=== PATIENT | female | born 1950 | race Caucasian/White ===

== ENCOUNTER → 2017-09-15 11:20 | Outpatient (REF) | payer MEDICARE, SELFPAY ==
[2017-09-15 14:35] LABS: Alanine Aminotransferase 35 U/L (12-78); Albumin Level 3.9 gm/dL (3.4-5.0); Albumin/Globulin Ratio 1.2 (1.1-1.8); Alkaline Phosphatase 109 U/L (46-116); Anion Gap 10.7 mEq/L (5-15); Aspartate Amino Transferase 16 U/L (15-37); Bilirubin,Total 0.4 mg/dL (0.2-1.0); Blood Urea Nitrogen 10 mg/dL (7-18); Carbon Dioxide 29 mmol/L (21.0-32.0); Chloride 104 mmol/L (98-107); Creatinine,Serum 0.83 mg/dL (0.55-1.02); Estimated Glomerular Filt Rate 69 ml/min (>60); Free T4 (Free Thyroxine) 1.06 ng/dl (0.76-1.46); GFR (African American) 83 ML/MIN (>60); Globulin 3.2 gm/dl (1.3-3.2); Glucose 103 mg/dL (74-106); Potassium 4.7 mmoL/L (3.5-5.1); Sodium 139 mmol/L (136-145); Total Protein,Serum 7.1 gm/dL (6.4-8.2)
[2017-09-15 14:36] LABS: Basophils % 0.5 % (0.1-2.0); Eosinophils # 0.1 K/mm3 (0.0-0.4); Eosinophils % 2.1 % (0.1-12.0); Hematocrit 40.7 % (37.0-47.0); Hemoglobin 13.6 g/dL (12.2-16.2); Lymphocytes # 0.8 K/mm3 (0.7-4.5); Lymphocytes % 20.4 K/mm3 (10-50); Mean Corpuscular HGB Conc 33.5 g/dL (31.8-35.4); Mean Corpuscular Hemoglobin 29.5 pg (27.0-31.2); Mean Corpuscular Volume 88.3 fl (81-99); Mean Platelet Volume 8.2 fl (7.4-10.4); Monocytes # 0.4 K/mm3 (0.1-1.0); Monocytes % 9.9 % (1.7-9.3); Neutrophils # 2.5 K/mm3 (1.8-7.8); Neutrophils % 67.1 % (37.0-80.0); Platelet Count 276 K/mm3 (142-424); Red Blood Count 4.61 M/mm3 (4.20-5.40); Red Cell Distribution Width 13.6 % (11.5-17.5); White Blood Count 3.8 K/mm3 (4.8-10.8)
[2017-09-15 16:03] LABS: Erythrocyte Sedimentation Rate 21 mm/hr (0-30)
[2017-09-18 11:53] LABS: Vitamin D 25 Hydroxy 13.4 ng/mL (30.0-100.0)
== END ==
LOC: LAB 11:20
PROVIDERS: Visit Provider Emergency Medicine
DX: M25.561 Pain in right knee (principal); R53.83 Other fatigue
CPT/HCPCS: 80053; 82652; 84439; 84443; 85025; 85651

== ENCOUNTER 2020-09-25 08:29 | Inpatient (IN) | payer MEDICARE, SELFPAY ==
[2020-09-25] VITALS (20 sets, daily range): BP systolic 149–205; BP diastolic 80–113; PULSE 67–87; RESP 15–22; TEMP 36.4–37.1; O2SAT 94–99; BMI 21.2; BMI 22.6
--- NOTE | 2020-09-25 08:30 | PC.NURSE ---
Patient to CT.
--- NOTE | 2020-09-25 08:31 | HMH.EDNEU ---
ED Disposition Clinical Impression: Dysphasia, RUE numbness Cerebrovascular accident Qualifiers: CVA mechanism: unspecified Qualified Code(s): I63.9 - Cerebral infarction, unspecified Disposition: Admitted as Observation Condition on Discharge: Good Referrals: Marcelo Voss MD [Primary Care Provider] - Time of Disposition: 11:07 - Critical Care Critical Care Time: No Attestation: On , the high probability of a clinically significant, sudden or life threatening deterioration of the following system(s) required my full and direct attention, intervention and personal management. The time I documented below is in addition to time spent performing reported procedures but includes the following listed in this critical care notation. Medical Decision Making - Herman Inquiry Pt receiving controlled substance: No Vital Signs: 09/25/20 08:29 09/25/20 08:59 09/25/20 10:22 Temperature 97.8 F Temperature Source Oral Pulse Rate [Left Radial] 80 77 80 Respiratory Rate 17 18 18 Blood Pressure [Right Arm] 205/100 H 185/105 H 194/86 H Blood Pressure Mean [Right Arm] 135 131 122 Blood Pressure Source [Right Arm] Automatic Cuff Blood Pressure Position [Right Arm] Sitting Sitting 02 Sat by Pulse Oximetry 94 L 98 99 Oxygen Delivery Method Room Air Room Air 09/25/20 10:30 Temperature Temperature Source Pulse Rate [Left Radial] 69 Respiratory Rate 18 Blood Pressure [Right Arm] 199/104 H Blood Pressure Mean [Right Arm] 135 Blood Pressure Source [Right Arm] Blood Pressure Position [Right Arm] Sitting 02 Sat by Pulse Oximetry 97 Oxygen Delivery Method Room Air - Lab Data Lab results reviewed: Yes: I reviewed the patient's lab results. Lab Results 09/25/20 08:30: WBC 5.2, RBC 4.93, Hgb 14.3, Hct 42.7, MCV 86.8, MCH 29.0, MCHC 33.4, RDW 13.8, Plt Count 297, MPV 7.6, Neut % (Auto) 72.2, Lymph % (Auto) 19.0, [place] % (Auto) 6.9, Eos % (Auto) 1.7, Baso % (Auto) 0.3, Neut # (Auto) 3.7, Lymph # (Auto) 1.0, [place] # (Auto) 0.4, Eos # (Auto) 0.1, Baso # (Auto) 0.0 09/25/20 08:30: Sodium 140, Potassium 3.0 L, Chloride 103, Carbon Dioxide 26, Anion Gap 14.0, BUN 8, Creatinine 0.80, Estimated Creat Clear 52, Estimated GFR 71, Est GFR ( Amer) 86, Glucose 151 H, Calcium 9.9, Total Bilirubin 0.6, AST 22, ALT 16, Alkaline Phosphatase 102, Total Protein 8.3 H, Albumin 4.9, Globulin 3.4 H, Albumin/Globulin Ratio 1.4 09/25/20 08:45: Urine Color Yellow, Urine Appearance Clear, Urine pH 5.5, Ur Specific [place] 1.015, Urine Protein 1+, Urine Glucose (UA) Negative, Urine Ketones Negative, Urine Blood Trace-i, Urine Nitrate Positive, Urine Bilirubin Negative, Urine Urobilinogen 0.2, Ur Leukocyte Esterase 2+ A, Urine RBC Occasional, Urine WBC Tntc, Ur Squamous Epith Cells 5-10, Ur Renal Epithelial Cell Occasional, Urine Bacteria 4+ Result diagrams: 09/25/20 08:30 09/25/20 08:30 Orders (Tests/Meds): ED MEDICATIONS Generic Name Dose Route Start Last Admin Trade Name Freq PRN Reason Stop Dose Admin Ceftriaxone Sodium 1 gm/ 50 mls @ 100 mls/hr 09/25/20 09:45 09/25/20 09:59 Sodium Chloride IV 10/09/20 09:44 100 mls/hr Q24H PACO Administration Protocol Discontinued Medications Generic Name Dose Route Start Last Admin Trade Name Freq PRN Reason Stop Dose Admin Iopamidol 100 ml 09/25/20 09:50 09/25/20 09:50 Iopamidol-370 (76%);100ml Bottle IV 09/25/20 09:51 100 ml ONCE ONE Administration Sodium Chloride 50 ml 09/25/20 09:50 09/25/20 09:50 0.9 % Sodium Chloride 50 Ml Vial IV 09/25/20 09:51 50 ml ONCE ONE Administration Sodium Chloride 10 ml 09/25/20 09:50 09/25/20 09:50 Sodium Chloride 0.9% 10ml Syr (Rad Only) IV 09/25/20 09:51 10 ml ONCE ONE Administration ORDERS Category Date Time Status Full Resp Panel w/COVID ([facility]) Routine Lab 09/25/20 10:40 Received Urine Culture Stat Micro 09/25/20 08:45 Received - ECG Data Tracing #1 85bpm, nsr w/ PAC, non-sp
--- NOTE | 2020-09-25 08:33 | CT_ITS ---
PROCEDURE: CT HEAD/BRAIN WO CON CLINICAL INDICATION: CVA Right upper extremity numbness with headache COMPARISON: No exams were available for comparison TECHNIQUE: Axial images obtained. All CT scans at the facility use one or more dose reduction, viz: automated exposure control, ma/kV adjustment per patient size (including targeted exams where dose is matched to indication, i.e. head), or iterative reconstruction technique. FINDINGS: No midline shift, mass effect, intracranial hemorrhage, hydrocephalus, or extra-axial fluid collection is evident. There is generalized atrophy with hypoattenuation of the periventricular white matter consistent with microangiopathic changes.. There is an area of decreased attenuation in the inferior aspect of the right frontal lobe and right basal ganglia inferiorly suggesting an old area of infarction. The calvarium has an unremarkable appearance. No mastoid effusion. No sinus air-fluid level. IMPRESSION: No definite acute finding. Low-density changes in the right frontal lobe and right basal ganglia suggesting a remote area of infarction. Periventricular ischemic gliotic changes are also noted. Dictated by: Ren Hopkins MD 09/25/2020 08:49 Ren Hopkins MD in [place] 09/25/2020 08:50
[2020-09-25 08:46] LABS: Basophils % 0.3 % (0.1-2.0); Eosinophils # 0.1 K/mm3 (0.0-0.4); Eosinophils % 1.7 % (0.1-12.0); Hematocrit 42.7 % (37.0-47.0); Hemoglobin 14.3 g/dL (12.2-16.2); Mean Corpuscular HGB Conc 33.4 g/dL (31.8-35.4); Mean Corpuscular Volume 86.8 fl (81-99); Mean Platelet Volume 7.6 fl (7.4-10.4); Monocytes # 0.4 K/mm3 (0.1-1.0); Monocytes % 6.9 % (1.7-9.3); Neutrophils # 3.7 K/mm3 (1.8-7.8); Neutrophils % 72.2 % (37.0-80.0); Platelet Count 297 K/mm3 (142-424); Red Blood Count 4.93 M/mm3 (4.20-5.40); Red Cell Distribution Width 13.8 % (11.5-17.5); White Blood Count 5.2 K/mm3 (4.8-10.8)
[2020-09-25 08:47] LABS: Chloride 103 mmol/L (98-107); Sodium 140 mmol/L (136-145)
--- NOTE | 2020-09-25 08:48 | ECG_ITS ---
APPROVED REPORT Exam: Resting ECG HR:85 bpm ECG Measurements Heart Rate 85 AXES NE 138 P 42 QRSd 84 QRS 30 QT 402 T 69 QTc 478 Conclusion Sinus rhythm with premature atrial complexes with aberrant conduction ST & T wave abnormality, consider lateral ischemia Prolonged QT Abnormal ECG Electronically signed by : Bradley Freeman, 09/26/2020 19:40:04
[2020-09-25 08:50] LABS: Alanine Aminotransferase 16 U/L (12-78); Albumin Level 4.9 g/dl (3.5-5.0); Albumin/Globulin Ratio 1.4 (1.1-1.8); Alkaline Phosphatase 102 U/L (38-126); Aspartate Amino Transferase 22 U/L (14-36); Bilirubin,Total 0.6 mg/dl (0.2-1.3); Blood Urea Nitrogen 8 mg/dl (7-17); Carbon Dioxide 26 mmol/L (22.0-30.0); Creatinine Clearance Estimated 52 mL/min (50-200); Estimated Glomerular Filt Rate 71 ml/min (>60); GFR (African American) 86 ML/MIN (>60); Globulin 3.4 g/dL (1.3-3.2); Total Protein,Serum 8.3 g/dl (6.3-8.2)
[2020-09-25 08:51] LABS: Calcium 9.9 mg/dl (8.4-10.2); Glucose 151 mg/dl (74-100)
[2020-09-25 08:51] LABS: Microscopic, Urine URINE MICROSCOPIC (MICROSCOPIC)
[2020-09-25 08:53] LABS: Appearance,Urine CLEAR (Clear); Bilirubin,Urine Negative (Negative); Blood, Urine TRACE-I (Negative); Color,Urine YELLOW (Yellow); Glucose,Urine (UA) Negative (Negative); Ketones,Urine Negative (Negative); Leukocyte Esterase,Urine 2+ (Negative); Nitrate,Urine POSITIVE (Negative); PH,Urine 5.5 (5.0-8.5); Protein,Urine 1+ (Negative); Specific Gravity, Urine 1.015 (1.005-1.030); Urobilinogen,Urine 0.2 EU/dl (0.2)
--- NOTE | 2020-09-25 09:02 | CT_ITS ---
Procedure: CT ANGIO NECK CLINICAL HISTORY: SLURRED SPEECH Slurred speech and right arm numbness COMPARISON: CT CT ANGIO HEAD from 09/25/2020 TECHNIQUE: IV Contrast: 100ml Isovue 370 Axial images obtained with sagittal and coronal reformats. All CT scans at the facility use one or more dose reduction, viz: automated exposure control, ma/kV adjustment per patient size (including targeted exams where dose is matched to indication, i.e. head), or iterative reconstruction technique. FINDINGS: CTA neck: The aortic arch has an unremarkable appearance. Calcific plaque is present in the proximal aspect of the right subclavian artery causing high-grade stenosis of approximately 80 percent. The right common carotid has an unremarkable appearance. Calcific plaque is present at the proximal aspect of the right internal carotid at of 30-40 percent stenosis. The remaining cervical portion of the right ICA is unremarkable. Calcific plaque is present in the left carotid bulb with less than 20 percent stenosis. The left vertebral is dominant and has an unremarkable appearance. There is a hypoplastic right vertebral artery. CTA head: There is persistent origin of both posterior cerebral arteries as a normal variant. No major branch occlusion apparent. No aneurysm or dissection. There is a 16 mm right thyroid nodule partially calcified margins. No enhancing lesions. IMPRESSION: 1. High-grade stenosis of the proximal aspect of the right subclavian artery of approximately 80 percent. 2. No significant stenosis of the carotids. There is 30-40 percent stenosis of the ostium of the right internal carotid and less than 20 percent stenosis of the left internal carotid 3. Negative CTA of the head Dictated by: Ren Hopkins MD 09/25/2020 10:27 Ren Hopkins MD in [place] 09/25/2020 10:27
[2020-09-25 09:11] LABS: RBC,Urine Occasional #/hpf (0-3); WBC,Urine TNTC #/hpf (0-3)
[2020-09-25 09:12] LABS: Bacteria,Urine 4+ /lpf; Renal Epithelial Cells,Urine Occasional #/lpf (0)
--- NOTE | 2020-09-25 09:24 | PC.NURSE ---
Patient back to ct at this time.
--- NOTE | 2020-09-25 10:35 | PC.NURSE ---
Dr Quevedo spoke with Dr Voss
--- NOTE | 2020-09-25 10:36 | PC.NURSE ---
MD at bedside discussing possible admission.
[2020-09-25 10:51] LABS: Adenovirus,PCR Not Detected (NotDetected); Bordetella Pertussis Not Detected (NotDetected); Chlamydophila Pneumoniae, PCR Not Detected (NotDetected); Coronavirus 19, PCR Not Detected (NotDetected); Coronavirus 229E Not Detected (NotDetected); Coronavirus NL63 Not Detected (NotDetected); Coronavirus OC43 Not Detected (NotDetected); Coronovirus HKU1,PCR Not Detected (NotDetected); Human Metapneumovirus Not Detected (NotDetected); Influenza A, PCR Not Detected (NotDetected); Influenza AH1, 2009 Not Detected (NotDetected); Influenza AH1, PCR Not Detected (NotDetected); Influenza AH3,PCR Not Detected (NotDetected); Influenza B, PCR Not Detected (NotDetected); Mycoplasma Pneumoniae, PCR Not Detected (NotDetected); Parainfluenza 1, PCR Not Detected (NotDetected); Parainfluenza 2, PCR Not Detected (NotDetected); Parainfluenza 3, PCR Not Detected (NotDetected); Parainfluenza 4, PCR Not Detected (NotDetected); Respiratory Syncytial Virus Not Detected (NotDetected); Rhinovirus/Enterovirus Not Detected (NotDetected)
--- NOTE | 2020-09-25 11:22 | CA_ITS ---
APPROVED REPORT EXAM: Comprehensive 2D, Doppler, and color-flow Echocardiogram Crane Crew Supervisor: Evelyn York RVT Ht: 5 ft 8 in Wt: 140lbs BSA: 1.76 BP: 178/97 mmHg Indications: CVA,HTN 2D Dimensions LVOT 1.72 cm (M/F) 1.5-2.5 LA Volume 30.90 mL LA Volume Index 17.65 mL/m2 (M/F) 16-34 M-Mode Dimensions RVDd 4.02 cm (0.9-2.6) LA Diam 3.34 cm (1.9-4.0) LVDd 4.59 cm (3.5-5.7) Ao Diam 2.99 cm (2.0-3.7) LVDs 2.05 cm (3.5-5.7) IVSd 1.18 cm (0.6-1.1) PWd 0.61 cm (0.6-1.1) EF (Teich) 86.00% FS 55.30% EDV (Teich) 96.80 mL ESV (Teich) 13.60 mL LV Diastology E Decel Time 287.00 (160-240 msec) E/A Ratio 0.7 MED E' 3.00 (< 7 cm/sec) E'/MED E' Ratio 18.40 (>14) LAT E' 9.40 (<10 cm/sec) E/LAT E' Ratio 5.87 (>14) Mitral Valve MV E Max [place]une[place]. 55.00 (40-130 cm/s) MV A Velocity 84.00 (40-130 cm/s) E/A Ratio 0.66 MV Decel. Time 287.00 (160-240 ms) MV PHT 84.00 ms Pulmonary Valve PV Peak Velocity 68.00 (50-150 cm/s) Tricuspid Valve TR P. Velocity 285.00 cm/s RAP Estimate 10.00 mmHg RVSP 42.60 mmHg Left Ventricle Mildly enlarged left atrium, normal left ventricular size, mild concentric left ventricular hypertrophy, visually estimated ejection fraction 55% with no regional wall motion abnormality, Doppler evidence of impaired LV relaxation, tissue Doppler is inadequate for calculation of the left atrial pressure. Right Ventricle Right atrium and right ventricle are mildly enlarged with normal contractility. Aortic Valve Aortic valve is minimally thickened and fibrosed, there is no aortic stenosis or aortic insufficiency. Mitral Valve Mitral valve is minimally thickened, there is mild mitral regurgitation. Tricuspid Valve Tricuspid grossly normal, there is mild tricuspid regurgitation, calculated right ventricular systolic pressure is 48 mmHg. Pulmonic Valve Pulmonic valve is poorly visualized. Great Vessels Aortic root is normal size. Pericardium No significant pericardial effusion noted. Conclusion 1. Mildly enlarged left atrium, normal left ventricular size, mild concentric left ventricular hypertrophy, visually estimated ejection fraction 55% with no regional wall motion abnormality, Doppler evidence of impaired relaxation seen 2. Mildly enlarged right ventricle with normal contractility. 3. Mild mitral and tricuspid regurgitation, calculated right ventricular systolic pressure is 48 mmHg. 4. No significant pericardial effusion noted. Electronically signed by : Mariano Correa, 09/25/2020 21:49:41
--- NOTE | 2020-09-25 11:22 | MR_ITS ---
PROCEDURE: MR HEAD/BRAIN WO CON CLINICAL INDICATION: cva Weakness in the right hand, unable to perform words COMPARISON: CT CT HEAD/BRAIN WO CON from 09/25/2020 TECHNIQUE: Routine multiplanar multi echo sequences are performed without gadolinium enhancement. FINDINGS: No midline shift or mass effect is evident. There are small areas discontinuous small gyriform areas of restricted diffusion in the left parietal lobe consistent with acute infarction. No evidence of hemorrhage. Scattered periventricular and subcortical T2 white matter hyperintensities are present consistent with ischemic gliotic change from microvascular disease. Encephalomalacia changes present in the inferior and posterior aspect of the right frontal lobe extending into the basal ganglia region consistent with and old remote area of infarction. The cerebellopontine angles, cerebellum, and brainstem are unremarkable. The pituitary, optic chiasm, corpus callosum, and craniocervical junction are unremarkable. No mastoid effusion or sinus air-fluid level. IMPRESSION: 1. Small discontinuous gyriform areas of restricted diffusion in the left parietal lobe consistent with acute foci of infarction. Watershed type infarction is a consideration. 2. Encephalomalacia change in the right frontal lobe and basal ganglia. Dictated by: Ren Hopkins MD 09/25/2020 13:32 Ren Hopkins MD in [place] 09/25/2020 13:32
--- NOTE | 2020-09-25 11:52 | PC.NURSE ---
Marlyn Diaz with Cardiology with PT.
--- NOTE | 2020-09-25 11:55 | PC.NURSE ---
Cardiology at bedside at this time.
--- NOTE | 2020-09-25 11:59 | CA_ITS ---
APPROVED REPORT Tube Cutter: Evelyn York RVT Study Quality: Good Indications: elevated bp Risk Factors Hypertension Renal Artery Doppler Origin (R) 239.9/ cm/sec Proximal (R) 190.5/ cm/sec Mid (R) 91.7/ cm/sec Distal (R) 100.5/ cm/sec Renal Aorta Ratio (R) 1.92 Segmental A. (R) 60.6/26.1 cm/sec RI: 0.56 Segmental A. Sup (R) 60.6/26.1 cm/sec Segmental A. Mid (R) 53.4/20.2 cm/sec Segmental A. Inf (R) 47.5/16.6 cm/sec Origin (L) 141.1/ cm/sec Proximal (L) 151.7/ cm/sec Mid (L) 179.9/ cm/sec Distal (L) 112.9/ cm/sec Renal Aorta Ratio (L) 1.44 Segmental A. (L) 62.7/13.4 cm/sec RI: 0.78 Segmental A. Sup (L) 44.8/21.3 cm/sec Segmental A. Mid (L) 62.7/13.4 cm/sec Segmental A. Inf (L) 34.7/15.7 cm/sec Renal Measurements Kidney Size (R) 11.6x6.1 cm Cortical Thickness (R) 1.4 cm Kidney Size (L) 11.8x6.1 cm Cortical Thickness (L) 1.2 cm Findings Study suggests less than 60% stenosis of the bilateral renal arteries. 1.9 X 1.6 cm cyst lower pole right kidney. 1.2 X1.4 cm cyst mid pole left kidney. Conclusion Study suggests less than 60% stenosis of the bilateral renal arteries. 1.9 X 1.6 cm cyst lower pole right kidney. 1.2 X1.4 cm cyst mid pole left kidney. Electronically signed by : Ren Hopkins MD 09/25/2020 15:20:11
--- NOTE | 2020-09-25 12:06 | HMH.CNCARD ---
History of Present Illness Consult date: 09/25/20 Requesting physician: Marcelo Voss Chief complaint: numbness face/arm and slurred speech History of present illness: This is a 70 year old female who presented to the emergency department with complaints of slurred speech and numbness in the right side of her face and right arm that started on Friday. The patient does have a weaker dairy nutrition specialist on the right side than the left. She also has some minor facial paralysis on the right side. She states that the slurred speech persisted throughout the day Friday and yesterday. Her son went to see her this morning and she was completely aphasic approximately an hour before he brought her into the emergency department here. The patient has also had a headache that has been on and off for the last several months. The stroke team at [facility] was contacted and they discussed the case with Dr. Pathak. He stated that no further acute intervention would be undertaken for this patient but if any new symptoms arose and he would be happy to facilitate a transfer at that time. The patient was admitted here to [facility] for her CVA symptoms. Upon arrival to the hospital her blood pressure was 200/105. Her systolic blood pressure is down to 187 on the right arm and her systolic blood pressure on the left is still around 195. She denies any chest pain or pressure. She denies any shortness of breath or edema. She denies any fever, chills, nausea, vomiting, diarrhea, PND or orthopnea. The patient states that she takes no daily medications. She does not like doctors or coming to the hospital. The CT of her head showed no acute abnormality. She also had a CTA of her head and neck which showed no acute abnormality of the head. There was high-grade stenosis of the proximal right subclavian artery at 80%. Cardiology was consulted. [facility] History I have reviewed the patient's past medical history: Yes *Have you ever received a pneumonia vaccine?: No *Have you received a flu vaccine this season?: No Other Medical History: Reports: Arthritis, Other (IBS) Laterality Cases: Right: Arthroscopy Knee Other Surgeries: Yes: Hysterectomy-Total Amputation: No Fractures: Yes - *Social History Smoking Status: Unknown if ever smoked Alcohol Intake: never Substance Use Type: denies use *Occupational Status:: disabled *Travel in the last 8 weeks: None Family Hx:: Heart Attack, Hyperlipidemia, Hypertension Meds Home Medications Medication Instructions Recorded Confirmed Type No Known Home Medications 09/25/20 09/25/20 History Allergies Allergy/AdvReac Type Severity Reaction Status Date / Time codeine [CODEINE] Allergy Unknown Verified 10/03/17 10:50 ibuprofen [IBUPROFEN] Allergy Unknown Verified 10/03/17 10:50 Exam Vital signs and Labs for Last 24 Hours: Temp Pulse Resp BP Pulse Ox 97.8 F 83 18 187/113 H 99 09/25/20 08:29 09/25/20 11:45 09/25/20 11:45 09/25/20 11:30 09/25/20 11:45 Laboratory Results - last 24 hr 09/25/20 08:30: WBC 5.2, RBC 4.93, Hgb 14.3, Hct 42.7, MCV 86.8, MCH 29.0, MCHC 33.4, RDW 13.8, Plt Count 297, MPV 7.6, Neut % (Auto) 72.2, Lymph % (Auto) 19.0, [place] % (Auto) 6.9, Eos % (Auto) 1.7, Baso % (Auto) 0.3, Neut # (Auto) 3.7, Lymph # (Auto) 1.0, [place] # (Auto) 0.4, Eos # (Auto) 0.1, Baso # (Auto) 0.0 09/25/20 08:30: Sodium 140, Potassium 3.0 L, Chloride 103, Carbon Dioxide 26, Anion Gap 14.0, BUN 8, Creatinine 0.80, Estimated Creat Clear 52, Estimated GFR 71, Est GFR ( Amer) 86, Glucose 151 H, Calcium 9.9, Total Bilirubin 0.6, AST 22, ALT 16, Alkaline Phosphatase 102, Total Protein 8.3 H, Albumin 4.9, Globulin 3.4 H, Albumin/Globulin Ratio 1.4 09/25/20 08:45: Urine Color Yellow, Urine Appearance Clear, Urine pH 5.5, Ur Specific [place] 1.015, Urine Protein 1+, Urine Glucose (UA) Negative, Urine Ketones Negative, Urine Blood Trace-i, Urine Nitrate Positive, Urine Bilirubin Negative, Urine Urobilinoge
--- NOTE | 2020-09-25 12:09 | PC.NURSE ---
Dr Quevedo spoke with Dr Pathak [facility] Stroke Team
--- NOTE | 2020-09-25 12:12 | PC.NURSE ---
Pt to MRI
[2020-09-25 12:27] LABS: Erythrocyte Sedimentation Rate 23 mm/hr (0-30)
--- NOTE | 2020-09-25 12:29 | PC.NURSE ---
Patient to be admitted to inpatient bed s/p MRI completion.
[2020-09-25 12:59] LABS: Thyroid Stimulating Hormone 2.98 uIU/mL (0.465-4.68)
--- NOTE | 2020-09-25 13:12 | PC.NURSE ---
PT ARRIVED TO THE FLOOR
--- NOTE | 2020-09-25 14:00 | PC.NURSE ---
Pt failed bedside swallow eval, speech eval order placed
--- NOTE | 2020-09-25 16:13 | P.CONPHA_ITS ---
[facility] Pharmacy VTE Monitoring - Patient Demographics Admission date: 09/25/20 Report Date: 09/25/20 Time: 16:13 Allergies/Adverse Reactions: Patient Allergies codeine [CODEINE] Allergy (Unknown, Verified 10/03/17 10:50) ibuprofen [IBUPROFEN] Allergy (Unknown, Verified 10/03/17 10:50) Height: 1.73 m Weight: 67.585 kg Patient Problems: Current Active Problems (Last Updated 09/22/17 @ 10:14 by FANTA Mathew) Cerebrovascular accident (Acute) Dysphasia (Acute) RUE numbness (Acute) Subclavian artery stenosis (Acute) Bilateral carotid artery stenosis (Acute) Malignant hypertension (Acute) CVA (cerebral vascular accident) (Acute) Aphasia (Acute) Right sided numbness (Acute) - VTE Risk Labs: VTE Related Lab Results Hgb 14.3 g/dL (12.2-16.2) 09/25/20 08:30 Hct 42.7 % (37.0-47.0) 09/25/20 08:30 Plt Count 297 K/mm3 (142-424) 09/25/20 08:30 BUN 8 mg/dl (7-17) 09/25/20 08:30 Creatinine 0.80 mg/dl (0.52-1.04) 09/25/20 08:30 Estimated Creat Clear 52 mL/min (50-200) 09/25/20 08:30 Was VTE Risk Assessment Performed: Yes VTE Score: 3 VTE Risk Level: Low Risk - Prophylaxis VTE Prophylaxis Ordered?: Yes Types of VTE Prophylaxis: IPCS Thigh High Location of Applied Device: Bilateral Lower Extremeties
--- NOTE | 2020-09-25 16:16 | HMH.PHAINT ---
PATIENT DOES NOT TAKE ANY HOME MEDICATIONS.
--- NOTE | 2020-09-25 20:10 | HMH.HP ---
*Admission Date: 09/25/20 *Chief complaint: cva *History of present illness: pt presented to the ed with reported diff with speech-1yo F evaluated for strokelike symptoms. No history of previous. Patient has not seen her PCP in a long time and takes no daily medication. Patient reports her symptoms began on Friday afternoon. She states she had difficulty with speech and slurred speech throughout the day yesterday. Her son reports when he saw her this morning she was completely aphasic, approximately 1 hour ago. Patient reports she has had a waxing and waning headache for the past several months. She does not take any medication daily. Patient also complains of weakness to her right hand. pt had ed eval which included ct and cta head/neck-yo F evaluated with concern for stroke. Patient is well outside the window for any intervention at this time. Patient does have right-sided director client weakness compared to the left. She has minor facial paralysis of the upper and lower face on evaluation. Patient is sent for CT of the brain without. Labs are pending. Patient is in no acute distress on initial evaluation. CT without contrast does not demonstrate acute bleed. Patient's creatinine is reasonable and she is therefore sent for a CTA head and neck. Patient initially presented with a systolic pressure greater than 200. Her systolic is now 185 without intervention. Patient labs are unremarkable. CT angio of the neck and head demonstrate an 80% stenosis of the proximal right subclavian without other acute finding. Case discussed with Dr. Voss who request the case be discussed with the stroke team for possible intervention given the patient had symptoms and resolution of symptoms immediately prior to arrival. Case was discussed with Dr. Pathak the [facility]. He states there is no further acute intervention that they would undertake for the patient at this time. He does state that they would be happy to accept the patient in transfer should she develop any new acute findings. Case was again discussed with Dr. Voss who is amendable to admission at this time. Patient is a full code. pt was admitted for treatment and eval [facility] History I have reviewed the patient's past medical history: Yes Medical History: Denies:: Diabetes Mellitus Type 1, Diabetes Mellitus Type 2 *Have you ever received a pneumonia vaccine?: Yes *Have you received a flu vaccine this season?: No Other Medical History: Reports: Arthritis, Other (IBS) Laterality Cases: Right: Arthroscopy Knee Other Surgeries: Yes: Hysterectomy-Total Amputation: No Fractures: Yes - *Social History Last grade of school completed: 7th or 8th Smoking Status: Unknown if ever smoked Alcohol Intake: never Substance Use Type: denies use *Occupational Status:: disabled Housing: house Household Members: none *Travel in the last 8 weeks: None Family Hx:: Heart Attack, Hyperlipidemia, Hypertension Review of Systems - Review of Systems Review of systems:: pertinent systems reviewed and negative unless documented below - Constitutional Denies fever(s) - Eyes Denies change in vision - ENT Denies sore throat - *Cardiovascular Denies chest pain at rest - *Respiratory Denies cough - *Gastrointestinal Denies abdominal pain - *Genitourinary Denies pelvic pain - *Musculoskeletal Denies joint pain - Integumentary/Breasts Denies rash - *Neurologic Reports abnormal speech, Reports headache(s), Reports numbness (Right side of face and right arm), Reports weakness (Right arm), Denies seizure-like activity - Psychiatric Denies sensing things others do not sense Meds Home Medications Medication Instructions Recorded Confirmed Type No Known Home Medications 09/25/20 09/25/20 History Allergies Allergy/AdvReac Type Severity Reaction Status Date / Time codeine [CODEINE] Allergy Unknown Verified 10/03/17 10:50 ibuprofen [IBUPROFEN] Allergy Unknown Verified
[2020-09-26] VITALS (28 sets, daily range): BP systolic 112–175; BP diastolic 64–99; PULSE 50–75; RESP 16–19; TEMP 36.6–37; O2SAT 94–99; BMI 22.9
--- NOTE | 2020-09-26 | IR_ITS ---
APPROVED REPORT Patient Location: Inpatient Caisson Worker: GERA Guallpa RT (R) PROCEDURES Right femoral arterial access Catheter placement in the right axillary artery Right axillary artery selective angiogram Right vertebral artery selective angiogram Catheter placement in the brachiocephalic artery Selective brachiocephalic artery angiogram INDICATION TIA, Abnormal CTA indicating 80% right subclavian artery stenosis Informed consent was obtained prior to the procedure. COMPLICATIONS None Estimated Blood Loss: less than 10 ml TECHNIQUE 1% lidocaine used anesthetize right groin the right femoral artery was accessed via the Salinger technique and a 4 Occitan sheath was placed in the right femoral artery. A JR4 catheter was placed in the right axillary artery under fluoroscopic guidance and the catheter easily passed. Selective angiography was performed. Following this the catheter was pulled back and placed in the right vertebral artery where selective angiography was performed. The catheter was then pulled back into the brachiocephalic artery where selective angiography was performed which demonstrated a mild right subclavian artery stenosis. The catheter was then placed back into the axillary artery and a recorded tracing was performed with a 4 Occitan pullback through the right subclavian artery stenosis. At worst this may have produced a 10 mm gradient however it was likely less than 10 mm. At this point based on the carotid artery ultrasound I saw no further reason to proceed with four-vessel selective angiography of the cerebral vasculature therefore the apparatus was removed the catheter was removed the patient was transferred to the postop holding area in stable condition for sheath removal ANGIOGRAPHIC RESULTS The brachiocephalic artery is widely patent The right common carotid artery is widely patent The right subclavian artery has a concentric mild 20% stenosis The right axillary artery is widely patent The right vertebral artery is nondominant and patent into the basilar artery IMPRESSION Nonvascular etiology for TIA Patient's TIA most likely stem from hypertensive emergency PLAN 1. Medical management for peripheral artery disease with standard therapy for atherosclerotic disease 2. Consider cardiac ischemic work-up as an outpatient if patient is willing 3. LDL less than 55 4. Treatment of hypertension Electronically signed by : Quinton Payton, 09/26/2020 11:57:18
--- NOTE | 2020-09-26 06:04 | PC.NURSE ---
A&ox4. Severe weakness to rue and moderate weakness to rle. Able to follow commands. C/o h/a at beginning of shift; tx with tylenol per sep; effectiveness noted. No episodes of n/v/d, dizziness or soa.
[2020-09-26 08:01] LABS: Basophils % 0.4 % (0.1-2.0); Eosinophils # 0.1 K/mm3 (0.0-0.4); Eosinophils % 2.6 % (0.1-12.0); Hematocrit 37.3 % (37.0-47.0); Lymphocytes # 0.9 K/mm3 (0.7-4.5); Lymphocytes % 18.2 % (10-50); Mean Corpuscular HGB Conc 34.4 g/dL (31.8-35.4); Mean Corpuscular Volume 84.4 fl (81-99); Mean Platelet Volume 7.5 fl (7.4-10.4); Monocytes # 0.5 K/mm3 (0.1-1.0); Neutrophils # 3.2 K/mm3 (1.8-7.8); Neutrophils % 68.8 % (37.0-80.0); Platelet Count 271 K/mm3 (142-424); Red Blood Count 4.42 M/mm3 (4.20-5.40); Red Cell Distribution Width 14.2 % (11.5-17.5); White Blood Count 4.7 K/mm3 (4.8-10.8)
[2020-09-26 08:05] LABS: Anion Gap 11.3 mEq/L (5-15); Blood Urea Nitrogen 12 mg/dl (7-17); Calcium 9.6 mg/dl (8.4-10.2); Carbon Dioxide 25 mmol/L (22.0-30.0); Chloride 104 mmol/L (98-107); Chol/HDL Ratio 4.8 (1-3.5); Cholesterol 216 mg/dl (140-200); Creatinine Clearance Estimated 57 mL/min (50-200); Estimated Glomerular Filt Rate 71 ml/min (>60); GFR (African American) 86 ML/MIN (>60); Glucose 116 mg/dl (74-100); HDL Cholesterol 45 mg/dl (40-60); Potassium 3.3 mmoL/L (3.5-5.1); Sodium 137 mmol/L (136-145); Triglycerides 152 mg/dl (30-150); VLDL Cholesterol 30 mg/dL (0-40)
[2020-09-26 08:06] LABS: Hemoglobin 12.8 g/dL (12.2-16.2)
[2020-09-26 08:15] LABS: Direct LDL Cholesterol 103.81 mg/dL (100-129)
--- NOTE | 2020-09-26 09:16 | HMH.ACPN2 ---
Internal Medicine - PN: Subj *Date: 09/26/20 *Time: 19:12 Interval history: 70-year-old female patient lying in bed resting quietly, she reports she is feeling better today. She is still slurring her words with right-sided facial droop and right upper extremity weakness. Blood pressure now is 129/79, pulse 64 bpm, and oxygen saturation 97% on room air. She will be going for a subclavian angiogram today. Exam Vital signs and Labs for Last 24 Hours: Temp Pulse Resp BP Pulse Ox 97.9 F 64 18 120/79 97 09/26/20 08:00 09/26/20 08:00 09/26/20 08:00 09/26/20 08:00 09/26/20 08:00 Laboratory Results - last 24 hr 09/25/20 08:30: ESR 23 09/25/20 08:30: TSH 2.98, Thyroxine (T4) 11.0 09/25/20 10:40: Chlamy pneumoniae PCR Not detected, Adenovirus (PCR) Not detected, B. pertussis DNA (PCR) Not detected, Coronavirus OC43 (PCR) Not detected, Coronavirus HKU1 (PCR) Not detected, Coronavirus 229E (PCR) Not detected, SARS-CoV-2 (PCR) Not detected, Coronavirus NL63 (PCR) Not detected, Human Metapneumovir PCR Not detected, Influenza A (H1) PCR Not detected, Influ A (H1N1/09) PCR Not detected, Influenza A (H3) PCR Not detected, Influenza Type A (PCR) Not detected, Influenza Type B (PCR) Not detected, M. pneumoniae (PCR) Not detected, Parainfluenza 1 (PCR) Not detected, Parainfluenza 2 (PCR) Not detected, Parainfluenza 3 (PCR) Not detected, Parainfluenza 4 (PCR) Not detected, RSV (PCR) Not detected, Entero/Rhino (PCR) Not detected 09/26/20 07:20: WBC 4.7 L, RBC 4.42, Hgb 12.8 D, Hct 37.3, MCV 84.4, MCH 29.0, MCHC 34.4, RDW 14.2, Plt Count 271, MPV 7.5, Neut % (Auto) 68.8, Lymph % (Auto) 18.2, [place] % (Auto) 10.0 H, Eos % (Auto) 2.6, Baso % (Auto) 0.4, Neut # (Auto) 3.2, Lymph # (Auto) 0.9, [place] # (Auto) 0.5, Eos # (Auto) 0.1, Baso # (Auto) 0.0 09/26/20 07:20: Sodium 137, Potassium 3.3 L, Chloride 104, Carbon Dioxide 25, Anion Gap 11.3, BUN 12 D, Creatinine 0.80, Estimated Creat Clear 57, Estimated GFR 71, Est GFR ( Amer) 86, Glucose 116 H D, Calcium 9.6, Triglycerides 152 H, Cholesterol 216 H, LDL Cholesterol Direct 103.81, VLDL Cholesterol 30, HDL Cholesterol 45, Cholesterol/HDL Ratio 4.8 H I & O for Last 24 hours: Intake & Output 09/23/20 09/24/20 09/25/20 09/26/20 22:59 23:59 23:59 23:59 Intake Total 530 / 530 240 / 240 Balance 530 / 530 240 / 240 Weight 149 lb 151 lb 8 oz Microbiology Reports for the Last 24 Hours: Microbiology 09/25/20 08:45 Urine,Clean Catch Urine Culture - Preliminary NO GROWTH AFTER 24 HOURS - Constitutional no acute distress - *Routine HEENT Exam Head: Present: normocephalic, other Eye: Present: EOMI ENT: Present: mucous membranes moist Comments: Right-sided facial droop - *Routine Neck Exam Present: trachea midline. Absent: tracheal deviation - *Routine Respiratory Exam Present: CTA bilaterally. Absent: accessory muscle use - *Routine Cardiovascular Exam Present: RRR, murmur - *Routine Abdominal Exam Present: soft, normoactive bowel sounds. Absent: tenderness, guarding - *Routine Extremities Exam Present: pulses intact. Absent: cyanosis, clubbing Comments: Right upper extremity weakness - *Routine Skin Exam Present: intact, dry, warm. Absent: cyanosis, erythema - *Routine Neurological Exam Present: alert, motor deficit. Absent: normal speech Slurred speech Right upper extremity weakness - Routine Psychiatric Exam Present: normal affect. Absent: auditory hallucinations, visual hallucinations Assessment and Plan (1) Subclavian artery stenosis Status: Acute Category: Medical Code(s): I77.1 - Stricture of artery (2) Bilateral carotid artery stenosis Status: Acute Category: Medical Code(s): I65.23 - Occlusion and stenosis of bilateral carotid arteries (3) Malignant hypertension Status: Acute Category: Medical Code(s): I10 - Essential (primary) hypertension (4) CVA (cerebral vascular acci
--- NOTE | 2020-09-26 10:40 | HMH.OTEV ---
OT Inpatient Evaluation Rehab OT IP Evaluation Start: 09/25/20 15:12 Freq: ONCE Status: Complete Protocol: Document 09/26/20 10:29 [facility] (Rec: 09/26/20 10:39 [facility] [id number]) Rehab OT IP Assessment Subjective History Pt oriented x 2 on arrival. Pt agreeable to engage in therapy evaluation. Pt was admitted via ED on 09/25/20 due to dysphasia and RUE numbness . Pt's symptoms began on 09/24, but she did not seek help until the following day. Pt has past medical history of DM type 2. Pt claims prior to CVA she lived at home alone and was completely independent with all ADLS and IADLS. 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 She did not require AE prior. Subjective I still worked. Objective Patient Orientation Person,Birthday Upper Extremity Gross ROM Sev Limitation >75% Shoulder ROM Limitations Muscle Weakness Elbow ROM Limitations Muscle Weakness Wrist Limitations of Range of Motion Muscle Weakness Bed Mobility bed mobility-scooting,bed mobility - supine/sit,bed mobility - rolling Assist Level Minimal x 1 (25% assist) Transfer Training Sit/Stand Transfer Assist Level Minimal x 1 (25% assist) Rehab OT IP prob,goals,plan Problems Date of Evaluation: 09/26/20 OT IP Problems Bed Mobility,Transfers,Gait, Balance,Self care,Safety Rehab Potential Rehab Potential Good Equipment Needs Assistive Devices Rolling / Wheeled Walker Plan OT intervention Plan Bed Mobility,Transfers,Gait, Balance,Self care,Safety, Therapeutic Exercise OT Plan Frequency Daily Duration LOS Discharge Goals Bed Mobility Ability Standby Assistance Sit to Stand Chair Transfer Ability Minimal x 1 (25% assist) Chair Transfer Ability Minimal x 1 (25% assist) Chair Transfer Technique Sit to/from Ambulatory Chair Transfer Assistive Devices Rolling Walker Feeding Ability Assist with Tray Set Up Lower Body Dressing Ability Assistance X1 Upper Body Dressing Ability Standby Assistance Bathing Ability Assistance x1 Performing Toilet Hygiene Ability Assistanc
--- NOTE | 2020-09-26 10:47 | PC.NURSE ---
Addendum entered by Alaina Lutz RN 09/26/20 17:28: Returned from seed laboratory technician at 1245 via Edagr Cobb RN Original Note: OFF FLOOR TO BOTTOM LOADER
--- NOTE | 2020-09-26 11:36 | HMH.PTEV ---
Physical Therapy Evaluation Rehab PT IP Evaluation Start: 09/25/20 15:11 Freq: ONCE Status: Active Protocol: Document 09/26/20 11:28 [facility] (Rec: 09/26/20 11:36 [facility] [id number]) Subjective/History History History t presented to the ed with reported diff with speech. Patient reports her symptoms began on Friday afternoon. She states she had difficulty with speech and slurred speech throughout the day yesterday. Her son reports when he saw her this morning she was completely aphasic, approximately 1 hour ago. Patient reports she has had a waxing and waning headache for the past several months. She does not take any medication daily. Patient also complains of weakness to her right hand . Subjective Subjective Pt has difficulty finding words but is aloert and oriented x 3 Rehab PT IP Eval Objective Appearance Patient Behavior Cooperative Patient Orientation Person,Place,Time Difficulty following instructions none Speech Pattern Slurred,Difficulty Finding Words Ambulation Patient Able to Ambulate Yes Ambulation Observation IP General Gait Pattern Observation Ataxic Gait,Shuffling Step Ambulation Distance (feet) 30 Ambulation Assistive Device None Ambulation Ability Minimal x 1 (25% assist) Balance Ability to Arise Able, uses arms to help Sitting Balance Steady, safe Standing Balance Unsteady Dynamic Sitting Balance Ability Fair Dynamic Standing Balance Ability Poor Transfers Bed Transfer Ability Supervision/Stand by Chair Transfer Ability Supervision/Stand by Sit to Stand Bed Transfer Ability Minimal x 1 (25% assist) Sit to Stand Chair Transfer Ability Minimal x 1 (25% assist) ROM RUE PT ROM Status ABN Abnormal ROM Comment flaccid no AROM MMT RUE PT MMT ABN Abnormal MMT Grade 1/5 in whole RUE Rehab PT IP prob,goals,plan Problems Date of Evaluation: 09/26/20 PT IP Problems Transfers,Gait,Balance,Self care,Safety Rehab Potential Rehab Potential Fair Equipment Needs
--- NOTE | 2020-09-26 12:29 | HMH.PNCARD ---
Subjective Date: 09/26/20 Time: 11:40 Principal diagnosis: subclavian stenosis Interval history: This is a 70-year-old female who presented to the emergency department with complaints of slurred speech and numbness in the right side of her face and right arm. The symptoms started on Friday. On Friday when her son got to her she was completely aphasic and he brought her into the emergency department. Her blood pressure was elevated at 200/105 on admission. She did have a CTA of her head and neck which showed high-grade stenosis of the proximal right subclavian artery at 80%. The patient has been set up for subclavian and vertebral angiogram today to further evaluate this right subclavian artery stenosis. She denies any chest pain or pressure. She denies any shortness of breath or edema. She denies any fever, chills, nausea, vomiting, diarrhea, PND or orthopnea. The patient states that her headache has gone away. She states that her speech is improving. She states that she is feeling much better today. Her blood pressure is down today to 149 systolic. Exam Vital signs and Labs for Last 24 Hours: Temp Pulse Resp BP Pulse Ox 97.9 F 73 18 149/94 H 94 L 09/26/20 08:00 09/26/20 12:15 09/26/20 12:15 09/26/20 12:15 09/26/20 12:15 Laboratory Results - last 24 hr 09/25/20 08:30: TSH 2.98, Thyroxine (T4) 11.0 09/25/20 08:45: Urine Color Yellow, Urine Appearance Clear, Urine pH 5.5, Ur Specific [place] 1.015, Urine Protein 1+, Urine Glucose (UA) Negative, Urine Ketones Negative, Urine Blood Trace-i, Urine Nitrate Positive, Urine Bilirubin Negative, Urine Urobilinogen 0.2, Ur Leukocyte Esterase 2+ A, Urine RBC Occasional, Urine WBC Tntc, Ur Squamous Epith Cells 5-10, Ur Renal Epithelial Cell Occasional, Urine Bacteria 4+ 09/26/20 07:20: WBC 4.7 L, RBC 4.42, Hgb 12.8 D, Hct 37.3, MCV 84.4, MCH 29.0, MCHC 34.4, RDW 14.2, Plt Count 271, MPV 7.5, Neut % (Auto) 68.8, Lymph % (Auto) 18.2, [place] % (Auto) 10.0 H, Eos % (Auto) 2.6, Baso % (Auto) 0.4, Neut # (Auto) 3.2, Lymph # (Auto) 0.9, [place] # (Auto) 0.5, Eos # (Auto) 0.1, Baso # (Auto) 0.0 09/26/20 07:20: Sodium 137, Potassium 3.3 L, Chloride 104, Carbon Dioxide 25, Anion Gap 11.3, BUN 12 D, Creatinine 0.80, Estimated Creat Clear 57, Estimated GFR 71, Est GFR ( Amer) 86, Glucose 116 H D, Calcium 9.6, Triglycerides 152 H, Cholesterol 216 H, LDL Cholesterol Direct 103.81, VLDL Cholesterol 30, HDL Cholesterol 45, Cholesterol/HDL Ratio 4.8 H I & O for Last 24 hours: Intake & Output 09/23/20 09/24/20 09/25/20 09/26/20 22:59 23:59 23:59 23:59 Intake Total 530 / 530 240 / 240 Balance 530 / 530 240 / 240 Weight 149 lb 151 lb 8 oz Microbiology Reports for the Last 24 Hours: Microbiology 09/25/20 08:45 Urine,Clean Catch Urine Culture - Preliminary Gram Negative Rods Narrative: renal duplex shows: Study suggests less than 60% stenosis of the bilateral renal arteries. 1.9 X 1.6 cm cyst lower pole right kidney. 1.2 X1.4 cm cyst mid pole left kidney. echo shows: 1. Mildly enlarged left atrium, normal left ventricular size, mild concentric left ventricular hypertrophy, visually estimated ejection fraction 55% with no regional wall motion abnormality, Doppler evidence of impaired relaxation seen 2. Mildly enlarged right ventricle with normal contractility. 3. Mild mitral and tricuspid regurgitation, calculated right ventricular systolic pressure is 48 mmHg. 4. No significant pericardial effusion noted. MRI brain shows: 1. Small discontinuous gyriform areas of restricted diffusion in the left parietal lobe consistent with acute foci of infarction. Watershed type infarction is a consideration. 2. Encephalomalacia change in the right frontal lobe and basal ganglia. - Constitutional no acute distress, average body habitus - *Routine HEENT Exam Head: Present: normocephalic, atraumatic Eye: Present: EOMI, PERRL ENT: Present: vickieou
--- NOTE | 2020-09-26 13:19 | SW/DCPLANNER ---
Addendum entered by [facility] 09/27/20 11:04: Annalisa with [facility] has confirmed that patient information has been reviewed and services will begin tomorrow for this patient. Addendum entered by [facility] 09/27/20 10:21: Sirisha with [facility] has stated that rolling walker and BSC will be delivered to patients sister home today. Addendum entered by [facility] 09/27/20 09:22: Patient continues to state that she is returning home at time of discharge. Patient is not interested in placement at [facility] or any SNF facilities. I spoke with patients sister and she stated that patient is not interested in placement and patient will be returning home with her ([address] in [place]). Patients sister stated that she will need a bedside commode and a rolling walker at home. Patient is also agreeable to home health service and does not have a preference as to which agency she uses. Patient information will be faxed to [facility]. Patient will discharge home later today. Addendum entered by [facility] 09/26/20 14:19: Patient is adamant to return home at time of discharge. I discussed the options/need for placement at time of discharge. Patient stated that she is going home at time of discharge. Patient stated that she would have someone at home with her 03/02. Patient was hesitant regarding home health services at time of discharge as well. I have relayed information to Dr Voss/Rory. I will continue to follow up with patient and MD. Original Note: Patient information has been faxed to [facility] for short term rehab due to CVA. I will continue to follow up with this patient and Tati from [facility]. Discharge date is unknown at this time.
--- NOTE | 2020-09-26 16:17 | PC.NURSE ---
Pt is alert and oriented x 3. Lungs are clear, she remains on RA with O2 sats in the upper 90's. Speech is soft and difficult to understand. Right leg is weak and right arm is severely weak. She has been tearful at times concerning this hospital stay. Dressing to right femoral site is clean, dry and intact. No signs of a hematoma and no drainage noted. She has slept the majority of time since returning from construction laborer. She's been NSR on telemetry. She complained of back pain rated a 10/10 upon returning from construction laborer. She attributed it to having to lay flat. She stated I can't do it, i'd rather ! earthmoving labourer notified and new orders placed. 1 hydrocodone tab administered. Upon reassessment pt was resting with her eyes closed. Will continue to monitor.
[2020-09-27] VITALS: BP 130/84; PULSE 60; PULSE 69; RESP 16; TEMP 36.9; O2SAT 96
[2020-09-27 03:12] VITALS: BP 128/79; PULSE 62; RESP 18; TEMP 36.6; O2SAT 93
[2020-09-27 04:00] VITALS: PULSE 80
[2020-09-27 05:00] VITALS: BMI 23.0
--- NOTE | 2020-09-27 05:47 | PC.NURSE ---
PT HAS DONE WELL THIS SHIFT. PT RIGHT HAND IS FLACCID. SHE STATES SHE CAN FEEL IT BUT CANNOT MOVE IT. SHE CAN MOVE THE RIGHT ARM, AND RIGHT LEFT. NO C/O PAIN, N/V/D. VSS. WILL CONT. TO MONITOR.
[2020-09-27 07:37] VITALS: BP 160/98; PULSE 71; RESP 16; TEMP 37; O2SAT 94
[2020-09-27 08:00] VITALS: PULSE 70; O2SAT 94
[2020-09-27 08:51] LABS: Basophils % 0.4 % (0.1-2.0); Eosinophils # 0.1 K/mm3 (0.0-0.4); Eosinophils % 1.8 % (0.1-12.0); Hematocrit 37.5 % (37.0-47.0); Hemoglobin 12.8 g/dL (12.2-16.2); Lymphocytes # 0.7 K/mm3 (0.7-4.5); Lymphocytes % 15.9 % (10-50); Mean Corpuscular HGB Conc 34.2 g/dL (31.8-35.4); Mean Corpuscular Hemoglobin 29.1 pg (27.0-31.2); Mean Corpuscular Volume 85.1 fl (81-99); Mean Platelet Volume 7.5 fl (7.4-10.4); Monocytes # 0.4 K/mm3 (0.1-1.0); Monocytes % 9.6 % (1.7-9.3); Neutrophils # 3.3 K/mm3 (1.8-7.8); Neutrophils % 72.3 % (37.0-80.0); Platelet Count 258 K/mm3 (142-424); Red Cell Distribution Width 13.9 % (11.5-17.5); White Blood Count 4.5 K/mm3 (4.8-10.8)
--- NOTE | 2020-09-27 09:06 | HMH.DCSUM ---
General - General Admission date:: 09/25/20 Discharge date: 09/27/20 HPI HPI: pt presented to the ed with reported diff with speech-1yo F evaluated for strokelike symptoms. No history of previous. Patient has not seen her PCP in a long time and takes no daily medication. Patient reports her symptoms began on Friday afternoon. She states she had difficulty with speech and slurred speech throughout the day yesterday. Her son reports when he saw her this morning she was completely aphasic, approximately 1 hour ago. Patient reports she has had a waxing and waning headache for the past several months. She does not take any medication daily. Patient also complains of weakness to her right hand. pt had ed eval which included ct and cta head/neck-yo F evaluated with concern for stroke. Patient is well outside the window for any intervention at this time. Patient does have right-sided senior sustainability consultant weakness compared to the left. She has minor facial paralysis of the upper and lower face on evaluation. Patient is sent for CT of the brain without. Labs are pending. Patient is in no acute distress on initial evaluation. CT without contrast does not demonstrate acute bleed. Patient's creatinine is reasonable and she is therefore sent for a CTA head and neck. Patient initially presented with a systolic pressure greater than 200. Her systolic is now 185 without intervention. Patient labs are unremarkable. CT angio of the neck and head demonstrate an 80% stenosis of the proximal right subclavian without other acute finding. Case discussed with Dr. Voss who request the case be discussed with the stroke team for possible intervention given the patient had symptoms and resolution of symptoms immediately prior to arrival. Case was discussed with Dr. Pathak the [facility]. He states there is no further acute intervention that they would undertake for the patient at this time. He does state that they would be happy to accept the patient in transfer should she develop any new acute findings. Case was again discussed with Dr. Voss who is amendable to admission at this time. Patient is a full code. pt was admitted for treatment and eval Hospital Course Hospital Course: pt presented to the ed with reported diff with speech-1yo F evaluated for strokelike symptoms. No history of previous. Patient has not seen her PCP in a long time and takes no daily medication. Patient reports her symptoms began on Friday afternoon. She states she had difficulty with speech and slurred speech throughout the day yesterday. Her son reports when he saw her this morning she was completely aphasic, approximately 1 hour ago. Patient reports she has had a waxing and waning headache for the past several months. She does not take any medication daily. Patient also complains of weakness to her right hand. pt had ed eval which included ct and cta head/neck-yo F evaluated with concern for stroke. Patient is well outside the window for any intervention at this time. Patient does have right-sided senior sustainability consultant weakness compared to the left. She has minor facial paralysis of the upper and lower face on evaluation. Patient is sent for CT of the brain without. Labs are pending. Patient is in no acute distress on initial evaluation. CT without contrast does not demonstrate acute bleed. Patient's creatinine is reasonable and she is therefore sent for a CTA head and neck. Patient initially presented with a systolic pressure greater than 200. Her systolic is now 185 without intervention. Patient labs are unremarkable. CT angio of the neck and head demonstrate an 80% stenosis of the proximal right subclavian without other acute finding. Case discussed with Dr. Voss who request the case be discussed with the stroke team for possible intervention given the patient had symptoms and resolution of symptoms immediately prior to arrival. Case was discussed with Dr. Pathak the [facility]
--- NOTE | 2020-09-27 09:27 | PC.NURSE ---
Pt will need rolling walker rather than a cane, and a BSC as well , d/t gait and mobility issues and far distance to restroom in home.
--- NOTE | 2020-09-27 10:30 | HMH.PNCARD ---
Subjective Date: 09/27/20 Time: 10:05 Principal diagnosis: subclavian stenosis Interval history: This is a 70-year-old white female who presented to the emergency department with complaints of slurred speech and numbness in the right side of her face and right arm. The patient was found to have an area of acute infarction on her brain MRI. She also had a CTA of the neck which showed high-grade stenosis of the right proximal subclavian artery. The patient did undergo subclavian angiogram yesterday which only showed a 20% stenosis to the right subclavian artery. The patient's stroke and symptoms were a nonvascular etiology and most likely coming from her hypertensive emergency. Aggressive control of her hypertension was recommended. However, the patient would probably benefit from ischemic evaluation on outpatient basis. She denies any chest pain or pressure. She denies any shortness of breath or edema. She denies any fever, chills, nausea, vomiting, diarrhea, PND or orthopnea. She states her headache has resolved now. She states she is ready to go home. Her blood pressure is under better control now on antihypertensives. Exam Vital signs and Labs for Last 24 Hours: Temp Pulse Resp BP Pulse Ox 98.6 F 71 16 160/98 H 94 L 09/27/20 07:37 09/27/20 07:37 09/27/20 07:37 09/27/20 07:37 09/27/20 07:37 Laboratory Results - last 24 hr 09/27/20 08:08: WBC 4.5 L, RBC 4.40, Hgb 12.8, Hct 37.5, MCV 85.1, MCH 29.1, MCHC 34.2, RDW 13.9, Plt Count 258, MPV 7.5, Neut % (Auto) 72.3, Lymph % (Auto) 15.9, [place] % (Auto) 9.6 H, Eos % (Auto) 1.8, Baso % (Auto) 0.4, Neut # (Auto) 3.3, Lymph # (Auto) 0.7, [place] # (Auto) 0.4, Eos # (Auto) 0.1, Baso # (Auto) 0.0 I & O for Last 24 hours: Intake & Output 09/24/20 09/25/20 09/26/20 09/27/20 23:59 23:59 23:59 23:59 Intake Total 530 / 530 761 / 761 120 / 120 Balance 530 / 530 761 / 761 120 / 120 Weight 149 lb 151 lb 8 oz 152 lb 1.903 oz Microbiology Reports for the Last 24 Hours: Microbiology 09/25/20 08:45 Urine,Clean Catch Urine Culture - Final Escherichia coli - Constitutional no acute distress, average body habitus - *Routine HEENT Exam Head: Present: normocephalic, atraumatic Eye: Present: EOMI, PERRL ENT: Present: mucous membranes moist - *Routine Neck Exam Present: supple, full ROM, normal carotid upstroke. Absent: JVD, carotid bruit, lymphadenopathy - *Routine Respiratory Exam Present: CTA bilaterally - *Routine Cardiovascular Exam Present: RRR, Normal S1, Normal S2. Absent: murmur - *Routine Abdominal Exam Present: soft, normoactive bowel sounds. Absent: tenderness, distended - *Routine Extremities Exam Present: full ROM, pulses intact, normal capillary refill. Absent: cyanosis, clubbing, edema - *Routine Skin Exam Present: intact, warm. Absent: erythema, rash - *Routine Neurological Exam Present: alert, oriented X3, CN II-XII intact. Absent: sensory deficit, motor deficit Progress Note: A&P (1) Subclavian artery stenosis Status: Acute (2) Bilateral carotid artery stenosis Status: Acute (3) Malignant hypertension Status: Acute (4) CVA (cerebral vascular accident) Status: Acute (5) Aphasia Status: Acute (6) Right sided numbness Status: Acute (7) Cerebral infarction, watershed distribution, unilateral, acute Status: Acute (8) Dysarthria Status: Acute (9) Ataxia Status: Acute (10) Parietal lobe infarction Status: Acute Assessment and Plan for All Diagnoses:: plan: 1. The patient is admitted to the hospital with slurred speech/aphasia and right-sided weakness and minimal paralysis of the right side of her face. The patient was found to have an infarction on her brain MRI. This is being managed per her primary care provider. 2. CTA of her neck did show severe right subclavian artery stenosis. She underwent subclavian angiogram yesterday and was only found
[2020-09-27 12:00] VITALS: BP 162/73; PULSE 52; PULSE 60; RESP 16; TEMP 37; O2SAT 96
== END 2020-09-27 13:57 | disposition home health service (06) | DRG 65 ==
LOC: ER 11:08 → 2ND 11:24
PROVIDERS: Internal Medicine; Admitting Provider Emergency Medicine; Emergency Provider Family Medicine; PCP Emergency Medicine; Visit Provider Emergency Medicine
PROC: B3111ZZ Fluoroscopy of Right Brachiocephalic-Subclavian Artery using Low Osmolar Contrast (ICD-10-PCS; principal; 2020-09-26 11:15)
DX: I63.89 Other cerebral infarction (principal); N39.0 Urinary tract infection, site not specified; G81.91 Hemiplegia, unspecified affecting right dominant side; I77.1 Stricture of artery; I65.23 Occlusion and stenosis of bilateral carotid arteries; I10 Essential (primary) hypertension; Z79.899 Other long term (current) drug therapy; R27.0 Ataxia, unspecified
CPT/HCPCS: 36218; 36226; 36415; 70450; 70496; 70498; 70551; 75710; 80048; 80053; 80061; 81001; 84436; 84443; 85025; 85651; 87086; 87088; 87186; 87581; 87633; 87798; 92610; 93005; 93306; 93976; 96365; 97116; 97162; 97166; 97530; 99152; 99284; C1725; C1769; J1644; Q9967

== ENCOUNTER 2020-10-07 15:19 | Observation (INO) | payer MEDICARE, SELFPAY ==
[2020-10-07] VITALS (14 sets, daily range): BP systolic 82–146; BP diastolic 46–94; PULSE 60–78; RESP 16–20; TEMP 37–37.1; O2SAT 95–100; BMI 22.6; BMI 23.2
--- NOTE | 2020-10-07 15:27 | HMH.EDGENADL ---
ED Disposition Clinical Impression: JOSHUA (acute kidney injury) Osteoarthritis Qualifiers: Osteoarthritis location: hip Osteoarthritis type: primary Laterality: right Qualified Code(s): M16.11 - Unilateral primary osteoarthritis, right hip Disposition: Admitted As Inpatient Condition on Discharge: Fair Time of Disposition: 17:30 - Critical Care Critical Care Time: Yes Attestation: On 10/07/20, the high probability of a clinically significant, sudden or life threatening deterioration of the following system(s) required my full and direct attention, intervention and personal management. The time I documented below is in addition to time spent performing reported procedures but includes the following listed in this critical care notation. Total Critical Care Time: 45 Vital system(s) involved:: Renal Failure My critical care processes included: Assessment & monitoring of V/S, Initial and Re-exams, Data Review/Interpretation, Coordinating Care, Medication Orders and management, Documentation Medical Decision Making - Medical Records Medical records reviewed: Yes: I reviewed the patient's medical records. - Herman Inquiry Pt receiving controlled substance: No Vital Signs: 10/07/20 15:20 10/07/20 16:01 10/07/20 16:27 Pulse Rate 62 62 Pulse Rate [Left Radial] 78 Respiratory Rate 20 Blood Pressure 87/55 L 83/58 L Blood Pressure [Right Arm] 146/79 H Blood Pressure Mean 65 63 Blood Pressure Mean [Right Arm] 101 02 Sat by Pulse Oximetry 98 Oxygen Delivery Method Room Air 10/07/20 16:28 10/07/20 16:29 10/07/20 16:30 Pulse Rate 60 66 60 Pulse Rate [Left Radial] Respiratory Rate Blood Pressure 93/61 L 82/55 L 94/60 L Blood Pressure [Right Arm] Blood Pressure Mean 69 62 68 Blood Pressure Mean [Right Arm] 02 Sat by Pulse Oximetry 96 Oxygen Delivery Method - Lab Data Lab results reviewed: Yes: I reviewed the patient's lab results. Lab Results 10/07/20 15:23: Urine Color Yellow, Urine Appearance Sl cloudy, Urine pH 5.0, Ur Specific [place] 1.025, Urine Protein Negative, Urine Glucose (UA) Negative, Urine Ketones Negative, Urine Blood Negative, Urine Nitrate Negative, Urine Bilirubin Negative, Urine Urobilinogen 0.2, Ur Leukocyte Esterase 2+ A, Urine RBC None, Urine WBC 10-20, Ur Squamous Epith Cells 10-20, Ur Transition Epith Cell 5-10, Urine Bacteria None, Urine Mucus Trace 10/07/20 16:30: WBC 7.6, RBC 4.69, Hgb 13.6, Hct 39.2, MCV 83.5, MCH 29.1, MCHC 34.8, RDW 13.0, Plt Count 193, MPV 8.4, Neut % (Auto) 79.2, Lymph % (Auto) 10.3, [place] % (Auto) 7.5, Eos % (Auto) 2.8, Baso % (Auto) 0.2, Neut # (Auto) 6.0, Lymph # (Auto) 0.8, [place] # (Auto) 0.6, Eos # (Auto) 0.2, Baso # (Auto) 0.0 10/07/20 16:30: Sodium 133 L, Potassium 4.0, Chloride 102, Carbon Dioxide 19 L, Anion Gap 16.0 H, BUN 89 H, Creatinine 4.00 H, Estimated Creat Clear 13, Estimated GFR 11 L*, Est GFR ( Amer) 13 L*, Glucose 128 H, Calcium 9.7 Result diagrams: 10/07/20 16:30 10/07/20 16:30 Orders (Tests/Meds): ED MEDICATIONS Generic Name Dose Route Start Last Admin Trade Name Freq PRN Reason Stop Dose Admin Sodium Chloride 1,000 mls @ 999 mls/hr 10/07/20 16:45 10/07/20 16:34 Sod Chlor 0.9% 1000ml Bag IV 10/07/20 17:45 999 mls/hr .Q1H1M PACO Administration Discontinued Medications Generic Name Dose Route Start Last Admin Trade Name Freq PRN Reason Stop Dose Admin Sodium Chloride 500 mls @ 999 mls/hr 10/07/20 16:45 Sod Chlor 0.9% 1000ml Bag IV 10/07/20 17:15 .Q31M PACO ORDERS Category Date Time Status CT head/brain wo con Stat Cat Scan 10/07/20 15:52 Taken Full Resp Panel w/COVID ([facility]) Routine Lab 10/07/20 17:15 Received Urine Culture Stat Micro 10/07/20 15:23 Received - CT Data CT Scan: Head Time Received: 16:[address] Reviewed: Yes: I have viewed the radiologist's interpretation Preliminary Findings: Abnormal Findings Narrative: Post ischemic changes in the posterior
--- NOTE | 2020-10-07 15:36 | XR_ITS ---
PROCEDURE: XR HIP RT 2-3V W/PELVIS CLINICAL INDICATION: pain COMPARISON: No exams were available for comparison FINDINGS: Joint space narrowing of the right hip. There is prominent spurring of the acetabulum laterally and at the inferior lip is well. There is minimal spurring of the femoral head as well. There are similar but less prominent changes left hip. The iliac bones and pubic bones appear intact. IMPRESSION: Osteoarthritic changes of both hips more prominent right side than left, no fracture seen Dictated by: Dr. Jack Urena MD 10/07/2020 16:24 Dr. Jack Urena MD in [place] 10/07/2020 16:24
[2020-10-07 15:41] LABS: Microscopic, Urine URINE MICROSCOPIC (MICROSCOPIC)
[2020-10-07 15:45] LABS: Appearance,Urine SL CLOUDY (Clear); Bilirubin,Urine Negative (Negative); Blood, Urine Negative (Negative); Color,Urine YELLOW (Yellow); Glucose,Urine (UA) Negative (Negative); Ketones,Urine Negative (Negative); Leukocyte Esterase,Urine 2+ (Negative); Nitrate,Urine Negative (Negative); Protein,Urine Negative (Negative); Specific Gravity, Urine 1.025 (1.005-1.030); Urobilinogen,Urine 0.2 EU/dl (0.2)
--- NOTE | 2020-10-07 15:52 | CT_ITS ---
PROCEDURE: CT HEAD/BRAIN WO CON CLINICAL INDICATION: dizziness COMPARISON: MR MR HEAD/BRAIN WO CON from 09/25/2020 TECHNIQUE: Axial images obtained. All CT scans at the facility use one or more dose reduction, viz: automated exposure control, ma/kV adjustment per patient size (including targeted exams where dose is matched to indication, i.e. head), or iterative reconstruction technique. FINDINGS: No midline shift, mass effect, intracranial hemorrhage, hydrocephalus, or extra-axial fluid collection is evident. Sylvian fissures and cortical sulci are mildly prominent. There are periventricular hypodensities consistent with chronic ischemic white matter changes. There is a small hypodense lesion right posterior frontal lobe consistent with old ischemic infarct. The calvarium has an unremarkable appearance. No mastoid effusion. Both internal auditory canals appear normal. No sinus air-fluid level. IMPRESSION: Findings of age-appropriate cortical atrophy with mild chronic periventricular ischemic white matter changes and old ischemic infarct posterior aspect of the right frontal lobe possibly extending into the right basal ganglia Dictated by: Dr. Jack Urena MD 10/07/2020 18:46 Dr. Jack Urena MD in [place] 10/07/2020 18:46
[2020-10-07 16:00] LABS: Mucus,Urine Trace /lpf
--- NOTE | 2020-10-07 16:14 | PC.NURSE ---
pt gone to rad.
--- NOTE | 2020-10-07 16:19 | PC.NURSE ---
pt returning from rad
[2020-10-07 16:36] LABS: Basophils % 0.2 % (0.1-2.0); Eosinophils # 0.2 K/mm3 (0.0-0.4); Eosinophils % 2.8 % (0.1-12.0); Hematocrit 39.2 % (37.0-47.0); Hemoglobin 13.6 g/dL (12.2-16.2); Lymphocytes # 0.8 K/mm3 (0.7-4.5); Lymphocytes % 10.3 % (10-50); Mean Corpuscular HGB Conc 34.8 g/dL (31.8-35.4); Mean Corpuscular Hemoglobin 29.1 pg (27.0-31.2); Mean Corpuscular Volume 83.5 fl (81-99); Mean Platelet Volume 8.4 fl (7.4-10.4); Monocytes # 0.6 K/mm3 (0.1-1.0); Monocytes % 7.5 % (1.7-9.3); Neutrophils % 79.2 % (37.0-80.0); Platelet Count 193 K/mm3 (142-424); Red Blood Count 4.69 M/mm3 (4.20-5.40); White Blood Count 7.6 K/mm3 (4.8-10.8)
[2020-10-07 16:41] LABS: Chloride 102 mmol/L (98-107); Sodium 133 mmol/L (136-145)
[2020-10-07 16:44] LABS: Calcium 9.7 mg/dl (8.4-10.2); Carbon Dioxide 19 mmol/L (22.0-30.0); Creatinine Clearance Estimated 13 mL/min (50-200); Estimated Glomerular Filt Rate 11 ml/min (>60); GFR (African American) 13 ML/MIN (>60); Glucose 128 mg/dl (74-100)
[2020-10-07 16:45] LABS: Blood Urea Nitrogen 89 mg/dl (7-17)
--- NOTE | 2020-10-07 16:51 | PC.NURSE ---
Dr. Quevedo notified of BUN 89 and Creatinine 4.0 at this time (notifications results)
--- NOTE | 2020-10-07 17:05 | PC.NURSE ---
Speaking with Dr. Bella about admission
[2020-10-07 17:22] LABS: Adenovirus,PCR Not Detected (NotDetected); Bordetella Pertussis Not Detected (NotDetected); Chlamydophila Pneumoniae, PCR Not Detected (NotDetected); Coronavirus 19, PCR Not Detected (NotDetected); Coronavirus 229E Not Detected (NotDetected); Coronavirus NL63 Not Detected (NotDetected); Coronavirus OC43 Not Detected (NotDetected); Coronovirus HKU1,PCR Not Detected (NotDetected); Human Metapneumovirus Not Detected (NotDetected); Influenza A, PCR Not Detected (NotDetected); Influenza AH1, 2009 Not Detected (NotDetected); Influenza AH1, PCR Not Detected (NotDetected); Influenza AH3,PCR Not Detected (NotDetected); Influenza B, PCR Not Detected (NotDetected); Mycoplasma Pneumoniae, PCR Not Detected (NotDetected); Parainfluenza 1, PCR Not Detected (NotDetected); Parainfluenza 2, PCR Not Detected (NotDetected); Parainfluenza 3, PCR Not Detected (NotDetected); Parainfluenza 4, PCR Not Detected (NotDetected); Respiratory Syncytial Virus Not Detected (NotDetected); Rhinovirus/Enterovirus Not Detected (NotDetected)
--- NOTE | 2020-10-07 17:36 | PC.NURSE ---
BED REQUEST FROM ED, ROOM 205 PER Tommie RAYMOND RN. ADMISSION NOTIFIED PER Oscar CORREA, MEDIUM CYCLE SALESPERSON
--- NOTE | 2020-10-07 19:20 | PC.NURSE ---
called for update on covid swab time, and was notified that it would be resulting in a few minutes.
--- NOTE | 2020-10-07 19:44 | PC.NURSE ---
Report to Jennifer Thurston RN
--- NOTE | 2020-10-07 19:49 | PC.NURSE ---
is ok with not getting blood culture or lactic at this time.
--- NOTE | 2020-10-07 20:07 | PC.NURSE ---
PT ARRIVED TO FLOOR VIA W/C FROM ED AT 2005
[2020-10-08 04:00] VITALS: BP 112/64; PULSE 60; RESP 16; TEMP 36.2; O2SAT 99
[2020-10-08 05:00] VITALS: BMI 23.5
--- NOTE | 2020-10-08 06:30 | PC.NURSE ---
No acute changes since arrival to floor. Pt has not stated any complaints. Denies any pain at this time. She has slept well t/o night. MD director of player personnel consulted for clarifications of heparin, lactic and blood Cx. New orders were received. Continue heparin. Obtain lactic and Blood Cx. DC Rocephin IV. Give Invanz 1 mg IV. LR is infusing @ 125 ml/hr. Pt family member was updated per pt request and for clarification of home medications. VS have remained stable. Pt is on RA. Lungs are CTA. BS active. No other concerns at this time. Will continue to monitor.
[2020-10-08 07:15] LABS: Basophils % 0.2 % (0.1-2.0); Eosinophils # 0.1 K/mm3 (0.0-0.4); Eosinophils % 2.3 % (0.1-12.0); Hematocrit 33.6 % (37.0-47.0); Lymphocytes # 0.7 K/mm3 (0.7-4.5); Lymphocytes % 15.9 % (10-50); Mean Corpuscular HGB Conc 34.8 g/dL (31.8-35.4); Mean Corpuscular Hemoglobin 29.1 pg (27.0-31.2); Mean Corpuscular Volume 83.4 fl (81-99); Mean Platelet Volume 7.7 fl (7.4-10.4); Monocytes # 0.4 K/mm3 (0.1-1.0); Monocytes % 8.9 % (1.7-9.3); Neutrophils # 3.3 K/mm3 (1.8-7.8); Neutrophils % 72.8 % (37.0-80.0); Platelet Count 144 K/mm3 (142-424); Red Blood Count 4.03 M/mm3 (4.20-5.40); White Blood Count 4.5 K/mm3 (4.8-10.8)
[2020-10-08 07:16] LABS: Hemoglobin 11.7 g/dL (12.2-16.2)
[2020-10-08 07:18] LABS: Chloride 107 mmol/L (98-107); Potassium 3.8 mmoL/L (3.5-5.1); Sodium 136 mmol/L (136-145)
[2020-10-08 07:21] LABS: Anion Gap 11.8 mEq/L (5-15); Blood Urea Nitrogen 65 mg/dl (7-17); Calcium 9.1 mg/dl (8.4-10.2); Carbon Dioxide 21 mmol/L (22.0-30.0); Creatinine Clearance Estimated 21 mL/min (50-200); GFR (African American) 22 ML/MIN (>60); Glucose 117 mg/dl (74-100)
[2020-10-08 07:25] LABS: Estimated Glomerular Filt Rate 18 ml/min (>60)
[2020-10-08 07:55] VITALS: BP 113/67; PULSE 65; RESP 16; TEMP 36.6; O2SAT 100
--- NOTE | 2020-10-08 11:38 | HMH.HP ---
*Admission Date: 10/07/20 *Chief complaint: joshua *History of present illness: 70yr old female presents the emergency department secondary to hip pain and dizziness. Recent hospitalization for CVA, The patient has no new neurological complaints. Routine laboratory studies are collected and demonstrate a creatinine of 4.0, as compared to the patient's most recent studies where creatinine was 0.08. She denies any fall, headache, change in vision, speech. She denies any fever. Patient will be admitted for further management of her JOSHUA and lightheadedness. [facility] History I have reviewed the patient's past medical history: Yes Medical History: Reports:: Carotid Stenosis, Cerebrovascular Accident, Hyperlipidemia, Hypertension Denies:: Cancer, Diabetes Mellitus Type 1, Diabetes Mellitus Type 2 *Have you ever received a pneumonia vaccine?: Yes *Have you received a flu vaccine this season?: No Other Medical History: Reports: Arthritis, Other Laterality Cases: Right: Arthroscopy Knee Other Surgeries: Yes: Cardiac Catheterization, Hysterectomy-Total Amputation: No Fractures: Yes - *Social History Smoking Status: Former smoker Tobacco Type: cigarettes Alcohol Intake: never Substance Use Type: denies use *Occupational Status:: disabled Housing: house Household Members: none *Travel in the last 8 weeks: None Family Hx:: Cancer, Coronary Artery Disease, Heart Attack, Hyperlipidemia, Hypertension, Stroke Review of Systems - Review of Systems Review of systems:: pertinent systems reviewed and negative unless documented below - Constitutional Denies body ache(s), Denies lack of energy - Eyes Denies blurry vision - ENT Denies bleeding gums, Denies nasal discharge - *Cardiovascular Denies chest pain at rest - *Respiratory Denies chest congestion - *Gastrointestinal Denies coffee ground vomit, Denies nausea, Denies vomiting - *Genitourinary Denies abnormal vaginal bleeding - *Musculoskeletal Reports back pain - Integumentary/Breasts Denies rash - *Neurologic Reports dizziness, Denies headache(s) - Psychiatric Denies abnormal sleep pattern - Endocrine Denies rapid, pounding, or irregular heartbeat - Hematologic/Lymphatic Denies enlarged lymph nodes - Allergic/Immunologic Denies itchy eyes Meds Home Medications Medication Instructions Recorded Confirmed Type Aspirin [Aspirin 81mg EC Tab] 81 mg PO DAILY 10/07/20 10/07/20 History Atorvastatin Calcium [Lipitor 40mg 40 mg PO HS 10/07/20 10/07/20 History Tablet*] Trazodone HCl 50 mg PO HS 10/07/20 10/07/20 History carvediloL [Coreg 6.25mg 6.25 mg PO BID 10/07/20 10/07/20 History Tablet] levoFLOXacin [Levofloxacin 750MG 750 mg PO DAILY 10/07/20 10/07/20 History Tablet*] Hydrocodone/Acetaminophen 1 each PO BIDP PRN 10/08/20 10/08/20 History [Hydrocodone-Acetamin 5-325 mg] Lisinopril/Hydrochlorothiazide 1 each PO DAILY 10/08/20 10/08/20 History [Lisinopril-Hctz 10-12.5 mg Tab] Allergies Allergy/AdvReac Type Severity Reaction Status Date / Time codeine [CODEINE] Allergy Unknown Verified 10/04/20 10:38 ibuprofen [IBUPROFEN] Allergy Unknown Verified 10/04/20 10:38 Exam Vital signs and Labs for Last 24 Hours: Temp Pulse Resp BP Pulse Ox 97.9 F 65 16 113/67 100 10/08/20 07:55 10/08/20 07:55 10/08/20 07:55 10/08/20 07:55 10/08/20 07:55 Laboratory Results - last 24 hr 10/07/20 15:23: Urine Color Yellow, Urine Appearance Sl cloudy, Urine pH 5.0, Ur Specific [place] 1.025, Urine Protein Negative, Urine Glucose (UA) Negative, Urine Ketones Negative, Urine Blood Negative, Urine Nitrate Negative, Urine Bilirubin Negative, Urine Urobilinogen 0.2, Ur Leukocyte Esterase 2+ A, Urine RBC None, Urine WBC 10-20, Ur Squamous Epith Cells 10-20, Ur Transition Epith Cell 5-10, Urine Bacteria None, Urine Mucus Trace 10/07/20 16:30: WBC 7.6, RBC 4.69, Hgb 13.6, Hct 39.2, MCV 83.5, MCH 29.1, MCHC 34.8, RDW 13.0, Plt Count 193, MPV
--- NOTE | 2020-10-08 11:48 | HMH.PHAVTE ---
[facility] Pharmacy VTE Monitoring - Patient Demographics Admission date: 10/08/20 Report Date: 10/08/20 Time: 11:48 Allergies/Adverse Reactions: Patient Allergies codeine [CODEINE] Allergy (Unknown, Verified 10/04/20 10:38) ibuprofen [IBUPROFEN] Allergy (Unknown, Verified 10/04/20 10:38) Height: 1.68 m Weight: 66.395 kg Patient Problems: Current Active Problems (Last Updated 09/22/17 @ 10:14 by FANTA Mathew) JOSHUA (acute kidney injury) (Acute) Osteoarthritis (Acute) - VTE Risk Labs: VTE Related Lab Results Hgb 11.7 g/dL (12.2-16.2) L D 10/08/20 06:41 Hct 33.6 % (37.0-47.0) L 10/08/20 06:41 Plt Count 144 K/mm3 (142-424) D 10/08/20 06:41 BUN 65 mg/dl (7-17) H D 10/08/20 06:41 Creatinine 2.60 mg/dl (0.52-1.04) H D 10/08/20 06:41 Estimated Creat Clear 21 mL/min (50-200) 10/08/20 06:41 VTE Risk Level: High Risk - Prophylaxis Types of VTE Prophylaxis: IPCS Knee High (ICDS ORDERED) Location of Applied Device: Bilateral Lower Extremeties
[2020-10-08 15:21] VITALS: BP 115/67; PULSE 61; RESP 19; TEMP 36.8; O2SAT 97
--- NOTE | 2020-10-08 15:47 | PC.NURSE ---
Addendum entered by Alaina Lutz RN 10/08/20 17:08: Wrist splint to right wrist per Dr Voss. Original Note: Pt is alert and oriented x4. Lungs are clear, bowel sounds are active x4. She remains on RA. She has slept the majority of the shift. Right arm and hand is very weak. Appetite has been good with patient eating 75% of meals. She has used a bsc. She has had 1050 mls of urine out. Scattered bruising and scabbing that patient has attributed to her dog scratching her. No change from morning assessment.
--- NOTE | 2020-10-08 15:51 | ECG_ITS ---
APPROVED REPORT Exam: Resting ECG HR:0 bpm ECG Measurements Heart Rate 0 AXES QRSd QRS 0 QT T 0 Conclusion No QRS complexes found, no ECG analysis possible Electronically signed by : Bradley Freeman, 10/08/2020 19:40:08
[2020-10-08 16:52] LABS: Chloride 110 mmol/L (98-107); Sodium 138 mmol/L (136-145)
[2020-10-08 16:55] LABS: Blood Urea Nitrogen 55 mg/dl (7-17); Carbon Dioxide 22 mmol/L (22.0-30.0); Creatinine Clearance Estimated 27 mL/min (50-200); Estimated Glomerular Filt Rate 25 ml/min (>60); GFR (African American) 30 ML/MIN (>60); Glucose 112 mg/dl (74-100)
[2020-10-08 20:00] VITALS: BP 144/81; PULSE 60; RESP 20; TEMP 36.6; O2SAT 99
--- NOTE | 2020-10-09 03:36 | PC.NURSE ---
Pt is A&O x4.Has slept at intervals this shift. No complaints stated. Lungs are CTA. BSx4. She has ambulated to BS with assistance. Tolerates poorly. Pt has poor balance and has difficult use of (R) arm. Brace is in place. VSS. Call light within reach. Will continue to monitor.
[2020-10-09 04:00] VITALS: BP 135/76; PULSE 61; RESP 16; TEMP 36.7; O2SAT 97
[2020-10-09 05:00] VITALS: BMI 23.5
[2020-10-09 06:31] LABS: Basophils % 0.4 % (0.1-2.0); Eosinophils # 0.1 K/mm3 (0.0-0.4); Eosinophils % 1.8 % (0.1-12.0); Hematocrit 32.8 % (37.0-47.0); Hemoglobin 11.5 g/dL (12.2-16.2); Lymphocytes # 0.6 K/mm3 (0.7-4.5); Mean Corpuscular HGB Conc 35.1 g/dL (31.8-35.4); Mean Corpuscular Hemoglobin 29.5 pg (27.0-31.2); Mean Corpuscular Volume 84.1 fl (81-99); Mean Platelet Volume 8.6 fl (7.4-10.4); Monocytes # 0.3 K/mm3 (0.1-1.0); Monocytes % 8.6 % (1.7-9.3); Neutrophils # 2.9 K/mm3 (1.8-7.8); Neutrophils % 73.3 % (37.0-80.0); Platelet Count 139 K/mm3 (142-424); Red Cell Distribution Width 13.1 % (11.5-17.5); White Blood Count 3.9 K/mm3 (4.8-10.8)
[2020-10-09 06:46] LABS: Anion Gap 10.9 mEq/L (5-15); Blood Urea Nitrogen 38 mg/dl (7-17); Calcium 8.8 mg/dl (8.4-10.2); Carbon Dioxide 21 mmol/L (22.0-30.0); Chloride 110 mmol/L (98-107); Creatinine Clearance Estimated 37 mL/min (50-200); Estimated Glomerular Filt Rate 34 ml/min (>60); GFR (African American) 42 ML/MIN (>60); Glucose 100 mg/dl (74-100); Potassium 3.9 mmoL/L (3.5-5.1); Sodium 138 mmol/L (136-145)
[2020-10-09 08:00] VITALS: BP 149/83; PULSE 66; RESP 16; TEMP 36.5; O2SAT 99
--- NOTE | 2020-10-09 09:10 | HMH.DCSUM ---
General - General Admission date:: 10/07/20 Discharge date: 10/09/20 HPI HPI: 70yr old female presents the emergency department secondary to hip pain and dizziness. Recent hospitalization for CVA, The patient has no new neurological complaints. Routine laboratory studies are collected and demonstrate a creatinine of 4.0, as compared to the patient's most recent studies where creatinine was 0.08. She denies any fall, headache, change in vision, speech. She denies any fever. Patient will be admitted for further management of her JOSHUA and lightheadedness. Hospital Course Hospital Course: Laboratory Tests 10/07/20 10/07/20 10/07/20 15:23 16:30 16:30 WBC 7.6 RBC 4.69 Hgb 13.6 Hct 39.2 MCV 83.5 MCH 29.1 MCHC 34.8 RDW 13.0 Plt Count 193 MPV 8.4 Neut % (Auto) 79.2 Lymph % (Auto) 10.3 [place] % (Auto) 7.5 Eos % (Auto) 2.8 Baso % (Auto) 0.2 Neut # (Auto) 6.0 Lymph # (Auto) 0.8 [place] # (Auto) 0.6 Eos # (Auto) 0.2 Baso # (Auto) 0.0 Sodium 133 L Potassium 4.0 Chloride 102 Carbon Dioxide 19 L Anion Gap 16.0 H BUN 89 H Creatinine 4.00 H Estimated Creat Clear 13 Estimated GFR 11 L* Est GFR ( Amer) 13 L* Glucose 128 H Lactate Calcium 9.7 Urine Color Yellow Urine Appearance Sl cloudy Urine pH 5.0 Ur Specific [place] 1.025 Urine Protein Negative Urine Glucose (UA) Negative Urine Ketones Negative Urine Blood Negative Urine Nitrate Negative Urine Bilirubin Negative Urine Urobilinogen 0.2 Ur Leukocyte Esterase 2+ A Urine RBC None Urine WBC 10-20 Ur Squamous Epith Cells 10-20 Ur Transition Epith Cell 5-10 Urine Bacteria None Urine Mucus Trace Chlamy pneumoniae PCR Adenovirus (PCR) B. pertussis DNA (PCR) Coronavirus OC43 (PCR) Coronavirus HKU1 (PCR) Coronavirus 229E (PCR) SARS-CoV-2 (PCR) Coronavirus NL63 (PCR) Human Metapneumovir PCR Influenza A (H1) PCR Influ A (H1N1/09) PCR Influenza A (H3) PCR Influenza Type A (PCR) Influenza Type B (PCR) M. pneumoniae (PCR) Parainfluenza 1 (PCR) Parainfluenza 2 (PCR) Parainfluenza 3 (PCR) Parainfluenza 4 (PCR) RSV (PCR) Entero/Rhino (PCR) 10/07/20 10/07/20 10/08/20 17:15 20:45 06:41 WBC 4.5 L D RBC 4.03 L Hgb 11.7 L D Hct 33.6 L MCV 83.4 MCH 29.1 MCHC 34.8 RDW 13.0 Plt Count 144 D MPV 7.7 Neut % (Auto) 72.8 Lymph % (Auto) 15.9 [place] % (Auto) 8.9 Eos % (Auto) 2.3 Baso % (Auto) 0.2 Neut # (Auto) 3.3 Lymph # (Auto) 0.7 [place] # (Auto) 0.4 Eos # (Auto) 0.1 Baso # (Auto) 0.0 Sodium Potassium Chloride Carbon Dioxide Anion Gap BUN Creatinine Estimated Creat Clear Estimated GFR Est GFR ( Amer) Glucose Lactate 1.0 Calcium Urine Color Urine Appearance Urine pH Ur Specific [place] Urine Protein Urine Glucose (UA) Urine Ketones Urine Blood Urine Nitrate Urine Bilirubin Urine Urobilinogen Ur Leukocyte Esterase Urine RBC Urine WBC Ur Squamous Epith Cells Ur Transition Epith Cell Urine Bacteria Urine Mucus Chlamy pneumoniae PCR Not detected Adenovirus (PCR) Not detected B. pertussis DNA (PCR) Not detected Coronavirus OC43 (PCR) Not detected Coronavirus HKU1 (PCR) Not detected Coronavirus 229E (PCR) Not detected SARS-CoV-2 (PCR) Not detected Coronavirus NL63 (PCR) Not detected Human Metapneumovir PCR Not detected Influenza A (H1) PCR Not detected Influ A (H1N1/09) PCR Not detected Influenza A (H3) PCR Not detected Influenza Type A (PCR) Not detected Influenza Type B (PCR) Not detected M. pneumoniae (PCR) Not detected Parainfluenza 1 (PCR) Not detected Parainfluenza 2 (PCR) Not detected Parainfluenza 3 (PCR) Not de
--- NOTE | 2020-10-09 09:45 | SW/DCPLANNER ---
Addendum entered by Dagmar Haile 10/09/20 11:27: Annalisa from [facility] has stated that order was received for resumption of care and services will be resumed for this patient. Original Note: This patient previously had [facility] for home health service. I will fax patient information to [facility]: patient will discharge home later today. I will call to follow up with patients sister regarding discharge.
--- NOTE | 2020-10-09 10:06 | PC.NURSE ---
Addendum entered by Yolanda Aranda RN 10/09/20 10:41: Call made again @ 1040, no answer, unable to leave voicemail. Original Note: Attempted to contact pt's sister @ this time about discharge, no answer and unable to leave voicemail. Pt cannot remember anyone's phone numbers. Will try again.
--- NOTE | 2020-10-09 11:16 | PC.NURSE ---
[phone] called, a man answered and stated that this was the wrong number, pt does not have another number to contact. States to call [employer], her neice works there and she would be able to get [employer]radha of [employer]. [employer] called twice @ 1422, no answer.
--- NOTE | 2020-10-09 11:27 | PC.NURSE ---
Was able to get ahold of pt's neice, states she will come and get pt when she gets off work in about an hour.
== END 2020-10-09 13:30 | disposition home or self-care (01) ==
LOC: ER 15:24 → 2ND 18:03
PROVIDERS: Nurse Practitioner Family; Admitting Provider Family Medicine; Emergency Provider Family Medicine; PCP Emergency Medicine; Visit Provider Emergency Medicine
DX: N17.9 Acute kidney failure, unspecified (principal); M16.11 Unilateral primary osteoarthritis, right hip; I65.23 Occlusion and stenosis of bilateral carotid arteries; I10 Essential (primary) hypertension; E78.5 Hyperlipidemia, unspecified; Z79.899 Other long term (current) drug therapy; Z88.5 Allergy status to narcotic agent; Z88.8 Allergy status to other drugs, medicaments and biological substances; E55.9 Vitamin D deficiency, unspecified; I69.331 Monoplegia of upper limb following cerebral infarction affecting right dominant side
CPT/HCPCS: 36415; 70450; 73502; 80048; 81001; 83605; 85025; 87040; 87086; 87581; 87633; 87798; 93005; 96365; 99284; G0378; J1335; J2405

== ENCOUNTER → 2020-10-30 15:23 | Outpatient (CLI) | payer MEDICARE, SELFPAY ==
[2020-10-30 17:36] LABS: Chloride 101 mmol/L (98-107); Sodium 137 mmol/L (136-145)
[2020-10-30 17:39] LABS: Blood Urea Nitrogen 5 mg/dl (7-17); Carbon Dioxide 29 mmol/L (22.0-30.0); Estimated Glomerular Filt Rate 83 ml/min (>60); GFR (African American) 100 ML/MIN (>60)
[2020-10-30 17:40] LABS: Calcium 9.5 mg/dl (8.4-10.2); Glucose 122 mg/dl (74-100)
== END ==
PROVIDERS: Visit Provider Emergency Medicine
DX: N28.9 Disorder of kidney and ureter, unspecified (principal)
CPT/HCPCS: 80048

== ENCOUNTER → 2020-12-25 13:43 | Outpatient (CLI) | payer MEDICARE, SELFPAY ==
[2020-12-25 15:38] LABS: Amphetamine/Metha Screen,Urine Negative ng/ml (<1000); Barbiturates Screen,Urine Negative ng/ml (<200)
[2020-12-25 15:39] LABS: Benzodiazepines Screen,Urine Negative ng/ml (<200)
[2020-12-25 15:40] LABS: Cannabinoid Screen,Urine Negative ng/ml (<50)
[2020-12-25 15:41] LABS: Cocaine Screen,Urine Negative ng/ml (<300)
[2020-12-25 15:42] LABS: Methadone Screen,Urine Negative ng/ml (<300); Opiate Screen,Urine Positive ng/ml (<300)
[2020-12-25 15:43] LABS: Phencyclidine Screen,Urine Negative ng/ml (<25)
== END ==
PROVIDERS: Visit Provider Emergency Medicine
DX: Z79.899 Other long term (current) drug therapy (principal)
CPT/HCPCS: 80305

== ENCOUNTER → 2022-09-18 10:35 | Outpatient (CLI) | payer MEDICARE, SELFPAY ==
[2022-09-18 16:46] LABS: Amphetamine/Metha Screen,Urine Negative ng/ml (<1000)
[2022-09-18 16:47] LABS: Barbiturates Screen,Urine Negative ng/ml (<200)
[2022-09-18 16:48] LABS: Benzodiazepines Screen,Urine Negative ng/ml (<200); Cannabinoid Screen,Urine Negative ng/ml (<50)
[2022-09-18 16:49] LABS: Cocaine Screen,Urine Negative ng/ml (<300)
[2022-09-18 16:50] LABS: Methadone Screen,Urine Negative ng/ml (<300); Opiate Screen,Urine Negative ng/ml (<300)
[2022-09-18 16:51] LABS: Phencyclidine Screen,Urine Negative ng/ml (<25)
== END ==
PROVIDERS: PCP Emergency Medicine; Visit Provider Emergency Medicine
DX: M79.2 Neuralgia and neuritis, unspecified (principal); Z79.899 Other long term (current) drug therapy
CPT/HCPCS: 80305

== ENCOUNTER → 2023-01-10 09:05 | Outpatient (CLI) | payer MEDICARE, SELFPAY ==
[2023-01-10 19:02] LABS: Basophils % 0.4 % (0.1-2.0); Eosinophils # 0.1 K/mm3 (0.0-0.4); Hematocrit 36.8 % (37.0-47.0); Hemoglobin 11.9 g/dL (12.2-16.2); Lymphocytes # 0.6 K/mm3 (0.7-4.5); Lymphocytes % 18.5 % (10-50); Mean Corpuscular HGB Conc 32.5 g/dL (31.8-35.4); Mean Corpuscular Hemoglobin 28.2 pg (27.0-31.2); Mean Corpuscular Volume 86.9 fl (81-99); Mean Platelet Volume 8.8 fl (7.4-10.4); Monocytes # 0.5 K/mm3 (0.1-1.0); Monocytes % 13.1 % (1.7-9.3); Neutrophils # 2.3 K/mm3 (1.8-7.8); Platelet Count 262 K/mm3 (142-424); Red Blood Count 4.23 M/mm3 (4.20-5.40); Red Cell Distribution Width 13.1 % (11.5-17.5); White Blood Count 3.5 K/mm3 (4.8-10.8)
[2023-01-10 19:09] LABS: Alanine Aminotransferase 55 U/L (12-78); Albumin Level 3.9 g/dl (3.5-5.0); Albumin/Globulin Ratio 1.7 (1.1-1.8); Alkaline Phosphatase 124 U/L (38-126); Anion Gap 12.7 mEq/L (5-15); Aspartate Amino Transferase 46 U/L (14-36); Bilirubin,Total 0.6 mg/dl (0.2-1.3); Blood Urea Nitrogen 17 mg/dl (7-17); Calcium 8.7 mg/dl (8.4-10.2); Carbon Dioxide 24 mmol/L (22.0-30.0); Chloride 106 mmol/L (98-107); Cholesterol 122 mg/dl (140-200); Estimated Glomerular Filt Rate 71 ml/min (>60); GFR (African American) 85 ML/MIN (>60); Globulin 2.3 g/dL (1.3-3.2); Glucose 93 mg/dl (74-100); HDL Cholesterol 41 mg/dl (40-60); Potassium 3.7 mmoL/L (3.5-5.1); Sodium 139 mmol/L (136-145); Total Protein,Serum 6.2 g/dl (6.3-8.2); Triglycerides 205 mg/dl (30-150); VLDL Cholesterol 41 mg/dL (0-40)
[2023-01-10 19:20] LABS: Direct LDL Cholesterol 48.49 mg/dL (100-129)
[2023-01-10 19:26] LABS: 25-OH Vitamin D, Total 20.1 ng/mL (30-100); Free T4 (Free Thyroxine) 1.29 ng/dl (0.78-2.19)
[2023-01-10 19:41] LABS: Thyroid Stimulating Hormone 1.95 uIU/mL (0.465-4.68)
[2023-01-10 20:19] LABS: Amphetamine/Metha Screen,Urine Negative ng/ml (<1000)
[2023-01-10 20:20] LABS: Barbiturates Screen,Urine Negative ng/ml (<200)
[2023-01-10 20:21] LABS: Benzodiazepines Screen,Urine Negative ng/ml (<200)
[2023-01-10 20:26] LABS: Cannabinoid Screen,Urine Negative ng/ml (<50)
[2023-01-10 20:27] LABS: Cocaine Screen,Urine Negative ng/ml (<300)
[2023-01-10 20:28] LABS: Methadone Screen,Urine Negative ng/ml (<300); Opiate Screen,Urine Positive ng/ml (<300)
[2023-01-10 20:29] LABS: Phencyclidine Screen,Urine Negative ng/ml (<25)
== END ==
PROVIDERS: PCP Emergency Medicine; Visit Provider Emergency Medicine
DX: E55.9 Vitamin D deficiency, unspecified (principal); R20.0 Anesthesia of skin; M79.2 Neuralgia and neuritis, unspecified; I63.89 Other cerebral infarction
CPT/HCPCS: 80053; 80061; 80305; 82306; 84439; 84443; 85025

== ENCOUNTER 2023-02-09 21:01 | Emergency (ER) | payer MEDICARE, SELFPAY ==
[2023-02-09 21:10] VITALS: BP 165/116; PULSE 74; RESP 16; TEMP 36.7; O2SAT 98; BMI 25.0
--- NOTE | 2023-02-09 21:24 | CT_ITS ---
PROCEDURE INFORMATION: Exam: CT Cervical Spine Without Contrast Exam date and time: 02/09/2023 9:39 PM Age: 72 years old Clinical indication: Injury or trauma; Fall; Additional info: Fall injury TECHNIQUE: Imaging protocol: Computed tomography of the cervical spine without contrast. Radiation optimization: All CT scans at this facility use at least one of these dose optimization techniques: automated exposure control; mA and/or kV adjustment per patient size (includes targeted exams where dose is matched to clinical indication); or iterative reconstruction. REPORTING DATA: Count of CT and Cardiac NM exams in prior 12 months: This patient has received 0 known CTs and 0 known cardiac nuclear medicine studies in the 12 months prior to the current study. COMPARISON: CT ANGIO NECK 09/25/2020 9:41 AM FINDINGS: Bones/joints: Spinal alignment is normal. No fracture or bone destruction. Diffuse osteopenia. Predental space narrowing and proliferative changes around the dens consistent with arthritis. Multilevel degenerative change most significant at C5-C6 and C6-C7 with small disc osteophyte complexes. Multilevel moderate to severe facet arthropathy. Lungs: Lung apices are normal. Thyroid: There is a 2 cm right thyroid lobe lesion; recommend ultrasound. Vasculature: Carotid calcifications. Soft tissues: Unremarkable. IMPRESSION: 1. Spinal alignment is normal. 2. No fracture or bone destruction. 3. Diffuse osteopenia. 4. Predental space narrowing and proliferative changes around the dens consistent with arthritis. 5. Multilevel degenerative change most significant at C5-C6 and C6-C7 with small disc osteophyte complexes. 6. Multilevel moderate to severe facet arthropathy. 7. Carotid calcifications. 8. There is a 2 cm right thyroid lobe lesion; recommend ultrasound. COMMENTS: Consistent with the [employer]'s Incidental Findings Committee white paper (J Am Annmarie Radiol 2015): In patients aged 35 years and older with an incidental thyroid nodule equal to or greater than 1.[address], MRI or extrathyroidal US, further evaluation with dedicated thyroid US is recommended for patients with normal life expectancy and without comorbidities. For smaller nodules without suspicious features, no further evaluation or follow up is recommended.
--- NOTE | 2023-02-09 21:24 | CT_ITS ---
PROCEDURE INFORMATION: Exam: CT Head Without Contrast Exam date and time: 02/09/2023 9:35 PM Age: 72 years old Clinical indication: Injury or trauma; Fall; Additional info: Fall injury TECHNIQUE: Imaging protocol: Computed tomography of the head without contrast. Radiation optimization: All CT scans at this facility use at least one of these dose optimization techniques: automated exposure control; mA and/or kV adjustment per patient size (includes targeted exams where dose is matched to clinical indication); or iterative reconstruction. REPORTING DATA: Count of CT and Cardiac NM exams in prior 12 months: This patient has received 0 known CTs and 0 known cardiac nuclear medicine studies in the 12 months prior to the current study. COMPARISON: CT HEAD/BRAIN WO CON 10/07/2020 4:10 PM FINDINGS: Brain: No evidence for intracranial hemorrhage, mass lesions or acute stroke. Mild small vessel ischemic change in the periventricular white matter. Intracranial vascular calcifications. Well-defined low-density region right inferior frontal lobe extending to the inferior margin of the right basal ganglia measuring 2.1 x 1.3 cm coronal image 1001/31 similar to the prior scan from 10/07/2020 and consistent with old infarct. Small lacunar infarct posterior limb left internal capsule axial image 3/32. 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 Cerebral ventricles: No ventriculomegaly. Pituitary gland and sella: Negative Paranasal sinuses: Visualized sinuses are unremarkable. No fluid levels. Mastoid air cells: Visualized mastoid air cells are well aerated. Orbital cavities: Negative. Parotid and submandibular glands: Negative Bones/joints: Unremarkable. No acute fracture. Soft tissues: Left frontal scalp hematoma. Vasculature: Negative. Other findings: Mild generalized atrophy. IMPRESSION: 1. No evidence for intracranial hemorrhage, mass lesions or acute stroke. 2. Mild small vessel ischemic change in the periventricular white matter. Intracranial vascular calcifications. 3. Mild generalized atrophy. 4. Well-defined low-density region right inferior frontal lobe extending to the inferior margin of the right basal ganglia measuring 2.1 x 1.3 cm similar to the prior scan from 10/07/2020 and consistent with old infarct. 5. Small lacunar infarct posterior limb left internal capsule axial image 3/32. 6. 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 7. Tiny lacunar infarct left anterior limb of the internal capsule. 8. Left frontal scalp hematoma.
--- NOTE | 2023-02-09 21:24 | CT_ITS ---
PROCEDURE INFORMATION: Exam: CT Maxillofacial Without Contrast Exam date and time: 02/09/2023 9:37 PM Age: 72 years old Clinical indication: Injury or trauma; Fall; Additional info: Fall injury TECHNIQUE: Imaging protocol: Computed tomography of the face without contrast. Radiation optimization: All CT scans at this facility use at least one of these dose optimization techniques: automated exposure control; mA and/or kV adjustment per patient size (includes targeted exams where dose is matched to clinical indication); or iterative reconstruction. REPORTING DATA: Count of CT and Cardiac NM exams in prior 12 months: This patient has received 0 known CTs and 0 known cardiac nuclear medicine studies in the 12 months prior to the current study. COMPARISON: CT HEAD/BRAIN WO CON 02/09/2023 9:35 PM FINDINGS: Orbital cavities: Orbits are normal. Globes are unremarkable. Bones/joints: No acute fracture. Paranasal sinuses: Normal. No air-fluid levels. Soft tissues: Left frontal scalp hematoma. IMPRESSION: Left frontal scalp hematoma.
--- NOTE | 2023-02-09 21:32 | PC.NURSE ---
Pt gone to RAD via stretcher
--- NOTE | 2023-02-09 21:42 | PC.NURSE ---
PT returned from RAD
--- NOTE | 2023-02-09 22:02 | [facility].EDGENADL ---
Discharge Plan Disposition Patient Disposition: Home, Self-Care Prescriptions Prescriptions: No Action aspirin 81 mg tablet,delayed release (DR/EC) See Rx Instructions .ROUTE .COMPLEX 60 Days Qty: 60 0RF Dose Instruction: TAKE ONE TABLET BY MOUTH ONCE A DAY Rx Instructions: TAKE ONE TABLET BY MOUTH ONCE A DAY atorvastatin 40 mg tablet See Rx Instructions .ROUTE .COMPLEX Qty: 60 0RF Dose Instruction: TAKE ONE TABLET BY MOUTH AT BEDTIME Rx Instructions: TAKE ONE TABLET BY MOUTH AT BEDTIME carvedilol 6.25 mg tablet See Rx Instructions .ROUTE .COMPLEX 60 Days Qty: 120 0RF Dose Instruction: TAKE ONE TABLET BY MOUTH 2 TIMES A DAY Rx Instructions: TAKE ONE TABLET BY MOUTH 2 TIMES A DAY hydrochlorothiazide 12.5 mg capsule 12.5 mg PO QDAY 60 Days Qty: 60 0RF methylprednisolone [Medrol (Aamir)] 4 mg tablets,dose pack See Rx Instructions PO PER PKG DIR Qty: 21 0RF Rx Instructions: PO PER PKG DIR gabapentin 300 mg capsule 300 mg PO TID Qty: 90 1RF oxycodone-acetaminophen 5-325 mg tablet 1 tab PO BID Qty: 60 0RF trazodone 50 mg tablet See Rx Instructions .ROUTE .COMPLEX Qty: 90 1RF Dose Instruction: TAKE ONE TABLET BY MOUTH AT BEDTIME Rx Instructions: TAKE ONE TABLET BY MOUTH AT BEDTIME pantoprazole 40 mg tablet,delayed release (DR/EC) See Rx Instructions .ROUTE .COMPLEX Qty: 90 1RF Dose Instruction: TAKE ONE TABLET BY MOUTH ONCE A DAY Rx Instructions: TAKE ONE TABLET BY MOUTH ONCE A DAY ergocalciferol (vitamin D2) [Vitamin D2] 1,250 mcg (50,000 unit) capsule 1,250 mcg PO WEEKLY Qty: 5 3RF cyclobenzaprine 10 mg tablet See Rx Instructions .ROUTE .COMPLEX Qty: 30 0RF Dose Instruction: TAKE ONE TABLET BY MOUTH 3 TIMES A DAY Rx Instructions: TAKE ONE TABLET BY MOUTH 3 TIMES A DAY Referrals Follow up/Referrals: Provider,Referral, MD [Primary Care Provider] - See instructions Activity Restrictions/Add. Instructions Additional Instructions/Restrictions: For your small superficial skin tears and abrasions on your face please apply topical antibiotic ointment like Neosporin daily and cover with a dressing for the next week. Your sutures are absorbable and no need to return to have the removed. Return with any changes in mental status or other concerns. You may take Tylenol as needed for your symptoms at home. Was an incidental 2 cm thyroid lobe lesion found on your CT scan of your neck. It is recommended you get an outpatient ultrasound of this please follow-up with your primary care doctor to discuss this Clinical Impressions Clinical Impression: Forehead laceration, Laceration of nose, Abrasion of face, Hematoma of frontal scalp, Avulsion of skin of right hand, Avulsion of skin of left hand, Thyroid lesion Discharge ED Provider: Tom Hayes General Adult HPI General Chief complaint: Fall Stated complaint: Fall Time Seen by Provider: 02/09/23 21:03 Mode of Arrival: EMS Source of Information: Patient and EMS Limitations: No Limitations Description of Symptoms (Recalled from ER Triage Doc. by RN): per pt and EMS the pt tripped over a concrete curb outside. pt fell and hit her forehead on the concrete curb causing a lac on the middle of her forehead and a hematoma to the L of her forehead about the size of a baseball. pt also presents with a skin tear to the LFA as well as to her R index and R middle finger. no LOC. pt reports a CONTRERAS and denies any other pain. pt denies N/V. History of Present Illness HPI narrative: Patient is a 72-year-old female with mechanical fall falling and hitting her nose and her forehead sustained some lacerations and some significant bleeding. Denies any syncope or preceding symptoms to suggest that this was anything other than mechanical fall. She was brought in by EMS with a pressure dressing applied. Denies any loss of consciousness states she is not on any anticoa
--- NOTE | 2023-02-09 23:15 | PC.NURSE ---
Pt wounds cleansed with soap, right hand soaked in soap and water. Bacitracin applied to forehead, left / right arm and right hand with adhesive bandages. Educated on cleansing and care.
[2023-02-09 23:18] VITALS: BP 132/78; PULSE 74; RESP 18; TEMP 36.8
== END 2023-02-09 23:20 | disposition home or self-care (01) ==
PROVIDERS: Emergency Provider Student in an Organized Health Care Education/Training Program
DX: S00.03XA Contusion of scalp, initial encounter (principal); S01.81XA Laceration without foreign body of other part of head, initial encounter; S01.21XA Laceration without foreign body of nose, initial encounter; E07.9 Disorder of thyroid, unspecified; W10.1XXA Fall (on)(from) sidewalk curb, initial encounter
CPT/HCPCS: 12014; 70450; 70486; 72125; 90715; 96372; 99285

== ENCOUNTER → 2023-03-05 23:34 | Outpatient (CLI) | payer MEDICARE, SELFPAY ==
[2023-03-05 19:16] LABS: Benzodiazepines Screen,Urine Negative ng/ml (<200)
[2023-03-05 19:22] LABS: Methadone Screen,Urine Negative ng/ml (<300)
[2023-03-05 19:23] LABS: Opiate Screen,Urine Negative ng/ml (<300)
[2023-03-05 19:24] LABS: Phencyclidine Screen,Urine Negative ng/ml (<25)
[2023-03-05 19:31] LABS: Barbiturates Screen,Urine Negative ng/ml (<200)
[2023-03-05 19:32] LABS: Cannabinoid Screen,Urine Negative ng/ml (<50)
[2023-03-05 19:35] LABS: Cocaine Screen,Urine Negative ng/ml (<300)
[2023-03-05 20:19] LABS: Amphetamine/Metha Screen,Urine Negative ng/ml (<1000)
== END ==
PROVIDERS: PCP Emergency Medicine; Visit Provider Emergency Medicine
DX: E55.9 Vitamin D deficiency, unspecified (principal); M79.2 Neuralgia and neuritis, unspecified; Z79.899 Other long term (current) drug therapy
CPT/HCPCS: 80305

== ENCOUNTER → 2023-04-23 13:11 | Outpatient (CLI) | payer MEDICARE, SELFPAY ==
--- NOTE | 2023-04-23 13:11 | US_ITS ---
FINAL REPORT TECHNIQUE: Real-time grayscale and color ultrasound of the thyroid was performed. CLINICAL HISTORY: possible thyroid condition COMPARISON: None FINDINGS: The thyroid gland measures 44 mm on the right and 38 mm on the left. The isthmus measures 2 mm. Right 16 x 15 x 13 mm solid isoechoic with peripheral calcifications, TR 4 nodule. Recommend ultrasound-guided FNA. Several other less than 5 mm nodules. IMPRESSION: Right 16 mm TR 4 nodule. Recommend ultrasound-guided FNA. Reviewed, Interpreted and Dictated by Nehemias Henderson III, MD Transcribed by Joanne Juárez Authenticated and [facility]
== END ==
LOC: RAD 13:11
PROVIDERS: PCP Emergency Medicine; Visit Provider Emergency Medicine
DX: E07.9 Disorder of thyroid, unspecified (principal)
CPT/HCPCS: 76536

== ENCOUNTER → 2023-05-05 06:42 | Outpatient (CLI) | payer MEDICARE, SELFPAY ==
[2023-05-05 20:01] LABS: Amphetamine/Metha Screen,Urine Negative ng/ml (<1000)
[2023-05-05 20:02] LABS: Barbiturates Screen,Urine Negative ng/ml (<200); Benzodiazepines Screen,Urine Negative ng/ml (<200)
[2023-05-05 20:03] LABS: Cannabinoid Screen,Urine Negative ng/ml (<50)
[2023-05-05 20:04] LABS: Methadone Screen,Urine Negative ng/ml (<300)
[2023-05-05 20:05] LABS: Opiate Screen,Urine Negative ng/ml (<300); Phencyclidine Screen,Urine Negative ng/ml (<25)
[2023-05-05 20:14] LABS: Cocaine Screen,Urine Negative ng/ml (<300)
== END ==
LOC: LAB.DROPOF 05-06 06:43
PROVIDERS: PCP Emergency Medicine; Visit Provider Emergency Medicine
DX: M79.2 Neuralgia and neuritis, unspecified (principal); Z79.899 Other long term (current) drug therapy
CPT/HCPCS: 80305

== ENCOUNTER 2023-07-17 07:34 | Outpatient (CLI) | payer MEDICARE, SELFPAY ==
[2023-07-17 18:36] LABS: Amphetamine/Metha Screen,Urine Negative ng/ml (<1000); Barbiturates Screen,Urine Negative ng/ml (<200); Benzodiazepines Screen,Urine Negative ng/ml (<200); Cannabinoid Screen,Urine Negative ng/ml (<50); Cocaine Screen,Urine Negative ng/ml (<300); Methadone Screen,Urine Negative ng/ml (<300); Opiate Screen,Urine Negative ng/ml (<300)
[2023-07-17 18:43] LABS: Phencyclidine Screen,Urine Negative ng/ml (<25)
[2023-07-23 09:14] LABS: Opiates Negative (Cutoff=100); Oxycodone (GC/MS) 445 ng/mL (Cutoff=100)
== END 2023-07-17 23:59 ==
LOC: LAB.DROPOF 07-18 07:35
PROVIDERS: PCP Nurse Practitioner Family; Visit Provider Nurse Practitioner Family
DX: Z79.899 Other long term (current) drug therapy (principal)
CPT/HCPCS: 80307; 80361; 80365; G0480

== ENCOUNTER 2023-07-18 10:33 | Outpatient (CLI) | payer MEDICARE, SELFPAY | END 2023-07-18 23:59 | LOC: LAB.DROPOF 07-25 10:34 | PROVIDERS: PCP Nurse Practitioner Family; Visit Provider Nurse Practitioner Family | DX: Z79.899 Other long term (current) drug therapy (principal) | CPT/HCPCS: 80361; 80365; G0480 ==

== ENCOUNTER 2023-08-25 12:40 | Outpatient (CLI) | payer MEDICARE, SELFPAY ==
--- NOTE | 2023-08-25 12:46 | XR_ITS ---
FINAL REPORT CLINICAL HISTORY: back pain since having shingles 5 years ago COMPARISON: None FINDINGS: THORACIC SPINE 3 views of the thoracic spine were obtained. There is no fracture present. There is no malalignment. There is mild and moderate degenerative change. IMPRESSION: Mild and moderate degenerative changes without acute process. LUMBOSACRAL SPINE SERIES Five views of the lumbosacral spine were obtained. There is no fracture present. There is no malalignment. There is moderate degenerative change. Vacuum phenomenon is noted at L5-S1. IMPRESSION: Moderate degenerative change without acute process. Reviewed, Interpreted and Dictated by Nehemias Henderson III, MD Transcribed by Joanne Juárez Authenticated and . [facility]
[2023-08-25 18:04] LABS: Basophils % 0.5 % (0.1-2.0); Eosinophils # 0.1 K/mm3 (0.0-0.4); Eosinophils % 2.3 % (0.1-12.0); Hematocrit 37.8 % (37.0-47.0); Hemoglobin 12.8 g/dL (12.2-16.2); Lymphocytes # 0.4 K/mm3 (0.7-4.5); Lymphocytes % 12.5 % (10-50); Mean Corpuscular Hemoglobin 29.5 pg (27.0-31.2); Mean Corpuscular Volume 86.8 fl (81-99); Monocytes # 0.3 K/mm3 (0.1-1.0); Monocytes % 9.9 % (1.7-9.3); Neutrophils # 2.5 K/mm3 (1.8-7.8); Neutrophils % 74.8 % (37.0-80.0); Platelet Count 205 K/mm3 (142-424); Red Blood Count 4.36 M/mm3 (4.20-5.40); Red Cell Distribution Width 14.4 % (11.5-17.5); White Blood Count 3.4 K/mm3 (4.8-10.8)
[2023-08-25 18:08] LABS: Alanine Aminotransferase 50 U/L (12-78); Albumin Level 3.9 g/dl (3.5-5.0); Albumin/Globulin Ratio 1.8 (1.1-1.8); Alkaline Phosphatase 104 U/L (38-126); Anion Gap 9.1 mEq/L (5-15); Aspartate Amino Transferase 40 U/L (14-36); Bilirubin,Total 0.4 mg/dl (0.2-1.3); Blood Urea Nitrogen 22 mg/dl (7-17); Calcium 9.3 mg/dl (8.4-10.2); Carbon Dioxide 28 mmol/L (22.0-30.0); Chloride 105 mmol/L (98-107); Estimated Glomerular Filt Rate 44 ml/min (>60); GFR (African American) 53 ML/MIN (>60); Globulin 2.2 g/dL (1.3-3.2); Glucose 67 mg/dl (74-100); Potassium 4.1 mmoL/L (3.5-5.1); Sodium 138 mmol/L (136-145); Total Protein,Serum 6.1 g/dl (6.3-8.2)
== END 2023-08-25 23:59 ==
LOC: RAD 12:42
PROVIDERS: PCP Family Medicine; Visit Provider Family Medicine
DX: I77.1 Stricture of artery (principal); N17.9 Acute kidney failure, unspecified; M54.6 Pain in thoracic spine; M54.50 Low back pain, unspecified; Z79.899 Other long term (current) drug therapy
CPT/HCPCS: 72084; 80053; 85025

== ENCOUNTER 2024-01-21 11:00 | Outpatient (CLI) | payer MEDICARE, SELFPAY ==
[2024-01-21 18:56] LABS: Alanine Aminotransferase 16 U/L (12-78); Albumin Level 3.8 g/dl (3.5-5.0); Alkaline Phosphatase 87 U/L (38-126); Aspartate Amino Transferase 21 U/L (14-36); Bilirubin,Indirect 0.5 mg/dL (0.0-0.9); Bilirubin,Total 0.5 mg/dl (0.2-1.3); Bilirubin,Unconjugated 0.6 mg/dL (0.0-1.1); Chol/HDL Ratio 3.7 (1-3.5); Cholesterol 129 mg/dl (140-200); HDL Cholesterol 35 mg/dl (40-60); Total Protein,Serum 6.1 g/dl (6.3-8.2); Triglycerides 193 mg/dl (30-150); VLDL Cholesterol 39 mg/dL (0-40)
[2024-01-21 19:07] LABS: Direct LDL Cholesterol 46.45 mg/dL (100-129)
[2024-01-21 19:58] LABS: Hemoglobin A1C 5.4 % (4.0-6.0)
[2024-01-21 20:15] LABS: 25-OH Vitamin D, Total 69.6 ng/mL (30-100)
== END 2024-01-21 23:59 | disposition home or self-care (01) ==
LOC: LAB.DROPOF 01-22 09:02
PROVIDERS: Visit Provider Family Medicine
DX: R74.8 Abnormal levels of other serum enzymes (principal); E78.5 Hyperlipidemia, unspecified; Z00.00 Encounter for general adult medical examination without abnormal findings; E55.9 Vitamin D deficiency, unspecified; R73.03 Prediabetes
CPT/HCPCS: 80061; 80076; 82306; 83036

== ENCOUNTER 2024-03-20 23:44 | Emergency (ER) | payer MEDICARE, SELFPAY ==
--- NOTE | 2024-03-20 23:42 | ECG_ITS ---
APPROVED REPORT Exam: Resting ECG HR:81 bpm ECG Measurements Heart Rate 81 AXES WI 151 P 36 QRSd 88 QRS 40 QT 380 T 67 QTc 417 Conclusion SINUS RHYTHM NONSPECIFIC T-WAVE ABNORMALITY BORDERLINE ECG No STEMI Electronically signed by : IRON BONDS, 03/22/2024 07:37:52
[2024-03-20 23:44] VITALS: BP 165/109; PULSE 80; RESP 18; TEMP 36.9; O2SAT 98; BMI 21.4
[2024-03-20 23:45] VITALS: BMI 21.4
[2024-03-20] MEDS: MORPHINE 4MG/ML SYRINGE 4 MG IV (23:48)
--- NOTE | 2024-03-20 23:48 | CT_ITS ---
PROCEDURE INFORMATION: Exam: CT Head Without Contrast Exam date and time: 03/20/2024 11:57 PM Age: 73 years old Clinical indication: Injury or trauma; Fall; Blunt trauma (contusions or hematomas); Additional info: Fall on asa TECHNIQUE: Imaging protocol: Computed tomography of the head without contrast. Radiation optimization: All CT scans at this facility use at least one of these dose optimization techniques: automated exposure control; mA and/or kV adjustment per patient size (includes targeted exams where dose is matched to clinical indication); or iterative reconstruction. COMPARISON: CT HEAD/BRAIN WO CON 02/09/2023 9:35 PM FINDINGS: Brain: Chronic encephalomalacia in the right frontal lobe extending to the basal ganglia is unchanged. Chronic encephalomalacia in the left frontoparietal region is unchanged. No acute infarct. No hemorrhage. Stable involutional changes of the brain. No midline shift. Cerebral ventricles: Stable ventricular size. No ventriculomegaly. Paranasal sinuses: No significant inflammation. No fluid levels. Mastoid air cells: No significant inflammation. Bones: No acute fracture. Soft tissues: Unremarkable. IMPRESSION: No acute intracranial abnormality.
--- NOTE | 2024-03-20 23:48 | CT_ITS ---
PROCEDURE INFORMATION: Exam: CT Cervical Spine Without Contrast Exam date and time: 03/21/2024 12:06 AM Age: 73 years old Clinical indication: Injury or trauma; Fall; Blunt trauma; Additional info: Fall on asa TECHNIQUE: Imaging protocol: Computed tomography of the cervical spine without contrast. Radiation optimization: All CT scans at this facility use at least one of these dose optimization techniques: automated exposure control; mA and/or kV adjustment per patient size (includes targeted exams where dose is matched to clinical indication); or iterative reconstruction. COMPARISON: CT CERVICAL SPINE WO CON 02/09/2023 9:39 PM FINDINGS: Bones: The bones are demineralized. Near anatomic alignment. No acute fracture. Multilevel degenerative changes are present. Lungs: There is biapical lung scarring present which is unchanged. Thyroid: Rim calcified right thyroid nodule measuring 2 cm is unchanged. Soft tissues: Unremarkable. IMPRESSION: No acute cervical spinal fracture.
--- NOTE | 2024-03-20 23:48 | XR_ITS ---
PROCEDURE INFORMATION: Exam: XR Right Hip Exam date and time: 03/21/2024 12:04 AM Age: 73 years old Clinical indication: Injury or trauma; Fall; Blunt trauma (contusions or hematomas); Right; Hip; Additional info: Fall, pain, shortening of leg TECHNIQUE: Imaging protocol: Radiologic exam of the right hip. Views: 2 or 3 views hip with pelvis when performed. COMPARISON: CR XR HIP RT 2-3V W/PELVIS 10/07/2020 3:42 PM FINDINGS: Bones/joints: Interval development of a fracture of the proximal right superior pubic ramus with inferior displacement of the distal fracture component. Associated fracture of the medial right acetabulum may also be present. Nondisplaced fracture of the mid to distal right inferior pubic ramus. No other definite fracture seen. Moderate degenerative changes of both hips. Soft tissues: Unremarkable. IMPRESSION: Fractures of the right superior and inferior pubic ramus and possibly the medial right acetabulum. Consider CT scan of the pelvis for further assessment.
[2024-03-20] MEDS: LACTATED RINGERS 1000ML 1,000 ML 999 ML IV (23:49)
[2024-03-20] MEDS: ONDANSETRON 4MG/2ML VIAL 4 MG IV (23:51)
[2024-03-21 00:06] LABS: Basophils % 0.5 % (0.1-2.0); Eosinophils # 0.2 K/mm3 (0.0-0.4); Eosinophils % 2.9 % (0.1-12.0); Hematocrit 36.2 % (37.0-47.0); Hemoglobin 11.6 g/dL (12.2-16.2); Lymphocytes # 0.5 K/mm3 (0.7-4.5); Lymphocytes % 8.6 % (10-50); Mean Corpuscular HGB Conc 32.1 g/dL (31.8-35.4); Mean Corpuscular Hemoglobin 28.7 pg (27.0-31.2); Mean Corpuscular Volume 89.2 fl (81-99); Mean Platelet Volume 7.5 fl (7.4-10.4); Monocytes # 0.4 K/mm3 (0.1-1.0); Monocytes % 6.1 % (1.7-9.3); Neutrophils # 5.2 K/mm3 (1.8-7.8); Platelet Count 256 K/mm3 (142-424); Red Blood Count 4.06 M/mm3 (4.20-5.40); White Blood Count 6.4 K/mm3 (4.8-10.8)
[2024-03-21 00:08] LABS: Albumin Level 3.8 g/dl (3.5-5.0); Chloride 107 mmol/L (98-107); Sodium 137 mmol/L (136-145)
--- NOTE | 2024-03-21 00:08 | HMH.EDGENADL ---
Discharge Plan Disposition Patient Disposition: Xfer Short-Term Hosp Prescriptions Prescriptions: No Action aspirin 81 mg tablet,delayed release (DR/EC) See Rx Instructions .ROUTE .COMPLEX 60 Days Qty: 60 0RF Dose Instruction: TAKE ONE TABLET BY MOUTH ONCE A DAY Rx Instructions: TAKE ONE TABLET BY MOUTH ONCE A DAY atorvastatin 40 mg tablet See Rx Instructions .ROUTE .COMPLEX Qty: 90 0RF Dose Instruction: TAKE ONE TABLET BY MOUTH AT BEDTIME Rx Instructions: TAKE ONE TABLET BY MOUTH AT BEDTIME ergocalciferol (vitamin D2) 1,250 mcg (50,000 unit) capsule See Rx Instructions .ROUTE .COMPLEX Qty: 10 0RF Dose Instruction: TAKE 1 CAPSULE BY MOUTH ONCE WEEKLY Rx Instructions: TAKE 1 CAPSULE BY MOUTH ONCE WEEKLY pantoprazole 40 mg tablet,delayed release (DR/EC) See Rx Instructions .ROUTE .COMPLEX Qty: 90 1RF Dose Instruction: TAKE ONE TABLET BY MOUTH ONCE A DAY Rx Instructions: TAKE ONE TABLET BY MOUTH ONCE A DAY trazodone 50 mg tablet 50 mg PO lisinopril 10 mg tablet 10 mg PO DAILY Qty: 90 2RF carvedilol 6.25 mg tablet See Rx Instructions .ROUTE .COMPLEX Qty: 120 1RF Dose Instruction: TAKE ONE TABLET BY MOUTH 2 TIMES A DAY Rx Instructions: TAKE ONE TABLET BY MOUTH 2 TIMES A DAY cyclobenzaprine 10 mg tablet See Rx Instructions .ROUTE .COMPLEX Qty: 90 0RF Dose Instruction: TAKE ONE TABLET BY MOUTH 3 TIMES A DAY Rx Instructions: TAKE ONE TABLET BY MOUTH 3 TIMES A DAY Referrals Follow up/Referrals: Provider,Referral, MD [Primary Care Provider] - See instructions Clinical Impressions Clinical Impression: Fracture, pelvis closed, Fall Stand Alone Forms Stand Alone Forms: Transfer Record - ED Print Language Print Language: Rwandan Discharge ED Provider: Haris Espinoza General Adult HPI General Chief complaint: Fall Stated complaint: Fall from standing position Time Seen by Provider: 03/20/24 23:48 Mode of Arrival: EMS Source of Information: Patient Limitations: No Limitations Description of Symptoms (Recalled from ER Triage Doc. by RN): Pt reports to ED via EMS. EMS states being called out for a fall. Pt states she slipped and fell. Pt has right hip pain. Pt denies LOC. Pt has strong bilateral pedal pulses. History of Present Illness HPI narrative: 73-year-old female with history of prior CVA presents to the ER for complaints of ground-level fall. Patient reports she fell around 9 to 9:30 PM but had to crawl to the door and unlock it as well as call her sister so she was delayed in being able to call EMS. Patient reports that she tripped and fell backwards. She felt immediate pain in her right hip and has been unable to stand on the leg or get herself up since that time. Patient denies hitting her head or loss of consciousness, she does take aspirin daily. She does not complain of pain anywhere else. EMS transported the patient to the hospital for further evaluation. They did not administer any medications in route. Patient was placed in a c-collar by EMS. Patient reports she lives independently with her 2 dogs and does not use any assistive devices to ambulate. She reports she is typically able to go up and down stairs. Related Data Home Medications ?Medication ?Instructions ?Recorded ?Confirmed trazodone 50 mg tablet 50 mg PO 01/21/24 03/19/24 Previous Rx's ?Medication ?Instructions ?Recorded aspirin 81 mg tablet,delayed See Rx Instructions .Route 01/29/22 release .COMPLEX 60 days #60 tabs lisinopril 10 mg tablet 10 mg PO DAILY #90 tabs 10/27/23 atorvastatin 40 mg tablet See Rx Instructions .Route 11/24/23 .COMPLEX #90 tabs ergocalciferol (vitamin D2) 1,250 See Rx Instructions .Route 11/24/23 mcg (50,000 unit) capsule .COMPLEX #10 caps pantoprazole 40 mg tablet,delayed See Rx Instructions .Route 11/24/23 release .COMPLEX #90 tabs carvedilol 6.25 mg tablet See Rx Instructions .Route 02/19/24 .COMPLEX #120 tabs cyclobenzaprine 10 mg tablet See Rx Instructions .Route 02/19/24 .COMPLEX #90 tabs Allergies Allergy/AdvReac Type Severity Reaction Status Date / Time codeine [CODEINE] Allergy Unknown Verified 03/19/24 13:21 ibuprofen [IBUPROFEN] Allergy Unknown Verified 03/19/24 13:21 [facility] Disclaimer: The information contained in this section may have been updated after the patient was seen, as this information can be updated by other users. Medical History E. coli UTI (urinary tract infection) Hypokalemia UTI (urinary tract infection) Malignant hypertension Elevated BP without diagnosis of hypertension Avulsion of skin of right hand Fall Avulsion of skin of left hand Hematoma of frontal scalp Abrasion of face Laceration of nose Forehead laceration Vitamin D deficiency Social History Smoking Status: Never smoker alcohol intake: never substance use type: denies use current occupational status: disabled Travel in the last 8 weeks: None household members: none housing: house caffeine: Yes ROS Obtained: Yes All systems reviewed & no additional complaints except as documented Positive ROS per HPI Physical Exam General General appearance: alert and in no apparent distress Head Head exam: atraumatic and normocephalic Eye Eye exam: Present PERRL and EOMI ENT ENT exam: Present mucous membranes moist Neck Neck exam: Present normal inspection and other (C-collar in place on arrival); Absent tenderness Chest Chest inspection: Present symmetric chest wall rise; Absent tenderness Respiratory Respiratory exam: Present normal lung sounds bilaterally; Absent respiratory distress, wheezes or stridor Cardiovascular Cardiovascular exam: Present regular rate and normal rhythm Abdominal Exam Abdominal exam: Present soft; Absent distention or tenderness Extremities Exam Extremities exam: Present tenderness (Right hip) and other (Neurovascularly intact distal to right hip injury; mild shortening of the right leg with slight internal rotation); Absent full ROM (Limited range of motion of the right hip. Patient is able to actively and passively range the right hip but only slightly.), edema or joint swelling Back Exam Back exam: Absent tenderness Neurological Exam Neurological exam: Present alert and oriented X3; Absent motor sensory deficit Psychiatric Psychiatric exam: Present normal affect and normal mood Skin Skin exam: Present warm and dry Medical Decision Making Medical Records Medical records reviewed: Yes I reviewed the patient's medical records. Herman Inquiry Pt receiving controlled substance: No Vital Signs: 03/20/24 23:44 03/21/24 00:30 Temperature 98.5 F Temperature Source Oral Pulse Rate 74 Pulse Rate [Left Radial] 80 Respiratory Rate 18 Blood Pressure 174/99 H Blood Pressure [Right Arm] 165/109 H Blood Pressure Mean [Right Arm] 127 Blood Pressure Source [Right Arm] Automatic Cuff 02 Sat by Pulse Oximetry 98 94 L Oxygen Delivery Method Room Air Lab Data Lab Results 03/20/24 23:52: WBC 6.4, RBC 4.06 L, Hgb 11.6 L, Hct 36.2 L, MCV 89.2, MCH 28.7, MCHC 32.1, RDW 14.0, Plt Count 256, MPV 7.5, Neut % (Auto) 82.0 H, Lymph % (Auto) 8.6 L, [place] % (Auto) 6.1, Eos % (Auto) 2.9, Baso % (Auto) 0.5, Neut # (Auto) 5.2, Lymph # (Auto) 0.5 L, [place] # (Auto) 0.4, Eos # (Auto) 0.2, Baso # (Auto) 0.0, PT 10.4, INR 0.92, Sodium 137, Potassium 3.7, Chloride 107, Carbon Dioxide 28, Anion Gap 5.7, BUN 14, Creatinine 1.00, Estimated Creat Clear 52, Estimated GFR 54 L, Est GFR ( Amer) 66, Glucose 115 H, Calcium 9.2, Total Bilirubin 0.5, AST 29, ALT 28, Alkaline Phosphatase 91, Total Protein 6.2 L, Albumin 3.8, Globulin 2.4, Albumin/Globulin Ratio 1.6 03/20/24 23:52 03/20/24 23:52 Orders (Tests/Meds): ED MEDICATIONS Discontinued Medications Generic Name Dose Route Start Last Admin Trade Name Michel PRN Reason Stop Dose Admin Hydromorphone HCl 0.5 mg 03/21/24 00:10 03/21/24 00:16 Hydromorphone 2mg/Ml Syringe IV 03/21/24 00:11 0.5 mg ONCE ONE Administration Hydromorphone HCl 0.5 mg 03/21/24 01:05 Hydromorphone 2mg/Ml Syringe IV 03/21/24 01:06 ONCE ONE Lactated Ringer's 1,000 mls @ 999 mls/hr 03/20/24 23:45 03/20/24 23:49 Lactated Ringer's 1000 Ml Bag IV 03/21/24 00:45 999 mls/hr .Q1H1M ONE Administration Morphine Sulfate 4 mg 03/20/24 23:45 03/20/24 23:48 Morphine 4mg/Ml Syringe IV 03/20/24 23:46 4 mg ONCE ONE Administration Ondansetron HCl 4 mg 03/20/24 23:45 03/20/24 23:51 Ondansetron 4mg/2ml Vial IV 03/20/24 23:46 4 mg ONCE ONE Administration ORDERS Category Date Time Status CT cervical spine wo con Stat Cat Scan 03/20/24 23:[address] head/brain wo con Stat Cat Scan 03/20/24 23:48 Completed Hip XR right minimum 2 views [XR hip RT 2-3V w/pelvis] Exams 03/20/24 23:48 Completed Stat CBC w/Auto Diff [Complete Blood Count Auto Diff] Stat Lab 03/20/24 23:52 Completed CMP [Comprehensive Metabolic Panel] Stat Lab 03/20/24 23:52 Completed PT INR [Prothrombin Time INR] Stat Lab 03/20/24 23:52 Completed Medical Decision Narrative: In summary, this 73-year-old female presents to the emergency department today with right hip pain after ground-level fall. On initial evaluation patient is hemodynamically stable, afebrile, GCS 15, no focal neurologic deficits, pain in the right hip with shortening and internal rotation of the right leg, neurovascular intact distally. Differential diagnosis includes but is not limited to fracture, dislocation, I also considered the possibility of intracranial bleed or cervical spine injury, patient is on aspirin which increases the risk of intracranial bleed with fall. Based on these concerns, I ordered CT imaging, x-ray imaging, basic serum labs. ECG personally interpreted demonstrates normal sinus rhythm, rate 81, normal axis, normal DC and QTc, no STEMI. Patient received morphine, Zofran, LR for treatment. Labs personally reviewed demonstrate no leukocytosis, mild anemia with hemoglobin 11.6, normal platelets, CMP nonactionable. On my personal interpretation of x-ray, I appreciate acetabular fracture and ramus fracture, see radiology read for final interpretation. CT imaging personally interpreted demonstrate no acute intracranial bleed, mass, or midline shift. See radiology read for final interpretation. CT C-spine was reviewed and does not demonstrate acute traumatic injury on my personal interpretation. See radiology read. C-collar cleared by me, no midline pain or neurologic deficits. Orthopedic coverage is not available at this facility for multiple days. 0023 [facility] contacted regarding patient's right hip fracture. I spoke with Dr. Toth at [facility] who accepted the patient for ED to ED transfer to [facility]. Patient amenable to this plan. Patient has received additional Dilaudid in the ER for pain management and remained stable. She will be transferred by ALS. Patient transferred in stable condition. Critical Care Critical Care Time Critical Care Time: No
[2024-03-21 00:09] LABS: Potassium 3.7 mmoL/L (3.5-5.1)
[2024-03-21 00:11] LABS: Alanine Aminotransferase 28 U/L (12-78); Albumin/Globulin Ratio 1.6 (1.1-1.8); Alkaline Phosphatase 91 U/L (38-126); Anion Gap 5.7 mEq/L (5-15); Aspartate Amino Transferase 29 U/L (14-36); Bilirubin,Total 0.5 mg/dl (0.2-1.3); Blood Urea Nitrogen 14 mg/dl (7-17); Carbon Dioxide 28 mmol/L (22.0-30.0); Creatinine Clearance Estimated 52 mL/min (50-200); Estimated Glomerular Filt Rate 54 ml/min (>60); GFR (African American) 66 ML/MIN (>60); Globulin 2.4 g/dL (1.3-3.2); Total Protein,Serum 6.2 g/dl (6.3-8.2)
[2024-03-21 00:12] LABS: Calcium 9.2 mg/dl (8.4-10.2); Glucose 115 mg/dl (74-100); INR 0.92 (0.9-1.1); Prothrombin Time 10.4 seconds (10.1-12.5)
[2024-03-21] MEDS: HYDROMORPHONE 2MG/ML SYRINGE 0.5 MG IV (00:16)
[2024-03-21 00:30] VITALS: BP 174/99; PULSE 74; O2SAT 94
[2024-03-21 01:00] VITALS: BP 199/112; PULSE 91; O2SAT 96
--- NOTE | 2024-03-21 01:04 | PC.NURSE ---
Contacted EMS in regards to transfer of this patient.
--- NOTE | 2024-03-21 01:07 | PC.NURSE ---
report called to Mala at [facility]
[2024-03-21] MEDS: HYDROMORPHONE 2MG/ML SYRINGE 1 MG IV (01:18)
[2024-03-21] MEDS: ONDANSETRON 4MG/2ML VIAL 4 MG IV (01:21)
[2024-03-21 01:30] VITALS: BP 194/100; PULSE 85; O2SAT 83
[2024-03-21 01:59] VITALS: BP 181/99; PULSE 87; O2SAT 99
[2024-03-21] MEDS: PROMETHAZINE HCL 25MG/ML 1ML VIAL 12.5 MG IV (02:17)
[2024-03-21] MEDS: SODIUM CHLORIDE 0.9% 25ML BAG 25 ML IV (02:17)
[2024-03-21 02:26] VITALS: BP 181/99; PULSE 90; RESP 16; TEMP 36.8; O2SAT 97
[2024-03-21 02:30] VITALS: BP 178/97; PULSE 89; O2SAT 97
== END 2024-03-21 02:44 | disposition short-term general hospital (02) ==
PROVIDERS: Emergency Provider Emergency Medicine
DX: S32.511A Fracture of superior rim of right pubis, initial encounter for closed fracture (principal); I10 Essential (primary) hypertension; Z79.01 Long term (current) use of anticoagulants; W01.0XXA Fall on same level from slipping, tripping and stumbling without subsequent striking against object, initial encounter; Y92.9 Unspecified place or not applicable
CPT/HCPCS: 70450; 72125; 73502; 80053; 85025; 85610; 93005; 96361; 96374; 96375; 96376; 99285; J1170; J2270; J2405; J2550; J7120

== ENCOUNTER 2024-03-31 13:50 | Observation (INO) | payer MEDICARE, SELFPAY ==
[2024-03-31] VITALS (7 sets, daily range): BP systolic 92–133; BP diastolic 56–83; PULSE 72–88; RESP 18–20; TEMP 36.6–36.7; O2SAT 94–99; BMI 24.2; BMI 22.5
--- NOTE | 2024-03-31 13:50 | CT_ITS ---
FINAL REPORT TECHNIQUE: Axial images through the pelvis were performed by computed tomography. Sagittal and coronal reformatted images were obtained and reviewed. This study was performed with techniques to keep radiation doses as low as reasonably achievable (ALARA). Individualized dose reduction techniques using automated exposure control or adjustment of mA and/or kV according to the patient's size were employed. CLINICAL HISTORY: recent pelvic fractures, eval foe worseninig COMPARISON: No priors available for comparison. FINDINGS: On the coronal images, there is moderate hip joint space narrowing bilaterally, right greater than left. There is osteophyte formation at the acetabular margin. There is degenerative cyst formation of the right femoral head. There is a displaced fracture at the lateral aspect of the right superior pubic ramus. There is also a comminuted displaced fracture of the mid inferior right pubic ramus. No priors are available for comparison. There is a mild comminuted fracture involving the anterior aspect of the right sacral ala well seen on images 38-41 of series 3. There is advanced degenerative disc disease at L5-S1. IMPRESSION: Displaced fracture of the lateral aspect of the right superior pubic ramus. Displaced comminuted fracture of the mid inferior right pubic ramus. Comminuted fracture of the right sacral ala. Reviewed, Interpreted and Dictated by Scar Levin MD Transcribed by Sherrie Huizar Authenticated and [facility]
--- NOTE | 2024-03-31 13:53 | PC.NURSE ---
Dr. Palma at bedside for pt eval
--- NOTE | 2024-03-31 14:02 | PC.NURSE ---
on phone with hospitalist
--- NOTE | 2024-03-31 14:03 | PC.NURSE ---
pt out of room with Rad for CT
--- NOTE | 2024-03-31 14:04 | PC.NURSE ---
call made to rehab for PT/OT consult
--- NOTE | 2024-03-31 14:06 | HMH.EDGENADL ---
Discharge Plan Disposition Chief Complaint: Extremity Injury, Lower Prescriptions Prescriptions: No Action aspirin 81 mg tablet,delayed release (DR/EC) See Rx Instructions .ROUTE .COMPLEX 60 Days Qty: 60 0RF Dose Instruction: TAKE ONE TABLET BY MOUTH ONCE A DAY Rx Instructions: TAKE ONE TABLET BY MOUTH ONCE A DAY pantoprazole 40 mg tablet,delayed release (DR/EC) See Rx Instructions .ROUTE .COMPLEX Qty: 90 1RF Dose Instruction: TAKE ONE TABLET BY MOUTH ONCE A DAY Rx Instructions: TAKE ONE TABLET BY MOUTH ONCE A DAY trazodone 50 mg tablet 50 mg PO lisinopril 10 mg tablet 10 mg PO DAILY Qty: 90 2RF carvedilol 6.25 mg tablet See Rx Instructions .ROUTE .COMPLEX Qty: 120 1RF Dose Instruction: TAKE ONE TABLET BY MOUTH 2 TIMES A DAY Rx Instructions: TAKE ONE TABLET BY MOUTH 2 TIMES A DAY cyclobenzaprine 10 mg tablet See Rx Instructions .ROUTE .COMPLEX Qty: 90 1RF Dose Instruction: TAKE ONE TABLET BY MOUTH 3 TIMES A DAY Rx Instructions: TAKE ONE TABLET BY MOUTH 3 TIMES A DAY ergocalciferol (vitamin D2) 1,250 mcg (50,000 unit) capsule See Rx Instructions .ROUTE .COMPLEX Qty: 4 3RF Dose Instruction: TAKE 1 CAPSULE BY MOUTH ONCE WEEKLY Rx Instructions: TAKE 1 CAPSULE BY MOUTH ONCE WEEKLY atorvastatin 40 mg tablet See Rx Instructions .ROUTE .COMPLEX Qty: 90 1RF Dose Instruction: TAKE ONE TABLET BY MOUTH AT BEDTIME Rx Instructions: TAKE ONE TABLET BY MOUTH AT BEDTIME Referrals Follow up/Referrals: Provider,Referral, MD [Primary Care Provider] - See instructions Print Language Print Language: Urdu Discharge ED Provider: Chemo Palma General Adult HPI General Chief complaint: Extremity Injury, Lower Stated complaint: hip pain Time Seen by Provider: 03/31/24 13:50 Mode of Arrival: EMS Source of Information: Patient Limitations: Physical Limitations Description of Symptoms (Recalled from ER Triage Doc. by RN): r hip pain Related Data Home Medications ?Medication ?Instructions ?Recorded ?Confirmed trazodone 50 mg tablet 50 mg PO 01/21/24 03/19/24 Previous Rx's ?Medication ?Instructions ?Recorded aspirin 81 mg tablet,delayed See Rx Instructions .Route 01/29/22 release .COMPLEX 60 days #60 tabs lisinopril 10 mg tablet 10 mg PO DAILY #90 tabs 10/27/23 pantoprazole 40 mg tablet,delayed See Rx Instructions .Route 11/24/23 release .COMPLEX #90 tabs carvedilol 6.25 mg tablet See Rx Instructions .Route 02/19/24 .COMPLEX #120 tabs atorvastatin 40 mg tablet See Rx Instructions .Route 03/23/24 .COMPLEX #90 tabs cyclobenzaprine 10 mg tablet See Rx Instructions .Route 03/23/24 .COMPLEX #90 tabs ergocalciferol (vitamin D2) 1,250 See Rx Instructions .Route 03/23/24 mcg (50,000 unit) capsule .COMPLEX #4 caps Allergies Allergy/AdvReac Type Severity Reaction Status Date / Time codeine [CODEINE] Allergy Unknown Verified 03/19/24 13:21 ibuprofen [IBUPROFEN] Allergy Unknown Verified 03/19/24 13:21 [facility] Disclaimer: The information contained in this section may have been updated after the patient was seen, as this information can be updated by other users. Medical History E. coli UTI (urinary tract infection) Hypokalemia UTI (urinary tract infection) Malignant hypertension Elevated BP without diagnosis of hypertension Avulsion of skin of right hand Fall Avulsion of skin of left hand Hematoma of frontal scalp Abrasion of face Laceration of nose Forehead laceration Vitamin D deficiency Social History Smoking Status: Never smoker alcohol intake: never substance use type: denies use current occupational status: disabled Travel in the last 8 weeks: None household members: none housing: house caffeine: Yes ROS Obtained: Yes Systems reviewed as appropriate & no additional complaints except as documented Physical Exam General General appearance: alert and in no apparent distress Head Head exam: atraumatic and normal inspection Eye Eye exam: Present normal appearance, PERRL and EOMI ENT ENT exam: Present normal exam, normal oropharynx and mucous membranes moist Neck Neck exam: Present normal inspection, full ROM and trachea midline; Absent lymphadenopathy Chest Chest inspection: Present normal inspection and symmetric chest wall rise Respiratory Respiratory exam: Present normal lung sounds bilaterally; Absent accessory muscle use Cardiovascular Cardiovascular exam: Present regular rate, normal rhythm, normal heart sounds, +S1 and +S2 Abdominal Exam Abdominal exam: Present soft and normal bowel sounds; Absent tenderness, guarding or rebound Extremities Exam Extremities exam: Present normal inspection and full ROM Neurological Exam Neurological exam: Present alert, oriented X3 and CN II-XII intact Psychiatric Psychiatric exam: Present normal affect and normal mood Skin Skin exam: Present warm, dry and normal color Lymphatic Lymphatic Findings: no adenopathy Medical Decision Making Medical Records Screening: Per USPSTF and CDC recommendations, given the prevalence of disease in our region, it is our hospital?s policy to screen for HIV and viral Hepatitis for all patients aged 18 and over and those with ongoing risk factors. Vital Signs: 03/31/24 13:50 Temperature 98.1 F Temperature Source Oral Pulse Rate [Right] 86 Respiratory Rate 20 Blood Pressure [Right Arm] 127/80 Blood Pressure Mean [Right Arm] 95 02 Sat by Pulse Oximetry 94 L Oxygen Delivery Method Room Air Orders (Tests/Meds): ED MEDICATIONS Generic Name Dose Route Start Last Admin Trade Name Freq PRN Reason Stop Dose Admin Acetaminophen 1,000 mg 03/31/24 14:04 Acetaminophen 500mg Tab PO 03/31/24 14:05 ONCE ONE Ondansetron HCl 4 mg 03/31/24 14:04 Ondansetron 4mg Odt SL 03/31/24 14:05 ONCE ONE Oxycodone HCl 5 mg 03/31/24 14:04 Oxycodone 5mg Immediate Release Tablet PO 03/31/24 14:05 ONCE ONE ORDERS Category Date Time Status CT bony pelvis Stat Cat Scan 03/31/24 13:50 Ordered Consult to Case Management [CONS] Routine Cons 03/31/24 14:00 Active HIV (1&2) Antibody Rapid Stat Lab 03/31/24 14:00 Ordered Hep C Ab with Reflex to RNA Stat Lab 03/31/24 14:00 Ordered Medical Decision Narrative: In summary patient is a [age, sex] who presents to the emergency department for evaluation of [complaint]. Patient is [hemodynamically stable/unstable] upon arrival, [febrile/afebrile]. [Unremarkable physical exam, nonfocal exam versus focal remarkable exam]. Differential diagnosis includes [DDx]. Initial workup will be conducted with [hematologic labs, imaging, respiratory swab, describe workup]. Initial interventions include [crystalloid bolus, medications, p.o. challenge, etc.] initial workup reviewed by me [hematologic labs are remarkable for... Imaging remarkable for... Urinalysis remarkable for]. Upon repeat evaluation [patient had acceptable resolution of symptoms, had persistent pain for which additional interventions were conducted (describe interventions), tolerated p.o., was ambulatory, etc.]. Given this [patient is appropriate for discharge at this time and will be discharged with a prescription for... The case was discussed with hospital medicine regarding management and they will admit the patient their service for continued evaluation at this time... Etc.] Places where you can increase complexity: I informally interpreted the patient's chest x-ray or CT read and is remarkable for... Documenting what the vehicle monitor technician shows with rate and rhythm Consideration of test but deferring. Ex: I considered chest x-ray on this patient however given that they have no oxygen requirement and are clear to auscultation all lung palmer will be deferred. Social determinants of health: Given that patient is undomiciled increases complexity. Given that patient has polysubstance abuse compounds all aspects of care
[2024-03-31] MEDS: ACETAMINOPHEN 500MG TAB 1000 MG PO (14:09)
[2024-03-31] MEDS: OXYCODONE 5MG IMMEDIATE RELEASE TABLET 5 MG PO (14:10)
[2024-03-31] MEDS: ONDANSETRON 4MG ODT 4 MG SL ×2 (14:10→17:00)
--- NOTE | 2024-03-31 14:42 | HMH.OTEV ---
OT Inpatient Evaluation Rehab OT IP Evaluation Start: 03/31/24 14:04 Freq: ONCE Status: Active Protocol: Document 03/31/24 14:32 [facility] (Rec: 03/31/24 14:41 [facility] [id number]) Rehab OT IP Assessment Subjective History Pt oriented x 3 on arrival. Pt agreeable to engage in therapy evaluation. Family present and supportive of patient. Pt being seen in ER on 03/31/24 for right hip pain. Pt initially fell on 03/21/24 at home resulting in a pelvic fx. Pt was sent to for care. Pt refused placement at [facility] and left the hospital AMA. Since returning home, pt has been unable to care for herself. Her family has been coming to her house daily to assist with all ADLs and IADLs. Pt admits to being bed ridden and only getting up to use the bsc when needed. She uses the walker during these transfers. However, within the past few days her pain in the hip has become worse and intolerable leading her to the ER. Prior to her initial fall, pt lived at home alone and was independent with all ADLs and IADLs; no AE required. Subjective The back of my hip hurts the most. Pt resting in stretcher on arrival. Pt required max assist x 2 to completed bed mobility to go from supine to sitting at eob. Pt able to complete static sitting balance at eob with min assist . Pt demonstrates with a posterior lean due to pain in hip while sitting. Pt able to complete sit to stand from eob with mod assist x 2. Pt able to complete static standing balance for ~20-30 seconds with mod assist x 2 with posterior lean. Max assist x 2 required to go from sitting at eob to supine in bed. Pt was left with call mathis and all other needs in reach. Objective Patient Orientation Person,Place,Birthday Right Upper Extremity Gross ROM WFL Left Upper Extremity Gross ROM WFL Bed Mobility bed mobility-scooting,bed mobility - supine/sit,bed mobility - rolling Assist Level Maximum x 2 (75% assist) Transfer Training Sit/Stand Transfer Assist Level Moderate x 2 (50% assist) Rehab OT IP prob,goals,plan Problems Date of Evaluation: 03/31/24 OT IP Problems Bed Mobility,Transfers,Balance ,Self care,Safety Rehab Potential Rehab Potential Good Equipment Needs Assistive Devices Rolling / Wheeled Walker Plan OT intervention Plan Bed Mobility,Transfers,Balance ,Self care,Safety,Therapeutic Exercise OT Plan Frequency Daily Duration LOS Discharge Goals Bed Mobility Ability Assistance x1 Sit to Stand Chair Transfer Ability Moderate x 1 (50% assist) Chair Transfer Ability Minimal x 2 (25% assist) Chair Transfer Technique Stand Step Pivot Chair Transfer Assistive Devices Rolling Walker Feeding Ability Assist with Tray Set Up Lower Body Dressing Ability Moderate Assistance Upper Body Dressing Ability Minimal Assistance Bathing Ability Moderate Assistance Performing Toilet Hygiene Ability Moderate Assistance Overall Commode/Toilet Transfer Ability Moderate Assistance Commode/Toilet Transfer Technique Sit to/from Ambulatory Commode/Toilet Transfer Assistive Grab Bars Devices Oral Care Assist Standby Assistance Decrease in Endurance Yes Discharge Plan OT Discharge Plan Pt will continue to be seen for OT services while at [facility]. Pt would benefit most from short term rehab at [facility] following hospital stay for continued skilled therapy services. Pt is not safe to return home alone and family reports concerns of not being able to be with her 03/02. Continued skilled therapy is important in order for patient to improve strength, safety, endurance, ADL independence, and functional transfers to reach OF. Eval Complexity Eval Charge Codes 20571 - Moderate Complexity PHYSICIAN CERTIFICATION: I certify the specified therapy services for Natali Mclain are required, authorized, and reviewed every 30 days.
--- NOTE | 2024-03-31 14:51 | HMH.PTEV ---
Physical Therapy Evaluation Rehab PT IP Evaluation Start: 03/31/24 14:04 Freq: ONCE Status: Active Protocol: Document 03/31/24 14:04 MARIA GUADALUPEYUDITH (Rec: 03/31/24 14:49 RADHAMARCIA [id number]) Subjective/History History History Pt presents to [facility] ER with complaint of R posterior hip pain. Pt fell on 03/21/24 resulting in a R pelvic fracture and was sent to and recommended placement for rehab although refused and returned home alone. Per ER physician, pt is WBAT. Medical History: E. coli UTI ( urinary tract infection), Hypokalemia, UTI (urinary tract infection), Malignant hypertension, Elevated BP without diagnosis of hypertension, Vitamin D deficiency Subjective Subjective Pt reports continued R posterior hip pain rated 9/10 that is worse with weightbearing on the RLE. Pt reports she lives alone in a single story home with 3 CAROL. Pt reports she has only been able to lay in bed and transfer to the bedside commode via stand pivot transfer with a RW. Pt reports she is unable to walk due to severe R hip pain. Pt's family present in room and state they have been having to come over frequently to assist her with other ADLs. Pt reports she is agreeable to receive rehab to regain functional mobility as long as it is local and not in [place]. Pt required modAx2 to perform sit to stand transfer from bed with <25% WB noted on the RLE upon standing with severe posterior lean requiring assistance to prevent falling. New diagnosis of cancer in past 12 No months? Rehab PT IP Eval Objective Appearance Patient Behavior Appropriate,Cooperative Patient Orientation Name,Birthday,Situation Difficulty following instructions none Speech Pattern Clear,Appropriate Ambulation Patient Able to Ambulate No Balance Ability to Arise Able, uses arms to help Sitting Balance Leans or slides in chair Standing Balance Unsteady Dynamic Sitting Balance Ability Fair Dynamic Standing Balance Ability Poor Transfers Bed Transfer Ability Maximum x 2 (75% assist) Sit to Stand Bed Transfer Ability Moderate x 2 (50% assist) Pain Right Hip Pain Intensity 9 MMT RLE Abnormal MMT Grade 3/5 with report of pain therefore no resistance added Rehab PT IP prob,goals,plan Problems Date of Evaluation: 03/31/24 PT IP Problems Bed Mobility,Transfers,Gait, Balance,Self care,Safety Rehab Potential Rehab Potential Good Equipment Needs Assistive Devices Rolling / Wheeled Walker Plan PT Intervention Plan Bed Mobility,Transfers,Gait, Balance,Self care,Safety, Therapeutic Exercise PT Plan Frequency BID Duration Goals Met Discharge Goals Bed Transfer Ability Moderate x 2 (50% assist) Sit to Stand Chair Transfer Ability Minimal x 2 (25% assist) Ambulation Assistive Device Rolling Walker Ambulation Distance (feet) 10 Discharge Plan PT Discharge Plan Pt will benefit from skilled therapy if admitted to [facility] and continue to benefit from short-term rehab placement s/p DC from [facility]. Without skilled therapy, the pt is at an increased risk for falls, fractures, wounds and increased burden of care. Eval Complexity Eval Charge Codes 57814 - Moderate Complexity PHYSICIAN CERTIFICATION: I certify the specified therapy services for Natali Mclain are required, authorized, and reviewed every 30 days.
--- NOTE | 2024-03-31 15:00 | PC.NURSE ---
[facility] WITH CARE MANAGEMENT AT BEDSIDE
--- NOTE | 2024-03-31 15:03 | ED_ITS ---
Discharge Plan Disposition Chief Complaint: Extremity Injury, Lower Clinical Impressions Clinical Impression: Debility Closed pelvic fracture Qualifiers: Encounter type: sequela Discharge ED Provider: Emilie Brady General Adult HPI <Chemo Palma MD - Last Filed: 03/31/24 15:07> General Chief complaint: Extremity Injury, Lower Stated complaint: hip pain Time Seen by Provider: 03/31/24 13:50 Mode of Arrival: EMS Source of Information: Patient Limitations: Physical Limitations Description of Symptoms (Recalled from ER Triage Doc. by RN): r hip pain History of Present Illness HPI narrative: Please note that above description of symptoms, in this electronic medical record under categorization of recalled from ER triage doctor by RN are reflective of an initial nursing assessment, however, is not reflective of my full history and physical exam that was personally taken and clarified. Consequentially, this preceding description of symptoms, which may include the patient's categorized chief complaint in the EMR, do not reflect my personal clinical impression, and the ultimate description of history of present illness and patient stated complaints should be deferred to this section of the note. Unless stated otherwise or congruent with this section of the note, additional signs, symptoms, or incongruence should be interpreted as inaccurate with my clinical impression. Related Data Home Medications ?Medication ?Instructions ?Recorded ?Confirmed trazodone 50 mg tablet 50 mg PO 01/21/24 03/19/24 Previous Rx's ?Medication ?Instructions ?Recorded aspirin 81 mg tablet,delayed See Rx Instructions .Route 01/29/22 release .COMPLEX 60 days #60 tabs lisinopril 10 mg tablet 10 mg PO DAILY #90 tabs 10/27/23 pantoprazole 40 mg tablet,delayed See Rx Instructions .Route 11/24/23 release .COMPLEX #90 tabs carvedilol 6.25 mg tablet See Rx Instructions .Route 02/19/24 .COMPLEX #120 tabs atorvastatin 40 mg tablet See Rx Instructions .Route 03/23/24 .COMPLEX #90 tabs cyclobenzaprine 10 mg tablet See Rx Instructions .Route 03/23/24 .COMPLEX #90 tabs ergocalciferol (vitamin D2) 1,250 See Rx Instructions .Route 03/23/24 mcg (50,000 unit) capsule .COMPLEX #4 caps Allergies Allergy/AdvReac Type Severity Reaction Status Date / Time codeine [CODEINE] Allergy Unknown Verified 03/19/24 13:21 ibuprofen [IBUPROFEN] Allergy Unknown Verified 03/19/24 13:21 [facility] <Chemo Palma MD - Last Filed: 03/31/24 15:07> [facility] Disclaimer: The information contained in this section may have been updated after the patient was seen, as this information can be updated by other users. Medical History E. coli UTI (urinary tract infection) Hypokalemia UTI (urinary tract infection) Malignant hypertension Elevated BP without diagnosis of hypertension Avulsion of skin of right hand Fall Avulsion of skin of left hand Hematoma of frontal scalp Abrasion of face Laceration of nose Forehead laceration Vitamin D deficiency Social History Smoking Status: Never smoker alcohol intake: never substance use type: denies use current occupational status: disabled Travel in the last 8 weeks: None household members: none housing: house caffeine: Yes <Chemo Palma MD - Last Filed: 03/31/24 15:07> ROS Obtained: Yes All systems reviewed & no additional complaints except as documented Physical Exam <Chemo Palma MD - Last Filed: 03/31/24 15:07> General General appearance: alert and other (Disheveled, chronically ill-appearing in no acute distress) Head Head exam: atraumatic and normocephalic Eye Eye exam: Present normal appearance, PERRL and EOMI Neck Neck exam: Present normal inspection, full ROM and trachea midline Respiratory Respiratory exam: Absent respiratory distress, wheezes, stridor, accessory muscle use or prolonged expiratory phase Cardiovascular Cardiovascular exam: Present other (Pulses equal symmetric in upper and lower extremities) Abdominal Exam Abdominal exam: Present soft; Absent distention, tenderness or pulsatile mass Extremities Exam Extremities exam: Present full ROM (, But limited secondary to pain); Absent edema Neurological Exam Neurological exam: Present alert, oriented X3 and CN II-XII intact; Absent motor sensory deficit Skin Skin exam: Present warm and dry; Absent diaphoresis or erythema Medical Decision Making <Chemo Palma MD - Last Filed: 03/31/24 15:07> Medical Records Medical records reviewed: Yes I reviewed the patient's medical records. Screening: Per USPSTF and CDC recommendations, given the prevalence of disease in our region, it is our hospital?s policy to screen for HIV and viral Hepatitis for all patients aged 18 and over and those with ongoing risk factors. Herman Inquiry Pt receiving controlled substance: No Herman was queried for this patient: No Vital Signs: 03/31/24 13:50 03/31/24 13:59 03/31/24 14:00 Temperature 98.1 F Temperature Source Oral Pulse Rate 88 87 Pulse Rate [Right] 86 Respiratory Rate 20 Blood Pressure 127/80 126/80 Blood Pressure [Right Arm] 127/80 Blood Pressure Mean [Right Arm] 95 02 Sat by Pulse Oximetry 94 L 97 94 L Oxygen Delivery Method Room Air 03/31/24 14:31 Temperature Temperature Source Pulse Rate 88 Pulse Rate [Right] Respiratory Rate Blood Pressure 92/58 L Blood Pressure [Right Arm] Blood Pressure Mean [Right Arm] 02 Sat by Pulse Oximetry 99 Oxygen Delivery Method Orders (Tests/Meds): ED MEDICATIONS Generic Name Dose Route Start Last Admin Trade Name Freq PRN Reason Stop Dose Admin Acetaminophen 650 mg 03/31/24 15:22 Acetaminophen 325mg Tab PO 04/30/24 15:21 Q4HP PRN Fever or Mild Pain (1-3) Hydrocodone Bitart/Acetaminophen 2 tab 03/31/24 15:22 Hydrocodone/Apap 5/325 Mg Tablet PO 04/30/24 15:21 Q4HP PRN Moderate to Severe Pain (4-10) Hydrocodone Bitart/Acetaminophen 1 tab 03/31/24 15:22 Hydrocodone/Apap 5/325 Mg Tablet PO 04/30/24 15:21 Q4HP PRN Mild to Moderate Pain (1-6) Discontinued Medications Generic Name Dose Route Start Last Admin Trade Name Freq PRN Reason Stop Dose Admin Acetaminophen 1,000 mg 03/31/24 14:04 03/31/24 14:09 Acetaminophen 500mg Tab PO 03/31/24 14:05 1,000 mg ONCE ONE Administration Ondansetron HCl 4 mg 03/31/24 14:04 03/31/24 14:10 Ondansetron 4mg Odt SL 03/31/24 14:05 4 mg ONCE ONE Administration Oxycodone HCl 5 mg 03/31/24 14:04 03/31/24 14:10 Oxycodone 5mg Immediate Release Tablet PO 09/18/24 14:05 5 mg ONCE ONE Administration ORDERS Category Date Time Status CT bony pelvis Stat Cat Scan 03/31/24 13:50 Completed Consult to Case Management [CONS] Routine Cons 03/31/24 14:00 Active Consult to Case Management [CONS] Routine Cons 03/31/24 15:22 Active Basic Metabolic Panel AMLAB Lab 04/01/24 06:00 Ordered Complete Blood Count Auto Diff AMLAB Lab 04/01/24 06:00 Ordered Medical Decision Narrative: This is a 73-year-old female history of stroke, right-sided weakness, recent fall at the beginning of this month resulting in multiple pelvic fractures, who was seen and managed at [facility] for right sacral ala, right SPR, right IPR fractures which were nonoperative presenting with need for placement. Patient states that she was discharged on 03/25, weightbearing as tolerated recommended inpatient rehab therapy. Patient adamantly declined and signed out from [facility]. States that she was doing okay, pain is becoming a problem at this point. Pain significantly worse today, no other trauma was sustained. States it is worse with flexion of the hip, otherwise she was doing well until she started having difficulty and pain with bearing weight today. Came in for further evaluation. Patient states that she is okay with inpatient rehab, just not in [place]. History obtained with patient and family. On arrival, patient acutely well-appearing. Pain with range of motion of hip on the right side including active and passive, but intact. Pulses equal and symmetric in lower extremities. Differential includes worsening fractures, hip fracture, among others. Because patient no other trauma, further traumatic workup not deemed necessary, but CT of the pelvis to be obtained. On independent interpretation, right SPR, right IPR, right sacral ala fractures. See radiology read for further interpretation. PT OT was contacted and cons ulted, case was discussed at length, to evaluate patient. Social work was contacted and case was discussed at length for evaluation for placement, recommended PT OT first, and then they will figure out placement as possible. Patient given Zofran and oxycodone for pain control. Prior to disposition, care handed off to oncoming physician. Supervisory Examiner disclaimer Much of this encounter note is an electronic sports journalist spoken language to printed text. Electronic sports journalist of the spoken language may permit errors. Although I have reviewed the note, some errors may still exist. <Emilie Brady, DO - Last Filed: 03/31/24 15:42> Vital Signs: 03/31/24 13:50 03/31/24 13:59 03/31/24 14:00 Temperature 98.1 F Temperature Source Oral Pulse Rate 88 87 Pulse Rate [Right] 86 Respiratory Rate 20 Blood Pressure 127/80 126/80 Blood Pressure [Right Arm] 127/80 Blood Pressure Mean [Right Arm] 95 02 Sat by Pulse Oximetry 94 L 97 94 L Oxygen Delivery Method Room Air 03/31/24 14:31 Temperature Temperature Source Pulse Rate 88 Pulse Rate [Right] Respiratory Rate Blood Pressure 92/58 L Blood Pressure [Right Arm] Blood Pressure Mean [Right Arm] 02 Sat by Pulse Oximetry 99 Oxygen Delivery Method Orders (Tests/Meds): ED MEDICATIONS Generic Name Dose Route Start Last Admin Trade Name Freq PRN Reason Stop Dose Admin Acetaminophen 650 mg 03/31/24 15:22 Acetaminophen 325mg Tab PO 04/30/24 15:21 Q4HP PRN Fever or Mild Pain (1-3) Hydrocodone Bitart/Acetaminophen 2 tab 03/31/24 15:22 Hydrocodone/Apap 5/325 Mg Tablet PO 04/30/24 15:21 Q4HP PRN Moderate to Severe Pain (4-10) Hydrocodone Bitart/Acetaminophen 1 tab 03/31/24 15:22 Hydrocodone/Apap 5/325 Mg Tablet PO 04/30/24 15:21 Q4HP PRN Mild to Moderate Pain (1-6) Discontinued Medications Generic Name Dose Route Start Last Admin Trade Name Freq PRN Reason Stop Dose Admin Acetaminophen 1,000 mg 03/31/24 14:04 03/31/24 14:09 Acetaminophen 500mg Tab PO 03/31/24 14:05 1,000 mg ONCE ONE Administration Ondansetron HCl 4 mg 03/31/24 14:04 03/31/24 14:10 Ondansetron 4mg Odt SL 03/31/24 14:05 4 mg ONCE ONE Administration Oxycodone HCl 5 mg 03/31/24 14:04 03/31/24 14:10 Oxycodone 5mg Immediate Release Tablet PO 03/31/24 14:05 5 mg ONCE ONE Administration ORDERS Category Date Time Status CT bony pelvis Stat Cat Scan 03/31/24 13:50 Completed Consult to Case Management [CONS] Routine Cons 03/31/24 14:00 Active Consult to Case Management [CONS] Routine Cons 03/31/24 15:22 Active Basic Metabolic Panel AMLAB Lab 04/01/24 06:00 Ordered Complete Blood Count Auto Diff AMLAB Lab 04/01/24 06:00 Ordered Medical Decision Narrative: This is a 73-year-old female history of stroke, right-sided weakness, recent fall at the beginning of this month resulting in multiple pelvic fractures, who was seen and managed at [facility] for right sacral ala, right SPR, right IPR fractures which were nonoperative presenting with need for placement. Patient states that she was discharged on 03/25, weightbearing as tolerated recommended inpatient rehab therapy. Patient adamantly declined and signed out from [facility]. States that she was doing okay, pain is becoming a problem at this point. Pain significantly worse today, no other trauma was sustained. States it is worse with flexion of the hip, otherwise she was doing well until she started having difficulty and pain with bearing weight today. Came in for further evaluation. Patient states that she is okay with inpatient rehab, just not in [place]. History obtained with patient and family. On arrival, patient acutely well-appearing. Pain with range of motion of hip on the right side including active and passive, but intact. Pulses equal and symmetric in lower extremities. Differential includes worsening fractures, hip fracture, among others. Because patient no other trauma, further traumatic workup not deemed necessary, but CT of the pelvis to be obtained. On independent interpretation, right SPR, right IPR, right sacral ala fractures. See radiology read for further interpretation. PT OT was contacted and consulted, case was discussed at length, to evaluate patient. Social work was contacted and case was discussed at length for evaluation for placement, recommended PT OT first, and then they will figure out placement as possible. Patient given Zofran and oxycodone for pain control. Prior to disposition, care handed off to oncoming physician. Supervisory Examiner disclaimer Much of this encounter note is an electronic sports journalist spoken language to printed text. Electronic sports journalist of the spoken language may permit errors. Although I have reviewed the note, some errors may still exist. DO Jose Antonio: I had an indirect discussion with social work who advised that placement would not happen today as she requires an insurance preauthorization. Given this and her inability to ambulate at home without severe pain, I had an interactive discussion with the hospitalist who is agreeable to admit the patient for placement. Patient was admitted in stable condition. Critical Care <Chemo Palma MD - Last Filed: 03/31/24 15:07> Critical Care Time Critical Care Time: No
--- NOTE | 2024-03-31 15:22 | PC.NURSE ---
on phone with hospitalist
--- NOTE | 2024-03-31 15:22 | SW/DCPLANNER ---
Addendum entered by Wendy Pedersen RN 04/01/24 12:37: Patient has been approved. Spoke with patient and sister. There were some questions about having to stay there forever. Explained it is short term rehab and she can leave when she feels ready as she can make her own decisions. Notified MD and nurse patient can go today. Addendum entered by Wendy Pedersen RN 04/01/24 09:51: [place] is starting a prior authorization. Notified patient and son. Addendum entered by Dagmar Haile 04/01/24 07:39: Information faxed to [facility] and [facility] and [place]. Original Note: I spoke w/ this patient regarding plans once medically stable for discharge. PT/OT evaluated patient in ED and recommended placement. Patient is agreeable to placement in ED and prefers a local facility. I did speak w/ patient, son and daughter in law regarding discharge plans. I informed patient and family that there is not a facility in [place] that accepts patient's insurance at this time. [facility] and [facility] do not have beds available. Patient is agreeable to either [facility] or [facility]. Patient information will be faxed to both facilities. Patient will be admitted overnight for placement. I did inform patient and family that if placement can not be established they would need to make arrangements to take patient home. I will continue to follow up w/ patient and facilities.
--- NOTE | 2024-03-31 15:23 | PC.NURSE ---
MANAGER SURGERY NOTIFIED OF ADMISSION
--- NOTE | 2024-03-31 15:40 | PC.NURSE ---
report called to [facility]
--- NOTE | 2024-03-31 15:49 | HMH.PHAINT1 ---
Pharmacy Intervention Comments: MEDICATION RECONCILIATION COMPLETED ON PATIENT USING EXTERNAL FILL HISTORY FROM PHARMACY AND LIST FROM PCP OFFICE. -SOLE LUQUE, KDD
--- NOTE | 2024-03-31 15:57 | PC.NURSE ---
arrived by stretcher from ED
[2024-03-31] MEDS: HYDROCODONE/APAP 5/325 MG TABLET 2 TAB PO (16:10)
--- NOTE | 2024-03-31 17:53 | P.HP_ITS ---
History of Present Illness *Admission Date: 03/31/24 *Reason for visit:: Multiple pelvic fractures, worsening pain, will need p lacement for rehab *History of present illness: Natali Mclain is a 73-year-old female history of stroke, right-sided weakness, recent fall at the beginning of this month resulting in multiple pelvic fractures, who was seen and managed at [facility] for right sacral ala, right SPR, right IPR fractures which were nonoperative presenting with need for placement. They recommended inpatient rehab but patient was not amenable to this and signed out AMA. Patient states her right hip pain has progressively worsened over the past week at which point she decided to come to the ED. She denies further falls. Case management in the ED recommended PT/OT evaluation who recommended SNF placement. Case discussed with ED attending. Given the challenges of placement from the ED, decision was made to admit patient for pain control for multiple hip fractures and SNF placement. [facility] Disclaimer: The information contained in this section may have been updated after the patient was seen, as this information can be updated by other users. Medical History E. coli UTI (urinary tract infection) Hypokalemia UTI (urinary tract infection) Malignant hypertension Elevated BP without diagnosis of hypertension Avulsion of skin of right hand Fall Avulsion of skin of left hand Hematoma of frontal scalp Abrasion of face Laceration of nose Forehead laceration Vitamin D deficiency Family History (Updated 03/31/24 @ 16:24 by Gerda Jackman RN) Other Family history of cancer Family history of hyperlipidemia Family history of hypertension Social History (Updated 03/31/24 @ 16:24 by Gerda Jackman RN) Smoking Status: Never smoker alcohol intake: never substance use type: denies use current occupational status: disabled Travel in the last 8 weeks: None household members: none housing: house caffeine: Yes Meds Home Medications and Allergies Home Medications ?Medication ?Instructions ?Recorded ?Confirmed ?Type lisinopril 10 mg tablet 10 mg PO DAILY #90 tabs 10/27/23 03/31/24 Rx aspirin 81 mg tablet,delayed 81 mg PO DAILY 03/31/24 03/31/24 History release atorvastatin 40 mg tablet 40 mg PO DAILY 03/31/24 03/31/24 History carvedilol 6.25 mg tablet 6.25 mg PO BID 03/31/24 03/31/24 History cyclobenzaprine 10 mg tablet 10 mg PO TID 03/31/24 03/31/24 History ergocalciferol (vitamin D2) 1,250 1,250 mcg PO WEEKLY 03/31/24 03/31/24 History mcg (50,000 unit) capsule pantoprazole 40 mg tablet,delayed 40 mg PO DAILY 03/31/24 03/31/24 History release tamsulosin 0.4 mg capsule 0.4 mg PO HS 03/31/24 03/31/24 History New Prescriptions to Start Prescriptions: Allergies Allergy/AdvReac Type Severity Reaction Status Date / Time codeine [CODEINE] Allergy Unknown Verified 03/19/24 13:21 ibuprofen [IBUPROFEN] Allergy Unknown Verified 03/19/24 13:21 Exam Data for Last 24 hours Vital signs and Labs for Last 24 Hours: Temp Pulse Resp BP Pulse Ox O2 Del Method 98 F 72 18 133/83 99 Room Air 03/31/24 15:50 03/31/24 15:50 03/31/24 15:50 03/31/24 15:50 03/31/24 14:31 03/31/24 17:00 I & O for Last 24 hours: Intake & Output 03/28/24 03/29/24 03/30/24 03/31/24 23:59 23:59 23:59 23:59 Weight 68.039 kg Constitutional Constitutional: no acute distress *Routine HEENT Exam Head: Present normocephalic Eye: Present EOMI and PERRL ENT: Present mucous membranes moist *Routine Neck Exam Neck: Present supple; Absent lymphadenopathy *Routine Respiratory Exam Respiratory: Present CTA bilaterally *Routine Cardiovascular Exam Cardiovascular: Present RRR *Routine Abdominal Exam Abdominal: Present soft and normoactive bowel sounds; Absent tenderness *Routine Rectal Exam Rectal:: deferred *Routine Genitalia Exam Genitalia:: deferred *Routine Extremities Exam Extremities: Absent cyanosis, clubbing or edema Comments: No tenderness over the right hip. *Routine Skin Exam Skin: Present warm; Absent rash *Routine Neurological Exam Neurological: Present alert and oriented X3 Assessment and Plan *Assessment and plan (1) Fracture, pelvis closed: Status: Acute Category: Medical Code(s): S32.9XXA - Fracture of unspecified parts of lumbosacral spine and pelvis, initial encounter for closed fracture (2) Cerebrovascular accident: Status: Acute Qualifiers: CVA mechanism: unspecified Qualified Code(s): I63.9 - Cerebral infarction, unspecified Category: Medical Code(s): I63.9 - Cerebral infarction, unspecified Plan Natali Mclain is a 73-year-old female history of stroke, right-sided weakness, recent fall at the beginning of this month resulting in multiple pelvic fractures, who was seen and managed at [facility] for right sacral ala, right SPR, right IPR fractures which were nonoperative presenting with need for placement. They recommended inpatient rehab but patient was not amenable to this and signed out AMA. Patient states her right hip pain has progressively worsened over the past week at which point she decided to come to the ED. She denies further falls. Case management in the ED recommended PT/OT evaluation who recommended SNF placement. Case discussed with ED attending. Given the challenges of placement from the ED, decision was made to admit patient for pain control for multiple hip fractures and SNF placement. #Multiple hip fractures after fall ? Pelvic CT revealed Displaced fracture of the lateral aspect of the right superior pubic ramus. Displaced comminuted fracture of the mid inferior right pubic ramus. Comminuted fracture of the right sacral ala. ? These fractures were evaluated by orthopedics who did not recommend surgical intervention. Did recommend SNF but patient refused at that time. ? Patient reports no further falls since that fracture. ? Toradol, Percocet as needed for pain control. ? PT/OT consulted, recommended SNF placement. ? Case management consulted, appreciate recommendations. #History of CVA with right-sided weakness ? Aspirin, statin. #Hypertension ? Resume home medications once BP improves. #GERD ? Protonix. CODE STATUS: Full code DVT prophylaxis: Lovenox 40 mg Diet: Cardiac
[2024-03-31] MEDS: KETOROLAC 30MG/ML VIAL 30 MG IV (20:29)
[2024-03-31] MEDS: ATORVASTATIN 40MG TABLET 40 MG PO (20:30)
[2024-04-01] VITALS: BP 133/86; PULSE 90; RESP 16; TEMP 36.5; O2SAT 97
[2024-04-01] MEDS: KETOROLAC 30MG/ML VIAL 30 MG IV ×3 (00:30→13:00)
--- NOTE | 2024-04-01 03:51 | PC.NURSE ---
HAS RESTED WELL. BEDRIDDEN AT THIS TIME DUE TO PELVIC FRACTURE. RECEIVING TORADOL 30 MG IVP ORDERED WHICH CONTROLS PAIN. PUREWICK IN USE. VITAL SIGNS STABLE/AFEBRILE.
[2024-04-01 04:00] VITALS: BP 117/92; PULSE 79; RESP 16; TEMP 36.6; BMI 23.1
[2024-04-01 07:21] LABS: Basophils % 0.3 % (0.1-2.0); Eosinophils # 0.1 K/mm3 (0.0-0.4); Eosinophils % 1.2 % (0.1-12.0); Hematocrit 34.2 % (37.0-47.0); Hemoglobin 11.2 g/dL (12.2-16.2); Lymphocytes # 0.6 K/mm3 (0.7-4.5); Lymphocytes % 5.6 % (10-50); Mean Corpuscular HGB Conc 32.6 g/dL (31.8-35.4); Mean Corpuscular Hemoglobin 29.7 pg (27.0-31.2); Monocytes # 0.7 K/mm3 (0.1-1.0); Monocytes % 6.7 % (1.7-9.3); Neutrophils # 8.5 K/mm3 (1.8-7.8); Neutrophils % 86.2 % (37.0-80.0); Platelet Count 326 K/mm3 (142-424); Red Blood Count 3.76 M/mm3 (4.20-5.40); Red Cell Distribution Width 14.6 % (11.5-17.5); White Blood Count 9.9 K/mm3 (4.8-10.8)
[2024-04-01 07:28] LABS: Blood Urea Nitrogen 25 mg/dl (7-17); Calcium 9.2 mg/dl (8.4-10.2); Carbon Dioxide 24 mmol/L (22.0-30.0); Chloride 105 mmol/L (98-107); Creatinine Clearance Estimated 40 mL/min (50-200); Estimated Glomerular Filt Rate 40 ml/min (>60); GFR (African American) 49 ML/MIN (>60); Glucose 107 mg/dl (74-100); Sodium 135 mmol/L (136-145)
[2024-04-01 07:31] LABS: MANUAL DIFFERENTIAL MANUAL DIFFERENTIAL (MANUAL DIFF)
[2024-04-01] MEDS: ONDANSETRON 4MG ODT 4 MG SL (07:35)
[2024-04-01 08:00] VITALS: BP 117/76; PULSE 88; RESP 18; TEMP 37.1; O2SAT 96
[2024-04-01] MEDS: ENOXAPARIN 40MG/0.4ML SYRINGE 40 MG SQ (08:23)
[2024-04-01] MEDS: ASPIRIN EC 81MG TABLET 81 MG PO (08:23)
[2024-04-01 10:05] LABS: Lymphocytes % 8 % (10-50); Monocytes % 8 % (2-9); Neutrophils % 84 % (42-76); Platelet Estimate Normal; RBC Morphology Normal; Total Cells Counted 100
--- NOTE | 2024-04-01 13:59 | EXP.DC.SUM ---
General Admission date:: 03/31/24 HPI HPI HPI: Natali Mclain is a 73-year-old female history of stroke, right-sided weakness, recent fall at the beginning of this month resulting in multiple pelvic fractures, who was seen and managed at [facility] for right sacral ala, right SPR, right IPR fractures which were nonoperative presenting with need for placement. They recommended inpatient rehab but patient was not amenable to this and signed out AMA. Patient states her right hip pain has progressively worsened over the past week at which point she decided to come to the ED. She denies further falls. Case management in the ED recommended PT/OT evaluation who recommended SNF placement. Case discussed with ED attending. Given the challenges of placement from the ED, decision was made to admit patient for pain control for multiple hip fractures and SNF placement. Hospital Course Hospital Course Hospital Course: Natali Mclain is a 73-year-old female history of stroke, right-sided weakness, recent fall at the beginning of this month resulting in multiple pelvic fractures, who was seen and managed at [facility] for right sacral ala, right SPR, right IPR fractures which were nonoperative presenting with need for placement. They recommended inpatient rehab but patient was not amenable at that time. Patient states her right hip pain has progressively worsened over the past week at which point she decided to come to the ED. She denies further falls. Case management in the ED recommended PT/OT evaluation who recommended SNF placement. Case discussed with ED attending. Given the challenges of placement from the ED, decision was made to admit patient for pain control for multiple hip fractures and SNF placement. #Multiple hip fractures after fall ? Pelvic CT revealed displaced fracture of the lateral aspect of the right superior pubic ramus. Displaced comminuted fracture of the mid inferior right pubic ramus. Comminuted fracture of the right sacral ala. ? These fractures were evaluated by [facility] who did not recommend surgical intervention. Did recommend SNF but patient refused at that time of evaluation earlier in the month. ? Patient reports no further falls since that fracture. ? Hospital course was un complicated. PT/OT consulted, recommended SNF placement. ? Pain well-managed with Toradol, Percocet. ? Case management consulted, and patient was accepted to [facility]. ? Patient discharged with Percocet for pain control. Avoid NSAIDs at this time given JOSHUA. #JOSHUA ? Creatinine 1.30, baseline around 0.90. ? Likely secondary to Toradol given for pain control. ? Repeat BMP in 3 days postdischarge to reevaluate kidney function. Encourage oral rehydration. #History of CVA with right-sided weakness ? Aspirin, statin. #Hypertension ? Replaced carvedilol with amlodipine 5 mg given increased risk of falls with beta-jane in elderly and no cardiac history. #GERD ? Protonix. Exam Data for Last 24 hours Vital signs and Labs for Last 24 Hours: Temp Pulse Resp BP Pulse Ox O2 Del Method 98.8 F 88 18 117/76 96 Room Air 04/01/24 08:00 04/01/24 08:00 04/01/24 08:00 04/01/24 08:00 04/01/24 08:00 04/01/24 13:36 Laboratory Results - last 24 hr 04/01/24 06:10: WBC 9.9, RBC 3.76 L, Hgb 11.2 L, Hct 34.2 L, MCV 91.0, MCH 29.7, MCHC 32.6, RDW 14.6, Plt Count 326, MPV 8.0, Neut % (Auto) 86.2 H, Lymph % (Auto) 5.6 L, [place] % (Auto) 6.7, Eos % (Auto) 1.2, Baso % (Auto) 0.3, Neut # (Auto) 8.5 H, Lymph # (Auto) 0.6 L, [place] # (Auto) 0.7, Eos # (Auto) 0.1, Baso # (Auto) 0.0, Total Counted 100, Neutrophils % (Manual) 84 H, Lymphocytes % (Manual) 8 L, Monocytes % (Manual) 8, Platelet Estimate Normal, RBC Morphology Normal, Sodium 135 L, Potassium 4.0, Chloride 105, Carbon Dioxide 24, Anion Gap 10.0, BUN 25 H, Creatinine 1.30 H, Estimated Creat Clear 40, Estimated GFR 40 L, Est GFR ( Amer) 49 L, Glucose 107 H, Calcium 9.2 I & O for Last 24 hours: Intake & Output 03/29/24 03/30/24 03/31/24 04/01/24 23:59 23:59 23:59 23:59 Intake Total 510 / 510 Output Total 0 / 0 Balance 510 / 510 Weight 63.304 kg 65.136 kg Constitutional Constitutional: no acute distress *Routine HEENT Exam Head: Present normocephalic Eye: Present EOMI and PERRL ENT: Present mucous membranes moist *Routine Neck Exam Neck: Present supple; Absent lymphadenopathy *Routine Respiratory Exam Respiratory: Present CTA bilaterally *Routine Cardiovascular Exam Cardiovascular: Present RRR *Routine Abdominal Exam Abdominal: Present soft and normoactive bowel sounds; Absent tenderness *Routine Extremities Exam Extremities: Absent cyanosis, clubbing or edema *Routine Skin Exam Skin: Present warm; Absent rash *Routine Neurological Exam Neurological: Present alert and oriented X3 Results Data Completed and Pending Labs on day of discharge: Labs from last 24 hours 04/01/24 06:10 WBC 9.9 RBC 3.76 L Hgb 11.2 L Hct 34.2 L MCV 91.0 MCH 29.7 MCHC 32.6 RDW 14.6 Plt Count 326 MPV 8.0 Neut % (Auto) 86.2 H Lymph % (Auto) 5.6 L [place] % (Auto) 6.7 Eos % (Auto) 1.2 Baso % (Auto) 0.3 Neut # (Auto) 8.5 H Lymph # (Auto) 0.6 L [place] # (Auto) 0.7 Eos # (Auto) 0.1 Baso # (Auto) 0.0 Total Counted 100 Neutrophils % (Manual) 84 H Lymphocytes % (Manual) 8 L Monocytes % (Manual) 8 Platelet Estimate Normal RBC Morphology Normal Sodium 135 L Potassium 4.0 Chloride 105 Carbon Dioxide 24 Anion Gap 10.0 BUN 25 H Creatinine 1.30 H Estimated Creat Clear 40 Estimated GFR 40 L Est GFR ( Amer) 49 L Glucose 107 H Calcium 9.2 DS: Diagnosis Discharge Diagnosis (1) Fracture, pelvis closed: Status: Acute Code(s): S32.9XXA - Fracture of unspecified parts of lumbosacral spine and pelvis, initial encounter for closed fracture (2) Cerebrovascular accident: Status: Acute Code(s): I63.9 - Cerebral infarction, unspecified Qualifiers: CVA mechanism: unspecified Qualified Code(s): I63.9 - Cerebral infarction, unspecified Meds Home Medications and Allergies Home Medications ?Medication ?Instructions ?Recorded ?Confirmed ?Type lisinopril 10 mg tablet 10 mg PO DAILY #90 tabs 10/27/23 03/31/24 Rx aspirin 81 mg tablet,delayed 81 mg PO DAILY 03/31/24 03/31/24 History release atorvastatin 40 mg tablet 40 mg PO DAILY 03/31/24 03/31/24 History ergocalciferol (vitamin D2) 1,250 1,250 mcg PO WEEKLY 03/31/24 03/31/24 History mcg (50,000 unit) capsule pantoprazole 40 mg tablet,delayed 40 mg PO DAILY 03/31/24 03/31/24 History release tamsulosin 0.4 mg capsule 0.4 mg PO HS 03/31/24 03/31/24 History amlodipine 5 mg tablet 5 mg PO DAILY #30 tabs 04/01/24 Rx New Prescriptions to Start Prescriptions: amlodipine Levi Carter Allergies Allergy/AdvReac Type Severity Reaction Status Date / Time codeine [CODEINE] Allergy Unknown Verified 03/19/24 13:21 ibuprofen [IBUPROFEN] Allergy Unknown Verified 03/19/24 13:21 Discharge Plan Disposition Patient Disposition: [facility] Condition: Fair Discharge Order Discharge Orders: Discharge Order (Routine); Ordered 04/01/24 Ordered By: Levi Carter Follow up Plan Prescriptions/Medication Reconciliation: New amlodipine 5 mg tablet 5 mg PO DAILY Qty: 30 0RF Continued lisinopril 10 mg tablet 10 mg PO DAILY Qty: 90 2RF atorvastatin 40 mg tablet 40 mg PO DAILY aspirin 81 mg tablet,delayed release (DR/EC) 81 mg PO DAILY pantoprazole 40 mg tablet,delayed release (DR/EC) 40 mg PO DAILY ergocalciferol (vitamin D2) 1,250 mcg (50,000 unit) capsule 1,250 mcg PO WEEKLY tamsulosin 0.4 mg capsule 0.4 mg PO HS Discontinued cyclobenzaprine 10 mg tablet 10 mg PO TID carvedilol 6.25 mg tablet 6.25 mg PO BID Problem Reconciliation Problems Reviewed?: Yes Patient Discharge Instructions ACTIVITY: Up with assistance DIET: continue same diet Patient Instructions: Exercises to Help Prevent Falls, DI for Pelvic Fracture, How to Prevent Falls Print Language: Korean Providers Primary Care Provider: Levi Reich Admit Provider: Levi Carter Attending Provider: Levi Carter
[2024-04-01] MEDS: 0.9 % SODIUM CHLORIDE 1000ML 1,000 ML 500 ML IV (15:08)
[2024-04-01 16:00] VITALS: BP 151/89; PULSE 85; RESP 18; TEMP 36.8; O2SAT 99
--- NOTE | 2024-04-01 17:13 | PC.NURSE ---
Report called to Del Ribeiro RN.
[2024-04-01 20:00] VITALS: BP 140/93; PULSE 93; RESP 20; TEMP 36.8; O2SAT 97
[2024-04-01] MEDS: ATORVASTATIN 40MG TABLET 40 MG PO (21:49)
[2024-04-01] MEDS: PANTOPRAZOLE 40MG TABLET 40 MG PO (21:50)
[2024-04-02] VITALS: BP 160/88; PULSE 68; RESP 16; TEMP 36.8; O2SAT 98
[2024-04-02] MEDS: ONDANSETRON 4MG ODT 4 MG SL ×2 (03:25→08:04)
[2024-04-02 04:00] VITALS: BMI 23.8
[2024-04-02 05:07] VITALS: BP 134/78; PULSE 95; RESP 18; TEMP 36.9; O2SAT 98
--- NOTE | 2024-04-02 06:14 | PC.NURSE ---
Ms Mclain's discharge assessment was completed during the previous shift; her IV site was discontinued as well. She was not given scheduled IV Toradol, but she has not requested any PO pain medications this shift. However, she was given Zofran once this shift after one vomiting episode around 03:20 this morning. She reported relief after receiving sublingual Zofran. [facility] was unable to corn picker the patient last night and reported that she will likely be picked up this morning. Patient has been alert and oriented x4. She was assessed and given her bedtime medications per SEP. Her lungs were clear and her bowel sounds were hypoactive. Patient did report having difficulty with moving her bowels this shift and has been having decreased peristalsis for awhile now. Patient was able to get up to the bedside commode to attempt a bowel movement with assistance; no results thus far. She has remained on a purewick through the night due to impaired mobility; urine was observed to be clear and qiana. Patient did not report any pain related to her fracture this shift; she voiced that she has been feeling better and had wonderful care at this facility. However, she does report some pain during movement. Powder was applied on her right hip and upper buttock per request. At this time, patient is observed to have eyes closed, respirations even and unlabored, and no apparent distress. Call light is within reach. Patient remains to wait for personnel to transfer her to [facility] for rehabilitation.
[2024-04-02 08:00] VITALS: BP 130/71; PULSE 92; RESP 18; TEMP 36.6
[2024-04-02] MEDS: MINERAL OIL ENEMA 133ML 133 ML RC (08:15)
--- NOTE | 2024-04-02 09:44 | PC.NURSE ---
attempted to call report to [facility], calls keep going to voicemail. pedro at the front office director said all nurses are in a meeting and unable to take any calls.
== END 2024-04-02 09:25 ==
LOC: ER 15:23 → 2ND 16:04
PROVIDERS: Admitting Provider Student in an Organized Health Care Education/Training Program; Emergency Provider Emergency Medicine; PCP Internal Medicine; Visit Provider Student in an Organized Health Care Education/Training Program
DX: S32.591A Other specified fracture of right pubis, initial encounter for closed fracture (principal); S32.19XA Other fracture of sacrum, initial encounter for closed fracture; Z86.73 Personal history of transient ischemic attack (TIA), and cerebral infarction without residual deficits; I10 Essential (primary) hypertension; K21.9 Gastro-esophageal reflux disease without esophagitis; N17.9 Acute kidney failure, unspecified; Z79.899 Other long term (current) drug therapy; E55.9 Vitamin D deficiency, unspecified; W18.30XA Fall on same level, unspecified, initial encounter; M51.37 Other intervertebral disc degeneration, lumbosacral region
CPT/HCPCS: 36415; 72192; 80048; 85007; 85025; 85027; 97530; 99285; G0378; J1650; J1885; J7030; Q0162

== ENCOUNTER 2024-05-04 13:24 | Outpatient (CLI) | payer MEDICARE, SELFPAY ==
--- NOTE | 2024-05-04 13:28 | XR_ITS ---
PROCEDURE INFORMATION: Exam: XR Pelvis Exam date and time: 05/04/2024 2:02 PM Age: 73 years old Clinical indication: Injury or trauma; Fall; Fracture of pelvis & hip; Right; Traumatic fracture; Pubis (pubic symphysis or rami); Not specified; Additional info: Pelvic FX TECHNIQUE: Imaging protocol: Radiologic exam of the pelvis. Views: 3 or more views. COMPARISON: CT BONY PELVIS 03/31/2024 2:12 PM FINDINGS: Bones/joints: Subacute fracture through the lateral aspect of the right superior pubic ramus. Unchanged alignment with approximately 11 mm of cortical offset. Subacute parasymphyseal pubic bone fractures with callus formation and bony sclerosis left side. Healing callus formation noted around the right inferior pubic ramus fracture. Bony overgrowth of the superolateral acetabulum right hip. Prominent marginal osteophyte formation off the right lateral femoral head. The morphology of the right hip joint can be associated with pincer type femoroacetabular impingement. Increased bony sclerosis noted around the right sacral alar region consistent with subacute healing sacral alar fracture. Soft tissues: Unremarkable. IMPRESSION: 1. Subacute fracture through the lateral aspect of the right superior pubic ramus. Unchanged alignment with approximately 11 mm of cortical offset. 2. Subacute parasymphyseal pubic bone fractures with callus formation and bony sclerosis left side. 3. Healing callus formation noted around the right inferior pubic ramus fracture. 4. Bony overgrowth of the superolateral acetabulum right hip. Prominent marginal osteophyte formation off the right lateral femoral head. The morphology of the right hip joint can be associated with pincer type femoroacetabular impingement. 5. Increased bony sclerosis noted around the right sacral alar region consistent with subacute healing sacral alar fracture.
== END 2024-05-04 23:59 | disposition home or self-care (01) ==
LOC: RAD 13:26
PROVIDERS: PCP Internal Medicine; Visit Provider Physician Assistant
DX: R10.2 Pelvic and perineal pain (principal); S32.9XXA Fracture of unspecified parts of lumbosacral spine and pelvis, initial encounter for closed fracture
CPT/HCPCS: 72190

== ENCOUNTER 2025-02-14 13:33 | Outpatient (CLI) | payer MEDICARE, SELFPAY ==
[2025-02-14 19:23] LABS: Hematocrit 35.2 % (37.0-47.0); Hemoglobin 11.8 g/dL (12.2-16.2); Immature Granulocytes % 0.3 %; Mean Corpuscular HGB Conc 33.5 g/dL (31.8-35.4); Mean Corpuscular Hemoglobin 29.9 pg (27.0-31.2); Mean Corpuscular Volume 89.3 fl (81-99); Nucleated Red Blood Cells % 0 %; Platelet Count 205 K/mm3 (142-424); Red Blood Count 3.94 M/mm3 (4.20-5.40); Red Cell Distribution Width-SD 43.4 fL; White Blood Count 3.7 K/mm3 (4.8-10.8)
[2025-02-14 20:03] LABS: Alanine Aminotransferase 20 U/L (12-78); Albumin Level 3.9 g/dl (3.5-5.0); Albumin/Globulin Ratio 2.0 (1.1-1.8); Alkaline Phosphatase 108 U/L (38-126); Anion Gap 9.0 mEq/L (5-15); Aspartate Amino Transferase 25 U/L (14-36); Bilirubin,Total 0.5 mg/dl (0.2-1.3); Blood Urea Nitrogen 12 mg/dl (7-17); Calcium 9.6 mg/dl (8.4-10.2); Carbon Dioxide 24 mmol/L (22.0-30.0); Chloride 109 mmol/L (98-107); Cholesterol 135 mg/dl (140-200); Creatinine,Serum 0.70 mg/dl (0.52-1.04); Estimated Glomerular Filt Rate 82 ml/min (>60); GFR (African American) 99 ML/MIN (>60); Globulin 2.0 g/dL (1.3-3.2); Glucose 128 mg/dl (74-100); HDL Cholesterol 32 mg/dl (40-60); Potassium 4.0 mmoL/L (3.5-5.1); Sodium 138 mmol/L (136-145); Total Protein,Serum 5.9 g/dl (6.3-8.2); Triglycerides 296 mg/dl (30-150)
[2025-02-14 20:04] LABS: Total Cells Counted 100
[2025-02-14 20:05] LABS: RBC Morphology Normal
[2025-02-14 20:16] LABS: 25-OH Vitamin D, Total 43.9 ng/mL (30-100)
[2025-02-14 20:32] LABS: Thyroid Stimulating Hormone 1.32 uIU/mL (0.465-4.68)
--- OUTSIDE RECORDS SUMMARY | 2025-02-15 11:08 | XMS_ITS | Clinical Summary ---
Author Organization Healthcare Address [address] [place] [address] Care Team Providers Care Optical Instrument Assembly Supervisor Name Role Phone Pcp, No Primary Care Provider Unavailabl e Allergies Active Allergy Reactions Criticality Noted Date Comments Codeine Unknown - Patient st ates they do not know rxn details Low 03/21/2024 Ibuprofen Unknown - Patient st ates they do not know rxn details Low 03/21/2024 Medications cyclobenzaprine (Flexeril) 10 MG tablet Take 1 tablet (10 mg) by mouth 3 (three) times a day if needed for muscle spasms. Active carvedilol (Coreg) 6.25 MG tablet Take 1 tablet (6.25 mg) by mouth 2 (two) times a day with meals. Active pantoprazole (Protonix) 40 MG EC tablet Take 1 tablet (40 mg) by mouth 1 (one) time each day before breakfast. Do not crush, chew, or split. Active ergocalciferol (Vitamin D-2) 1.25 MG (72214 UT) capsule Take 1 capsule (50,000 Units) by mouth 1 (one) time per week. Friday Active atorvastatin (Lipitor) 40 MG tablet Take 1 tablet (40 mg) by mouth 1 (one) time each day. Active lisinopril 10 MG tablet Take 1 tablet (10 mg) by mouth 1 (one) time each day. Active oxyCODONE-acetamin ophen (Percocet) 5-325 MG tablet Take 1 tablet by mouth 2 (two) times a day. Active methocarbamol (Robaxin) 500 MG tablet Take 2 tablets (1,000 mg) by mouth 4 (four) times a day if needed for muscle spasms for up to 14 days. 112 tablet Active naloxone (Narcan) 4 mg/0.1 mL nasal spray 1. Give 1 spray in nostril for no/slow breathing or cannot wake after opioid use 2. Call 911 3. Repeat in other nostril if symptoms continue 1 each 4 Active ondansetron ODT (Zofran-ODT) 4 MG disintegrating tablet Take 1 tablet (4 mg) by mouth every 6 (six) hours if needed for nausea or vomiting. 20 tablet 4 Active Active Problems Problem Noted Date Diagnosed Date Urinary retention 03/25/2024 Overview (03/25/2024): Patient reports this has been going on for the past few months. While inpatient she has had to be in and out catheterized multiple times. Flomax started 03/25 Bladder scan every 6 hours or earlier if patient feels the need to void but unable to. If more than 3 consecutive in and out catheterization needed to be done, okay to and Uma[place]. Multiple closed fractures of pelvis, initial enc ounter 03/21/2024 Overview (03/25/2024): S/p fall from standing height Ortho consulted: Recommend non op management at this time. Patient to work with physical therapy with post-mobility films after ambulation. 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 Continue home medicines Social History Tobacco Use Types Packs/Day Years Used Date Smoking Tobacco: Never Assessed Humiliation, Afraid, Rape, and Kick questionnair e Answer Date Recorded Within the last year, have y ou been afraid of your partner or ex-partner? No 03/22/2024 Within the last year, have y ou been humiliated or emotionally abused in other ways by your partner or ex-partner? No Within the last year, have y ou been kicked, hit, slapped, or otherwise physically hurt by your partner or ex-partner? No 03/22/2024 Within the last year, have y ou been raped or forced to have any kind of sexual activity by your partner or ex-partner? No 03/22/2024 Hunger Vital Sign Answer Date Recorded Within the past 12 months, y ou worried that your food would run out before you got the money to buy more. Never true 03/22/20 24 Within the past 12 months, t he food you bought just didn't last and you didn't have money to get more. Never true 03/22/2024 PRAPARE - Transportation Answer Date Re corded In the past 12 months, has l ack of transportation kept you from medical appointments or from getting medications? No 03/2024 In the past 12 months, has l ack of transportation kept you from meetings, work, or from getting things needed for daily living? No 03/22/2024 Housing Stability Vital Sign Answer Lorenzo e Recorded In the last 12 months, was t here a time when you were not able to pay the mortgage or rent on time? No 03/22/2024 Number of Places Lived in the Last Year Not on f ile 03/22/2024 In the last 12 months, was t here a time when you did not have a steady place to sleep or slept in a senior care (including now)? No 03/22/2024 Utilities Answer Date Recorded In the past 12 months has th e [employer], gas, oil, or water [employer] threatened to shut off services in your home? No 03/22/2024 Comments Unknown Sex and Gender Information Value Date Recorded Sex Assigned at Not on file Legal Sex Female 8:13 PM EDT Gender Identity Not on file Sexual Orientation Not on file Last Filed Vital Signs Vital Sign Reading Time Taken Comments Blood Pressure 142/87 03/25/2024 4:28 PM EDT Pulse 80 03/25/2024 4:28 PM EDT Temperature 36.8 C (98.2 F) 03/25/2024 4:28 PM EDT Respiratory Rate 18 03/25/2024 4:28 PM EDT Oxygen Saturation 98% 03/25/2024 4:28 PM EDT Inhaled Oxygen Concentration - - Weight 65.8 kg (145 lb) 03/21/2024 6:35 AM EDT Height 175.3 cm (5' 9 ) 03/21/2024 6:35 AM EDT Body Mass Index 21.41 03/21/2024 6:35 AM EDT Plan of Treatment Health Maintenance Due Date Last Done Comments [facility]-Bone Density Scan 1950 [facility]-Depression Screening 1950 [facility]-Medicare Annual Wellness (AWV) 1950 [facility]-Infant/Child/Adol SDOH Screenings 1950 [address] Colonography 09/23/1995 Colonoscopy 09/23/1995 FIT-DNA 09/23/1995 FIT 09/23/1995 FOBT 09/23/1995 Sigmoidoscopy 09/23/1995 [facility]-Colorectal Cancer Screening 09/23/1995 [facility]-Breast Cancer Screening 2000 [facility]-Zoster Vaccines (1 of 2) 2000 [facility]-Pneumococcal Vaccine: 50+ Years (2 of 2 - PCV) 04/18/2016 04/18/2015, 05/12/2014 [id number] Vaccine ( - 2023- season) 2024 [facility]- SDOH Screenings 09/19/2024 [facility]-Adult SDOH Screenings 09/19/2024 03/22/2024 [facility]-Influenza Vaccine (#1) 03/14/202503/27, 04/29/2016, 04/26/2014, Additional history exists [facility]-RSV Vaccine: 60+ Years or (1 - 1-dose 75+ series) 2025 [facility]-DTaP,Tdap,and Td Vaccines (2 - Td or Tdap) 02/09/2033 02/09/2023 [facility]-Hepatitis C Screening Completed 03/21/2024 HPV Vaccines Aged Out No longer eligi ble based on patient's age to complete this topic [facility]-HIB Vaccines Aged Out No longer e ligible based on patient's age to complete this topic [facility]-Hepatitis A Vaccines Aged Out No longer eligible based on patient's age to complete this topic [facility]-IPV Vaccines Aged Out No longer e ligible based on patient's age to complete this topic [facility]-Rotavirus Vaccines Aged Out No lo nger eligible based on patient's age to complete this topic Procedures Procedure Name Priority Date/Time Associated Diagnosis Comments HEPATITIS C ANTIBODY - ED W/REFLEX TO HCV QUANT PCR STAT 03/21/2024 3:46 AM EDT from Last 3 Months or Most Recently Relevant to Health Maintenance Results * Hepatitis C Antibody - ED (03/21/2024 3:46 AM EDT) Hepatitis C Antibody Negative Negative 03/21/2024 5:00 AM EDT [facility] Blood Venous blood specimen / Unknown Venipuncture / Unknown 03/21/2024 3:46 AM EDT 03/21/2024 4:19 AM EDT Ac Armendariz MD LAB BLOOD ORDERABLES Final Result [facility] [address] [place] [address] from Last 3 Months or Most Recently Relevant to Health Maintenance Insurance [employer] Advance Directives * Full Code (Latest Code Status on File) Date Activated Date Inactivated Comments 03/21/2024 6:59 AM 03/25/2024 10:15 PM Question Answer Comments Patient has decision-making capacity? Yes Care Teams Optical Instrument Assembly Supervisor Relationship Specialty Start Date End Date Pcp, No [address] [place] [address] PCP - General Family Medicine 02/20/24
== END 2025-02-14 23:59 | disposition home or self-care (01) ==
LOC: LAB.DROPOF 02-15 11:04
PROVIDERS: PCP Family Medicine; Visit Provider Family Medicine
DX: I12.9 Hypertensive chronic kidney disease with stage 1 through stage 4 chronic kidney disease, or unspecified chronic kidney disease (principal); N18.9 Chronic kidney disease, unspecified; E55.9 Vitamin D deficiency, unspecified; E78.5 Hyperlipidemia, unspecified
CPT/HCPCS: 80053; 80061; 82306; 84443; 85007; 85025

== ENCOUNTER 2025-05-18 13:41 | Outpatient (CLI) | payer MEDICARE, SELFPAY ==
[2025-05-18 15:28] LABS: Hematocrit 37.7 % (37.0-47.0); Hemoglobin 12.5 g/dL (12.2-16.2); Immature Granulocytes % 0.2 %; Mean Corpuscular HGB Conc 33.2 g/dL (31.8-35.4); Mean Corpuscular Hemoglobin 29.7 pg (27.0-31.2); Mean Corpuscular Volume 89.5 fl (81-99); Nucleated Red Blood Cells % 0 %; Platelet Count 208 K/mm3 (142-424); Red Blood Count 4.21 M/mm3 (4.20-5.40); Red Cell Distribution Width-SD 41.1 fL; White Blood Count 4.1 K/mm3 (4.8-10.8)
[2025-05-18 15:39] LABS: Hemoglobin A1C 5.8 % (4.0-6.0)
--- OUTSIDE RECORDS SUMMARY | 2025-05-19 20:19 | XMS_ITS | Clinical Summary ---
Author Organization Healthcare Address [address] [place] [address] Care Team Providers Care Sweet Goods Machine Operator Name Role Phone Pcp, No Primary Care [...] split. Active ergocalciferol (Vitamin D-2) 1.25 MG (94573 UT) capsule Take 1 capsule (50,000 Units) [...] mobility films obtained, awaiting ortho further recs Primary hypertension 03/21/2024 Overview (03/25/2024): Continue home medicines Lisinopril increased to 20mg Other hyperlipidemia 03/21/2024 Overview (03/23/2024): Continue home medicines Cerebrovascular accident (CV A) due to embolism of precerebral artery 03/21/2024 Overview (03/23/2024): No residual effects. Continue home medicines Resolved Problems Problem Noted Date Diagnosed Date Resolved Date Fall from standing 03/21/2024 5 Social History Tobacco Use Types Packs/Day Years [...] place to sleep or slept in a intermediate (including now)? No 03/22/2024 Utilities Answer Date Recorded In the past 12 months has th e [employer], gas, oil, or water company threatened to shut off services in your [...] Screening 1950 [facility]-Medicare Annual Wellness (AWV) 1950 [facility]-/Child/Adol SDOH Screenings 1950 [facility]- SDOH Screenings 1968 [facility]-Adult SDOH Screenings 1968 CT Colonography 09/23/1995 Colonoscopy 09/23/1995 FIT-DNA 09/23/1995 FIT 09/23/1995 FOBT 09/23/1995 Sigmoidoscopy 09/23/1995 [facility]-Colorectal Cancer Screening 09/23/1995 [facility]-Breast Cancer Screening 2000 [facility]-Zoster Vaccines (1 of 2) 2000 [facility]-Pneumococcal Vaccine: 50+ Years (2 of 2 - PCV) 04/18/2016 04/18/2015, 05/12/2014 [id number] Vaccine (1 - season) 2025 [facility]-Influenza Vaccine (#1) 03/14/202503/27, 04/29/2016, 04/26/2014, Additional [...] Antibody Negative Negative 03/21/2024 5:[address] [facility] Blood Venous blood specimen / Unknown Venipuncture / Unknown 03/21/2024 3:46 AM EDT 03/21/2024 4:19 AM EDT Ac Armendariz MD LAB BLOOD ORDERABLES Final Result Performing Organization Address City/State/[facility] Co de Phone Number [facility] [address] [place] [address] from Last 3 Months or Most Recently Relevant to Health Maintenance Insurance [employer] Advance Directives * Full Code (Latest Code Status on File) Date Activated Date Inactivated Comments 03/21/2024 6:59 AM 03/25/2024 10:15 PM Question Answer Comments Patient has decision-making capacity? Yes Care Teams Sweet Goods Machine Operator Relationship Specialty Start Date End Date Pcp, No [address] [place] [address] PCP - General Family Medicine 02/20/24
--- OUTSIDE RECORDS SUMMARY | 2025-05-19 20:19 | XMS_ITS ---
Author Organization [facility] Care Team Providers Care Reference Test Clerk Name Role Phone Leonor Berger Unavailable Unavailable Soni, Turner Unavailable Unavailable Lenore Wilson Unavailable Unavailable Abel Contreras Unavailable Unavailable Carmen Ding Unavailable Unavailable Allergies and adverse reactions Code CodeSystem Substance Reaction Severity StartDate Concern Status 2670 RXNORM Codeine Mild 04/01/2024 active 5640 RXNORM Ibuprofen Mild 04/01/2024 active Care Team Name Role Address Phone Organization Dates Abel Contreras PCP [address] , [place], [address], [facility] (Office): : : [place] 04/02/2024 - 04/12/2024 Leonor Berger [facility] (Office): [place] 04/02/2024 - 04/12/2024 Turner Shafer [facility] (Office): [place] 04/02/2024 - 04/12/2024 Lenore Wilson [facility] (Office): [place] 04/02/2024 - 04/12/2024 Carmen Ding [facility] (Office): [place] 04/02/2024 - 04/12/2024 Goals Section Goals Description Status Target Date Advanced Directives will be honored. Active 04/16/2024 Discharge plans will be established by the revie w date Active 04/16/2024 Maintain optimal oral hygiene status. Active 04/16/2024 Pain will be managed with goal range. Active 04/16/2024 Prevent/heal wounds and prevent avoidable skin b reakdown. Active 04/16/2024 Resident to maintain weight with no significant changes, tolerate diet order, skin intact, and to stay hydrated thru the next review. Active 04/16/2024 Resident will have decreased risk for falls through nursing interventions. Active 04/16/2024 Resident will not be exposed to know allergen and be free of allergic reaction through the review date. Active 04/16/2024 Staff will recognize s/s of complications and/or changes of status and notify MD thru next review date. Active 04/16/2024 The resident will be able to function at the fullest potential possible as outlined by the interdisciplinary team through the review date. Active 04/16/2024 The resident will be free fr om complications of cardiac problems through the review date. Active 04/16/2024 The resident will be free fr om discomfort or adverse reactions through the review date. Active 04/16/2024 The resident will remain aurora e from discomfort, complications or s/sx related to gastro-intestinal alterations through review date. Active 04/16/2024 The resident will remain aurora e of complications related to hip fracture, such as contracture formation, embolism and immobility through review date. Active 04/16/2024 Will achieve/maintain maximum functional mobilit y. Active 04/16/2024 Will attend/participate in activities of choice. Active 04/16/2024 Will be free of complication s r/t potential alteration in elimination status Active 04/16/2024 Will express/exhibit satisfaction with stay and care. Active 04/16/2024 Will have needs met by assistance of staff as ne griffin. 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 04/02/[address] active 2 CEREBRAL INFARCTION, UNSPECIFIED 04/02/20 24 04/02/[address] completed 3 DEFECTS IN THE COMPLEMENT SYSTEM 04/02/[address] active 4 FRACTURE OF SUPERIOR RIM OF RIGHT PUBIS, SUBSEQUENT ENCOUNTER FOR FRACTURE WITH ROUTINE HEALING 04/02/[address] active 5 GASTRO-ESOPHAGEAL REFLUX DISEASE WITHOUT ESOPHAGITIS 04/02/[address] active 6 HEMIPLEGIA AND HEMIPARESIS FOLLOWING CEREBRAL INFARCTION AFFECTING RIGHT DOMINANT SIDE 04/02/[address] active 7 MUSCLE WASTING AND ATROPHY, NOT ELSEWHERE CLASSIFIED, UNSPECIFIED SITE 04/02/[address] active 8 MUSCLE WEAKNESS (GENERALIZED) 04/02/[address] active 9 NEED FOR ASSISTANCE WITH PERSONAL CARE 04/02/[address] active 10 OTHER SPECIFIED FRACTURE OF RIGHT PUBIS, SUBSEQUENT ENCOUNTER FOR FRACTURE WITH ROUTINE HEALING 04/02/[address] active 11 PAIN IN RIGHT HIP 04/02/[address] active 12 UNSPECIFIED ABNORMALITIES OF GAIT AND MOBILITY 04/02/[address] active 13 UNSPECIFIED ZONE I FRACTURE OF SACRUM, SUBSEQUENT ENCOUNTER FOR FRACTURE WITH ROUTINE HEALING 04/02/[address] active 14 VITAMIN D DEFICIENCY, UNSPECIFIED 04/02/[address] active 15 RETENTION OF URINE, UNSPECIFIED 03/25/[address] active 16 ESSENTIAL (PRIMARY) HYPERTENSION 03/21/[address] active 17 OTHER HYPERLIPIDEMIA 03/21/[address] active Reason for Referral No Reasons for Referral Entered Social History Social History Observation Description Start Date End Date Code Code System Current Smoking Status Tobacco smoking consumption unknown 473739566 SNOMED CT Sex Assigned At Female 1950 17898-1 [facility] Gender Identity Sexual Orientation Vital Signs Code Code System Vitals Name Values and Units Timing Information 58571-0 [facility] Pain Level Value=0.0 04/12/2024 8462-4 LOINC Blood Pressure-Diastolic Value=74 Un its=mmHg 04/11/2024 8480-6 LOINC Blood Pressure-Systolic Iykdf=311 Un its=mmHg 04/11/2024 8867-4 [facility] Heart rate Value=90.0 Units=/min 9279-1 [facility] Respiratory Rate Value=18.0 Units=/m in 04/11/2024 36737-7 [facility] Weight Dxzrb=998.4 Units=Lbs 70679-9 [facility] O2 % BldC Oximetry Value=96.0 Units= % 04/05/2024 8302-2 [facility] Height Value=66.0 Units=Inches 04/02/2024 8310-5 [facility] Body Temperature Value=98.0 Units= F 04/02/2024
== END 2025-05-18 23:59 | disposition home or self-care (01) ==
LOC: LAB.DROPOF 05-19 20:17
PROVIDERS: PCP Family Medicine; Visit Provider Family Medicine
DX: D72.819 Decreased white blood cell count, unspecified (principal); R73.09 Other abnormal glucose
CPT/HCPCS: 83036; 85025

== ENCOUNTER 2025-06-20 06:58 | Inpatient (IN) | payer MEDICARE, SELFPAY ==
[2025-06-20] VITALS (33 sets, daily range): BP systolic 90–143; BP diastolic 8–86; PULSE 62–93; RESP 14–24; TEMP 36.6–37.6; O2SAT 92–98; BMI 26.6; BMI 25.7
--- NOTE | 2025-06-20 06:55 | ECG_ITS ---
APPROVED REPORT Exam: Resting ECG HR:90 bpm ECG Measurements Heart Rate 90 AXES KS 149 P 56 QRSd 90 QRS 72 QT 339 T 84 QTc 387 Conclusion SINUS RHYTHM NORMAL ECG Electronically signed by : IRON BONDS, 06/21/2025 06:01:52
--- NOTE | 2025-06-20 07:00 | PC.NURSE ---
dr montgomery speaking with hospitalist
--- OUTSIDE RECORDS SUMMARY | 2025-06-20 07:05 | XMS_ITS ---
Author Organization [facility] Care Team Providers Care Field Crew Chief Name Role Phone Leonor Berger Unavailable Unavailable Soni, Turner Unavailable Unavailable Lenore Wilson Unavailable Unavailable Abel Contreras Unavailable Unavailable Carmen Ding Unavailable Unavailable Allergies and adverse reactions Code CodeSystem Substance Reaction Severity StartDate Concern Status 2670 RXNORM Codeine Mild 04/01/2024 active 5640 RXNORM Ibuprofen Mild 04/01/2024 active Care Team Name Role Address Phone Organization Dates Abel Contreras PCP [address] , [place], [address], [facility] (Office): : : [place] 04/02/2024 - 04/12/2024 Leonor Berger [facility] (Office): [place] 04/02/2024 - 04/12/2024 Turner Shafer [facility] (Office): [place] 04/02/2024 - 04/12/2024 Lenore Wilson [facility] (Office): [place] 04/02/2024 - 04/12/2024 Carmen Ding [facility] (Office): [place] 04/02/2024 - 04/12/2024 Goals Section [...] PHQ-9 01 minimal depress ion Insurance Providers Coverage Status Coverage Type Relationship to Subscriber Member Identifier Subscriber Identifier Group Identifier Payer Identifier and Other information 2024 Code: 51 Code System OID:[id number] .[id number]. 5 Code System Name: Source of Payment Typology (PHDSC) Display: Managed Care (Private) Translation: Code: HM Code System: OID:[id number] .[id number]. 1336 Code System Name: Insurance Type Code ([id number]) Display Name: Health Maintenance Organization (HMO) Plan Code: SELF Code System Name: HL7 RoleCode Code System OID:[id number] .[id number] Display Name: Self [id number] Root: [id number] Payer Name: [employer] Address: [facility] [address] City: [place] State: [place] Country: [facility] Telecom: [phone] Code: 81 Code System OID:[id number] .[id number]. 5 Code System Name: Source of Payment Typology (PHDSC) Display: Self Pay Translation: Code: 09 Code System: OID:[id number] .[id number]. 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 04/02/[address] active 2 CEREBRAL INFARCTION, UNSPECIFIED 04/02/2004/02/[address] completed 3 DEFECTS IN THE COMPLEMENT SYSTEM 04/02/[address] active 4 FRACTURE OF SUPERIOR RIM OF RIGHT PUBIS, SUBSEQUENT ENCOUNTER FOR FRACTURE WITH ROUTINE HEALING 04/02/[address] active 5 GASTRO-ESOPHAGEAL REFLUX DISEASE WITHOUT ESOPHAGITIS 04/02/[address] active 6 HEMIPLEGIA AND HEMIPARESIS FOLLOWING CEREBRAL INFARCTION AFFECTING RIGHT DOMINANT SIDE 04/02/[address] active 7 MUSCLE WASTING AND ATROPHY, NOT ELSEWHERE CLASSIFIED, UNSPECIFIED SITE 04/02/[address] active 8 MUSCLE WEAKNESS (GENERALIZED) 04/02/[address] active 9 NEED FOR ASSISTANCE WITH PERSONAL CARE 04/02/[address] active 10 OTHER SPECIFIED FRACTURE OF RIGHT PUBIS, SUBSEQUENT ENCOUNTER FOR FRACTURE WITH ROUTINE HEALING 04/02/[address] active 11 PAIN IN RIGHT HIP 04/02/[address] active 12 UNSPECIFIED ABNORMALITIES OF GAIT AND MOBILITY 04/02/[address] active 13 UNSPECIFIED ZONE I FRACTURE OF SACRUM, SUBSEQUENT ENCOUNTER FOR FRACTURE WITH ROUTINE HEALING 04/02/[address] active 14 VITAMIN D DEFICIENCY, UNSPECIFIED 04/02/[address] active 15 RETENTION OF URINE, UNSPECIFIED 03/25/[address] active 16 ESSENTIAL (PRIMARY) HYPERTENSION 03/21/[address] active 17 OTHER HYPERLIPIDEMIA 03/21/[address] active Reason for Referral No Reasons for Referral Entered Social History Social History Observation Description Start Date End Date Code Code System Current Smoking Status Tobacco smoking consumption unknown 301005832 SNOMED CT Sex Assigned At Female 1950 64144-6 [facility] Gender Identity Sexual Orientation Vital Signs Code Code System Vitals Name Values and Units Timing Information 42187-7 [facility] Pain Level Value=0.0 04/12/2024 8462-4 [facility] Blood Pressure-Diastolic Value=74 Un its=mmHg 04/11/2024 8480-6 [facility] Blood Pressure-Systolic Anyyz=937 Un its=mmHg 04/11/2024 8867-4 [facility] Heart rate Value=90.0 Units=/min 9279-1 [facility] Respiratory Rate Value=18.0 Units=/m in 04/11/2024 24329-4 [facility] Weight Iager=127.4 Units=Lbs 45988-8 [facility] O2 % BldC Oximetry Value=96.0 Units= % 04/05/2024 8302-2 [facility] Height Value=66.0 Units=Inches 04/02/2024 8310-5 [facility] Body Temperature Value=98.0 Units= F 04/02/2024
--- OUTSIDE RECORDS SUMMARY | 2025-06-20 07:05 | XMS_ITS | Clinical Summary ---
Author Organization Healthcare Address [address] [place] [address] Care Team Providers Care Pile Driving Setter Name Role Phone Pcp, No Primary Care [...] split. Active ergocalciferol (Vitamin D-2) 1.25 MG (45907 UT) capsule Take 1 capsule (50,000 Units) [...] place to sleep or slept in a mcc (including now)? No 03/22/2024 Utilities Answer Date Recorded In the past 12 months has th e [employer], gas, oil, or water company threatened to [...] of 2 - PCV) 04/18/2016 04/18/2015, 05/12/2014 [id number] Vaccine (1 - 2024- season) 2025 [facility]-Influenza Vaccine (#1) 03/14/202503/27, 04/29/2016, [...] Antibody Negative Negative 03/21/2024 5:00 AM EDT [facility] Blood Venous blood specimen / Unknown Venipuncture / Unknown 03/21/2024 3:46 AM EDT 03/21/2024 4:19 AM EDT Ac Armendariz MD LAB BLOOD ORDERABLES Final Result Performing Organization Address City/State/[facility] Co de Phone Number [facility] [address] [place] [address] from Last 3 Months or Most Recently Relevant to Health Maintenance Insurance [place] [address] Advance Directives * Full Code (Latest Code Status on File) Date Activated Date Inactivated Comments 03/21/2024 6:59 AM 03/25/2024 10:15 PM Question Answer Comments Patient has decision-making capacity? Yes Care Teams Pile Driving Setter Relationship Specialty Start Date End Date Pcp, No [address] [place] [address] PCP - General Family Medicine 02/20/24
--- OUTSIDE RECORDS SUMMARY | 2025-06-20 07:05 | XMS_ITS ---
Laboratory report Created on: June 14, 2025 JHOANA AMEZQUITA : 1950 Sex: Female Author Organization Unknown PROBLEMS Problems List Code Description RESULTS Laboratory Orders Date Order Code Test 2023-07-17 558914 OPIATES AND OXYC ODONE, [place], UR Laboratory Results Date LOINC Test Value Unit Reference Range Interpre tation 2023-07-17 8251-1 [facility] 2023-07-17 41178-9 [facility] NEG. 2023-07-17 39765-8 OXYCODONE/OXYMORPH P A 2023-07-17 43392-7 OXYCODONE P A 2023-07-17 75489-5 OXYCODONE CONF, MS, UR 445 NG/ML 2023-07-17 05386-7 OXYMORPHONE NEG.
--- NOTE | 2025-06-20 07:11 | XR_ITS ---
PROCEDURE INFORMATION: Exam: XR Chest Exam date and time: 06/20/2025 7:42 AM Age: 74 years old Clinical indication: Chest wall pain; Additional info: Cp TECHNIQUE: Imaging protocol: Radiologic exam of the chest. Views: 1 view. COMPARISON: CR XR CHEST PORTABLE 06/20/2025 7:42 AM FINDINGS: Lungs: Patchy interstitial and alveolar airspace disease within the right upper lobe.Subtle airspace disease left lung base. Pleural spaces: Unremarkable. No pleural effusion. No pneumothorax. Heart/Mediastinum: Moderate hiatal hernia. Bones/joints: Unremarkable. IMPRESSION: 1. Patchy interstitial and alveolar airspace disease within the right upper lobe.Subtle airspace disease left lung base. Lungs are otherwise well aerated. 2. Moderate hiatal hernia.
--- NOTE | 2025-06-20 07:11 | ED_ITS ---
Discharge Plan Disposition Patient Disposition: Admitted Condition: Critical Prescriptions Prescriptions: No Action tamsulosin 0.4 mg capsule See Rx Instructions .ROUTE .COMPLEX Qty: 90 2RF Dose Instruction: TAKE ONE CAPSULE BY MOUTH AT BEDTIME Rx Instructions: TAKE ONE CAPSULE BY MOUTH AT BEDTIME aspirin 81 mg tablet,delayed release (DR/EC) 81 mg PO DAILY Qty: 90 3RF amlodipine 5 mg tablet 5 mg PO DAILY Qty: 90 3RF lisinopril 10 mg tablet 10 mg PO DAILY Qty: 90 2RF ondansetron HCl 4 mg tablet See Rx Instructions .ROUTE .COMPLEX Qty: 30 4RF Dose Instruction: TAKE ONE TABLET BY MOUTH EVERY 8 HOURS NEEDED FOR NAUSEA/VOMITING Rx Instructions: TAKE ONE TABLET BY MOUTH EVERY 8 HOURS NEEDED FOR NAUSEA/VOMITING atorvastatin 40 mg tablet See Rx Instructions .ROUTE .COMPLEX Qty: 90 2RF Dose Instruction: TAKE ONE TABLET BY MOUTH AT BEDTIME Rx Instructions: TAKE ONE TABLET BY MOUTH AT BEDTIME carvedilol 6.25 mg tablet 6.25 mg PO BID Qty: 180 1RF pantoprazole 40 mg tablet,delayed release (DR/EC) 40 mg PO DAILY Qty: 90 2RF ergocalciferol (vitamin D2) 1,250 mcg (50,000 unit) capsule 1,250 mcg PO Q7D Qty: 14 2RF Referrals Follow up/Referrals: Anaid Cobb APRN [Primary Care Provider, [facility]] - See instructions Clinical Impressions Clinical Impression: Pulmonary embolism Print Language Print Language: Kinyarwanda Discharge ED Provider: Isma Reynolds Adult HPI General Chief complaint: Chest Pain Stated complaint: Pain Time Seen by Provider: 06/20/25 07:11 Mode of Arrival: EMS Source of Information: Patient Description of Symptoms (Recalled from ER Triage Doc. by RN): Patient brought in by [facility]; medic states they was called for chest pain. States patient told her she is just having a muscle spasm in her chest, states she has these symptoms all the time. Patient states around 0000 she had a muscle spasm, states she also experinced SOA. States she has felt like she cannot get a deep enough breath, states she feels like her chest is constricted. States the pain is an 8/10, states the pain does not go anywhere other than substernal. Denies fever, cough, N&V. History of Present Illness HPI narrative: Patient is a 74-year-old female history of hypertension hyperlipidemia, osteoporosis, stroke. Sister at bedside assist with history. Patient presents today due to concerns for muscle spasm in her chest. She reports that she gets muscle spasms frequently. She reports that this 1 woke her up from her sleep tonight and is in the right side of her chest. Reproducibly tender. She denies any significant dyspnea. She does report a dry cough over the last couple of weeks. Denies any production. Denies any fevers. Denies any abdominal pain nausea vomiting diarrhea. She denies any change with exertion. She is trying to shift around finding a comfortable position in bed, but cannot. She denies any trauma or falls. She denies any radiation of the pain. It is located only anterior nature inferior and lateral of the chest. She denies any lower extremity edema or history of blood clots. I reviewed patient's EMR and last carotid angiography report performed on September 2020 demonstrating widely patent vessels with a 20% stenosis of the right subclavian Related Data Previous Rx's ?Medication ?Instructions ?Recorded tamsulosin 0.4 mg capsule See Rx Instructions .Route 0 07/15/24 .COMPLEX #90 caps amlodipine 5 mg tablet 5 mg PO DAILY #90 tabs 10/13 aspirin 81 mg tablet,delayed 81 mg PO DAILY #90 tabs 0 10/13/24 release lisinopril 10 mg tablet 10 mg PO DAILY #90 tabs 0509/07 ondansetron HCl 4 mg tablet See Rx Instructions .Route 12/16/24 .COMPLEX #30 tabs atorvastatin 40 mg tablet See Rx Instructions .Route 0 01/12/25 .COMPLEX #90 tabs carvedilol 6.25 mg tablet 6.25 mg PO BID #180 tabs 02/04 pantoprazole 40 mg tablet,delayed 40 mg PO DAILY #90 t abs 06/06/25 release ergocalciferol (vitamin D2) 1,250 1,250 mcg PO Q7D #14 caps 06/14/25 mcg (50,000 unit) capsule Allergies Allergy/AdvReac Type Severity Reaction Status Date / Time codeine (CODEINE) Allergy Mild Confusion Verified 05/18/25 13:10 ibuprofen (IBUPROFEN) Allergy Unknown Confusion Verified 05/18/25 13:10 [facility] Disclaimer: The information contained in this section may have been updated after the patient was seen, as this information can be updated by other users. Medical History Osteoarthritis Vitamin D deficiency Instability of left shoulder joint Thyroid lesion Cervical radicular pain Neuropathic pain Sequela of cerebrovascular accident JOSHUA (acute kidney injury) Parietal lobe infarction Ataxia Subclavian artery stenosis, right Dysarthria Cerebral infarction, watershed distribution, unilateral, acute Right sided numbness Aphasia Bilateral carotid artery stenosis Subclavian artery stenosis Dysphasia E. coli UTI (urinary tract infection) Hypokalemia UTI (urinary tract infection) Malignant hypertension Elevated BP without diagnosis of hypertension Avulsion of skin of right hand Fall Avulsion of skin of left hand Hematoma of frontal scalp Abrasion of face Laceration of nose Forehead laceration Family History Other Family history of cancer Family history of hyperlipidemia Family history of hypertension Social History Smoking Status: Never smoker alcohol intake: never substance use type: denies use current occupational status: disabled Travel in the last 8 weeks?: None household members: none housing: house caffeine: Yes Have you lived/traveled outside [place] in past 30 days?: No Contact w/someone who lives/traveled outside US past 30 days?: No Exposure to someone with infectious disease in past 14 days?: No Do you have a fever (greater than 100.4 F or 38 C)?: No Have you tested positive for COVID-19?: No Exposed to someone with COVID-19 in past 14 days?: No Do you have a sore throat?: No Do you have a cough?: No Do you have any weakness?: No Do you have any diarrhea?: No Are you experiencing any unusual bleeding?: No Do you have any muscle aches/pain?: No Do you have any abdominal pain?: No Are you experiencing loss of taste or smell?: No Other Medical History Have you received the Flu Vaccine for this season: No Have you received the Pneumonia Vaccine: No ROS Obtained: Yes All systems reviewed & no additional complaints except as documented Physical Exam General General appearance: alert and anxious Head Head exam: atraumatic and normocephalic Eye Eye exam: Present PERRL and EOMI ENT ENT exam: Present normal oropharynx Neck Neck exam: Present full ROM and trachea midline Chest Chest inspection: Present symmetric chest wall rise and tenderness (Right lateral chest without crepitus or paradoxical wall movement) Respiratory Respiratory exam: Present normal lung sounds bilaterally; Absent stridor Cardiovascular Cardiovascular exam: Present regular rate and normal rhythm Abdominal Exam Abdominal exam: Present soft; Absent distention or tenderness Extremities Exam Extremities exam: Present full ROM Neurological Exam Neurological exam: Present alert and oriented X3 Psychiatric Psychiatric exam: Present normal mood Skin Skin exam: Present warm and dry Medical Decision Making Medical Records Screening: Per USPSTF and CDC recommendations, given the prevalence of disease in our region, it is our hospital?s policy to screen for HIV and viral Hepatitis for all patients aged 18 and over and those with ongoing risk factors. Herman Inquiry Pt receiving controlled substance: No Vital Signs: 06/20/25 06:49 06/20/25 07:01 06/20/25 07:01 Temperature 97.9 F Temperature Source Oral Pulse Rate 74 84 Pulse Rate [Right Radial] 74 Respiratory Rate 18 Blood Pressure 124/86 Blood Pressure [Right Arm] 134/8 L Blood Pressure Mean 101 Blood Pressure Mean [Right Arm] 50 02 Sat by Pulse Oximetry 98 98 Oxygen Delivery Method Room Air 06/20/25 07:02 06/20/25 07:30 06/20/25 08:00 Temperature 97.9 F Temperature Source Oral Pulse Rate 74 88 93 H Pulse Rate [Right Radial] Respiratory Rate 18 16 18 Blood Pressure 134/78 143/82 H 111/77 Blood Pressure [Right Arm] Blood Pressure Mean 104 94 Blood Pressure Mean [Right Arm] 02 Sat by Pulse Oximetry 98 96 97 Oxygen Delivery Method Room Air 06/20/25 08:33 06/20/25 09:00 Temperature Temperature Source Pulse Rate 82 81 Pulse Rate [Right Radial] Respiratory Rate 14 16 Blood Pressure 101/67 L 102/66 L Blood Pressure [Right Arm] Blood Pressure Mean 73 Blood Pressure Mean [Right Arm] 02 Sat by Pulse Oximetry 94 L 95 Oxygen Delivery Method Room Air Lab Data Lab Results 06/20/25 06:47: WBC 9.5, RBC 3.99 L, Hgb 11.9 L, Hct 35.3 L, MCV 88.5, MCH 29.8, MCHC 33.7, RDW 12.6, Plt Count 214, MPV 9.8, Neut % (Auto) 84.7 H, Lymph % (Auto) 5.8 L, Forest % (Auto) 9.0, Eos % (Auto) 0.1, Baso % (Auto) 0.1, Neut # (Auto) 8.1 H, Lymph # (Auto) 0.6 L, Forest # (Auto) 0.9, Eos # (Auto) 0.0, Baso # (Auto) 0.0, PT 11.2, INR 1.01, D-Dimer 4.32 H, Sodium 137, Potassium 3.7, Chloride 103, Carbon Dioxide 23, Anion Gap 14.7, BUN 11, Creatinine 1.00, Estimated Creat Clear 58, Estimated GFR 54 L, Est GFR ( Amer) 66, Glucose 211 H, Calcium 9.1, Magnesium 1.9, Total Bilirubin 0.6, AST 24, ALT 35, Alkaline Phosphatase 98, Troponin I 0.02, NT-Pro-B Natriuret Pep 3580 H, Total Protein 7.1, Albumin 4.0, Globulin 3.1, Albumin/Globulin Ratio 1.3, Lipase 80 06/20/25 07:38: SARS-CoV-2 (PCR) Not detected, Influenza A Untype (PCR) Not detected, Influenza Type B (PCR) Not detected 06/20/25 06:47 06/20/25 06:47 Orders (Tests/Meds): ED MEDICATIONS Generic Name Dose Route Start Last Admin Trade Name Freq PRN Reason Stop Dose Admin Enoxaparin Sodium 75 mg 06/20/25 09:15 Enoxaparin 100mg/Ml Syringe 1 mg/kg (75 mg) 07/20/25 09:14 SUBCUT Q12H PACO Sodium Chloride 10 ml 06/20/25 07:11 Sodium Chloride 0.9% 10ml Flush Syringe IV 07/20/25 07:10 NEEDED PRN Maintain IV Site Sodium Chloride 10 ml 06/20/25 08:54 06/20/25 08:55 Sodium Chloride 0.9% 10ml Syr (Rad Only) IV 07/20/25 08:53 10 ml NEEDED PRN Administration Maintain IV Site Discontinued Medications Generic Name Dose Route Start Last Admin Trade Name Freq PRN Reason Stop Dose Admin Acetaminophen 1,000 mg 06/20/25 07:11 06/20/25 07:37 Acetaminophen 500mg Tab PO 06/20/25 07:12 1,000 mg ONCE ONE Administration Albuterol/Ipratropium 3 ml 06/20/25 08:45 06/20/25 08:32 Ipratropium/Albuterol 3 Ml Neb IH 07/20/25 08:44 3 ml Q1H PACO Administration Iopamidol 70 ml 06/20/25 08:54 06/20/25 08:55 Iopamidol-370 (76%);100ml Bottle IV 06/20/25 08:55 70 ml ONCE ONE Administration Lidocaine 1 each 06/20/25 07:15 06/20/25 07:38 Lidocaine 5% Transdermal Patch TD 06/20/25 07:16 1 each ONCE ONE Administration Methocarbamol 1,000 mg 06/20/25 07:14 06/20/25 07:39 Methocarbamol 500mg Tablet PO 06/20/25 07:15 1,000 mg ONCE ONE Administration Sodium Chloride 50 ml 06/20/25 08:54 06/20/25 08:55 0.9 % Sodium Chloride 50 Ml Vial IV 06/20/25 08:55 50 ml ONCE ONE Administration ORDERS Category Date Time Status CT angio chest PE protocol Stat Cat Scan 06/20/25 08:31 Completed XR chest portable Stat Exams 06/20/25 07:11 Completed BNP [NT Pro Brain Natriuretic Pep.] Stat Lab 06/20/25 06:47 Completed CBC w/Auto Diff [Complete Blood Count Auto Diff] Stat Lab 06/20/25 06:47 Completed CMP [Comprehensive Metabolic Panel] Stat Lab 06/20/25 06:47 Completed D-Dimer Stat Lab 06/20/25 06:47 Completed HIV Combo Stat Lab 06/20/25 06:47 Received Hepatitis C Ab Qual. W/ RFX Stat Lab 06/20/25 06:47 Received Lipase Stat Lab 06/20/25 06:47 Completed MAG [Magnesium] Stat Lab 06/20/25 06:47 Completed PT INR [Prothrombin Time INR] Stat Lab 06/20/25 06:47 Completed Rapid PCR Covid and Flu A/B Stat Lab 06/20/25 07:38 Completed Trop I [Troponin I] Stat Lab 06/20/25 06:47 Completed Troponin I Q3H Lab 06/20/25 10:15 Ordered Troponin I Q3H Lab 06/20/25 13:15 Ordered ECG Data Tracing #1: I reviewed this ECG and interpreted as documented below: Independently interpreted by myself to demonstrate normal sinus rhythm with no obvious acute ischemic ST change. Minimal voltage criteria for LVH, not acutely actionable. Medical Decision Narrative: Patient is a 74-year-old female history of hypertension hyperlipidemia osteoporosis, muscle spasms of the past, CVA not on any blood thinners. On arrival, she is afebrile hemodynamically stable, she is moderately uncomfortable secondary to pain. Heart is regular rate and rhythm and lung sounds are clear to auscultation bilaterally. She has reproducible tenderness over the right lateral chest wall intercostally. No rash or skin color changes. No fevers. Low concern for shingles. Most likely muscle spasm given patient's history of this. However, she is at significant risk for ACS and PE given her history, so we will screen low risk for that with hematologic labs and a chest x-ray. She does report a dry cough over the last couple of weeks, but denies any other infectious symptoms or fevers. Pneumonia is on the differential and will evaluate with chest x-ray. Independently interpreted the plain film of the chest to demonstrate some hazy opacities of the right upper lobe. No significant cardiomegaly or pleural effusions. Troponin 0.02. BNP elevated to 3000 D-dimer positive, CT PE independently interpreted by myself demonstrating large clot burden in the right pulmonary artery. There is evidence of right heart strain. [place] reasonable to emergently consult cardiology for possible thrombectomy. I had interactive discussion with Dr. Payton who agrees to take the patient for thrombectomy. He would like a therapeutic dose of Lovenox. NPO. Consulted with hospitalist Dr. Carter who agrees to accept the patient for further workup definitive management and recommends MedSurg. Critical Care Critical Care Time Critical Care Time: Yes Attestation: On 06/20/25, the high probability of a clinically significant, sudden or life threatening deterioration of the following system(s) required my full and direct attention, intervention and personal management. The time I documented below is in addition to time spent performing reported procedures but includes the following listed in this critical care notation. Total Time Total Critical Care Time: 33
[2025-06-20 07:22] LABS: Hematocrit 35.3 % (37.0-47.0); Hemoglobin 11.9 g/dL (12.2-16.2); Immature Granulocytes % 0.3 %; Mean Corpuscular HGB Conc 33.7 g/dL (31.8-35.4); Mean Corpuscular Hemoglobin 29.8 pg (27.0-31.2); Mean Corpuscular Volume 88.5 fl (81-99); Nucleated Red Blood Cells % 0 %; Platelet Count 214 K/mm3 (142-424); Red Blood Count 3.99 M/mm3 (4.20-5.40); Red Cell Distribution Width-SD 40.9 fL; White Blood Count 9.5 K/mm3 (4.8-10.8)
[2025-06-20 07:24] LABS: Albumin Level 4.0 g/dl (3.5-5.0); Chloride 103 mmol/L (98-107); Sodium 137 mmol/L (136-145)
[2025-06-20 07:25] LABS: Potassium 3.7 mmoL/L (3.5-5.1)
[2025-06-20 07:27] LABS: Alanine Aminotransferase 35 U/L (12-78); Albumin/Globulin Ratio 1.3 (1.1-1.8); Alkaline Phosphatase 98 U/L (38-126); Anion Gap 14.7 mEq/L (5-15); Aspartate Amino Transferase 24 U/L (14-36); Bilirubin,Total 0.6 mg/dl (0.2-1.3); Blood Urea Nitrogen 11 mg/dl (7-17); Calcium 9.1 mg/dl (8.4-10.2); Carbon Dioxide 23 mmol/L (22.0-30.0); Creatinine Clearance Estimated 58 mL/min (50-200); Creatinine,Serum 1.00 mg/dl (0.52-1.04); Estimated Glomerular Filt Rate 54 ml/min (>60); GFR (African American) 66 ML/MIN (>60); Globulin 3.1 g/dL (1.3-3.2); Glucose 211 mg/dl (74-100); Lipase 80 U/L (23-300); Total Protein,Serum 7.1 g/dl (6.3-8.2)
[2025-06-20 07:28] LABS: INR 1.01 (0.9-1.1); Magnesium 1.9 mg/dl (1.6-2.3); Prothrombin Time 11.2 seconds (10.1-12.5)
[2025-06-20] MEDS: ACETAMINOPHEN 500MG TAB 1000 MG PO (07:37)
[2025-06-20] MEDS: LIDOCAINE 5% TRANSDERMAL PATCH 1 EACH TD (07:38)
[2025-06-20] MEDS: METHOCARBAMOL 500MG TABLET 1000 MG PO (07:39)
[2025-06-20 07:46] LABS: Coronavirus 19, PCR Not Detected (NotDetected); Influenza A, PCR Not Detected (NotDetected); Influenza B, PCR Not Detected (NotDetected)
[2025-06-20 08:18] LABS: D-Dimer 4.32 ug/mL (0.0-0.5)
[2025-06-20 08:27] LABS: NT Pro Brain Natriuretic Pep. 3580 pg/mL (0-125); Troponin I 0.02 ng/ml (0.00-0.034)
--- NOTE | 2025-06-20 08:31 | CT_ITS ---
PROCEDURE INFORMATION: Exam: CTA Chest With Contrast Exam date and time: 06/20/2025 8:45 AM Age: 74 years old Clinical indication: Dyspnea and shortness of breath; Additional info: SOB, positive dimer TECHNIQUE: Imaging protocol: Computed tomographic angiography of the chest with contrast. Exam focused on the arteries. 3D rendering (Not supervised by radiologist): MIP and/or 3D reconstructed images were created by the technologist. Radiation optimization: All CT scans at this facility use at least one of these dose optimization techniques: automated exposure control; mA and/or kV adjustment per patient size (includes targeted exams where dose is matched to clinical indication); or iterative reconstruction. Contrast material: ISOVUE 370; Contrast volume: 70 ml; Contrast route: INTRAVENOUS (IV); COMPARISON: CR XR CHEST PORTABLE 06/20/2025 7:42 AM FINDINGS: Pulmonary arteries: Large amount thrombus within the distal aspect of the right main pulmonary artery extending into the proximal segmental branches of the right lower lobe and upper lobe. Pulmonary embolism. Aorta: Unremarkable. No aortic aneurysm. No aortic dissection. Celiac and mesenteric arteries: Flow within the visualized portions of the celiac artery and superior mesenteric artery. Thyroid: Apparent calcification right thyroid gland Lungs: See Pleural spaces finding. Pleural spaces: Small right pleural effusion with adjacent atelectasis. Patchy alveolar airspace consolidation within the right upper lobe posteriorly. Heart: Unremarkable. No cardiomegaly. No pericardial effusion. Heart RV/LV ratio: 5/4.4. Right heart strain. Lymph nodes: Unremarkable. No enlarged lymph nodes. Diaphragm: Moderate hiatal hernia. Bones/joints: Unremarkable. No acute fracture. Soft tissues: Unremarkable. Other findings: No dissection. IMPRESSION: 1. Large amount thrombus within the distal aspect of the right main pulmonary artery extending into the proximal segmental branches of the right lower lobe and upper lobe. Pulmonary embolism. 2. No dissection. 3. Small right pleural effusion with adjacent atelectasis. Patchy alveolar airspace consolidation within the right upper lobe posteriorly. 4. Moderate hiatal hernia.
[2025-06-20] MEDS: IPRATROPIUM/ALBUTEROL 3 ML NEB IH (08:32)
[2025-06-20] MEDS: 0.9 % SODIUM CHLORIDE 50 ML VIAL IV (08:55)
[2025-06-20] MEDS: SODIUM CHLORIDE 0.9% 10ML SYR (RAD ONLY) 10 ML IV (08:55)
[2025-06-20] MEDS: IOPAMIDOL-370 (76%);100ML BOTTLE 70 ML IV (08:55)
--- NOTE | 2025-06-20 09:08 | PC.NURSE ---
DR EDUARDO SPEAKING WITH DR PRATHER
--- NOTE | 2025-06-20 09:10 | PC.NURSE ---
dr robins speaking with candelario
--- NOTE | 2025-06-20 09:16 | PC.NURSE ---
POLYSOMNOGRAPHY TECHNOLOGIST NOTIFIED OF ADMISSION
--- NOTE | 2025-06-20 09:26 | IR_ITS ---
APPROVED REPORT Patient Location: [facility] Coater: GERA Etienne RT (R) PROCEDURES Right heart catheterization Catheter placement in the right pulmonary artery Right pulmonary artery selective angiogram Catheter placement in the right posterior pulmonary artery Right posterior pulmonary artery selective angiogram Mechanical l thrombectomy to the right posterior pulmonary artery Catheter placement in the right middle pulmonary artery Right pulmonary artery selective angiogram Mechanical thrombectomy to the right middle pulmonary artery Catheter placement in the right superior pulmonary artery Right superior pulmonary artery selective angiogram Mechanical thrombectomy to the right superior pulmonary artery Post thrombectomy right heart catheterization INDICATION Submassive acute pulmonary embolism, Acute non-ST elevation myocardial infarction type II, Acute respiratory failure, Acute right heart failure, Acute hypoxemia, Informed consent was obtained prior to the procedure. COMPLICATIONS none Estimated Blood Loss: less than 10ml TECHNIQUE 1% lidocaine used anesthetize the right groin the right femoral vein was accessed via the central technique and a 7 Uzbek sheath was placed in the right femoral vein. This was upsized to an 11 Uzbek and 17 Uzbek sheath. A [place]-Rafiq catheter was floated under fluoroscopic guidance into the right pulmonary artery right heart catheterization was performed demonstrating a pulmonary artery pressure of 55/25 mmHg. An 018 wire was then placed into the pulmonary artery and the [place]-Rafiq catheter was removed and replaced with a trailblazer catheter. An Amplatz Super Stiff wire was then placed into the trailblazer out into the right middle pulmonary artery. A flash catheter was advanced along with the sheath into the right pulmonary artery. Selective angiography was performed. The flash catheter was advanced into the right middle pulmonary artery and thrombectomy occurred which removed copious thrombus. Repeat angiography was performed. There was thrombus in the posterior branch therefore the catheter was advanced into the posterior branch where mechanical thrombectomy was performed. Additional wire was required, advantage, in order to access the right superior pulmonary artery. The flash catheter was advanced and angiography was performed which demonstrated a large occluding thrombus. Mechanical thrombectomy was performed which removed copious thrombus and restored normal flow. There was still residual nonobstructing clot in the superior branch however given the amount of blood loss and the excellent angiographic results with normal perfusion it was decided to abandon the procedure at this point. Angiography was performed in all 3 of the pulmonary arteries along with mechanical thrombectomy. Post procedure right heart catheterization demonstrated the pulmonary artery pressure was 45/20 mmHg. At the end the procedure the apparatus was removed Z stitch was placed in the right groin the sheath was removed and hemostasis was achieved using manual pressure as well as a Z stitch. Patient was transferred to the postop boarding in stable condition ANGIOGRAPHIC RESULTS Right distal pulmonary artery has copious nearly obstructing thrombus Right superior pulmonary artery branch has obstructing thrombus Right middle pulmonary artery has nearly obstructing thrombus Right posterior pulmonary artery has nearly obstructing thrombus Following mechanical thrombectomy all pulmonary arteries were widely patent with normal flow IMPRESSION Successful mechanical thrombectomy as described above Successful right heart catheterization before and after the thrombectomy Successful selective posterior middle and superior pulmonary artery angiography with mechanical thrombectomy PLAN 1. Xarelto 15 mg twice daily for 21 days followed by 20 mg a day thereafter for at least 6 months 2. Echocardiogram in the morning Electronically signed by : Quinton Payton MD 06/20/2025 14:42:55
--- NOTE | 2025-06-20 09:47 | PC.NURSE ---
report called to joseluis in ICU
[2025-06-20 10:31] LABS: Hepatitis C Ab Qual. W/ RFX NEGATIVE (Negative)
[2025-06-20 11:31] LABS: Anion Gap 14.4 mEq/L (5-15); Blood Urea Nitrogen 11 mg/dl (7-17); Calcium 8.9 mg/dl (8.4-10.2); Carbon Dioxide 19 mmol/L (22.0-30.0); Chloride 105 mmol/L (98-107); Creatinine Clearance Estimated 56 mL/min (50-200); Creatinine,Serum 0.90 mg/dl (0.52-1.04); Estimated Glomerular Filt Rate 61 ml/min (>60); GFR (African American) 74 ML/MIN (>60); Glucose 137 mg/dl (74-100); Potassium 3.4 mmoL/L (3.5-5.1); Sodium 135 mmol/L (136-145)
--- NOTE | 2025-06-20 11:47 | P.HP_ITS ---
<Statement entered by Levi Carter MD - 06/21/25 15:40> Agree with plan of care as outlined by the [facility]. History of Present Illness *Admission Date: 06/20/25 *Reason for visit:: Shortness of breath, PE *History of present illness: Ms. Mclain is a 74-year-old who is brought in by EMS to the emergency department early this morning due to chest pain and shortness of breath. Patient states that around midnight she began to have muscle spasms on the right side of her chest and experienced shortness of air. She states she felt the need to gasp for air and could not get a good deep breath. She rated the chest pain at 8/10 substernally. She has a primary medical history of HTN, HLD, osteoporosis, CVA. She endorses a dry cough for approximately 1 week but denies fever, chills, abdominal pain, nausea, vomiting, diarrhea. Denies tenderness in bilateral l ower extremities, denies trauma or falls. Workup in the emergency department was significant for an elevated troponin of 0.02, elevated BNP at 3000, D-dimer of 4.3. CTA PE protocol was obtained and s howed a large clot burden in the right pulmonary artery, with evidence of right heart strain. Cardiology was emergently consulted from the emergency department who recommended admission and thrombectomy. Patient was given 1 dose therapeutic Lovenox in the ED prior to admission. [facility] Disclaimer: The information contained in this section may have been updated after the patient was seen, as this information can be updated by other users. Medical History (Updated 06/20/25 @ 13:19 by Marlyn Diaz APRN) Non-STEMI (non-ST elevated myocardial infarction) Elevated troponin Dyspnea Osteoarthritis Vitamin D deficiency Instability of left shoulder joint Thyroid lesion Cervical radicular pain Neuropathic pain Sequela of cerebrovascular accident JOSHUA (acute kidney injury) Parietal lobe infarction Ataxia Subclavian artery stenosis, right Dysarthria Cerebral infarction, watershed distribution, unilateral, acute Right sided numbness Aphasia Bilateral carotid artery stenosis Subclavian artery stenosis Dysphasia E. coli UTI (urinary tract infection) Hypokalemia UTI (urinary tract infection) Malignant hypertension Elevated BP without diagnosis of hypertension Avulsion of skin of right hand Fall Avulsion of skin of left hand Hematoma of frontal scalp Abrasion of face Laceration of nose Forehead laceration Family History Other Family history of cancer Family history of hyperlipidemia Family history of hypertension Social History Smoking Status: Never smoker alcohol intake: never substance use type: denies use current occupational status: disabled Travel in the last 8 weeks?: None household members: none housing: house caffeine: Yes Have you lived/traveled outside US in past 30 days?: No Contact w/someone who lives/traveled outside US past 30 days?: No Exposure to someone with infectious disease in past 14 days?: No Do you have a fever (greater than 100.4 F or 38 C)?: No Have you tested positive for COVID-19?: No Exposed to someone with COVID-19 in past 14 days?: No Do you have a sore throat?: No Do you have a cough?: No Do you have any weakness?: No Do you have any diarrhea?: No Are you experiencing any unusual bleeding?: No Do you have any muscle aches/pain?: No Do you have any abdominal pain?: No Are you experiencing loss of taste or smell?: No Other Medical History Have you received the Flu Vaccine for this season: No Have you received the Pneumonia Vaccine: No Review of Systems Eyes Eyes: Denies blurry vision and Denies change in vision ENT Ears, Nose, Mouth, and Throat: Denies disequilibrium and Denies dizziness *Cardiovascular Cardiovascular: Reports chest pain, Reports dyspnea, Denies edema and Denies lightheadedness *Respiratory Respiratory: Reports cough and Reports dyspnea *Gastrointestinal Gastrointestinal: Denies abdominal pain, Denies constipation and Denies vomiting *Genitourinary Genitourinary: Denies difficulty voiding and Denies dysuria *Neurologic Neurologic: Denies disequilibrium and Denies dizziness Meds Home Medications and Allergies Home Medications ?Medication ?Instructions ?Recorded ?Confirmed ?Type amlodipine 5 mg tablet 5 mg PO DAILY #90 tabs 10/1306/20/25 Rx aspirin 81 mg tablet,delayed 81 mg PO DAILY #90 tabs 0 10/13/24 06/20/25 Rx release lisinopril 10 mg tablet 10 mg PO DAILY #90 tabs 05/0 09/0706/20/25 Rx carvedilol 6.25 mg tablet 6.25 mg PO BID #180 tabs 02/0406/20/25 Rx atorvastatin 40 mg tablet 40 mg PO HS 06/20/25 5 History ergocalciferol (vitamin D2) 1,250 1,250 mcg PO WEEKLY 06/20/25 06/20/25 History mcg (50,000 unit) capsule ondansetron HCl 4 mg tablet 4 mg PO Q8HP PRN Nausea An d 06/20/25 06/20/25 History Vomiting New Prescriptions to Start Prescriptions: Allergies Allergy/AdvReac Type Severity Reaction Status Date / Time codeine (CODEINE) Allergy Mild Confusion Verified 05/18/25 13:10 ibuprofen (IBUPROFEN) Allergy Unknown Confusion Verified 05/18/25 13:10 Exam Data for Last 24 hours Vital signs and Labs for Last 24 Hours: Temp Pulse Resp BP Pulse Ox O2 Del Method 98 F 79 16 114/70 93 L Room Air 06/20/25 09:51 06/20/25 09:51 06/20/25 09:51 06/20/25 09:51 06/20/25 10:04 06/20/25 10:04 Laboratory Results - last 24 hr 06/20/25 06:47: WBC 9.5, RBC 3.99 L, Hgb 11.9 L, Hct 35.3 L, MCV 88.5, MCH 29.8, MCHC 33.7, RDW 12.6, Plt Count 214, MPV 9.8, Neut % (Auto) 84.7 H, Lymph % (Auto) 5.8 L, [place] % (Auto) 9.0, Eos % (Auto) 0.1, Baso % (Auto) 0.1, Neut # (Auto) 8.1 H, Lymph # (Auto) 0.6 L, [place] # (Auto) 0.9, Eos # (Auto) 0.0, Baso # (Auto) 0.0, PT 11.2, INR 1.01, D-Dimer 4.32 H, Sodium 137, Potassium 3.7, Chloride 103, Carbon Dioxide 23, Anion Gap 14.7, BUN 11, Creatinine 1.00, Estimated Creat Clear 58, Estimated GFR 54 L, Est GFR ( Amer) 66, Glucose 211 H, Calcium 9.1, Magnesium 1.9, Total Bilirubin 0.6, AST 24, ALT 35, Alkaline Phosphatase 98, Troponin I 0.02, NT-Pro-B Natriuret Pep 3580 H, Total Protein 7.1, Albumin 4.0, Globulin 3.1, Albumin/Globulin Ratio 1.3, Lipase 80, HCV Ab ALAN w/Rflx PCR Qn Negative, HIV Ag/Ab Combo Qual Negative 06/20/25 07:38: SARS-CoV-2 (PCR) Not detected, Influenza A Untype (PCR) Not detected, Influenza Type B (PCR) Not detected 06/20/25 11:15: Sodium 135 L, Potassium 3.4 L, Chloride 105, Carbon Dioxide 19 L , Anion Gap 14.4, BUN 11, Creatinine 0.90, Estimated Creat Clear 56, Estimated GFR 61, Est GFR ( Amer) 74, Glucose 137 H D, Calcium 8.9 I & O for Last 24 hours: Intake & Output 06/17/25 06/18/25 06/19/25 06/20/25 23:59 23:59 23:59 23:59 Weight 72.376 kg Constitutional Constitutional: no acute distress *Routine HEENT Exam Head: Present normocephalic Eye: Present EOMI and PERRL ENT: Present mucous membranes moist *Routine Neck Exam Neck: Present supple; Absent lymphadenopathy *Routine Respiratory Exam Respiratory: Present CTA bilaterally *Routine Cardiovascular Exam Cardiovascular: Present RRR *Routine Abdominal Exam Abdominal: Present soft and normoactive bowel sounds; Absent tenderness *Routine Rectal Exam Rectal:: deferred *Routine Genitalia Exam Genitalia:: deferred *Routine Extremities Exam Extremities: Absent cyanosis, clubbing or edema *Routine Skin Exam Skin: Present intact, dry and warm; Absent rash *Routine Neurological Exam Neurological: Present alert and oriented X3 Assessment and Plan *Assessment and plan (1) Pulmonary embolism: Status: Acute Qualifiers: Acute cor pulmonale presence: with acute cor pulmonale Chronicity: acute Pulmonary embolism type: other Qualified Code(s): I26.09 - Other pulmonary embolism with acute cor pulmonale Category: Medical Code(s): I26.99 - Other pulmonary embolism without acute cor pulmonale (2) Non-STEMI (non-ST elevated myocardial infarction): Status: Acute Category: Medical Code(s): I21.4 - Non-ST elevation (NSTEMI) myocardial infarction (3) Elevated troponin: Status: Acute Category: Medical Code(s): R79.89 - Other specified abnormal findings of blood chemistry (4) Dyspnea: Status: Acute Qualifiers: Dyspnea type: shortness of breath Qualified Code(s): R06.02 - Shortness of breath Category: Medical Code(s): R06.00 - Dyspnea, unspecified (5) HTN (hypertension): Status: Acute Qualifiers: Hypertension type: primary hypertension Qualified Code(s): I10 - Essential (primary) hypertension Category: Medical Code(s): I10 - Essential (primary) hypertension (6) HLD (hyperlipidemia): Status: Acute Qualifiers: Hyperlipidemia type: mixed hyperlipidemia Qualified Code(s): E78.2 - Mixed hyperlipidemia Category: Medical Code(s): E78.5 - Hyperlipidemia, unspecified Plan Ms. Mclain is a 74-year-old female who was admitted to the stepdown unit for right pulmonary artery embolism with evidence of right heart strain. Hospital medicine was consulted for admission, I agreed to admit the patient. Plan of care as follows: #Right sided PE #Chest pain #Dyspnea #NSTEMI, type II ? Patient admitted to the stepdown unit for continuous cardiac telemetry and monitoring. Patient has remained hemodynamically stable since admission, nontachycardic, stable on room air. Patient currently denies dyspnea or chest pain. Patient was given Robaxin 1 g p.o., lidocaine patch, Tylenol 1 g p.o., and DuoNebs in the emergency department. Additionally was given 1 dose therapeutic Lovenox of 75 mg subcu. ? Discussion was had with patient and patient's sister who both state they have a family history of DVT and PE's. Upon assessment patient denies bilateral lower extremity tenderness, warmth, pain. ? Cardiology consulted and recommendations for mechanical thrombectomy. Patient agreeable. Patient made n.p.o. for procedure, denies questions about the procedure at this time. Patient underwent thrombectomy and removal of a right distal pulmonary artery, right superior artery, right middle pulmonary artery, right posterior pulmonary artery thrombi were removed with mechanical thrombectomy; now with widely patent blood flow. Patient will be initiated on Xarelto 15 mg twice daily for 21 days followed by 20 mg a day therefore after will continue to be in stepdown for close cardiac monitoring. Echo ordered for the a.m. ? Will continue home medication of amlodipine 5 mg daily, carvedilol 6.25 mg twice daily, lisinopril 10 mg daily, aspirin 81 mg daily, atorvastatin 40 mg at bedtime. Patient states she does have a history of cardiac cath, per my review patient had a cath with Dr. Payton in September 2020. Did not receive intervention at that time. ? Troponin 0.02, repeat 0.02. Lab work notable for potassium 3.4, normal kidney function, BNP 3580, hemoglobin 11.9, no leukocytosis. ? CBC, CMP, mag ordered for the a.m. Full code VTE?Xarelto 15 mg twice daily Cardiac diet Ambulate as tolerated
[2025-06-20 12:06] LABS: Troponin I 0.02 ng/ml (0.00-0.034)
--- NOTE | 2025-06-20 12:43 | PC.NURSE ---
patient arrived to unit from Emergency Room @[id number] via wheelchair with ER staff
--- NOTE | 2025-06-20 12:58 | PC.NURSE ---
Patient off unit to [facility] via wheelchair with medical laboratory scientist staff.
--- NOTE | 2025-06-20 12:58 | PC.NURSE ---
Patient off unit to [facility] via stretcher with test lab technician staff.
[2025-06-20] MEDS: LIDOCAINE 1% 10ML MDV 10 ML IJ (13:07)
[2025-06-20] MEDS: HEPARIN 1,000 UNITS/500ML NS (CATH LAB) 3000 UNIT IV (13:07)
[2025-06-20] MEDS: FENTANYL 100MCG/2ML VIAL 50 MCG IV (13:08)
[2025-06-20] MEDS: 0.9 % SODIUM CHLORIDE 500 ML 25 ML IV (13:08)
[2025-06-20] MEDS: MIDAZOLAM HCL 1MG/ML 5ML VIAL 1 MG IV (13:08)
--- NOTE | 2025-06-20 13:15 | P.CONCA_ITS ---
History of Present Illness History of Present Illness Consult date: 06/20/25 Requesting physician: Levi Carter Chief complaint: SOA History of present illness: This is a 74-year-old white female who presented to the emergency department [facility] complaints of shortness of breath. She states that she had shortness of breath for approximately 2 days prior to admission. She states that this did progressively worsen. She states that the shortness of breath was severe. She states that she felt like she could not get a deep breath in and felt like her breathing was constricted. She denies any chest pain or pressure. She denies any lower extremity edema. She denies any fever, chills, nausea, vomiting, diarrhea, PND or orthopnea. The patient was found to have a large thrombus within the distal aspect of the right main pulmonary artery extending into the proximal segment branches of the right lower lobe and upper lobe. The patient does have an elevated troponin consistent with a non-STEMI which is most likely a type II non-STEMI from her submassive PE. She will be taken for thrombectomy today. [facility] Disclaimer: The information contained in this section may have been updated after the patient was seen, as this information can be updated by other users. Medical History (Updated 06/20/25 @ 13:19 by Marlyn Diaz APRN) Non-STEMI (non-ST elevated myocardial infarction) Elevated troponin Dyspnea Osteoarthritis Vitamin D deficiency Instability of left shoulder joint Thyroid lesion Cervical radicular pain Neuropathic pain Sequela of cerebrovascular accident JOSHUA (acute kidney injury) Parietal lobe infarction Ataxia Subclavian artery stenosis, right Dysarthria Cerebral infarction, watershed distribution, unilateral, acute Right sided numbness Aphasia Bilateral carotid artery stenosis Subclavian artery stenosis Dysphasia E. coli UTI (urinary tract infection) Hypokalemia UTI (urinary tract infection) Malignant hypertension Elevated BP without diagnosis of hypertension Avulsion of skin of right hand Fall Avulsion of skin of left hand Hematoma of frontal scalp Abrasion of face Laceration of nose Forehead laceration Family History Other Family history of cancer Family history of hyperlipidemia Family history of hypertension Social History Smoking Status: Never smoker alcohol intake: never substance use type: denies use current occupational status: disabled Travel in the last 8 weeks?: None household members: none housing: house caffeine: Yes Have you lived/traveled outside US in past 30 days?: No Contact w/someone who lives/traveled outside US past 30 days?: No Exposure to someone with infectious disease in past 14 days?: No Do you have a fever (greater than 100.4 F or 38 C)?: No Have you tested positive for COVID-19?: No Exposed to someone with COVID-19 in past 14 days?: No Do you have a sore throat?: No Do you have a cough?: No Do you have any weakness?: No Do you have any diarrhea?: No Are you experiencing any unusual bleeding?: No Do you have any muscle aches/pain?: No Do you have any abdominal pain?: No Are you experiencing loss of taste or smell?: No Review of Systems Review of Systems Review of systems:: pertinent systems reviewed and negative unless documented below Constitutional Constitutional: Reports system reviewed and no additional complaints, except as documented Eyes Eyes: Reports system reviewed and no additional complaints, except as documented ENT Ears, Nose, Mouth, and Throat: Reports system reviewed and no additional complaints, except as documented *Cardiovascular Cardiovascular: Reports system reviewed and no additional complaints, except as documented, Denies chest pain, Reports dyspnea and Reports dyspnea on exertion *Respiratory Respiratory: Reports system reviewed and no additional complaints, except as documented, Reports dyspnea and Reports dyspnea on exertion *Gastrointestinal Gastrointestinal: Reports system reviewed and no additional complaints, except as documented *Genitourinary Genitourinary: Reports system reviewed and no additional complaints, except as documented *Musculoskeletal Musculoskeletal: Reports system reviewed and no additional complaints, except as documented Integumentary/Breasts Skin/Breast: Reports system reviewed and no additional complaints, except as documented *Neurologic Neurologic: Reports system reviewed and no additional complaints, except as documented Psychiatric Psychiatric: Reports system reviewed and no additional complaints, except as do cumented Endocrine Endocrine: Reports system reviewed and no additional complaints, except as documented Hematologic/Lymphatic Hematologic/Lymphatic: Reports system reviewed and no additional complaints, except as documented Allergic/Immunologic Allergic/Immunologic: Reports system reviewed and no additional complaints, except as documented Exam Data for Last 24 hours Vital signs and Labs for Last 24 Hours: Temp Pulse Resp BP Pulse Ox O2 Del Method 97.8 F 78 17 109/69 L 92 L Room Air 06/20/25 12:00 06/20/25 12:07 06/20/25 12:00 06/20/25 12:00 06/20/25 12:00 06/20/25 12:00 Laboratory Results - last 24 hr 06/20/25 06:47: WBC 9.5, RBC 3.99 L, Hgb 11.9 L, Hct 35.3 L, MCV 88.5, MCH 29.8, MCHC 33.7, RDW 12.6, Plt Count 214, MPV 9.8, Neut % (Auto) 84.7 H, Lymph % (Auto) 5.8 L, [place] % (Auto) 9.0, Eos % (Auto) 0.1, Baso % (Auto) 0.1, Neut # (Auto) 8.1 H, Lymph # (Auto) 0.6 L, [place] # (Auto) 0.9, Eos # (Auto) 0.0, Baso # (Auto) 0.0, PT 11.2, INR 1.01, D-Dimer 4.32 H, Sodium 137, Potassium 3.7, Chloride 103, Carbon Dioxide 23, Anion Gap 14.7, BUN 11, Creatinine 1.00, Estimated Creat Clear 58, Estimated GFR 54 L, Est GFR ( Amer) 66, Glucose 211 H, Calcium 9.1, Magnesium 1.9, Total Bilirubin 0.6, AST 24, ALT 35, Alkaline Phosphatase 98, Troponin I 0.02, NT-Pro-B Natriuret Pep 3580 H, Total Protein 7.1, Albumin 4.0, Globulin 3.1, Albumin/Globulin Ratio 1.3, Lipase 80, HCV Ab ALAN w/Rflx PCR Qn Negative, HIV Ag/Ab Combo Qual Negative 06/20/25 07:38: SARS-CoV-2 (PCR) Not detected, Influenza A Untype (PCR) Not detected, Influenza Type B (PCR) Not detected 06/20/25 11:15: Sodium 135 L, Potassium 3.4 L, Chloride 105, Carbon Dioxide 19 L , Anion Gap 14.4, BUN 11, Creatinine 0.90, Estimated Creat Clear 56, Estimated GFR 61, Est GFR ( Amer) 74, Glucose 137 H D, Calcium 8.9, Troponin I 0.02 I & O for Last 24 hours: Intake & Output 06/17/25 06/18/25 06/19/25 06/20/25 23:59 23:59 23:59 23:59 Weight 159 lb 9 oz Constitutional Constitutional: no acute distress and average body habitus *Routine HEENT Exam Head: Present normocephalic and atraumatic ENT: Present mucous membranes moist *Routine Neck Exam Neck: Present supple, full ROM and normal carotid upstroke; Absent JVD, carotid bruit or lymphadenopathy *Routine Respiratory Exam Respiratory: Present CTA bilaterally, normal respiratory effort, able to speak in complete sentences and symmetric chest movement *Routine Cardiovascular Exam Cardiovascular: Present RRR, Normal S1 and Normal S2; Absent murmur or gallop *Routine Abdominal Exam Abdominal: Present soft and normoactive bowel sounds; Absent tenderness, distended or organomegaly *Routine Extremities Exam Extremities: Present full ROM, pulses intact and normal capillary refill; Absent cyanosis, clubbing or edema *Routine Skin Exam Skin: Present intact and warm; Absent erythema *Routine Neurological Exam Neurological: Present alert, oriented X3 and CN II-XII intact; Absent sensory deficit or motor deficit Routine Psychiatric Exam Psychiatric: Present normal affect Meds Home Medications and Allergies Home Medications ?Medication ?Instructions ?Recorded ?Confirmed ?Type amlodipine 5 mg tablet 5 mg PO DAILY #90 tabs 10/1306/20/25 Rx aspirin 81 mg tablet,delayed 81 mg PO DAILY #90 tabs 0 10/13/24 06/20/25 Rx release lisinopril 10 mg tablet 10 mg PO DAILY #90 tabs 05/0 09/0706/20/25 Rx carvedilol 6.25 mg tablet 6.25 mg PO BID #180 tabs 02/0406/20/25 Rx atorvastatin 40 mg tablet 40 mg PO HS 06/20/25 5 History ergocalciferol (vitamin D2) 1,250 1,250 mcg PO WEEKLY 06/20/25 06/20/25 History mcg (50,000 unit) capsule ondansetron HCl 4 mg tablet 4 mg PO Q8HP PRN Nausea An d 06/20/25 06/20/25 History Vomiting New Prescriptions to Start Prescriptions: Allergies Allergy/AdvReac Type Severity Reaction Status Date / Time codeine (CODEINE) Allergy Mild Confusion Verified 05/18/25 13:10 ibuprofen (IBUPROFEN) Allergy Unknown Confusion Verified 05/18/25 13:10 Assessment and Plan *Assessment and plan (1) Pulmonary embolism: Status: Acute Qualifiers: Acute cor pulmonale presence: with acute cor pulmonale Chronicity: acute Pulmonary embolism type: other Qualified Code(s): I26.09 - Other pulmonary embolism with acute cor pulmonale Category: Medical Code(s): I26.99 - Other pulmonary embolism without acute cor pulmonale (2) Dyspnea: Status: Acute Qualifiers: Dyspnea type: shortness of breath Qualified Code(s): R06.02 - Shortness of breath Category: Medical Code(s): R06.00 - Dyspnea, unspecified (3) HTN (hypertension): Status: Acute Qualifiers: Hypertension type: primary hypertension Qualified Code(s): I10 - Essential (primary) hypertension Category: Medical Code(s): I10 - Essential (primary) hypertension (4) HLD (hyperlipidemia): Status: Acute Qualifiers: Hyperlipidemia type: mixed hyperlipidemia Qualified Code(s): E78.2 - Mixed hyperlipidemia Category: Medical Code(s): E78.5 - Hyperlipidemia, unspecified (5) Elevated troponin: Status: Acute Category: Medical Code(s): R79.89 - Other specified abnormal findings of blood chemistry (6) Non-STEMI (non-ST elevated myocardial infarction): Status: Acute Category: Medical Code(s): I21.4 - Non-ST elevation (NSTEMI) myocardial infarction Plan Plan: 1. The patient was admitted to the hospital with a submassive PE which is appears to be occluding the right mainstem bronchus. The patient will be taken to the [facility] to undergo thrombectomy for her submassive PE. 2. The patient has been educated the risk and benefits of proceeding with thrombectomy. The patient verbalized understanding and is agreeable to proceeding with the procedure. 3. The patient will be n.p.o. in preparation for thrombectomy. 4. The patient does have an elevated troponin consistent with a non-STEMI. This is most likely a type II non-STEMI from her pulmonary emboli. 5. Will obtain an echocardiogram to evaluate her LV function. 6. Her blood pressure is well-controlled. 7. Her LDL goal is less than then 100. Will get a lipid panel. 8. Further recommendations will be made pending the patient's response to treatment and the results of her echocardiogram and thrombectomy today. Thank you for the opportunity to help participate in the care of this patient. All recommendations and orders are per Dr. Jennings.
--- NOTE | 2025-06-20 14:45 | PC.NURSE ---
Patient arrived to ICU via stretcher with laboratory scientist staff at this time.
[2025-06-20 16:45] LABS: Troponin I 0.42 ng/ml (0.00-0.034)
[2025-06-20] MEDS: HYDROCODONE/APAP 5/325 MG TABLET 1 TAB PO (17:39)
--- NOTE | 2025-06-20 17:56 | PC.NURSE ---
Z stitch removed per policy at this time. Site clean, dry, and intact. Continuation of care plan.
[2025-06-20] MEDS: ACETAMINOPHEN 325MG TAB 650 MG PO (18:48)
[2025-06-20] MEDS: POTASSIUM CHLORIDE 20MEQ TAB 40 MEQ PO ×2 (20:20→23:49)
[2025-06-21] VITALS (27 sets, daily range): BP systolic 96–137; BP diastolic 55–71; PULSE 60–95; RESP 14–29; TEMP 36.3–37.5; O2SAT 91–97; BMI 26.2
[2025-06-21] MEDS: CYCLOBENZAPRINE 10MG TABLET 5 MG PO (01:16)
[2025-06-21] MEDS: 0.9 % SODIUM CHLORIDE 250 ML IV (01:17)
[2025-06-21 04:02] LABS: Alanine Aminotransferase 26 U/L (12-78); Albumin Level 3.2 g/dl (3.5-5.0); Albumin/Globulin Ratio 1.2 (1.1-1.8); Alkaline Phosphatase 91 U/L (38-126); Anion Gap 12.7 mEq/L (5-15); Aspartate Amino Transferase 30 U/L (14-36); Bilirubin,Total 0.5 mg/dl (0.2-1.3); Blood Urea Nitrogen 15 mg/dl (7-17); Calcium 8.5 mg/dl (8.4-10.2); Carbon Dioxide 19 mmol/L (22.0-30.0); Chloride 106 mmol/L (98-107); Creatinine Clearance Estimated 56 mL/min (50-200); Creatinine,Serum 1.00 mg/dl (0.52-1.04); Estimated Glomerular Filt Rate 54 ml/min (>60); GFR (African American) 66 ML/MIN (>60); Globulin 2.7 g/dL (1.3-3.2); Glucose 139 mg/dl (74-100); Magnesium 2.0 mg/dl (1.6-2.3); Potassium 4.7 mmoL/L (3.5-5.1); Sodium 133 mmol/L (136-145); Total Protein,Serum 5.9 g/dl (6.3-8.2)
[2025-06-21 04:09] LABS: Hematocrit 24.7 % (37.0-47.0); Immature Granulocytes % 0.7 %; Mean Corpuscular HGB Conc 34.4 g/dL (31.8-35.4); Mean Corpuscular Hemoglobin 30.4 pg (27.0-31.2); Mean Corpuscular Volume 88.2 fl (81-99); Nucleated Red Blood Cells % 0 %; Platelet Count 176 K/mm3 (142-424); Red Blood Count 2.80 M/mm3 (4.20-5.40); Red Cell Distribution Width-SD 41.8 fL; White Blood Count 7.4 K/mm3 (4.8-10.8)
[2025-06-21 04:49] LABS: Hemoglobin 8.4 g/dL (12.2-16.2)
--- NOTE | 2025-06-21 07:22 | P.DS_ITS ---
General Admission date:: 06/20/25 HPI HPI HPI: Ms. Mclain is a 74-year-old who is brought in by EMS to the emergency department early this morning due to chest pain and shortness of breath. Patient states that around midnight she began to have muscle spasms on the right side of her chest and experienced shortness of air. She states she felt the need to gasp for air and could not get a good deep breath. She rated the chest pain at 8/10 substernally. She has a primary medical history of HTN, HLD, osteoporosis, CVA. She endorses a dry cough for approximately 1 week but denies fever, chills, abdominal pain, nausea, vomiting, diarrhea. Denies tenderness in bilateral lower extremities, denies trauma or falls. Workup in the emergency department was significant for an elevated troponin of 0.02, elevated BNP at 3000, D-dimer of 4.3. CTA PE protocol was obtained and showed a large clot burden in the right pulmonary artery, with evidence of right heart strain. Cardiology was emergently consulted from the emergency department who recommended admission and thrombectomy. Patient was given 1 dose therapeutic Lovenox in the ED prior to admission. Exam Data for Last 24 hours Vital signs and Labs for Last 24 Hours: Temp Pulse Resp BP Pulse Ox O2 Del Method O2 Flow Rate 98.8 F 84 18 109/68 L 97 Room Air 1 06/21/25 04:00 06/21/25 06:00 06/21/25 06:00 06/21/25 06:00 06/21/25 06:00 06/21/25 06:46 06/21/25 06:00 Laboratory Results - last 24 hr 06/20/25 06:47: WBC 9.5, RBC 3.99 L, Hgb 11.9 L, Hct 35.3 L, MCV 88.5, MCH 29.8, MCHC 33.7, RDW 12.6, Plt Count 214, MPV 9.8, Neut % (Auto) 84.7 H, Lymph % (Auto) 5.8 L, Wallace % (Auto) 9.0, Eos % (Auto) 0.1, Baso % (Auto) 0.1, Neut # (Auto) 8.1 H, Lymph # (Auto) 0.6 L, Wallace # (Auto) 0.9, Eos # (Auto) 0.0, Baso # (Auto) 0.0, PT 11.2, INR 1.01, D-Dimer 4.32 H, Sodium 137, Potassium 3.7, Chloride 103, Carbon Dioxide 23, Anion Gap 14.7, BUN 11, Creatinine 1.00, Estimated Creat Clear 58, Estimated GFR 54 L, Est GFR ( Amer) 66, Glucose 211 H, Calcium 9.1, Magnesium 1.9, Total Bilirubin 0.6, AST 24, ALT 35, Alkaline Phosphatase 98, Troponin I 0.02, NT-Pro-B Natriuret Pep 3580 H, Total Protein 7.1, Albumin 4.0, Globulin 3.1, Albumin/Globulin Ratio 1.3, Lipase 80, HCV Ab ALAN w/Rflx PCR Qn Negative, HIV Ag/Ab Combo Qual Negative 06/20/25 07:38: SARS-CoV-2 (PCR) Not detected, Influenza A Untype (PCR) Not detected, Influenza Type B (PCR) Not detected 06/20/25 11:15: Sodium 135 L, Potassium 3.4 L, Chloride 105, Carbon Dioxide 19 L , Anion Gap 14.4, BUN 11, Creatinine 0.90, Estimated Creat Clear 56, Estimated GFR 61, Est GFR ( Amer) 74, Glucose 137 H D, Calcium 8.9, Troponin I 0.02 06/20/25 16:11: Troponin I 0.42 H 06/21/25 03:45: WBC 7.4, RBC 2.80 L D, Hgb 8.4 L D, Hct 24.7 L, MCV 88.2, MCH 30.4, MCHC 34.4, RDW 13.0, Plt Count 176, MPV 9.9, Neut % (Auto) 78.8, Lymph % (Auto) 8.5 L, Wallace % (Auto) 11.8 H, Eos % (Auto) 0.1, Baso % (Auto) 0.1, Neut # (Auto) 5.8, Lymph # (Auto) 0.6 L, Wallace # (Auto) 0.9, Eos # (Auto) 0.0, Baso # (Auto) 0.0, Sodium 133 L, Potassium 4.7 D, Chloride 106, Carbon Dioxide 19 L, Anion Gap 12.7, BUN 15 D, Creatinine 1.00, Estimated Creat Clear 56, Estimated GFR 54 L, Est GFR ( Amer) 66, Glucose 139 H, Calcium 8.5, Magnesium 2.0, Total Bilirubin 0.5, AST 30, ALT 26 D, Alkaline Phosphatase 91, Total Protein 5.9 L, Albumin 3.2 L D, Globulin 2.7, Albumin/Globulin Ratio 1.2 I & O for Last 24 hours: Intake & Output 06/18/25 06/19/25 06/20/25 06/21/25 23:59 23:59 23:59 23:59 Intake Total 120 / 360 490 / 490 Output Total 600 / 600 Balance 120 / -240 -110 / -110 Weight 72.376 kg 74.072 kg Results Data Completed and Pending Labs on day of discharge: Labs from last 24 hours 06/21/25 06/20/25 06/20/25 03:45 16:11 11:15 WBC 7.4 RBC 2.80 L D Hgb 8.4 L D Hct 24.7 L MCV 88.2 MCH 30.4 MCHC 34.4 RDW 13.0 Plt Count 176 MPV 9.9 Neut % (Auto) 78.8 Lymph % (Auto) 8.5 L Wallace % (Auto) 11.8 H Eos % (Auto) 0.1 Baso % (Auto) 0.1 Neut # (Auto) 5.8 Lymph # (Auto) 0.6 L Wallace # (Auto) 0.9 Eos # (Auto) 0.0 Baso # (Auto) 0.0 PT INR D-Dimer Sodium 133 L 135 L Potassium 4.7 D 3.4 L Chloride 106 105 Carbon Dioxide 19 L 19 L Anion Gap 12.7 14.4 BUN 15 D 11 Creatinine 1.00 0.90 Estimated Creat Clear 56 56 Estimated GFR 54 L 61 Est GFR ( Amer) 66 74 Glucose 139 H 137 H D Calcium 8.5 8.9 Magnesium 2.0 Total Bilirubin 0.5 AST 30 ALT 26 D Alkaline Phosphatase 91 Troponin I 0.42 H 0.02 NT-Pro-B Natriuret Pep Total Protein 5.9 L Albumin 3.2 L D Globulin 2.7 Albumin/Globulin Ratio 1.2 Lipase SARS-CoV-2 (PCR) HCV Ab ALAN w/Rflx PCR Qn HIV Ag/Ab Combo Qual Influenza A Untype (PCR) Influenza Type B (PCR) 12/08/25 12/08/25 07:38 06:47 WBC 9.5 RBC 3.99 L Hgb 11.9 L Hct 35.3 L MCV 88.5 MCH 29.8 MCHC 33.7 RDW 12.6 Plt Count 214 MPV 9.8 Neut % (Auto) 84.7 H Lymph % (Auto) 5.8 L Wallace % (Auto) 9.0 Eos % (Auto) 0.1 Baso % (Auto) 0.1 Neut # (Auto) 8.1 H Lymph # (Auto) 0.6 L Wallace # (Auto) 0.9 Eos # (Auto) 0.0 Baso # (Auto) 0.0 PT 11.2 INR 1.01 D-Dimer 4.32 H Sodium 137 Potassium 3.7 Chloride 103 Carbon Dioxide 23 Anion Gap 14.7 BUN 11 Creatinine 1.00 Estimated Creat Clear 58 Estimated GFR 54 L Est GFR ( Amer) 66 Glucose 211 H Calcium 9.1 Magnesium 1.9 Total Bilirubin 0.6 AST 24 ALT 35 Alkaline Phosphatase 98 Troponin I 0.02 NT-Pro-B Natriuret Pep 3580 H Total Protein 7.1 Albumin 4.0 Globulin 3.1 Albumin/Globulin Ratio 1.3 Lipase 80 SARS-CoV-2 (PCR) Not detected HCV Ab ALAN w/Rflx PCR Qn Negative HIV Ag/Ab Combo Qual Negative Influenza A Untype (PCR) Not detected Influenza Type B (PCR) Not detected DS: Diagnosis Discharge Diagnosis (1) Pulmonary embolism: Status: Acute Code(s): I26.99 - Other pulmonary embolism without acute cor pulmonale Qualifiers: Acute cor pulmonale presence: with acute cor pulmonale Chronicity: acute Pulmonary embolism type: other Qualified Code(s): I26.09 - Other pulmonary embolism with acute cor pulmonale (2) Non-STEMI (non-ST elevated myocardial infarction): Status: Acute Code(s): I21.4 - Non-ST elevation (NSTEMI) myocardial infarction (3) Elevated troponin: Status: Acute Code(s): R79.89 - Other specified abnormal findings of blood chemistry (4) Dyspnea: Status: Acute Code(s): R06.00 - Dyspnea, unspecified Qualifiers: Dyspnea type: shortness of breath Qualified Code(s): R06.02 - Shortness of breath (5) HTN (hypertension): Status: Acute Code(s): I10 - Essential (primary) hypertension Qualifiers: Hypertension type: primary hypertension Qualified Code(s): I10 - Essential (primary) hypertension (6) HLD (hyperlipidemia): Status: Acute Code(s): E78.5 - Hyperlipidemia, unspecified Qualifiers: Hyperlipidemia type: mixed hyperlipidemia Qualified Code(s): E78.2 - Mixed hyperlipidemia Meds Home Medications and Allergies Home Medications ?Medication ?Instructions ?Recorded ?Confirmed ?Type amlodipine 5 mg tablet 5 mg PO DAILY #90 tabs 10/1306/20/25 Rx aspirin 81 mg tablet,delayed 81 mg PO DAILY #90 tabs 0 10/13/24 06/20/25 Rx release lisinopril 10 mg tablet 10 mg PO DAILY #90 tabs 05/0 09/0706/20/25 Rx carvedilol 6.25 mg tablet 6.25 mg PO BID #180 tabs 02/0406/20/25 Rx atorvastatin 40 mg tablet 40 mg PO HS 06/20/25 5 History ergocalciferol (vitamin D2) 1,250 1,250 mcg PO WEEKLY 06/20/25 06/20/25 History mcg (50,000 unit) capsule ondansetron HCl 4 mg tablet 4 mg PO Q8HP PRN Nausea An d 06/20/25 06/20/25 History Vomiting New Prescriptions to Start Prescriptions: Allergies Allergy/AdvReac Type Severity Reaction Status Date / Time codeine (CODEINE) Allergy Mild Confusion Verified 05/18/25 13:10 ibuprofen (IBUPROFEN) Allergy Unknown Confusion Verified 05/18/25 13:10 Discharge Plan Disposition Condition: Critical Follow up Plan Prescriptions/Medication Reconciliation: No Action aspirin 81 mg tablet,delayed release (DR/EC) 81 mg PO DAILY Qty: 90 3RF amlodipine 5 mg tablet 5 mg PO DAILY Qty: 90 3RF lisinopril 10 mg tablet 10 mg PO DAILY Qty: 90 2RF carvedilol 6.25 mg tablet 6.25 mg PO BID Qty: 180 1RF atorvastatin 40 mg tablet 40 mg PO HS ondansetron HCl 4 mg tablet 4 mg PO Q8HP PRN (Reason: Nausea And Vomiting) ergocalciferol (vitamin D2) 1,250 mcg (50,000 unit) capsule 1,250 mcg PO WEEKLY Patient Discharge Instructions Print Language: Niuean Providers Primary Care Provider: Anaid Cobb Admit Provider: Levi Carter Attending Provider: Levi Carter
[2025-06-21] MEDS: HYDROCODONE/APAP 5/325 MG TABLET 1 TAB PO (07:48)
--- OUTSIDE RECORDS SUMMARY | 2025-06-21 07:59 | XMS_ITS | Clinical Summary ---
Author Organization Healthcare Address [address] [place] [address] Care Team Providers Care Blow Mold Technician Name Role Phone Pcp, No Primary Care [...] split. Active ergocalciferol (Vitamin D-2) 1.25 MG (44768 UT) capsule Take 1 capsule (50,000 Units) [...] the past 12 months has th e pfwaterworks, gas, oil, or water company threatened to [...] of 2 - PCV) 04/18/2016 04/18/2015, 05/12/2014 [id number] Vaccine (1 - 2024- season) 2025 UKY-Influenza [...] Antibody Negative Negative 03/21/2024 5:00 AM EDT [facility] Blood Venous blood specimen / Unknown Venipuncture / Unknown 03/21/2024 3:46 AM EDT 03/21/2024 4:19 AM EDT Ac Armendariz MD LAB BLOOD ORDERABLES Final Result Performing Organization Address City/State/[facility] Co de Phone Number [facility] [address] [place] [address] from Last 3 Months or Most Recently Relevant to Health Maintenance Insurance [employer] Advance Directives * Full Code (Latest Code Status on File) Date Activated Date Inactivated Comments 03/21/2024 6:59 AM 03/25/2024 10:15 PM Question Answer Comments Patient has decision-making capacity? Yes Care Teams Blow Mold Technician Relationship Specialty Start Date End Date Pcp, No [address] [place] [address] PCP - General Family Medicine 02/20/24
--- OUTSIDE RECORDS SUMMARY | 2025-06-21 07:59 | XMS_ITS ---
Author Organization [facility] Care Team Providers Care Overhead Garage Door Hanger Name Role Phone Leonor Berger Unavailable Unavailable Soni, Turner Unavailable Unavailable Lenore Wilson Unavailable Unavailable Abel Contreras Unavailable Unavailable Carmen Ding Unavailable Unavailable Allergies and adverse reactions Code CodeSystem Substance Reaction Severity StartDate Concern Status 2670 RXNORM Codeine Mild 04/01/2024 active 5640 RXNORM Ibuprofen Mild 04/01/2024 active Care Team Name Role Address Phone Organization Dates Abel Contreras PCP [address] , [place], [address], [facility] (Office): : : [place] 04/02/2024 - 04/12/2024 Leonor Berger [facility] (Office): [place] 04/02/2024 - 04/12/2024 Turner [facility] (Office): [place] 04/02/2024 - 04/12/2024 Lenore Wilson [facility] (Office): [place] 04/02/2024 - 04/12/2024 Carmen Ding [facility] (Office): [place] 04/02/2024 - 04/12/2024 Goals Section [...] information 2024 Code: 51 Code System OID:[id number]. 5 Code System Name: Source of Payment Typology (PHDSC) Display: Managed Care (Private) Translation: Code: HM Code System: OID:[id number] .[id number]. 1336 Code System Name: Insurance Type Code ([id number]) Display Name: Health Maintenance Organization (HMO) Plan Code: SELF Code System Name: HL7 RoleCode Code System OID:[id number] Display Name: Self [id number] Root: [id number] Payer Name: [employer] Address: [facility] [address] City: [place] State: [place] Country: [facility] Telecom: [phone] Code: 81 Code System OID:[id number] .[id number]. 5 Code System Name: Source of Payment Typology (PHDSC) Display: Self Pay Translation: Code: 09 Code System: OID:[id number] .[id number]. 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 04/02/[address] active 4 FRACTURE OF SUPERIOR RIM OF RIGHT PUBIS, SUBSEQUENT ENCOUNTER FOR FRACTURE WITH ROUTINE HEALING 04/02/[address] active 5 GASTRO-ESOPHAGEAL REFLUX DISEASE WITHOUT ESOPHAGITIS 04/02/[address] active 6 HEMIPLEGIA AND HEMIPARESIS FOLLOWING CEREBRAL INFARCTION AFFECTING RIGHT DOMINANT SIDE 04/02/[address] active 7 MUSCLE WASTING AND ATROPHY, NOT ELSEWHERE CLASSIFIED, UNSPECIFIED SITE 04/02/[address] active 8 MUSCLE WEAKNESS (GENERALIZED) 04/02/[address] active 9 NEED FOR ASSISTANCE WITH PERSONAL CARE 04/02/[id number] active 10 OTHER SPECIFIED FRACTURE OF RIGHT PUBIS, SUBSEQUENT ENCOUNTER FOR FRACTURE WITH ROUTINE HEALING 04/02/[address] active 11 PAIN IN RIGHT HIP 04/02/[address] active 12 UNSPECIFIED ABNORMALITIES OF GAIT AND MOBILITY 04/02/[address] active 13 UNSPECIFIED ZONE I FRACTURE OF SACRUM, SUBSEQUENT ENCOUNTER FOR FRACTURE WITH ROUTINE HEALING 04/02/[address] active 14 VITAMIN D DEFICIENCY, UNSPECIFIED 04/02/[address] active 15 RETENTION OF URINE, UNSPECIFIED 03/25/[address] active 16 ESSENTIAL (PRIMARY) HYPERTENSION 03/21/[address] active 17 OTHER HYPERLIPIDEMIA 03/21/[address] active Reason for Referral No Reasons for Referral Entered Social History Social History Observation Description Start Date End Date Code Code System Current Smoking Status Tobacco smoking consumption unknown 837684532 SNOMED CT Sex Assigned At Female 1950 06862-6 [facility] Gender Identity Sexual Orientation Vital Signs Code Code System Vitals Name Values and Units Timing Information 78782-5 [facility] Pain Level Value=0.0 04/12/2024 8462-4 [facility] Blood Pressure-Diastolic Value=74 Un its=mmHg 04/11/2024 8480-6 [facility] Blood Pressure-Systolic Noqst=744 Un its=mmHg 04/11/2024 8867-4 [facility] Heart rate Value=90.0 Units=/min 9279-1 [facility] Respiratory Rate Value=18.0 Units=/m in 04/11/2024 49968-1 [facility] Weight Hoddo=622.4 Units=Lbs 31500-9 [facility] O2 % BldC Oximetry Value=96.0 Units= % 04/05/2024 8302-2 [facility] Height Value=66.0 Units=Inches 04/02/2024 8310-5 [facility] Body Temperature Value=98.0 Units= F 04/02/2024
--- NOTE | 2025-06-21 09:42 | P.DS_ITS ---
<Statement entered by Hema Peterson MD - 06/21/25 18:54> Rounded on patient after nurse practitioner. Personally examined and interviewed patient. Agree with exam findings and care plan as documented. General Admission date:: 06/20/25 Discharge date: 06/21/25 HPI HPI HPI: Ms. Mclain is a 74-year-old who is brought in by EMS to the emergency department early this morning due to chest pain and shortness of breath. Patient states that around midnight she began to have muscle spasms on the right side of her chest and experienced shortness of air. She states she felt the need to gasp for air and could not get a good deep breath. She rated the chest pain at 8/10 substernally. She has a primary medical history of HTN, HLD, osteoporosis, CVA. She endorses a dry cough for approximately 1 week but denies fever, chills, abdominal pain, nausea, vomiting, diarrhea. Denies tenderness in bilateral lower extremities, denies trauma or falls. Workup in the emergency department was significant for an elevated troponin of 0.02, elevated BNP at 3000, D-dimer of 4.3. CTA PE protocol was obtained and showed a large clot burden in the right pulmonary artery, with evidence of right heart strain. Cardiology was emergently consulted from the emergency department who recommended admission and thrombectomy. Patient was given 1 dose therapeutic Lovenox in the ED prior to admission. Hospital Course Hospital Course Hospital Course: Ms. Mclain is a 74-year-old female who was admitted to the stepdown unit for right pulmonary artery embolism with evidence of right heart strain. Patient underwent mechanical thrombectomy with successful removal of right sided PE. Since procedure patient has remained hemodynamically stable, on room air. Per the cardiology team patient had significant blood loss during thrombectomy, hemoglobin dropped to 8.4 morning of discharge, recheck at noon hemoglobin stable at 7.8. Patient is asymptomatic, nontachycardic, no dyspnea. Hospital course as follows: #Right sided PE #Chest pain #Dyspnea #NSTEMI, type II #Blood loss anemia ? Patient admitted to the stepdown unit for continuous cardiac telemetry and monitoring. Patient has remained hemodynamically stable since admission, nontachycardic, stable on room air. Patient currently denies dyspnea or chest pain. Patient was given Robaxin 1 g p.o., lidocaine patch, Tylenol 1 g p.o., and DuoNebs in the emergency department. Additionally was given 1 dose therapeutic Lovenox of 75 mg subcu. ? Discussion was had with patient and patient's sister who both state they have a family history of DVT and PE's. Upon assessment patient denies bilateral lower extremity tenderness, warmth, pain. ? Cardiology consulted and recommendations for mechanical thrombectomy. Patient agreeable. Patient made n.p.o. for procedure, denies questions about the procedure at this time. Patient underwent thrombectomy and removal of a right distal pulmonary artery, right superior artery, right middle pulmonary artery, right posterior pulmonary artery thrombi were removed with mechanical thrombectomy; now with widely patent blood flow. Patient will be initiated on Xarelto 15 mg twice daily for 21 days followed by 20 mg a day therefore after will continue to be in stepdown for close cardiac monitoring. Echo preliminary report shows EF of 73.6%. Discussed case with cardiology who states patient is stable for discharge and patient will follow-up on with a repeat CBC prior to appointment. ? Continue home medication of amlodipine 5 mg daily, carvedilol 6.25 mg twice daily, lisinopril 10 mg daily, aspirin 81 mg daily, atorvastatin 40 mg at bedtime. Patient states she does have a history of cardiac cath, per my review patient had a cath with Dr. Payton in September 2020. Did not receive intervention at that time. ? Troponin 0.02, repeat 0.02. Lab work day of discharge notable for WBC 7.4, so dium 133, potassium 4.7, kidney function stable with a creatinine of 1.00. Total time spent on discharge 32 minutes in counseling, documentation, chart review, and direct care with patient. Exam Data for Last 24 hours Vital signs and Labs for Last 24 Hours: Temp Pulse Resp BP Pulse Ox O2 Del Method O2 Flow Rate 99.5 F 85 20 100/61 L 95 Room Air 1 06/21/25 08:00 06/21/25 08:00 06/21/25 08:00 06/21/25 08:00 06/21/25 08:00 06/21/25 08:00 06/21/25 06:00 Laboratory Results - last 24 hr 06/20/25 06:47: HCV Ab ALAN w/Rflx PCR Qn Negative, HIV Ag/Ab Combo Qual Negative 06/20/25 11:15: Sodium 135 L, Potassium 3.4 L, Chloride 105, Carbon Dioxide 19 L , Anion Gap 14.4, BUN 11, Creatinine 0.90, Estimated Creat Clear 56, Estimated GFR 61, Est GFR ( Amer) 74, Glucose 137 H D, Calcium 8.9, Troponin I 0.02 06/20/25 16:11: Troponin I 0.42 H 06/21/25 03:45: WBC 7.4, RBC 2.80 L D, Hgb 8.4 L D, Hct 24.7 L, MCV 88.2, MCH 30.4, MCHC 34.4, RDW 13.0, Plt Count 176, MPV 9.9, Neut % (Auto) 78.8, Lymph % (Auto) 8.5 L, [place] % (Auto) 11.8 H, Eos % (Auto) 0.1, Baso % (Auto) 0.1, Neut # (Auto) 5.8, Lymph # (Auto) 0.6 L, [place] # (Auto) 0.9, Eos # (Auto) 0.0, Baso # (Auto) 0.0, Sodium 133 L, Potassium 4.7 D, Chloride 106, Carbon Dioxide 19 L, Anion Gap 12.7, BUN 15 D, Creatinine 1.00, Estimated Creat Clear 56, Estimated GFR 54 L, Est GFR ( Amer) 66, Glucose 139 H, Calcium 8.5, Magnesium 2.0, Total Bilirubin 0.5, AST 30, ALT 26 D, Alkaline Phosphatase 91, Total Protein 5.9 L, Albumin 3.2 L D, Globulin 2.7, Albumin/Globulin Ratio 1.2 Temp Pulse Resp BP Pulse Ox O2 Del Method 97.8 F 78 17 109/69 L 92 L Room Air 06/20/25 12:00 06/20/25 12:07 06/20/25 12:00 06/20/25 12:00 06/20/25 12:00 06/20/25 12:00 Laboratory Results - last 24 hr 06/20/25 06:47: WBC 9.5, RBC 3.99 L, Hgb 11.9 L, Hct 35.3 L, MCV 88.5, MCH 29.8, MCHC 33.7, RDW 12.6, Plt Count 214, MPV 9.8, Neut % (Auto) 84.7 H, Lymph % (Auto) 5.8 L, [place] % (Auto) 9.0, Eos % (Auto) 0.1, Baso % (Auto) 0.1, Neut # (Auto) 8.1 H, Lymph # (Auto) 0.6 L, [place] # (Auto) 0.9, Eos # (Auto) 0.0, Baso # (Auto) 0.0, PT 11.2, INR 1.01, D-Dimer 4.32 H, Sodium 137, Potassium 3.7, Chloride 103, Carbon Dioxide 23, Anion Gap 14.7, BUN 11, Creatinine 1.00, Es timated Creat Clear 58, Estimated GFR 54 L, Est GFR ( Amer) 66, Glucose 211 H, Calcium 9.1, Magnesium 1.9, Total Bilirubin 0.6, AST 24, ALT 35, Alkaline Phosphatase 98, Troponin I 0.02, NT-Pro-B Natriuret Pep 3580 H, Total Protein 7.1, Albumin 4.0, Globulin 3.1, Albumin/Globulin Ratio 1.3, Lipase 80, HCV Ab ALAN w/Rflx PCR Qn Negative, HIV Ag/Ab Combo Qual Negative 06/20/25 07:38: SARS-CoV-2 (PCR) Not detected, Influenza A Untype (PCR) Not detected, Influenza Type B (PCR) Not detected 06/20/25 11:15: Sodium 135 L, Potassium 3.4 L, Chloride 105, Carbon Dioxide 19 L , Anion Gap 14.4, BUN 11, Creatinine 0.90, Estimated Creat Clear 56, Estimated GFR 61, Est GFR ( Amer) 74, Glucose 137 H D, Calcium 8.9, Troponin I 0.02 I & O for Last 24 hours: Intake & Output 06/18/25 06/19/25 06/20/25 06/21/25 23:59 23:59 23:59 23:59 Intake Total 120 / 360 850 / 850 Output Total 600 / 600 Balance 120 / -240 250 / 250 Weight 72.376 kg 74.072 kg Intake & Output 06/17/25 06/18/25 06/19/25 06/20/25 23:59 23:59 23:59 23:59 Weight 159 lb 9 oz Constitutional Constitutional: no acute distress, average body habitus, chronically ill appearing and cooperative *Routine HEENT Exam Head: Present normocephalic and atraumatic Eye: Present EOMI ENT: Present mucous membranes moist *Routine Neck Exam Neck: Present supple and full ROM; Absent JVD, carotid bruit or lymphadenopathy *Routine Respiratory Exam Respiratory: Present CTA bilaterally, normal respiratory effort, able to speak in complete sentences and symmetric chest movement; Absent wheezes or crackles *Routine Cardiovascular Exam Cardiovascular: Present RRR, Normal S1 and Normal S2; Absent murmur or gallop *Routine Abdominal Exam Abdominal: Present soft and normoactive bowel sounds; Absent tenderness, distended or organomegaly *Routine Rectal Exam Patient deferred: visual exam *Routine Exam Patient deferred: external exam *Routine Extremities Exam Extremities: Present full ROM, pulses intact and normal capillary refill; Absent cyanosis, clubbing or edema *Routine Skin Exam Skin: Present intact and warm; Absent erythema *Routine Neurological Exam Neurological: Present alert, oriented X3, CN II-XII intact and normal speech; Absent sensory deficit or motor deficit Routine Psychiatric Exam Psychiatric: Present normal affect Results Data Completed and Pending Labs on day of discharge: Labs from last 24 hours 06/21/25 06/20/25 06/20/25 03:45 16:11 11:15 WBC 7.4 RBC 2.80 L D Hgb 8.4 L D Hct 24.7 L MCV 88.2 MCH 30.4 MCHC 34.4 RDW 13.0 Plt Count 176 MPV 9.9 Neut % (Auto) 78.8 Lymph % (Auto) 8.5 L [place] % (Auto) 11.8 H Eos % (Auto) 0.1 Baso % (Auto) 0.1 Neut # (Auto) 5.8 Lymph # (Auto) 0.6 L [place] # (Auto) 0.9 Eos # (Auto) 0.0 Baso # (Auto) 0.0 Sodium 133 L 135 L Potassium 4.7 D 3.4 L Chloride 106 105 Carbon Dioxide 19 L 19 L Anion Gap 12.7 14.4 BUN 15 D 11 Creatinine 1.00 0.90 Estimated Creat Clear 56 56 Estimated GFR 54 L 61 Est GFR ( Amer) 66 74 Glucose 139 H 137 H D Calcium 8.5 8.9 Magnesium 2.0 Total Bilirubin 0.5 AST 30 ALT 26 D Alkaline Phosphatase 91 Troponin I 0.42 H 0.02 Total Protein 5.9 L Albumin 3.2 L D Globulin 2.7 Albumin/Globulin Ratio 1.2 HCV Ab ALAN w/Rflx PCR Qn HIV Ag/Ab Combo Qual 06/20/25 06:47 WBC RBC Hgb Hct MCV MCH MCHC RDW Plt Count MPV Neut % (Auto) Lymph % (Auto) [place] % (Auto) Eos % (Auto) Baso % (Auto) Neut # (Auto) Lymph # (Auto) [place] # (Auto) Eos # (Auto) Baso # (Auto) Sodium Potassium Chloride Carbon Dioxide Anion Gap BUN Creatinine Estimated Creat Clear Estimated GFR Est GFR ( Amer) Glucose Calcium Magnesium Total Bilirubin AST ALT Alkaline Phosphatase Troponin I Total Protein Albumin Globulin Albumin/Globulin Ratio HCV Ab ALAN w/Rflx PCR Qn Negative HIV Ag/Ab Combo Qual Negative DS: Diagnosis Discharge Diagnosis (1) Pulmonary embolism: Status: Acute Code(s): I26.99 - Other pulmonary embolism without acute cor pulmonale Qualifiers: Acute cor pulmonale presence: with acute cor pulmonale Chronicity: acute Pulmonary embolism type: other Qualified Code(s): I26.09 - Other pulmonary embolism with acute cor pulmonale (2) Non-STEMI (non-ST elevated myocardial infarction): Status: Acute Code(s): I21.4 - Non-ST elevation (NSTEMI) myocardial infarction (3) Elevated troponin: Status: Acute Code(s): R79.89 - Other specified abnormal findings of blood chemistry (4) Dyspnea: Status: Acute Code(s): R06.00 - Dyspnea, unspecified Qualifiers: Dyspnea type: shortness of breath Qualified Code(s): R06.02 - Shortness of breath (5) HTN (hypertension): Status: Acute Code(s): I10 - Essential (primary) hypertension Qualifiers: Hypertension type: primary hypertension Qualified Code(s): I10 - Essential (primary) hypertension (6) HLD (hyperlipidemia): Status: Acute Code(s): E78.5 - Hyperlipidemia, unspecified Qualifiers: Hyperlipidemia type: mixed hyperlipidemia Qualified Code(s): E78.2 - Mixed hyperlipidemia (7) History of thrombectomy: Status: Acute Code(s): Z98.890 - Other specified postprocedural states; Z86.718 - Personal history of other venous thrombosis and embolism Meds Home Medications and Allergies Home Medications ?Medication ?Instructions ?Recorded ?Confirmed ?Type amlodipine 5 mg tablet 5 mg PO DAILY #90 tabs 10/1306/20/25 Rx aspirin 81 mg tablet,delayed 81 mg PO DAILY #90 tabs 0 10/13/24 06/20/25 Rx release lisinopril 10 mg tablet 10 mg PO DAILY #90 tabs 05/0 09/0706/20/25 Rx carvedilol 6.25 mg tablet 6.25 mg PO BID #180 tabs 02/0406/20/25 Rx atorvastatin 40 mg tablet 40 mg PO HS 06/20/25 5 History ergocalciferol (vitamin D2) 1,250 1,250 mcg PO WEEKLY 06/20/25 06/20/25 History mcg (50,000 unit) capsule ondansetron HCl 4 mg tablet 4 mg PO Q8HP PRN Nausea An d 06/20/25 06/20/25 History Vomiting pantoprazole 40 mg tablet,delayed 40 mg PO HS #30 tabs 06/21/25 Rx release rivaroxaban 15 mg (42)-20 mg (9) See Rx Instructions P O .COMPLEX 06/21/25 Rx tablets in a starter pack (Xarelto #51 tabs DVT-PE Treatment 30-Day Starter) New Prescriptions to Start Prescriptions: pantoprazole Radha Abad rivaroxaban [Xarelto DVT-PE Treat 30d Start] Radha Abad Allergies Allergy/AdvReac Type Severity Reaction Status Date / Time codeine (CODEINE) Allergy Mild Confusion Verified 05/18/25 13:10 ibuprofen (IBUPROFEN) Allergy Unknown Confusion Verified 05/18/25 13:10 Discharge Plan Disposition Patient Disposition: Home, Self-Care Condition: Good Discharge Order Discharge Orders: Discharge Order (Routine); Ordered 06/21/25 Ordered By: Radha Abad Follow up Plan Follow up with: Marlyn Diaz APRN [Nurse Practitioner, Cardiology] - 06/23/25 9:45 am Anaid Cobb APRN [Primary Care Provider, Family Practice] - 06/29/25 11:20 am Prescriptions/Medication Reconciliation: New pantoprazole 40 mg Tablet,Delayed Release (Dr/Ec) 40 mg PO HS Qty: 30 0RF Xarelto DVT-PE Treat 30d Start 15 mg (42)- 20 mg (9) tablets,dose pack See Rx Instructions .ROUTE .COMPLEX Qty: 51 0RF Rx Instructions: take one-15 mg tablet twice daily for 21 days, then one-20 mg tablet once daily; must take with meal/food Continued aspirin 81 mg tablet,delayed release (DR/EC) 81 mg PO DAILY Qty: 90 3RF amlodipine 5 mg tablet 5 mg PO DAILY Qty: 90 3RF lisinopril 10 mg tablet 10 mg PO DAILY Qty: 90 2RF carvedilol 6.25 mg tablet 6.25 mg PO BID Qty: 180 1RF atorvastatin 40 mg tablet 40 mg PO HS ondansetron HCl 4 mg tablet 4 mg PO Q8HP PRN (Reason: Nausea And Vomiting) ergocalciferol (vitamin D2) 1,250 mcg (50,000 unit) capsule 1,250 mcg PO WEEKLY Other Ambulatory Orders: Complete Blood Count Auto Diff (Routine) Timeframe: 20250623 Facility: [facility] - Location: Laboratory Ordered By: Radha Abad Complete Blood Count Man Dif (Routine) Timeframe: 20250624 Facility: [facility] - Location: Laboratory Ordered By: Radha Abad Problem Reconciliation Problems Reviewed?: Yes Patient Discharge Instructions ACTIVITY: Continue current activity DIET: continue same diet Patient Instructions: Pulmonary Embolism Print Language: [place] Providers Primary Care Provider: Anaid Cobb Admit Provider: Levi Carter Attending Provider: Levi Carter
--- NOTE | 2025-06-21 11:19 | CA_ITS ---
APPROVED REPORT EXAM: Comprehensive 2D, Doppler, and color-flow Echocardiogram Auto Brake Technician: Inez Tan CRT Ht: 5 ft 6 in Wt: 159lbs BSA: 1.81 BP: 102/66 mmHg Indications: Chest Pain, Hypertension/HDD, Pulmonary Embolism s/p thrombectomy 06/20/25 2D Dimensions LA Volume 38.80 mL LA Volume Index 20.90 mL/m2 (M/F) 16-34 M-Mode Dimensions RVDd 2.74 cm (0.9-2.6) LA Diam 4.02 cm (1.9-4.0) LVDd 4.17 cm (3.5-5.7) LVDs 2.41 cm (3.5-5.7) IVSd 1.50 cm (0.6-1.1) PWd 0.87 cm (0.6-1.1) EF (Teich) 73.60% FS 42.20% EDV (Teich) 77.30 mL TAPSE 2.26 (<1.7) ESV (Teich) 20.40 mL LV Diastology E Decel Time 227 (160-240 msec) E/A Ratio 0.97 MED A' 9.70 cm/s LAT A' 7.10 cm/s Aortic Valve AO Peak GR. 7.80 mmHg Mitral Valve MV A Velocity 83.0 (40-130 cm/s) E/A Ratio 0.97 Tricuspid Valve TR P. Velocity 283.00 cm/s RAP Estimate 10.00 mmHg RVSP 42.10 mmHg Left Ventricle The left ventricle is normal size. Left ventricular systolic function is normal. The left ventricular ejection fraction is within the normal range. There is increased left ventricular wall thickness. There is normal LV segmental wall motion. The left ventricular diastolic function is normal. LVEF is 60% Right Ventricle The right ventricle is mildly to moderately dilated. The right ventricular systolic function is normal. Atria Left atrium is mildly dilated. Right atrium is mildly dilated. There is no color Doppler evidence of interatrial shunt. Aortic Valve The aortic valve is mildly thickened. There is no hemodynamically significant aortic valvular stenosis. No aortic regurgitation is present. Mitral Valve The mitral valve is normal in structure. No evidence of mitral valve stenosis. Trace mitral regurgitation is present. Tricuspid Valve The tricuspid valve leaflets are thin and pliable. Mild tricuspid regurgitation. RVSP is 30-35 mmHg. Pulmonic Valve The pulmonary valve is grossly normal in structure. Trace pulmonic valve regurgitation is present. Great Vessels The aortic root is normal in size. IVC is normal in size and collapses >50% with inspiration. Pericardium There is no pericardial effusion. Other Information Study Quality: Fair Conclusion Normal biventricular systolic function. Mild to moderate RV dilation. Biatrial dilation. Mild TR. RVSP 30-35 mmHg. Electronically signed by : Holly Jennings MD 06/21/2025 14:28:55
[2025-06-21 11:59] LABS: Hematocrit 22.7 % (37.0-47.0); Hemoglobin 7.8 g/dL (12.2-16.2)
--- NOTE | 2025-06-21 14:22 | P.PN_ITS ---
Subjective Subjective Date: 06/21/25 Time: 11:00 Principal diagnosis: PE Interval history: This is a 74-year-old white female who presented to the emergency department shortness of breath. She was found to have a submassive pulmonary emboli. She underwent thrombectomy yesterday of the right superior, middle and posterior pulmonary artery. She tolerated this procedure well. Today she states that her shortness of breath is resolved. She denies chest pain or pressure. She denies any shortness of breath or edema. She denies any fever, chills, nausea, vomiting, diarrhea, PND orthopnea. She states that she is ready to be discharged home Exam Data for Last 24 hours Vital signs and Labs for Last 24 Hours: Temp Pulse Resp BP Pulse Ox O2 Del Method O2 Flow Rate 98.3 F 82 16 108/65 L 95 Room Air 1 06/21/25 11:00 06/21/25 12:00 06/21/25 12:00 06/21/25 12:00 06/21/25 12:00 06/21/25 13:00 06/21/25 06:00 Laboratory Results - last 24 hr 06/20/25 16:11: Troponin I 0.42 H 06/21/25 03:45: WBC 7.4, RBC 2.80 L D, Hgb 8.4 L D, Hct 24.7 L, MCV 88.2, MCH 30.4, MCHC 34.4, RDW 13.0, Plt Count 176, MPV 9.9, Neut % (Auto) 78.8, Lymph % (Auto) 8.5 L, [place] % (Auto) 11.8 H, Eos % (Auto) 0.1, Baso % (Auto) 0.1, Neut # (Auto) 5.8, Lymph # (Auto) 0.6 L, [place] # (Auto) 0.9, Eos # (Auto) 0.0, Baso # (Auto) 0.0, Sodium 133 L, Potassium 4.7 D, Chloride 106, Carbon Dioxide 19 L, Anion Gap 12.7, BUN 15 D, Creatinine 1.00, Estimated Creat Clear 56, Estimated GFR 54 L, Est GFR ( Amer) 66, Glucose 139 H, Calcium 8.5, Magnesium 2.0, Total Bilirubin 0.5, AST 30, ALT 26 D, Alkaline Phosphatase 91, Total Protein 5.9 L, Albumin 3.2 L D, Globulin 2.7, Albumin/Globulin Ratio 1.2 06/21/25 11:47: Hgb 7.8 L, Hct 22.7 L I & O for Last 24 hours: Intake & Output 06/18/25 06/19/25 06/20/25 06/21/25 23:59 23:59 23:59 23:59 Intake Total 120 / 360 850 / 850 Output Total 700 / 700 Balance 120 / -240 150 / 150 Weight 159 lb 9 oz 163 lb 4.8 oz Constitutional Constitutional: no acute distress and average body habitus *Routine HEENT Exam Head: Present normocephalic and atraumatic ENT: Present mucous membranes moist *Routine Neck Exam Neck: Present supple, full ROM and normal carotid upstroke; Absent JVD, carotid bruit or lymphadenopathy *Routine Respiratory Exam Respiratory: Present CTA bilaterally, normal respiratory effort, able to speak in complete sentences and symmetric chest movement *Routine Cardiovascular Exam Cardiovascular: Present RRR, Normal S1 and Normal S2; Absent murmur or gallop *Routine Abdominal Exam Abdominal: Present soft and normoactive bowel sounds; Absent tenderness, distended or organomegaly *Routine Extremities Exam Extremities: Present full ROM, pulses intact and normal capillary refill; Absent cyanosis, clubbing or edema *Routine Skin Exam Skin: Present intact and warm; Absent erythema *Routine Neurological Exam Neurological: Present alert, oriented X3 and CN II-XII intact; Absent sensory deficit or motor deficit Routine Psychiatric Exam Psychiatric: Present normal affect Progress Note: A&P Assessment and plan (1) Pulmonary embolism: Status: Acute (2) Non-STEMI (non-ST elevated myocardial infarction): Status: Acute (3) Elevated troponin: Status: Acute (4) Dyspnea: Status: Acute (5) HTN (hypertension): Status: Acute (6) HLD (hyperlipidemia): Status: Acute (7) History of thrombectomy: Status: Acute Assessment and Plan Assessment and Plan for All Diagnoses:: Plan: 1. The patient was admitted to the hospital with a submassive PE which is appears to be occluding the right mainstem bronchus. Patient was taken to the [facility] and underwent thrombectomy of the right superior, middle and posterior pulmonary artery. She tolerated the procedure well. 2. The patient will be on Xarelto 15 mg p.o. twice daily for 21 days then 20 mg daily thereafter for 6 months. 3. The patient does have an elevated troponin consistent with a non-STEMI. This is most likely a type II non-STEMI from her pulmonary emboli. 4. Echocardiogram shows a normal ejection fraction 5. Her blood pressure is well-controlled. 6. Her LDL goal is less than then 100. Her LDL is 31. 7. Anemia is present this morning with a hemoglobin of 8.4. Down from 11.9. This was expected per Dr. Payton due to the blood loss that she had during the procedure yesterday. Will recheck her CBC before her follow-up appointment as an outpatient. 8. No further recommendations at this time from a cardiac standpoint. The patient can be discharged home today on Xarelto for anticoagulation. She will need to follow-up in cardiology clinic next week with a CBC prior to her appointment. Thank you for the opportunity to help participate in the care of this patient. All recommendations and orders are per Dr. Jennings.
--- NOTE | 2025-06-22 11:57 | SW/DCPLANNER ---
Spoke with patient on the phone. Patient stated that she is doing much better. Patient stated that she is aware of her upcoming appointments. Patient stated that she was able to get her new medicine picked up. Patient stated that she has no concerns or questions at this time. Melisa Lira
== END 2025-06-21 14:25 | disposition home or self-care (01) | DRG 163 ==
LOC: ER 09:17 → ICU 09:31
PROVIDERS: Emergency Medicine; Internal Medicine; Internal Medicine Adolescent Medicine; Admitting Provider Student in an Organized Health Care Education/Training Program; Emergency Provider Emergency Medicine; PCP Family Medicine; Visit Provider Student in an Organized Health Care Education/Training Program
PROC: 02CQ3ZZ Extirpation of Matter from Right Pulmonary Artery, Percutaneous Approach (ICD-10-PCS; principal; 2025-06-20 10:55)
DX: I26.09 Other pulmonary embolism with acute cor pulmonale (principal); I21.A1 Myocardial infarction type 2; D62 Acute posthemorrhagic anemia; I10 Essential (primary) hypertension; E78.2 Mixed hyperlipidemia; Z86.73 Personal history of transient ischemic attack (TIA), and cerebral infarction without residual deficits; Z88.5 Allergy status to narcotic agent; Z88.6 Allergy status to analgesic agent; Z79.82 Long term (current) use of aspirin; Z79.899 Other long term (current) drug therapy
CPT/HCPCS: 36415; 71045; 71275; 80048; 80053; 83690; 83735; 83880; 84484; 85014; 85018; 85025; 85378; 85610; 86803; 87389; 87636; 93005; 93306; 99152; 99153; 99285; C1725; C1757; C1769; C1894; J1200; J1644; J1650; J2003; J2250; J3010; J7040; J7050; Q9967

== ENCOUNTER 2025-06-23 09:41 | Outpatient (CLI) | payer MEDICARE, SELFPAY ==
[2025-06-23 10:16] LABS: Hematocrit 24.7 % (37.0-47.0); Hemoglobin 7.9 g/dL (12.2-16.2); Immature Granulocytes % 1.1 %; Mean Corpuscular HGB Conc 32.0 g/dL (31.8-35.4); Mean Corpuscular Hemoglobin 28.6 pg (27.0-31.2); Mean Corpuscular Volume 89.5 fl (81-99); Nucleated Red Blood Cells % 0 %; Platelet Count 250 K/mm3 (142-424); Red Blood Count 2.76 M/mm3 (4.20-5.40); Red Cell Distribution Width-SD 42.4 fL; White Blood Count 4.7 K/mm3 (4.8-10.8)
[2025-06-23 10:50] LABS: RBC Morphology Normal; Total Cells Counted 100
== END 2025-06-23 23:59 | disposition home or self-care (01) ==
LOC: LAB 09:42
PROVIDERS: PCP Family Medicine
DX: D64.9 Anemia, unspecified (principal); I26.99 Other pulmonary embolism without acute cor pulmonale; Z98.890 Other specified postprocedural states; Z86.718 Personal history of other venous thrombosis and embolism
CPT/HCPCS: 36415; 85007; 85025

== ENCOUNTER 2025-06-23 22:07 | Observation (INO) | payer MEDICARE, SELFPAY ==
[2025-06-23 21:59] VITALS: BP 124/73; PULSE 75; RESP 16; TEMP 36.9; O2SAT 97; BMI 26.1
--- NOTE | 2025-06-23 22:02 | CT_ITS ---
PROCEDURE INFORMATION: Exam: CTA Chest With Contrast Exam date and time: 06/23/2025 11:08 PM Age: 74 years old Clinical indication: Dyspnea; HX of thrombectomy 06/20/2025; Additional info: Dyspnea on exertion TECHNIQUE: Imaging protocol: Computed tomographic angiography of the chest with contrast. Exam focused on the arteries. 3D rendering (Not supervised by radiologist): MIP and/or 3D reconstructed images were created by the technologist. Radiation optimization: All CT scans at this facility use at least one of these dose optimization techniques: automated exposure control; mA and/or kV adjustment per patient size (includes targeted exams where dose is matched to clinical indication); or iterative reconstruction. Contrast material: ISOVUE; Contrast volume: 70 ml; Contrast route: INTRAVENOUS (IV); COMPARISON: CT ANGIO CHEST PE PROTOCOL 06/20/2025 8:45 AM FINDINGS: Pulmonary arteries: Resolution of the clot burden within the right main, upper lobar, and lower lobar pulmonary arteries. Minimal residual thrombus is noted in the right upper lobe posterior basal segmental, right middle lobar, and right lower lobe posterior basal segmental pulmonary arteries. Great vessels off aortic arch: Linear hypodensities in the right common carotid and proximal subclavian arteries likely secondary to motion artifact. Aorta: Unremarkable. No aortic aneurysm. No aortic dissection. Trachea: Small tracheal diverticulum. Lungs: Increased density of the wedge-shaped developing consolidation in the posterior aspect of the right upper lobe which may be secondary to ischemic changes from patient's recent pulmonary embolus. Pleural spaces: Small right-sided pleural effusion. No pneumothorax. Heart: Unremarkable. No cardiomegaly. No pericardial effusion. Heart RV/LV ratio: 1.1 Coronary arteries: Mild coronary artery calcifications. Lymph nodes: Unremarkable. No enlarged lymph nodes. Diaphragm: Moderate hiatal hernia. Bones/joints: Unremarkable. No acute fracture. Soft tissues: Unremarkable. IMPRESSION: 1. Resolution of the clot burden within the right main, upper lobar, and lower lobar pulmonary arteries. Minimal residual thrombus is noted in the right upper lobe posterior basal segmental, right middle lobar, and right lower lobe posterior basal segmental pulmonary arteries. 2. Increased density of the wedge-shaped developing consolidation in the posterior aspect of the right upper lobe which may be secondary to ischemic changes from patient's recent pulmonary embolus. 3. Continued imaging findings suggesting mild right heart strain. 4. Small right-sided pleural effusion. THIS REPORT CONTAINS FINDINGS THAT MAY BE CRITICAL TO PATIENT CARE. The findings were verbally communicated via telephone conference with DR. BONDS at 11:44 PM EST on 06/23/2025. The findings were acknowledged and understood.
--- NOTE | 2025-06-23 22:02 | XR_ITS ---
PROCEDURE INFORMATION: Exam: XR Chest Exam date and time: 06/23/2025 10:24 PM Age: 74 years old Clinical indication: Dyspnea; Additional info: Dyspnea, multiple blood clots in lungs removed 06/20 TECHNIQUE: Imaging protocol: Radiologic exam of the chest. Views: 1 view. COMPARISON: CT ANGIO CHEST PE PROTOCOL 06/20/2025 8:45 AM FINDINGS: Lungs: Mild hazy opacity along the right upper lobe corresponding with findings seen on recent CT and may represent perfusional/ischemic changes from patient's known embolus. Hyperexpansion of the lungs. Pleural spaces: Previously noted pleural effusions are not well visualized and may be resolved. No pneumothorax. Heart/Mediastinum: Hiatal hernia. Bones/joints: Unremarkable. IMPRESSION: 1. Mild hazy opacity along the right upper lobe corresponding with findings seen on recent CT and may represent perfusional/ischemic changes from patient's known embolus. 2. No interval changes.
[2025-06-23 22:04] VITALS: BP 123/78; PULSE 62; RESP 18; TEMP 37.1; O2SAT 98
--- OUTSIDE RECORDS SUMMARY | 2025-06-23 22:13 | XMS_ITS ---
Author Organization [facility] Care Team Providers Care Operator [employer] Name Role Phone Leonor Berger Unavailable Unavailable Soni, Turner Unavailable Unavailable Lenore Wilson Unavailable Unavailable Abel Contreras Unavailable Unavailable Carmen Ding Unavailable Unavailable Allergies and adverse reactions Code CodeSystem Substance Reaction Severity StartDate Concern Status 2670 RXNORM Codeine Mild 04/01/2024 active 5640 RXNORM Ibuprofen Mild 04/01/2024 active Care Team Name Role Address Phone Organization Dates Abel Contreras PCP [address] , [place], [address], [facility] (Office): : : [place] 04/02/2024 - 04/12/[address] [facility] (Office): [place] 04/02/2024 - 04/12/2024 Turner Shafer [facility] (Office): [place] 04/02/2024 - 04/12/[address] [facility] (Office): [place] 04/02/2024 - 04/12/[address] [facility] (Office): [place] 04/02/2024 - 04/12/2024 Goals Section Goals Description [...] information 2024 Code: 51 Code System OID:[id number] .[id number]. 5 Code System Name: Source of Payment Typology (PHDSC) Display: Managed Care (Private) Translation: Code: HM Code System: OID:[id number] .[id number]. 1336 Code System Name: Insurance Type Code ([id number]) Display Name: Health Maintenance Organization (HMO) Plan Code: SELF Code System Name: HL7 RoleCode Code System OID:[id number] .[id number] Display Name: Self [id number] Root: [id number] Payer Name: [employer] Data Address: [facility] [address] City: [place] State: [place] Country: [facility] Telecom: [phone] Code: 81 Code System OID:[id number] .[id number]. 5 Code System Name: Source of Payment Typology (PHDSC) Display: Self Pay Translation: Code: 09 Code System: OID:[id number] .[id number]. 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 04/02/[address] active 4 FRACTURE OF SUPERIOR RIM OF RIGHT PUBIS, SUBSEQUENT ENCOUNTER FOR FRACTURE WITH ROUTINE HEALING 04/02/[address] active 5 GASTRO-ESOPHAGEAL REFLUX DISEASE WITHOUT ESOPHAGITIS 04/02/[address] active 6 HEMIPLEGIA AND HEMIPARESIS FOLLOWING CEREBRAL INFARCTION AFFECTING RIGHT DOMINANT SIDE 04/02/[address] active 7 MUSCLE WASTING AND ATROPHY, NOT ELSEWHERE CLASSIFIED, UNSPECIFIED SITE 04/02/[address] active 8 MUSCLE WEAKNESS (GENERALIZED) 04/02/[address] active 9 NEED FOR ASSISTANCE WITH PERSONAL CARE 04/02/[address] active 10 OTHER SPECIFIED FRACTURE OF RIGHT PUBIS, SUBSEQUENT ENCOUNTER FOR FRACTURE WITH ROUTINE HEALING 04/02/[address] active 11 PAIN IN RIGHT HIP 04/02/[address] active 12 UNSPECIFIED ABNORMALITIES OF GAIT AND MOBILITY 04/02/[address] active 13 UNSPECIFIED ZONE I FRACTURE OF SACRUM, SUBSEQUENT ENCOUNTER FOR FRACTURE WITH ROUTINE HEALING 04/02/[address] active 14 VITAMIN D DEFICIENCY, UNSPECIFIED 04/02/[address] active 15 RETENTION OF URINE, UNSPECIFIED 03/25/[address] active 16 ESSENTIAL (PRIMARY) HYPERTENSION 03/21/[address] active 17 OTHER HYPERLIPIDEMIA 03/21/[address] active Reason for Referral No Reasons for Referral Entered Social History Social History Observation Description Start Date End Date Code Code System Current Smoking Status Tobacco smoking consumption unknown 734544711 SNOMED CT Sex Assigned At Female 1950 30081-6 [facility] Gender Identity Sexual Orientation Vital Signs Code Code System Vitals Name Values and Units Timing Information 55255-4 [facility] Pain Level Value=0.0 04/12/2024 8462-4 [facility] Blood Pressure-Diastolic Value=74 Un its=mmHg 04/11/2024 8480-6 LOINC Blood Pressure-Systolic Ztldg=980 Un its=mmHg 04/11/2024 8867-4 [facility] Heart rate Value=90.0 Units=/min 9279-1 INC Respiratory Rate Value=18.0 Units=/m in 04/11/2024 55983-8 [facility] Weight Tcrnr=912.4 Units=Lbs 98425-8 INC O2 % BldC Oximetry Value=96.0 Units= % 04/05/2024 8302-2 LOINC Height Value=66.0 Units=Inches 04/02/2024 8310-5 LOINC Body Temperature Value=98.0 Units= F 04/02/2024
--- OUTSIDE RECORDS SUMMARY | 2025-06-23 22:13 | XMS_ITS | Clinical Summary ---
Author Organization Healthcare Address [address] [place] [address] Care Team Providers Care Blanket Binder Name Role Phone Pcp, No Primary Care [...] split. Active ergocalciferol (Vitamin D-2) 1.25 MG (85622 UT) capsule Take 1 capsule (50,000 Units) [...] place to sleep or slept in a penitentiary (including now)? No 03/22/2024 Utilities Answer Date Recorded In the past 12 months has th e [employer], gas, oil, or water company threatened to [...] Wellness (AWV) 1950 [facility]-Infant/Child/Adol SDOH Screenings 1950 [facility]- SDOH Screenings 1968 [facility]-Adult SDOH Screenings 1968 CT Colonography 09/23/1995 Colonoscopy 09/23/1995 FIT-DNA 09/23/1995 FIT 09/23/1995 FOBT 09/23/1995 Sigmoidoscopy 09/23/1995 [facility]-Colorectal Cancer Screening 09/23/1995 [facility]-Breast Cancer Screening 2000 [facility]-Zoster Vaccines (1 of 2) 2000 [facility]-Pneumococcal Vaccine: 50+ Years (2 of 2 - PCV) 04/18/2016 04/18/2015, 05/12/2014 [id number] Vaccine (1 - 2024- season) 2025 [facility]-Influenza [...] Antibody Negative Negative 03/21/2024 5:00 AM EDT [facility] Blood Venous blood specimen / Unknown Venipuncture / Unknown 03/21/2024 3:46 AM EDT 03/21/2024 4:19 AM EDT Ac Armendariz MD LAB BLOOD ORDERABLES Final Result Performing Organization Address City/State/[facility] Co de Phone Number [facility] [address] [place] [address] from Last 3 Months or Most Recently Relevant to Health Maintenance Insurance [employer] Advance Directives * Full Code (Latest Code Status on File) Date Activated Date Inactivated Comments 03/21/2024 6:59 AM 03/25/2024 10:15 PM Question Answer Comments Patient has decision-making capacity? Yes Care Teams Blanket Binder Relationship Specialty Start Date End Date Pcp, No [address] [place] [address] PCP - General Family Medicine 02/20/24
--- NOTE | 2025-06-23 22:14 | ED_ITS ---
Discharge Plan Disposition Patient Disposition: Admitted Condition: Good Prescriptions Prescriptions: No Action aspirin 81 mg tablet,delayed release (DR/EC) 81 mg PO DAILY Qty: 90 3RF amlodipine 5 mg tablet 5 mg PO DAILY Qty: 90 3RF lisinopril 10 mg tablet 10 mg PO DAILY Qty: 90 2RF carvedilol 6.25 mg tablet 6.25 mg PO BID Qty: 180 1RF atorvastatin 40 mg tablet 40 mg PO HS ondansetron HCl 4 mg tablet 4 mg PO Q8HP PRN (Reason: Nausea And Vomiting) ergocalciferol (vitamin D2) 1,250 mcg (50,000 unit) capsule 1,250 mcg PO WEEKLY pantoprazole 40 mg Tablet,Delayed Release (Dr/Ec) 40 mg PO HS Qty: 30 0RF Xarelto DVT-PE Treat 30d Start 15 mg (42)- 20 mg (9) tablets,dose pack See Rx Instructions .ROUTE .COMPLEX Qty: 51 0RF Rx Instructions: take one-15 mg tablet twice daily for 21 days, then one-20 mg tablet once daily; must take with meal/food Referrals Follow up/Referrals: Anaid Cobb APRN [Primary Care Provider, Family Practice] - See instructions Clinical Impressions Clinical Impression: Acute deep vein thrombosis (DVT) of right lower extremity Qualifiers: Affected thrombotic vein of extremity: femoral Qualified Code(s): I82.411 - Acute embolism and thrombosis of right femoral vein Print Language Print Language: Turkmen Discharge ED Provider: Gage Mas General Adult HPI <Gage Mas DO - Last Filed: 06/23/25 23:56> General Chief complaint: Extremity Injury, Lower Stated complaint: Swelling Time Seen by Provider: 06/23/25 22:10 Mode of Arrival: EMS Source of Information: Patient Description of Symptoms (Recalled from ER Triage Doc. by RN): Pt reports havng knot to lower right leg without pain or swelling. Pt states she recently just had procedure with Dr. Payton removing multiple clots from her lungs. History of Present Illness HPI narrative: This is a 74-year-old female patient, with past medical history of osteoporosis, hypertension, hyperlipidemia, and recent submassive pulmonary embolism status post thrombectomy, who is presenting to the emergency department today for evaluation of right lower extremity complaints. Patient tells me that at the time of discharge from the hospital she was told that if she had any nodules, swelling, or pain arise in her lower extremities that she should return to the emergency department immediately for evaluation. She states that this evening she noticed a small cutaneous nodule appear on the medial aspect of her right lower extremity near the medial malleolus. This ultimately prompted her to the emergency department. I specifically asked the patient if she was experiencing chest pain or shortness of breath in relation to the symptoms and she initially stated no. However, she arrived by EMS on oxygen and when I questioned her further on this she tells me that over the last 1 to 2 days she has had progressively worsening dyspnea on exertion. Related Data Home Medications ?Medication ?Instructions ?Recorded ?Confirmed atorvastatin 40 mg tablet 40 mg PO HS 06/20/25 5 ergocalciferol (vitamin D2) 1,250 1,250 mcg PO WEEKLY 06/20/25 06/23/25 mcg (50,000 unit) capsule ondansetron HCl 4 mg tablet 4 mg PO Q8HP PRN Nausea An d 06/20/25 06/23/25 Vomiting Previous Rx's ?Medication ?Instructions ?Recorded amlodipine 5 mg tablet 5 mg PO DAILY #90 tabs 10/13 aspirin 81 mg tablet,delayed 81 mg PO DAILY #90 tabs 0 10/13/24 release lisinopril 10 mg tablet 10 mg PO DAILY #90 tabs 0509/07 carvedilol 6.25 mg tablet 6.25 mg PO BID #180 tabs 02/04 pantoprazole 40 mg tablet,delayed 40 mg PO HS #30 tabs 06/21/25 release rivaroxaban 15 mg (42)-20 mg (9) See Rx Instructions P O .COMPLEX 06/21/25 tablets in a starter pack (Xarelto #51 tabs DVT-PE Treatment 30-Day Starter) Allergies Allergy/AdvReac Type Severity Reaction Status Date / Time codeine (CODEINE) Allergy Mild Confusion Verified 06/23/25 10:33 ibuprofen (IBUPROFEN) Allergy Unknown Confusion Verified 06/23/25 10:33 [facility] <Gage Mas DO - Last Filed: 06/23/25 23:56> [facility] Disclaimer: The information contained in this section may have been updated after the patient was seen, as this information can be updated by other users. Medical History Hysterectomy planned Non-STEMI (non-ST elevated myocardial infarction) Elevated troponin Dyspnea Osteoarthritis Vitamin D deficiency Instability of left shoulder joint Thyroid lesion Cervical radicular pain Neuropathic pain Sequela of cerebrovascular accident JOSHUA (acute kidney injury) Parietal lobe infarction Ataxia Subclavian artery stenosis, right Dysarthria Cerebral infarction, watershed distribution, unilateral, acute Right sided numbness Aphasia Bilateral carotid artery stenosis Subclavian artery stenosis Dysphasia E. coli UTI (urinary tract infection) Hypokalemia UTI (urinary tract infection) Malignant hypertension Elevated BP without diagnosis of hypertension Avulsion of skin of right hand Fall Avulsion of skin of left hand Hematoma of frontal scalp Abrasion of face Laceration of nose Forehead laceration Surgical History H/O wrist surgery H/O: knee surgery History of hysterectomy Family History Other Family history of cancer Family history of hyperlipidemia Family history of hypertension Social History Smoking Status: Never smoker alcohol intake: never substance use type: denies use current occupational status: disabled Travel in the last 8 weeks?: None household members: none housing: house caffeine: Yes Have you lived/traveled outside [place] in past 30 days?: No Contact w/someone who lives/traveled outside US past 30 days?: No Exposure to someone with infectious disease in past 14 days?: No Do you have a fever (greater than 100.4 F or 38 C)?: No Have you tested positive for COVID-19?: No Exposed to someone with COVID-19 in past 14 days?: No Do you have a sore throat?: No Do you have a cough?: No Do you have any weakness?: No Do you have any diarrhea?: No Are you experiencing any unusual bleeding?: No Do you have any muscle aches/pain?: No Do you have any abdominal pain?: No Are you experiencing loss of taste or smell?: No Other Medical History Have you received the Flu Vaccine for this season: No Have you received the Pneumonia Vaccine: No <Gage Mas DO - Last Filed: 06/23/25 23:56> ROS Obtained: Yes Systems reviewed as appropriate & no additional complaints except as documented Physical Exam <Gage Mas DO - Last Filed: 06/23/25 23:56> General General appearance: other (See MDM) Respiratory Respiratory exam: Present other (See MDM) Cardiovascular Cardiovascular exam: Present other (See MDM) Neurological Exam Neurological exam: Present other (See MDM) Medical Decision Making <Gage Mas DO - Last Filed: 06/23/25 23:56> Medical Records Medical records reviewed: Yes I reviewed the patient's medical records. Screening: Per USPSTF and CDC recommendations, given the prevalence of disease in our region, it is our hospital?s policy to screen for HIV and viral Hepatitis for all patients aged 18 and over and those with ongoing risk factors. Herman Inquiry Pt receiving controlled substance: No Herman was queried for this patient: No Vital Signs: 06/23/25 21:59 06/23/25 22:04 Temperature 98.4 F 98.8 F Temperature Source Oral Oral Pulse Rate 62 Pulse Rate [Left] 75 Respiratory Rate 16 18 Blood Pressure 123/78 Blood Pressure [Right Arm] 124/73 Blood Pressure Mean [Right Arm] 90 Blood Pressure Source [Right Arm] Automatic Cuff Blood Pressure Position [Right Arm] Sitting 02 Sat by Pulse Oximetry 97 98 Oxygen Delivery Method Nasal Cannula Room Air Oxygen Flow Rate (LPM) 2 Lab Data Lab Results 06/23/25 22:11: WBC 5.2, RBC 2.64 L, Hgb 8.0 L, Hct 23.4 L, MCV 88.6, MCH 30.3, MCHC 34.2, RDW 13.2, Plt Count 280, MPV 9.3, Neut % (Auto) 71.5, Lymph % (Auto) 12.3, Jefferson % (Auto) 11.2 H, Eos % (Auto) 2.7, Baso % (Auto) 0.4, Neut # (Auto) 3.7, Lymph # (Auto) 0.6 L, Jefferson # (Auto) 0.6, Eos # (Auto) 0.1, Baso # (Auto) 0.0, PT 14.2 H, INR 1.30 H, APTT 36.7 H, Sodium 138, Potassium 3.4 L D, Chloride 104, Carbon Dioxide 21 L, Anion Gap 16.4 H, BUN 12, Creatinine 1.00, Estimated Creat Clear 57, Estimated GFR 54 L, Est GFR ( Amer) 66, Glucose 93, Calcium 8.9, Total Bilirubin 0.4, AST 39 H D, ALT 35 D, Alkaline Phosphatase 89, Troponin I 0.03, NT-Pro-B Natriuret Pep 343 H, Total Protein 6.9, Albumin 4.0, Globulin 2.9, Albumin/Globulin Ratio 1.4 06/23/25 22:11 06/23/25 22:11 Orders (Tests/Meds): ED MEDICATIONS Generic Name Dose Route Start Last Admin Trade Name Freq PRN Reason Stop Dose Admin Miscellaneous 1 each 06/24/25 00:05 Pharmacy Consult Request NOTAPPLIC 06/24/25 00:06 CONSULT PHARMACY ONE Potassium Chloride 20 meq 06/24/25 00:09 Potassium Chloride 20meq Tab PO 06/24/25 00:10 ONCE ONE Discontinued Medications Generic Name Dose Route Start Last Admin Trade Name Freq PRN Reason Stop Dose Admin Hydromorphone HCl 0.25 mg 06/23/25 23:50 06/24/25 00:01 Hydromorphone 2mg/Ml Syringe IV 06/23/25 23:51 0.25 mg ONCE ONE Administration Iopamidol 70 ml 06/23/25 23:10 06/23/25 23:10 Iopamidol-370 (76%);100ml Bottle IV 06/23/25 23:11 70 ml ONCE ONE Administration Ondansetron HCl 4 mg 06/23/25 23:50 06/24/25 00:01 Ondansetron 4mg/2ml Vial IV 06/23/25 23:51 4 mg ONCE ONE Administration Potassium Chloride 40 meq 06/23/25 23:56 06/24/25 00:07 Potassium Chloride 20meq/15ml Udc PO 06/23/25 23:57 Not Given ONCE ONE Sodium Chloride 50 ml 06/23/25 23:10 06/23/25 23:10 0.9 % Sodium Chloride 50 Ml Vial IV 06/23/25 23:11 50 ml ONCE ONE Administration Sodium Chloride 10 ml 06/23/25 23:10 06/23/25 23:10 Sodium Chloride 0.9% 10ml Syr (Rad Only) IV 06/23/25 23:11 10 ml ONCE ONE Administration ORDERS Category Date Time Status CT abdomen pelvis w con Stat Cat Scan 06/23/25 22:[address] angio chest PE protocol Stat Cat Scan 06/23/25 22:02 Completed CXR --portable [XR chest portable] Stat Exams 06/23/25 22:02 Completed POCUS Point of Care (ER Only) Stat Exams 06/23/25 22:02 Completed Activated Partial Thrombo Time Stat Lab 06/23/25 22:11 Completed BNP [NT Pro Brain Natriuretic Pep.] Stat Lab 06/23/25 22:11 Completed CBC w/Auto Diff [Complete Blood Count Auto Diff] Stat Lab 06/23/25 22:11 Completed CMP [Comprehensive Metabolic Panel] Stat Lab 06/23/25 22:11 Completed PT INR [Prothrombin Time INR] Stat Lab 06/23/25 22:11 Completed PTT Heparin (inpatient only) Stat Lab 06/23/25 22:11 Received Troponin I Q3H Lab 06/24/25 01:15 Ordered Troponin I Q3H Lab 06/24/25 04:15 Ordered Troponin I Stat Lab 06/23/25 22:11 Completed Medical Decision Narrative: In summary, this is a 74-year-old female patient who is presenting to the emergency department today for evaluation of a subcutaneous nodular area of swelling on the medial aspect of her right lower extremity as well as dyspnea on exertion after recently being diagnosed with a submassive pulmonary embolism and undergoing thrombectomy. The patient is currently anticoagulated on Xarelto. The remaining comorbidities consist of hypertension, hyperlipidemia, osteoporosis, and history of stroke. On initial evaluation of the patient she was sitting upright in no acute distress and was nontoxic in appearance. She is hemodynamically stable and neurologically intact. After transfer over to the [facility] we were able to de- escalate the patient off of nasal supplemental oxygen to room air. She does not demonstrate any evidence of increased work of breathing. Her lungs are clear to auscultation bilaterally. In regards to her lower extremity exam, she does not have any asymmetric lower extremity erythema or edema. There is a very small subcutaneous nodule in the soft tissues of the medial aspect of the right lower extremity that feels to clinically be consistent with something like a sebaceous cyst. Will proceed with DVT POCUS ultrasound to ensure there is no evidence of lower extremity DVT. Differential diagnosis includes DVT, superficial thrombophlebitis, pulmonary embolism, ACS/NC, heart failure, among others Workup was initiated with hematologic labs as well as an EKG, chest x-ray, and CT PE study. Labs were personally interpreted by me and demonstrate no evidence of leukocytosis, no Transfusable anemia. aPTT is mildly elevated, INR is 1.3. She does have hypokalemia with potassium of 3.4. No evidence of acute kidney injury or other significant electrolyte derangements. Initial troponin is 0.03. We will pend a delta. I performed a bedside POCUS assessment of the patient's right lower extremity which reveals clot extending from the proximal femoral vein down to the level of the knee. Based on these findings I decided to add on a CT abdomen pelvis with IV contrast to determine whether this clot potentially extends into the iliacs or IVC. At the time of shift change I replaced the patient's potassium with 40 mEq of oral potassium chloride. I anticipate patient will necessitate admission for heparin drip, and potentially transfer depending on extent of clot burden identified on CT. This case was handed off to the oncoming provider who will follow-up on the results of CT scans and disposition the patient appropriately. <Haris Espinoza MD - Last Filed: 06/24/25 00:22> Vital Signs: 06/23/25 21:59 06/23/25 22:04 Temperature 98.4 F 98.8 F Temperature Source Oral Oral Pulse Rate 62 Pulse Rate [Left] 75 Respiratory Rate 16 18 Blood Pressure 123/78 Blood Pressure [Right Arm] 124/73 Blood Pressure Mean [Right Arm] 90 Blood Pressure Source [Right Arm] Automatic Cuff Blood Pressure Position [Right Arm] Sitting 02 Sat by Pulse Oximetry 97 98 Oxygen Delivery Method Nasal Cannula Room Air Oxygen Flow Rate (LPM) 2 Lab Data Lab Results 06/23/25 22:11: WBC 5.2, RBC 2.64 L, Hgb 8.0 L, Hct 23.4 L, MCV 88.6, MCH 30.3, MCHC 34.2, RDW 13.2, Plt Count 280, MPV 9.3, Neut % (Auto) 71.5, Lymph % (Auto) 12.3, Jefferson % (Auto) 11.2 H, Eos % (Auto) 2.7, Baso % (Auto) 0.4, Neut # (Auto) 3.7, Lymph # (Auto) 0.6 L, Jefferson # (Auto) 0.6, Eos # (Auto) 0.1, Baso # (Auto) 0.0, PT 14.2 H, INR 1.30 H, APTT 36.7 H, Sodium 138, Potassium 3.4 L D, Chloride 104, Carbon Dioxide 21 L, Anion Gap 16.4 H, BUN 12, Creatinine 1.00, Estimated Creat Clear 57, Estimated GFR 54 L, Est GFR ( Amer) 66, Glucose 93, Calcium 8.9, Total Bilirubin 0.4, AST 39 H D, ALT 35 D, Alkaline Phosphatase 89, Troponin I 0.03, NT-Pro-B Natriuret Pep 343 H, Total Protein 6.9, Albumin 4.0, Globulin 2.9, Albumin/Globulin Ratio 1.4 Orders (Tests/Meds): ED MEDICATIONS Generic Name Dose Route Start Last Admin Trade Name Freq PRN Reason Stop Dose Admin Miscellaneous 1 each 06/24/25 00:05 Pharmacy Consult Request NOTAPPLIC 06/24/25 00:06 CONSULT PHARMACY ONE Potassium Chloride 20 meq 06/24/25 00:09 Potassium Chloride 20meq Tab PO 06/24/25 00:10 ONCE ONE Discontinued Medications Generic Name Dose Route Start Last Admin Trade Name Freq PRN Reason Stop Dose Admin Hydromorphone HCl 0.25 mg 06/23/25 23:50 06/24/25 00:01 Hydromorphone 2mg/Ml Syringe IV 06/23/25 23:51 0.25 mg ONCE ONE Administration Iopamidol 70 ml 06/23/25 23:10 06/23/25 23:10 Iopamidol-370 (76%);100ml Bottle IV 06/23/25 23:11 70 ml ONCE ONE Administration Ondansetron HCl 4 mg 06/23/25 23:50 06/24/25 00:01 Ondansetron 4mg/2ml Vial IV 06/23/25 23:51 4 mg ONCE ONE Administration Potassium Chloride 40 meq 06/23/25 23:56 06/24/25 00:07 Potassium Chloride 20meq/15ml Udc PO 06/23/25 23:57 Not Given ONCE ONE Sodium Chloride 50 ml 06/23/25 23:10 06/23/25 23:10 0.9 % Sodium Chloride 50 Ml Vial IV 06/23/25 23:11 50 ml ONCE ONE Administration Sodium Chloride 10 ml 06/23/25 23:10 06/23/25 23:10 Sodium Chloride 0.9% 10ml Syr (Rad Only) IV 06/23/25 23:11 10 ml ONCE ONE Administration ORDERS Category Date Time Status CT abdomen pelvis w con Stat Cat Scan 06/23/25 22:[address] angio chest PE protocol Stat Cat Scan 06/23/25 22:02 Completed CXR --portable [XR chest portable] Stat Exams 06/23/25 22:02 Completed POCUS Point of Care (ER Only) Stat Exams 06/23/25 22:02 Completed Activated Partial Thrombo Time Stat Lab 06/23/25 22:11 Completed BNP [NT Pro Brain Natriuretic Pep.] Stat Lab 06/23/25 22:11 Completed CBC w/Auto Diff [Complete Blood Count Auto Diff] Stat Lab 06/23/25 22:11 Completed CMP [Comprehensive Metabolic Panel] Stat Lab 06/23/25 22:11 Completed PT INR [Prothrombin Time INR] Stat Lab 06/23/25 22:11 Completed PTT Heparin (inpatient only) Stat Lab 06/23/25 22:11 Received Troponin I Q3H Lab 06/24/25 01:15 Ordered Troponin I Q3H Lab 06/24/25 04:15 Ordered Troponin I Stat Lab 06/23/25 22:11 Completed Medical Decision Narrative: In summary, this is a 74-year-old female patient who is presenting to the emergency department today for evaluation of a subcutaneous nodular area of swelling on the medial aspect of her right lower extremity as well as dyspnea on exertion after recently being diagnosed with a submassive pulmonary embolism and undergoing thrombectomy. The patient is currently anticoagulated on Xarelto. The remaining comorbidities consist of hypertension, hyperlipidemia, osteoporosis, and history of stroke. On initial evaluation of the patient she was sitting upright in no acute distress and was nontoxic in appearance. She is hemodynamically stable and neurologically intact. After transfer over to the stretcher we were able to de- escalate the patient off of nasal supplemental oxygen to room air. She does not demonstrate any evidence of increased work of breathing. Her lungs are clear to auscultation bilaterally. In regards to her lower extremity exam, she does not have any asymmetric lower extremity erythema or edema. There is a very small subcutaneous nodule in the soft tissues of the medial aspect of the right lower extremity that feels to clinically be consistent with something like a sebaceous cyst. Will proceed with DVT POCUS ultrasound to ensure there is no evidence of lower extremity DVT. Differential diagnosis includes DVT, superficial thrombophlebitis, pulmonary embolism, ACS/NC, heart failure, among others Workup was initiated with hematologic labs as well as an EKG, chest x-ray, and CT PE study. Labs were personally interpreted by me and demonstrate no evidence of leukocytosis, no Transfusable anemia. aPTT is mildly elevated, INR is 1.3. She does have hypokalemia with potassium of 3.4. No evidence of acute kidney injury or other significant electrolyte derangements. Initial troponin is 0.03. We will pend a delta. I performed a bedside POCUS assessment of the patient's right lower extremity which reveals clot extending from the proximal femoral vein down to the level of the knee. Based on these findings I decided to add on a CT abdomen pelvis with IV contrast to determine whether this clot potentially extends into the iliacs or IVC. At the time of shift change I replaced the patient's potassium with 40 mEq of oral potassium chloride. I anticipate patient will necessitate admission for heparin drip, and potentially transfer depending on extent of clot burden identified on CT. This case was handed off to the oncoming provider who will follow-up on the results of CT scans and disposition the patient appropriately. Espinoza: Upon my assumption of care patient is stable, she is complaining of right hip pain. After receiving handoff from Dr. Mas I administered low-dose Dilaudid with Zofran. I personally interpreted CTA PE and appreciate small distal PE, radiology read pending. I received a phone call from the reading radiologist regarding this patient's CT imaging. He states patient has persistent though reduced clot burden in the right lung, right heart strain is still present but he believes this to be residual, he also states there is clot in the superficial femoral that extends fully throughout the imaged but does not cross into the common femoral. No extension into the iliacs or IVC. I appreciate his report. Unfortunately we do not have potassium solution so oral potassium pill was ordered instead. Potassium solution was not administered. She still complained of pain and requested lidocaine patch which has been administered. I reached out to pharmacy to dose heparin drip, after discussion with the on-call pharmacist, Sergio, he recommended heparin drip to start at the time of her next due DOAC dose. Patient took Xarelto approximately 1 hour prior to arrival in the ER which would have been around 8 PM. He is dosing the patient's heparin drip to start appropriately based on this time. I reach out to the hospitalist for admission, I spoke with Emily with the hospitalist team and we reviewed the case. She requested I asked Dr. Payton if he is comfortable with this patient staying here and if he has plans to further manage his patient procedurally or if she just needs additional anticoagulation. Patient will not be accepted for admission until it is clear what the plan is. I reached out to Dr. Payton and discussed this case with him. He said he absolutely will perform thrombectomy on this patient and she needs to be admitted for anticoagulation. He did request Lovenox instead of heparin. I appreciate his recommendations. I reached back out to the pharmacist, Sergio, who is changing the dosing to be Lovenox instead but he stated the appropriate timeline for dosing is still the same as it would have been for the heparin. He is ordering this medication for the patient. I reached back out to the hospitalist and discussed the recommendations from Dr. Payton with her. Patient was graciously accepted for admission. She is admitted in stable condition. Procedures <Gage Mas DO - Kalyan Filed: 06/23/25 23:56> Miscellaneous Procedure Procedure Performed: Limited DVT ultrasound notes Indication: Limited compression ultrasonography of the right lower extremity was performed to evaluate for noncompressibility of the deep veins of the patient. The ultrasound was performed with the following indications, as noted in the HPI: Leg swelling: Right Identified structures: Right common femoral vein, femoral vein, popliteal vein Findings: Lower extremity: Right common femoral vein: Noncompressible Right femoral vein: Noncompressible Right popliteal vein: Difficult to assess, good flow with Doppler Impression: DVT extending from the common femoral vein through the femoral vein down to the level of the knee Images were saved to permanent archive This study was technically adequate CPT: 13927-73-DH [id number] 56687-74 (complete bilateral study) This study was performed by me and I personally interpreted all images/videos. Based on my clinical judgment these images were adequate and did not necessitate further imaging. Critical Care <Gage Mas DO - Last Filed: 06/23/25 23:56> Critical Care Time Critical Care Time: No
[2025-06-23 22:17] LABS: Hematocrit 23.4 % (37.0-47.0); Hemoglobin 8.0 g/dL (12.2-16.2); Immature Granulocytes % 1.9 %; Mean Corpuscular HGB Conc 34.2 g/dL (31.8-35.4); Mean Corpuscular Hemoglobin 30.3 pg (27.0-31.2); Mean Corpuscular Volume 88.6 fl (81-99); Nucleated Red Blood Cells % 0 %; Platelet Count 280 K/mm3 (142-424); Red Blood Count 2.64 M/mm3 (4.20-5.40); Red Cell Distribution Width-SD 42.1 fL; White Blood Count 5.2 K/mm3 (4.8-10.8)
[2025-06-23 22:23] LABS: Albumin Level 4.0 g/dl (3.5-5.0); Chloride 104 mmol/L (98-107)
[2025-06-23 22:24] LABS: Potassium 3.4 mmoL/L (3.5-5.1); Sodium 138 mmol/L (136-145)
[2025-06-23 22:26] LABS: Alanine Aminotransferase 35 U/L (12-78); Anion Gap 16.4 mEq/L (5-15); Aspartate Amino Transferase 39 U/L (14-36); Blood Urea Nitrogen 12 mg/dl (7-17); Carbon Dioxide 21 mmol/L (22.0-30.0); Creatinine Clearance Estimated 57 mL/min (50-200); Creatinine,Serum 1.00 mg/dl (0.52-1.04); Estimated Glomerular Filt Rate 54 ml/min (>60); GFR (African American) 66 ML/MIN (>60)
[2025-06-23 22:27] LABS: Albumin/Globulin Ratio 1.4 (1.1-1.8); Alkaline Phosphatase 89 U/L (38-126); Bilirubin,Total 0.4 mg/dl (0.2-1.3); Calcium 8.9 mg/dl (8.4-10.2); Globulin 2.9 g/dL (1.3-3.2); Glucose 93 mg/dl (74-100); Total Protein,Serum 6.9 g/dl (6.3-8.2)
--- NOTE | 2025-06-23 22:34 | ECG_ITS ---
APPROVED REPORT Exam: Resting ECG HR:72 bpm ECG Measurements Heart Rate 72 AXES HI 165 P 7 QRSd 90 QRS 37 QT 396 T 54 QTc 420 Conclusion Normal sinus rhythm Normal axis Normal intervals No STEMI Electronically signed by : Gage Mas, 06/23/2025 23:22:37
[2025-06-23 22:36] LABS: NT Pro Brain Natriuretic Pep. 343 pg/mL (0-125)
[2025-06-23 22:39] LABS: Troponin I 0.03 ng/ml (0.00-0.034)
--- NOTE | 2025-06-23 22:52 | CT_ITS ---
PROCEDURE INFORMATION: Exam: CT Abdomen And Pelvis With Contrast Exam date and time: 06/23/2025 11:08 PM Age: 74 years old Clinical indication: Pain; Other: Eval for thrombus; Additional info: Eval ivc and iliacs for thrombus TECHNIQUE: Imaging protocol: Computed tomography of the abdomen and pelvis with contrast. 3D rendering (Not supervised by radiologist): MIP and/or 3D reconstructed images were created by the technologist. Radiation optimization: All CT scans at this facility use at least one of these dose optimization techniques: automated exposure control; mA and/or kV adjustment per patient size (includes targeted exams where dose is matched to clinical indication); or iterative reconstruction. Contrast material: ISOVUE; Contrast volume: 70 ml; Contrast route: IV; COMPARISON: CT [facility] PELVIS 03/31/2024 2:12 PM FINDINGS: Liver: Unremarkable. Gallbladder and biliary ducts: No calcified stones. No ductal dilation. Pancreas: Normal. No ductal dilation. Spleen: Mild splenomegaly. Adrenal glands: Unremarkable. Kidneys and ureters: Bilateral simple cortical renal cysts. No hydronephrosis. Stomach and bowel: Paraesophageal hernia. Appendix: No evidence of appendicitis. Intraperitoneal space: No free air. No fluid collection. Vasculature: Mild atherosclerotic changes of the aorta and its major branches. Hypodensity throughout the included portions of right superficial femoral vein consistent with thrombosis. Minimal hypodensity in the left superficial femoral vein likely representing mixing artifact however can not completely exclude small nonocclusive thrombosis. Lymph nodes: No enlarged lymph nodes. Urinary bladder: Unremarkable as visualized. Reproductive: Hysterectomy. Bones/joints: No acute fracture. Severe degenerative changes of the bilateral hips. Chronic fractures of the bilateral superior and inferior pubic rami. Soft tissues: Surgical changes in the right groin soft tissues. IMPRESSION: 1. Hypodensity throughout the included portions of right superficial femoral vein consistent with thrombosis. The IVC and bilateral iliac veins are unremarkable. 2. Minimal hypodensity in the left superficial femoral vein likely representing mixing artifact however can not completely exclude small nonocclusive thrombosis. THIS REPORT CONTAINS FINDINGS THAT MAY BE CRITICAL TO PATIENT CARE. The findings were verbally communicated via telephone conference with DR. BONDS at 11:44 PM EST on 06/23/2025. The findings were acknowledged and understood. COMMENTS: Consistent with the [employer]'s Incidental Findings Committee white paper (J Am Annmarie Radiol 2018): Any incidental renal lesion less than 1 cm or classified as too small to characterize, or any incidental cystic renal lesion characterized as simple-appearing, is likely benign. No follow-up imaging is recommended for these lesions per consensus recommendations based on imaging criteria.
[2025-06-23 23:06] LABS: Activated Partial Thrombo Time 36.7 seconds (22.8-30.6); INR 1.30 (0.9-1.1); Prothrombin Time 14.2 seconds (10.1-12.5)
[2025-06-23] MEDS: IOPAMIDOL-370 (76%);100ML BOTTLE 70 ML IV (23:10)
[2025-06-23] MEDS: SODIUM CHLORIDE 0.9% 10ML SYR (RAD ONLY) 10 ML IV (23:10)
[2025-06-23] MEDS: 0.9 % SODIUM CHLORIDE 50 ML VIAL IV (23:10)
[2025-06-24] VITALS (7 sets, daily range): BP systolic 104–134; BP diastolic 68–78; PULSE 70–88; RESP 16–18; TEMP 36.6–37.1; O2SAT 96–98; BMI 26.2; BMI 26.6
[2025-06-24] MEDS: HYDROMORPHONE 2MG/ML SYRINGE 0.25 MG IV ×2 (00:01→07:52)
[2025-06-24] MEDS: ONDANSETRON 4MG/2ML VIAL 4 MG IV (00:01)
[2025-06-24] MEDS: POTASSIUM CHLORIDE 20MEQ TAB 20 MEQ PO (00:13)
[2025-06-24 00:16] LABS: PTT Heparin (inpatient only) 35.0 Seconds (50-75)
--- NOTE | 2025-06-24 00:16 | PC.NURSE ---
Notified Dr. Espinoza of critical APTT at 0012
[2025-06-24] MEDS: LIDOCAINE 5% TRANSDERMAL PATCH 1 EACH TD (00:19)
--- NOTE | 2025-06-24 01:12 | PC.NURSE ---
Patient arrived to floor via stretcher from ED at 01:00.
--- NOTE | 2025-06-24 01:35 | P.HP_ITS ---
<Statement entered by Hema Peterson MD - 06/24/25 11:10> Rounded on patient after nurse practitioner. Personally examined and interviewed patient. Agree with exam findings and care plan as documented. History of Present Illness *Admission Date: 06/24/25 *Reason for visit:: Right lower extremity swelling *History of present illness: This is a 74-year-old female with a past medical history of CAD, hypertension, hyperlipidemia, back pain and recent PE thrombectomy discharged on 06/21/2025 presents back to the emergency department today with complaints of right lower extremity edema. She reports seeing Shea Viveros in office today as a follow-up visit for her recent thrombectomy. She had no complaints at that time. She was told by the office that she had any abnormalities of her right lower extremity to present back to the emergency department. Ms. Mclain states that she had some notable swelling to her right lower leg just above the malleolus and was concerned given the information she was given at the office about following up for lower extremity edema. She is also endorses mild shortness of breath but states otherwise has been doing well the last 2 days. She denies any chest pain. Denies any bleeding from her right groin catheter access site. She reports being compliant with her home Xarelto but does admit to not taking aspirin in the last 2 days. CTA chest abdomen pelvis was obtained and notable for hypodensities throughout the right superficial femoral vein consistent with thrombosis. IVC and bilateral iliac veins are unremarkable. Also notable for minimal hypodensity of the left superficial femoral vein likely representing mixed artifact but cannot exclude nonocclusive thrombus. Given her new clot burden Dr. Payton was consulted and recommends therapeutic Lovenox dosing and will see patient in a.m. for further evaluation and planning. [facility] Disclaimer: The information contained in this section may have been updated after the patient was seen, as this information can be updated by other users. Medical History Hysterectomy planned Non-STEMI (non-ST elevated myocardial infarction) Elevated troponin Dyspnea Osteoarthritis Vitamin D deficiency Instability of left shoulder joint Thyroid lesion Cervical radicular pain Neuropathic pain Sequela of cerebrovascular accident JOSHUA (acute kidney injury) Parietal lobe infarction Ataxia Subclavian artery stenosis, right Dysarthria Cerebral infarction, watershed distribution, unilateral, acute Right sided numbness Aphasia Bilateral carotid artery stenosis Subclavian artery stenosis Dysphasia E. coli UTI (urinary tract infection) Hypokalemia UTI (urinary tract infection) Malignant hypertension Elevated BP without diagnosis of hypertension Avulsion of skin of right hand Fall Avulsion of skin of left hand Hematoma of frontal scalp Abrasion of face Laceration of nose Forehead laceration Surgical History H/O wrist surgery H/O: knee surgery History of hysterectomy Family History Other Family history of cancer Family history of hyperlipidemia Family history of hypertension Social History (Updated 06/24/25 @ 01:14 by Alka Malave RN) Smoking Status: Never smoker alcohol intake: never substance use type: denies use current occupational status: disabled Travel in the last 8 weeks?: None household members: none housing: house caffeine: Yes Have you lived/traveled outside [place] in past 30 days?: No Contact w/someone who lives/traveled outside [place] past 30 days?: No Exposure to someone with infectious disease in past 14 days?: No Do you have a fever (greater than 100.4 F or 38 C)?: No Have you tested positive for COVID-19?: No Exposed to someone with COVID-19 in past 14 days?: No Do you have a sore throat?: No Do you have a cough?: No Do you have any weakness?: No Are you experiencing any nausea/vomitting?: No Do you have any diarrhea?: No Are you experiencing any unusual bleeding?: No Do you have any muscle aches/pain?: No Do you have any abdominal pain?: No Are you experiencing loss of taste or smell?: No Other Medical History Have you received the Flu Vaccine for this season: No Have you received the Pneumonia Vaccine: No Review of Systems Review of Systems Review of systems:: pertinent systems reviewed and negative unless documented below Review of systems (narrative): Negative except for HPI Meds Home Medications and Allergies Home Medications ?Medication ?Instructions ?Recorded ?Confirmed ?Type amlodipine 5 mg tablet 5 mg PO DAILY #90 tabs 10/1306/23/25 Rx aspirin 81 mg tablet,delayed 81 mg PO DAILY #90 tabs 0 10/13/24 06/23/25 Rx release lisinopril 10 mg tablet 10 mg PO DAILY #90 tabs 05/0 09/0706/23/25 Rx carvedilol 6.25 mg tablet 6.25 mg PO BID #180 tabs 02/0406/23/25 Rx atorvastatin 40 mg tablet 40 mg PO HS 06/20/25 5 History ergocalciferol (vitamin D2) 1,250 1,250 mcg PO WEEKLY 06/20/25 06/23/25 History mcg (50,000 unit) capsule ondansetron HCl 4 mg tablet 4 mg PO Q8HP PRN Nausea An d 06/20/25 06/23/25 History Vomiting pantoprazole 40 mg tablet,delayed 40 mg PO HS #30 tabs 06/21/25 06/23/25 Rx release rivaroxaban 15 mg (42)-20 mg (9) See Rx Instructions P O .COMPLEX 06/21/25 06/23/25 Rx tablets in a starter pack (Xarelto #51 tabs DVT-PE Treatment 30-Day Starter) New Prescriptions to Start Prescriptions: Allergies Allergy/AdvReac Type Severity Reaction Status Date / Time codeine (CODEINE) Allergy Mild Confusion Verified 06/23/25 10:33 ibuprofen (IBUPROFEN) Allergy Unknown Confusion Verified 06/23/25 10:33 Exam Data for Last 24 hours Vital signs and Labs for Last 24 Hours: Temp Pulse Resp BP Pulse Ox O2 Del Method O2 Flow Rate 98.1 F 85 16 123/78 96 Room Air 2 06/24/25 01:13 06/24/25 01:13 06/24/25 01:13 06/24/25 01:13 06/24/25 01:13 06/24/25 01:13 06/23/25 21:59 Laboratory Results - last 24 hr 06/23/25 22:11: WBC 5.2, RBC 2.64 L, Hgb 8.0 L, Hct 23.4 L, MCV 88.6, MCH 30.3, MCHC 34.2, RDW 13.2, Plt Count 280, MPV 9.3, Neut % (Auto) 71.5, Lymph % (Auto) 12.3, [place] % (Auto) 11.2 H, Eos % (Auto) 2.7, Baso % (Auto) 0.4, Neut # (Auto) 3.7, Lymph # (Auto) 0.6 L, [place] # (Auto) 0.6, Eos # (Auto) 0.1, Baso # (Auto) 0. 0, PT 14.2 H, INR 1.30 H, APTT 36.7 H 06/23/25 22:11: APTT 35.0 L, Sodium 138, Potassium 3.4 L D, Chloride 104, Carbon Dioxide 21 L, Anion Gap 16.4 H, BUN 12, Creatinine 1.00, Estimated Creat Clear 57, Estimated GFR 54 L, Est GFR ( Amer) 66, Glucose 93, Calcium 8.9, Total Bilirubin 0.4, AST 39 H D, ALT 35 D, Alkaline Phosphatase 89, Troponin I 0.03, NT-Pro-B Natriuret Pep 343 H, Total Protein 6.9, Albumin 4.0, Globulin 2.9, Albumin/Globulin Ratio 1.4 I & O for Last 24 hours: Intake & Output 06/21/25 06/22/25 06/23/25 06/24/25 23:59 23:59 23:59 23:59 Weight 73.482 kg 74.072 kg Constitutional Constitutional: no acute distress *Routine HEENT Exam Head: Present normocephalic Eye: Present EOMI and PERRL ENT: Present mucous membranes moist *Routine Neck Exam Neck: Present supple; Absent lymphadenopathy *Routine Respiratory Exam Respiratory: Present CTA bilaterally *Routine Cardiovascular Exam Cardiovascular: Present RRR *Routine Abdominal Exam Abdominal: Present soft and normoactive bowel sounds; Absent tenderness Comments: Right groin without any evidence of bleeding *Routine Rectal Exam Rectal:: deferred *Routine Genitalia Exam Genitalia:: deferred *Routine Extremities Exam Extremities: Absent cyanosis, clubbing or edema *Routine Skin Exam Skin: Present warm; Absent rash *Routine Neurological Exam Neurological: Present alert and oriented X3 Assessment and Plan *Assessment and plan (1) Acute deep vein thrombosis (DVT) of right lower extremity: Status: Acute Qualifiers: Affected thrombotic vein of extremity: femoral Qualified Code(s): I82.411 - Acute embolism and thrombosis of right femoral vein Category: Medical Code(s): I82.401 - Acute embolism and thrombosis of unspecified deep veins of right lower extremity (2) History of thrombectomy: Status: Acute Category: Surgical Code(s): Z98.890 - Other specified postprocedural states; Z86.718 - Personal history of other venous thrombosis and embolism (3) Pulmonary embolism: Status: Acute Qualifiers: Acute cor pulmonale presence: with acute cor pulmonale Chronicity: acute Pulmonary embolism type: other Qualified Code(s): I26.09 - Other pulmonary embolism with acute cor pulmonale Category: Medical Code(s): I26.99 - Other pulmonary embolism without acute cor pulmonale (4) HTN (hypertension): Status: Acute Qualifiers: Hypertension type: primary hypertension Qualified Code(s): I10 - Essential (primary) hypertension Category: Medical Code(s): I10 - Essential (primary) hypertension (5) HLD (hyperlipidemia): Status: Acute Qualifiers: Hyperlipidemia type: mixed hyperlipidemia Qualified Code(s): E78.2 - Mixed hyperlipidemia Category: Medical Code(s): E78.5 - Hyperlipidemia, unspecified (6) Debility: Status: Acute Category: Medical Code(s): R53.81 - Other malaise (7) Anemia: Status: Acute Qualifiers: Anemia type: other cause Other causes of anemia: other cause, not classified Qualified Code(s): D64.89 - Other specified anemias Category: Medical Code(s): D64.9 - Anemia, unspecified Plan #Acute DVT of right lower extremity CT scan with superficial femoral vein thrombus. IVC and bilateral iliac veins unremarkable Dr. Payton notified, will see patient in AM. Continue with therapeutic Lovenox dosing. Lovenox dosed by pharmacy given patient was on Xarelto last dose prior to arrival PT and DP pulses intact, left foot well-perfused. NPO #History of thrombectomy #History of pulmonary emboli CT scan of the chest with resolution of clot burden in the right main, upper lobar and lower lobar pulmonary arteries with minimal residual thrombus in the right posterior segment base right middle lobar and right lower lobe. Increased density of wedge-shaped consolidation of the posterior aspect of the right lobe which may be secondary to ischemic changes from recent PE Continued imaging findings suggestive of mild right heart strain Patient oxygenating well on room air. Speaking in full sentences in no distress. #HTN #HLD Continued amlodipine 5 mg daily Continue lisinopril 10 mg daily Continue carvedilol 6.25 mg twice daily Continue atorvastatin 40 mg at bedtime #GERD Continue pantoprazole 40 mg daily #Pain management with parenteral controlled substances multimodal pain medication
[2025-06-24 01:59] LABS: Troponin I < 0.01 ng/ml (0.00-0.034)
[2025-06-24 06:05] LABS: Hematocrit 23.0 % (37.0-47.0); Hemoglobin 7.8 g/dL (12.2-16.2); Immature Granulocytes % 1.9 %; Mean Corpuscular HGB Conc 33.9 g/dL (31.8-35.4); Mean Corpuscular Hemoglobin 30.1 pg (27.0-31.2); Mean Corpuscular Volume 88.8 fl (81-99); Nucleated Red Blood Cells % 0 %; Platelet Count 260 K/mm3 (142-424); Red Blood Count 2.59 M/mm3 (4.20-5.40); Red Cell Distribution Width-SD 41.6 fL; White Blood Count 5.2 K/mm3 (4.8-10.8)
[2025-06-24 06:26] LABS: Chloride 106 mmol/L (98-107); Potassium 4.4 mmoL/L (3.5-5.1); Sodium 137 mmol/L (136-145)
[2025-06-24 06:29] LABS: Anion Gap 15.4 mEq/L (5-15); Blood Urea Nitrogen 13 mg/dl (7-17); Calcium 8.4 mg/dl (8.4-10.2); Carbon Dioxide 20 mmol/L (22.0-30.0); Creatinine Clearance Estimated 58 mL/min (50-200); Creatinine,Serum 1.00 mg/dl (0.52-1.04); Estimated Glomerular Filt Rate 54 ml/min (>60); GFR (African American) 66 ML/MIN (>60); Glucose 99 mg/dl (74-100)
[2025-06-24 06:31] LABS: Troponin I < 0.01 ng/ml (0.00-0.034)
--- NOTE | 2025-06-24 07:44 | HMH.PHAINT1 ---
Pharmacy Intervention Comments: HOME MEDICATION LITS VERIFIED USING LIST FROM MOST RECENT DISCHARGE ON 06/21/25 FROM THIS FACILITY
[2025-06-24] MEDS: HYDROCODONE/APAP 5/325 MG TABLET 1 TAB PO (08:53)
[2025-06-24] MEDS: FUROSEMIDE 40MG/4ML VIAL 40 MG IV (08:53)
--- NOTE | 2025-06-24 09:23 | P.CONCA_ITS ---
History of Present Illness History of Present Illness Consult date: 06/24/25 Requesting physician: Hema Peterson Consult reason: known to you Chief complaint: Right lower extremity edema History of present illness: This is a 74-year-old female presented to the emergency department with right lower extremity edema. She is status post PE thrombectomy and being discharged from the hospital on 06/21/2025. The patient was in cardiology clinic yesterday with no dates. She Jose presented to the ER last night with complaints of right lower extremity edema around her ankles that appeared out of nowhere. She states that she was told that if she had any swelling or knots to her right leg then she was to come back to the emergency department so that is what she said because the swelling made her very anxious because this was something new for her. She does state that she has some mild shortness of breath with exertion at times but this is still much better than it was before having the thrombectomy. It improves with rest. She denies a cough. She denies chest pain or pressure. No fever, chills, nausea, vomiting, diarrhea, PND, or orthopnea. [facility] Disclaimer: The information contained in this section may have been updated after the patient was seen, as this information can be updated by other users. Medical History Hysterectomy planned Non-STEMI (non-ST elevated myocardial infarction) Elevated troponin Dyspnea Osteoarthritis Vitamin D deficiency Instability of left shoulder joint Thyroid lesion Cervical radicular pain Neuropathic pain Sequela of cerebrovascular accident JOSHUA (acute kidney injury) Parietal lobe infarction Ataxia Subclavian artery stenosis, right Dysarthria Cerebral infarction, watershed distribution, unilateral, acute Right sided numbness Aphasia Bilateral carotid artery stenosis Subclavian artery stenosis Dysphasia E. coli UTI (urinary tract infection) Hypokalemia UTI (urinary tract infection) Malignant hypertension Elevated BP without diagnosis of hypertension Avulsion of skin of right hand Fall Avulsion of skin of left hand Hematoma of frontal scalp Abrasion of face Laceration of nose Forehead laceration Surgical History H/O wrist surgery H/O: knee surgery History of hysterectomy Family History Other Family history of cancer Family history of hyperlipidemia Family history of hypertension Social History (Updated 06/24/25 @ 01:14 by Alka Malave RN) Smoking Status: Never smoker alcohol intake: never substance use type: denies use current occupational status: disabled Travel in the last 8 weeks?: None household members: none housing: house caffeine: Yes Have you lived/traveled outside [place] in past 30 days?: No Contact w/someone who lives/traveled outside [place] past 30 days?: No Exposure to someone with infectious disease in past 14 days?: No Do you have a fever (greater than 100.4 F or 38 C)?: No Have you tested positive for COVID-19?: No Exposed to someone with COVID-19 in past 14 days?: No Do you have a sore throat?: No Do you have a cough?: No Do you have any weakness?: No Are you experiencing any nausea/vomitting?: No Do you have any diarrhea?: No Are you experiencing any unusual bleeding?: No Do you have any muscle aches/pain?: No Do you have any abdominal pain?: No Are you experiencing loss of taste or smell?: No Review of Systems Review of Systems Review of systems:: pertinent systems reviewed and negative unless documented below Constitutional Constitutional: Reports system reviewed and no additional complaints, except as documented Eyes Eyes: Reports system reviewed and no additional complaints, except as documented ENT Ears, Nose, Mouth, and Throat: Reports system reviewed and no additional complaints, except as documented *Cardiovascular Cardiovascular: Reports system reviewed and no additional complaints, except as documented, Reports dyspnea on exertion and Reports leg edema (Right lower extremity edema around the ankle) *Respiratory Respiratory: Reports system reviewed and no additional complaints, except as documented and Reports dyspnea on exertion *Gastrointestinal Gastrointestinal: Reports system reviewed and no additional complaints, except as documented *Genitourinary Genitourinary: Reports system reviewed and no additional complaints, except as documented *Musculoskeletal Musculoskeletal: Reports system reviewed and no additional complaints, except as documented Integumentary/Breasts Skin/Breast: Reports system reviewed and no additional complaints, except as documented *Neurologic Neurologic: Reports system reviewed and no additional complaints, except as doc umented Psychiatric Psychiatric: Reports system reviewed and no additional complaints, except as documented Endocrine Endocrine: Reports system reviewed and no additional complaints, except as documented Hematologic/Lymphatic Hematologic/Lymphatic: Reports system reviewed and no additional complaints, except as documented Allergic/Immunologic Allergic/Immunologic: Reports system reviewed and no additional complaints, except as documented Exam Data for Last 24 hours Vital signs and Labs for Last 24 Hours: Temp Pulse Resp BP Pulse Ox O2 Del Method O2 Flow Rate 97.8 F 82 18 125/71 98 Room Air 2 06/24/25 08:00 06/24/25 08:00 06/24/25 08:00 06/24/25 08:00 06/24/25 08:00 06/24/25 08:00 06/23/25 21:59 Laboratory Results - last 24 hr 06/23/25 22:11: WBC 5.2, RBC 2.64 L, Hgb 8.0 L, Hct 23.4 L, MCV 88.6, MCH 30.3, MCHC 34.2, RDW 13.2, Plt Count 280, MPV 9.3, Neut % (Auto) 71.5, Lymph % (Auto) 12.3, [place] % (Auto) 11.2 H, Eos % (Auto) 2.7, Baso % (Auto) 0.4, Neut # (Auto) 3.7, Lymph # (Auto) 0.6 L, [place] # (Auto) 0.6, Eos # (Auto) 0.1, Baso # (Auto) 0.0, PT 14.2 H, INR 1.30 H, APTT 36.7 H 06/23/25 22:11: APTT 35.0 L, Sodium 138, Potassium 3.4 L D, Chloride 104, Carbon Dioxide 21 L, Anion Gap 16.4 H, BUN 12, Creatinine 1.00, Estimated Creat Clear 57, Estimated GFR 54 L, Est GFR ( Amer) 66, Glucose 93, Calcium 8.9, Total Bilirubin 0.4, AST 39 H D, ALT 35 D, Alkaline Phosphatase 89, Troponin I 0.03, NT-Pro-B Natriuret Pep 343 H, Total Protein 6.9, Albumin 4.0, Globulin 2.9, Albumin/Globulin Ratio 1.4 06/24/25 01:19: Troponin I < 0.01 06/24/25 05:30: WBC 5.2, RBC 2.59 L, Hgb 7.8 L, Hct 23.0 L, MCV 88.8, MCH 30.1, MCHC 33.9, RDW 13.0, Plt Count 260, MPV 9.5, Neut % (Auto) 71.2, Lymph % (Auto) 12.0, [place] % (Auto) 11.8 H, Eos % (Auto) 2.7, Baso % (Auto) 0.4, Neut # (Auto) 3.7, Lymph # (Auto) 0.6 L, [place] # (Auto) 0.6, Eos # (Auto) 0.1, Baso # (Auto) 0.0, Sodium 137, Potassium 4.4 D, Chloride 106, Carbon Dioxide 20 L, Anion Gap 15.4 H, BUN 13, Creatinine 1.00, Estimated Creat Clear 58, Estimated GFR 54 L, Est GFR ( Amer) 66, Glucose 99, Calcium 8.4, Troponin I < 0.01 I & O for Last 24 hours: Intake & Output 06/21/25 06/22/25 06/23/25 06/24/25 23:59 23:59 23:59 23:59 Output Total 120 / 120 Balance -120 / -120 Weight 162 lb 165 lb 6.4 oz Constitutional Constitutional: no acute distress and average body habitus *Routine HEENT Exam Head: Present normocephalic and atraumatic ENT: Present mucous membranes moist *Routine Neck Exam Neck: Present supple, full ROM and normal carotid upstroke; Absent JVD, carotid bruit or lymphadenopathy *Routine Respiratory Exam Respiratory: Present CTA bilaterally, normal respiratory effort, able to speak in complete sentences and symmetric chest movement *Routine Cardiovascular Exam Cardiovascular: Present RRR, Normal S1 and Normal S2; Absent murmur or gallop *Routine Abdominal Exam Abdominal: Present soft and normoactive bowel sounds; Absent tenderness, distended or organomegaly *Routine Extremities Exam Extremities: Present full ROM, pulses intact and normal capillary refill; Absent cyanosis, clubbing or edema *Routine Skin Exam Skin: Present intact and warm; Absent erythema *Routine Neurological Exam Neurological: Present alert, oriented X3 and CN II-XII intact; Absent sensory deficit or motor deficit Routine Psychiatric Exam Psychiatric: Present normal affect Meds Home Medications and Allergies Home Medications ?Medication ?Instructions ?Recorded ?Confirmed ?Type amlodipine 5 mg tablet 5 mg PO DAILY #90 tabs 10/1306/24/25 Rx aspirin 81 mg tablet,delayed 81 mg PO DAILY #90 tabs 0 4/02/25 12/12/25 Rx release lisinopril 10 mg tablet 10 mg PO DAILY #90 tabs 05/0 09/0706/24/25 Rx carvedilol 6.25 mg tablet 6.25 mg PO BID #180 tabs 02/0406/24/25 Rx atorvastatin 40 mg tablet 40 mg PO HS 06/20/25 5 History ergocalciferol (vitamin D2) 1,250 1,250 mcg PO WEEKLY 06/20/25 06/24/25 History mcg (50,000 unit) capsule ondansetron HCl 4 mg tablet 4 mg PO Q8HP PRN Nausea An d 06/20/25 06/24/25 History Vomiting pantoprazole 40 mg tablet,delayed 40 mg PO HS #30 tabs 06/21/25 06/24/25 Rx release rivaroxaban 15 mg (42)-20 mg (9) 1 tab PO DIRECTED 06/24/25 06/24/25 History tablets in a starter pack (Xarelto DVT-PE Treatment 30-Day Starter) New Prescriptions to Start Prescriptions: Allergies Allergy/AdvReac Type Severity Reaction Status Date / Time codeine (CODEINE) Allergy Mild Confusion Verified 06/23/25 10:33 ibuprofen (IBUPROFEN) Allergy Unknown Confusion Verified 06/23/25 10:33 Assessment and Plan *Assessment and plan (1) Acute deep vein thrombosis (DVT) of right lower extremity: Status: Acute Qualifiers: Affected thrombotic vein of extremity: femoral Qualified Code(s): I82.411 - Acute embolism and thrombosis of right femoral vein Category: Medical Code(s): I82.401 - Acute embolism and thrombosis of unspecified deep veins of right lower extremity (2) Pulmonary embolism: Status: Acute Qualifiers: Acute cor pulmonale presence: with acute cor pulmonale Chronicity: acute Pulmonary embolism type: other Qualified Code(s): I26.09 - Other pulmonary embolism with acute cor pulmonale Category: Medical Code(s): I26.99 - Other pulmonary embolism without acute cor pulmonale (3) History of thrombectomy: Status: Acute Category: Surgical Code(s): Z98.890 - Other specified postprocedural states; Z86.718 - Personal history of other venous thrombosis and embolism (4) Anemia: Status: Acute Qualifiers: Anemia type: other cause Other causes of anemia: other cause, not classified Qualified Code(s): D64.89 - Other specified anemias Category: Medical Code(s): D64.9 - Anemia, unspecified (5) HTN (hypertension): Status: Acute Qualifiers: Hypertension type: primary hypertension Qualified Code(s): I10 - Essential (primary) hypertension Category: Medical Code(s): I10 - Essential (primary) hypertension (6) HLD (hyperlipidemia): Status: Acute Qualifiers: Hyperlipidemia type: mixed hyperlipidemia Qualified Code(s): E78.2 - Mixed hyperlipidemia Category: Medical Code(s): E78.5 - Hyperlipidemia, unspecified Plan Plan: 1. The patient presented to the emergency department for right lower extremity edema. She is found to have a thrombus in the right superficial femoral vein consistent with thrombosis. She has been getting IV Lovenox. Prior to discharge home she need to be reinitiated on Xarelto 15 mg p.o. twice daily for 21 days, then 20 mg daily thereafter for at least 6 months. 2. The patient had a recent PE status post thrombectomy. CT does show re solution of the clot burden within the right main, upper lobular and lower lobular pulmonary arteries. There is still minimal residual thrombus noted in the right upper lobe posterior basal segmental, right middle lobular and right lower lobe posterior basal segmental pulmonary arteries. As mentioned above she is getting Lovenox and will need to be converted to Xarelto prior to discharge home. 3. CTA of the chest also shows some residual mild right heart strain and a small right-sided pleural effusion. Will give her Lasix 40 mg IV x 1 dose today and then she will need to be discharged on low-dose Lasix 20 mg daily. 4. Her blood pressure is well-controlled. 5. Her LDL goal is less than then 100. Her LDL is 31. 6. Anemia is present with a hemoglobin down to 7.8. Will defer this to the hospitalist. She will need to remain on anticoagulation due to her PE and DVT. She has been referred to hematology on an outpatient basis for her anemia and unprovoked PE/DVT. 7. No further recommendations at this time from a cardiac standpoint. The patient can be discharged home on Xarelto for anticoagulation and low-dose Lasix. She will need to follow-up in cardiology clinic next week with a CBC prior to her appointment. Thank you for the opportunity to help participate in the care of this patient. All recommendations and orders are per Dr. Jennings.
--- NOTE | 2025-06-24 10:13 | EXP.DC.SUM ---
General Admission date:: 06/24/25 Discharge date: 06/24/25 HPI HPI HPI: This is a 74-year-old female with a past medical history of CAD, hypertension, hyperlipidemia, back pain and recent PE thrombectomy discharged on 06/21/2025 presents back to the emergency department today with complaints of right lower extremity edema. She reports seeing Shea Viveros in office today as a follow-up visit for her recent thrombectomy. She had no complaints at that time. She was told by the office that she had any abnormalities of her right lower extremity to present back to the emergency department. Ms. Mclain states that she had some notable swelling to her right lower leg just above the malleolus and was concerned given the information she was given at the office about following up for lower extremity edema. She is also endorses mild shortness of breath but states otherwise has been doing well the last 2 days. She denies any chest pain. Denies any bleeding from her right groin catheter access site. She reports being compliant with her home Xarelto but does admit to not taking aspirin in the last 2 days. CTA chest abdomen pelvis was obtained and notable for hypodensities throughout the right superficial femoral vein consistent with thrombosis. IVC and bilateral iliac veins are unremarkable. Also notable for minimal hypodensity of the left superficial femoral vein likely representing mixed artifact but cannot exclude nonocclusive thrombus. Given her new clot burden Dr. Payton was consulted and recommends therapeutic Lovenox dosing and will see patient in a.m. for further evaluation and planning. Hospital Course Hospital Course Hospital Course: 70-year-old female with recent admission for submassive PE necessitating thrombectomy. Was discharged on Xarelto. Presented to the ER yesterday with pain in her leg and knots in her ankle. Found to have superficial venous thrombosis. Admitted for IV Lovenox evaluation by cardiology in the morning. Remained stable on room air. Feeling better by morning. Discharged home with plan for close follow-up with cardiology. Problems addressed as follows: #Acute DVT of right lower extremity CT scan with superficial femoral vein thrombus. IVC and bilateral iliac veins unremarkable. Cardiology was consulted. Recommended therapeutic Lovenox. Evaluated in the morning but recommended against thrombectomy at this time. Given her response to Lovenox and improvement in her leg pain. Recommend continuing with anticoagulation on Xarelto as prescribed at previous admission. No change anticoagulation at this time. Follow-up with cardiology in the next 1 to 2 weeks for reevaluation. Will hold on any thrombectomy at this time. Did have some residual right heart strain noted on CTA of the chest. Administered 1 dose Lasix 40 mg IV. Continue Lasix 20 mg daily #History of thrombectomy #History of pulmonary emboli CT scan of the chest with resolution of clot burden in the right main, upper lobar and lower lobar pulmonary arteries with minimal residual thrombus in the right posterior segment base right middle lobar and right lower lobe. Increased density of wedge-shaped consolidation of the posterior aspect of the right lobe which may be secondary to ischemic changes from recent PE Continued imaging findings suggestive of mild right heart strain Patient oxygenating well on room air. Speaking in full sentences in no distress. #HTN #HLD Continued amlodipine 5 mg daily Continue lisinopril 10 mg daily Continue carvedilol 6.25 mg twice daily Continue atorvastatin 40 mg at bedtime #GERD Continue pantoprazole 40 mg daily Exam Data for Last 24 hours Vital signs and Labs for Last 24 Hours: Temp Pulse Resp BP Pulse Ox O2 Del Method O2 Flow Rate 97.8 F 82 18 125/71 98 Room Air 2 06/24/25 08:00 06/24/25 08:00 06/24/25 08:00 06/24/25 08:00 06/24/25 08:30 06/24/25 09:20 06/23/25 21:59 Laboratory Results - last 24 hr 06/23/25 22:11: WBC 5.2, RBC 2.64 L, Hgb 8.0 L, Hct 23.4 L, MCV 88.6, MCH 30.3, MCHC 34.2, RDW 13.2, Plt Count 280, MPV 9.3, Neut % (Auto) 71.5, Lymph % (Auto) 12.3, Evangeline % (Auto) 11.2 H, Eos % (Auto) 2.7, Baso % (Auto) 0.4, Neut # (Auto) 3.7, Lymph # (Auto) 0.6 L, Evangeline # (Auto) 0.6, Eos # (Auto) 0.1, Baso # (Auto) 0.0, PT 14.2 H, INR 1.30 H, APTT 36.7 H 06/23/25 22:11: APTT 35.0 L, Sodium 138, Potassium 3.4 L D, Chloride 104, Carbon Dioxide 21 L, Anion Gap 16.4 H, BUN 12, Creatinine 1.00, Estimated Creat Clear 57, Estimated GFR 54 L, Est GFR ( Amer) 66, Glucose 93, Calcium 8.9, Total Bilirubin 0.4, AST 39 H D, ALT 35 D, Alkaline Phosphatase 89, Troponin I 0.03, NT-Pro-B Natriuret Pep 343 H, Total Protein 6.9, Albumin 4.0, Globulin 2.9, Albumin/Globulin Ratio 1.4 06/24/25 01:19: Troponin I < 0.01 06/24/25 05:30: WBC 5.2, RBC 2.59 L, Hgb 7.8 L, Hct 23.0 L, MCV 88.8, MCH 30.1, MCHC 33.9, RDW 13.0, Plt Count 260, MPV 9.5, Neut % (Auto) 71.2, Lymph % (Auto) 12.0, Evangeline % (Auto) 11.8 H, Eos % (Auto) 2.7, Baso % (Auto) 0.4, Neut # (Auto) 3.7, Lymph # (Auto) 0.6 L, Evangeline # (Auto) 0.6, Eos # (Auto) 0.1, Baso # (Auto) 0.0, Sodium 137, Potassium 4.4 D, Chloride 106, Carbon Dioxide 20 L, Anion Gap 15.4 H, BUN 13, Creatinine 1.00, Estimated Creat Clear 58, Estimated GFR 54 L, Est GFR ( Amer) 66, Glucose 99, Calcium 8.4, Troponin I < 0.01 I & O for Last 24 hours: Intake & Output 06/21/25 06/22/25 06/23/25 06/24/25 23:59 23:59 23:59 23:59 Output Total 120 / 120 Balance -120 / -120 Weight 73.482 kg 75.024 kg Constitutional Constitutional: no acute distress, average body habitus, chronically ill appearing and cooperative *Routine HEENT Exam Head: Present normocephalic and atraumatic Eye: Present EOMI ENT: Present mucous membranes moist *Routine Neck Exam Neck: Present supple and full ROM; Absent JVD, carotid bruit or lymphadenopathy *Routine Respiratory Exam Respiratory: Present CTA bilaterally, normal respiratory effort, able to speak in complete sentences and symmetric chest movement; Absent wheezes or crackles *Routine Cardiovascular Exam Cardiovascular: Present RRR, Normal S1 and Normal S2; Absent murmur or gallop *Routine Abdominal Exam Abdominal: Present soft and normoactive bowel sounds; Absent tenderness, distended or organomegaly *Routine Rectal Exam Patient deferred: visual exam *Routine Exam Patient deferred: external exam *Routine Extremities Exam Extremities: Present full ROM, pulses intact and normal capillary refill; Absent cyanosis, clubbing or edema Comments: No palpable cord in right lower extremity at time of discharge *Routine Skin Exam Skin: Present intact and warm; Absent erythema *Routine Neurological Exam Neurological: Present alert, oriented X3, CN II-XII intact and normal speech; Absent sensory deficit or motor deficit Routine Psychiatric Exam Psychiatric: Present normal affect Results Data Completed and Pending Labs on day of discharge: Labs from last 24 hours 06/24/25 06/24/25 06/23/25 05:30 01:19 22:11 WBC 5.2 RBC 2.59 L Hgb 7.8 L Hct 23.0 L MCV 88.8 MCH 30.1 MCHC 33.9 RDW 13.0 Plt Count 260 MPV 9.5 Neut % (Auto) 71.2 Lymph % (Auto) 12.0 Evangeline % (Auto) 11.8 H Eos % (Auto) 2.7 Baso % (Auto) 0.4 Neut # (Auto) 3.7 Lymph # (Auto) 0.6 L Evangeline # (Auto) 0.6 Eos # (Auto) 0.1 Baso # (Auto) 0.0 PT INR APTT 35.0 L Sodium 137 138 Potassium 4.4 D 3.4 L D Chloride 106 104 Carbon Dioxide 20 L 21 L Anion Gap 15.4 H 16.4 H BUN 13 12 Creatinine 1.00 1.00 Estimated Creat Clear 58 57 Estimated GFR 54 L 54 L Est GFR ( Amer) 66 66 Glucose 99 93 Calcium 8.4 8.9 Total Bilirubin 0.4 AST 39 H D ALT 35 D Alkaline Phosphatase 89 Troponin I < 0.01 < 0.01 0.03 NT-Pro-B Natriuret Pep 343 H Total Protein 6.9 Albumin 4.0 Globulin 2.9 Albumin/Globulin Ratio 1.4 06/23/25 22:11 WBC 5.2 RBC 2.64 L Hgb 8.0 L Hct 23.4 L MCV 88.6 MCH 30.3 MCHC 34.2 RDW 13.2 Plt Count 280 MPV 9.3 Neut % (Auto) 71.5 Lymph % (Auto) 12.3 Evangeline % (Auto) 11.2 H Eos % (Auto) 2.7 Baso % (Auto) 0.4 Neut # (Auto) 3.7 Lymph # (Auto) 0.6 L Evangeline # (Auto) 0.6 Eos # (Auto) 0.1 Baso # (Auto) 0.0 PT 14.2 H INR 1.30 H APTT 36.7 H Sodium Potassium Chloride Carbon Dioxide Anion Gap BUN Creatinine Estimated Creat Clear Estimated GFR Est GFR ( Amer) Glucose Calcium Total Bilirubin AST ALT Alkaline Phosphatase Troponin I NT-Pro-B Natriuret Pep Total Protein Albumin Globulin Albumin/Globulin Ratio DS: Diagnosis Discharge Diagnosis (1) Acute deep vein thrombosis (DVT) of right lower extremity: Status: Acute Code(s): I82.401 - Acute embolism and thrombosis of unspecified deep veins of right lower extremity Qualifiers: Affected thrombotic vein of extremity: femoral Qualified Code(s): I82.411 - Acute embolism and thrombosis of right femoral vein (2) Pulmonary embolism: Status: Acute Code(s): I26.99 - Other pulmonary embolism without acute cor pulmonale Qualifiers: Acute cor pulmonale presence: with acute cor pulmonale Chronicity: acute Pulmonary embolism type: other Qualified Code(s): I26.09 - Other pulmonary embolism with acute cor pulmonale (3) History of thrombectomy: Status: Acute Code(s): Z98.890 - Other specified postprocedural states; Z86.718 - Personal history of other venous thrombosis and embolism (4) Anemia: Status: Acute Code(s): D64.9 - Anemia, unspecified Qualifiers: Anemia type: other cause Other causes of anemia: other cause, not classified Qualified Code(s): D64.89 - Other specified anemias (5) HTN (hypertension): Status: Acute Code(s): I10 - Essential (primary) hypertension Qualifiers: Hypertension type: primary hypertension Qualified Code(s): I10 - Essential (primary) hypertension (6) HLD (hyperlipidemia): Status: Acute Code(s): E78.5 - Hyperlipidemia, unspecified Qualifiers: Hyperlipidemia type: mixed hyperlipidemia Qualified Code(s): E78.2 - Mixed hyperlipidemia Meds Home Medications and Allergies Home Medications ?Medication ?Instructions ?Recorded ?Confirmed ?Type amlodipine 5 mg tablet 5 mg PO DAILY #90 tabs 10/13/24 06/24/25 Rx aspirin 81 mg tablet,delayed 81 mg PO DAILY #90 tabs 10/13/24 06/24/25 Rx release lisinopril 10 mg tablet 10 mg PO DAILY #90 tabs 11/12/24 06/24/25 Rx carvedilol 6.25 mg tablet 6.25 mg PO BID #180 tabs 01/17/25 06/24/25 Rx atorvastatin 40 mg tablet 40 mg PO HS 06/20/25 06/24/25 History ergocalciferol (vitamin D2) 1,250 1,250 mcg PO WEEKLY 06/20/25 06/24/25 History mcg (50,000 unit) capsule ondansetron HCl 4 mg tablet 4 mg PO Q8HP PRN Nausea And 06/20/25 06/24/25 History Vomiting pantoprazole 40 mg tablet,delayed 40 mg PO HS #30 tabs 06/21/25 06/24/25 Rx release furosemide 20 mg tablet (Lasix) 20 mg PO DAILY #30 tabs 06/24/25 Rx rivaroxaban 15 mg (42)-20 mg (9) 1 tab PO DIRECTED 06/24/25 06/24/25 History tablets in a starter pack (Xarelto DVT-PE Treatment 30-Day Starter) New Prescriptions to Start Prescriptions: furosemide [Lasix] Hema Peterson Allergies Allergy/AdvReac Type Severity Reaction Status Date / Time codeine (CODEINE) Allergy Mild Confusion Verified 06/23/25 10:33 ibuprofen (IBUPROFEN) Allergy Unknown Confusion Verified 06/23/25 10:33 Discharge Plan Disposition Patient Disposition: Home, Self-Care Condition: Good Follow up Plan Follow up with: Marlyn Diaz APRN [Nurse Practitioner, Cardiology] - 06/30/25 8:45 am Anaid Cobb APRN [Primary Care Provider, Family Practice] - 06/30/25 3:00 pm Prescriptions/Medication Reconciliation: New furosemide [Lasix] 20 mg tablet 20 mg PO DAILY Qty: 30 0RF Continued aspirin 81 mg tablet,delayed release (DR/EC) 81 mg PO DAILY Qty: 90 3RF amlodipine 5 mg tablet 5 mg PO DAILY Qty: 90 3RF lisinopril 10 mg tablet 10 mg PO DAILY Qty: 90 2RF carvedilol 6.25 mg tablet 6.25 mg PO BID Qty: 180 1RF atorvastatin 40 mg tablet 40 mg PO HS ondansetron HCl 4 mg tablet 4 mg PO Q8HP PRN (Reason: Nausea And Vomiting) ergocalciferol (vitamin D2) 1,250 mcg (50,000 unit) capsule 1,250 mcg PO WEEKLY pantoprazole 40 mg Tablet,Delayed Release (Dr/Ec) 40 mg PO HS Qty: 30 0RF Xarelto DVT-PE Treat 30d Start 15 mg (42)- 20 mg (9) tablets,dose pack 1 tab PO DIRECTED Rx Instructions: take one-15 mg tablet twice daily for 21 days, then one-20 mg tablet once daily; must take with meal/food Problem Reconciliation Problems Reviewed?: Yes Patient Discharge Instructions ACTIVITY: Continue current activity DIET: continue same diet Patient Instructions: DI for Deep Vein Thrombosis, DI for Pulmonary Embolism Print Language: Belgian Providers Primary Care Provider: Anaid Cobb Admit Provider: Hema Peterson Attending Provider: Hema Peterson
--- NOTE | 2025-06-27 10:27 | SW/DCPLANNER ---
Spoke with patient on the phone. Patient stated that she is doing well. patient stated that she is aware of her upcoming appointments. Patient stated that she was able to get her new medicine picked up. Patient stated that she has no concerns or questions at this time. Melisa Lira
== END 2025-06-24 12:11 | disposition home or self-care (01) ==
LOC: ER 23:37 → 2ND 06-24 00:19
PROVIDERS: Emergency Medicine; Nurse Practitioner Acute Care; Admitting Provider Internal Medicine Adolescent Medicine; Emergency Provider Student in an Organized Health Care Education/Training Program; PCP Family Medicine; Visit Provider Internal Medicine Adolescent Medicine
DX: I82.411 Acute embolism and thrombosis of right femoral vein (principal); Z98.890 Other specified postprocedural states; Z86.718 Personal history of other venous thrombosis and embolism; I26.09 Other pulmonary embolism with acute cor pulmonale; I10 Essential (primary) hypertension; E78.2 Mixed hyperlipidemia; R53.81 Other malaise; D64.89 Other specified anemias; N17.9 Acute kidney failure, unspecified; Z86.73 Personal history of transient ischemic attack (TIA), and cerebral infarction without residual deficits; Z90.710 Acquired absence of both cervix and uterus; Z82.49 Family history of ischemic heart disease and other diseases of the circulatory system; Z88.5 Allergy status to narcotic agent; Z88.6 Allergy status to analgesic agent; Z79.899 Other long term (current) drug therapy; Z79.82 Long term (current) use of aspirin; I25.10 Atherosclerotic heart disease of native coronary artery without angina pectoris; K21.9 Gastro-esophageal reflux disease without esophagitis; J90 Pleural effusion, not elsewhere classified
CPT/HCPCS: 36415; 71045; 71275; 74177; 80048; 80053; 83880; 84484; 85025; 85610; 85730; 93005; 99285; G0378; J1171; J1650; J1938; J2405; Q9967

== ENCOUNTER 2025-06-29 14:28 | Outpatient (CLI) | payer MEDICARE, SELFPAY ==
[2025-06-29 15:10] LABS: Hematocrit 29.8 % (37.0-47.0); Hemoglobin 9.6 g/dL (12.2-16.2); Immature Granulocytes % 1.3 %; Mean Corpuscular HGB Conc 32.2 g/dL (31.8-35.4); Mean Corpuscular Hemoglobin 29.2 pg (27.0-31.2); Mean Corpuscular Volume 90.6 fl (81-99); Nucleated Red Blood Cells % 0 %; Platelet Count 446 K/mm3 (142-424); Red Blood Count 3.29 M/mm3 (4.20-5.40); Red Cell Distribution Width-SD 45.2 fL; White Blood Count 7.5 K/mm3 (4.8-10.8)
[2025-06-29 15:29] LABS: Iron 65 ug/dL (37-170)
[2025-06-29 15:39] LABS: Total Iron Binding Capacity 249 ug/dL (265-497)
--- OUTSIDE RECORDS SUMMARY | 2025-06-29 15:41 | XMS_ITS | Clinical Summary ---
Author Organization Healthcare Address [address] [place] [address] Care Team Providers Care Esthetician Permanent Makeup Artist Name Role Phone Pcp, No Primary Care [...] split. Active ergocalciferol (Vitamin D-2) 1.25 MG (78950 UT) capsule Take 1 capsule (50,000 Units) [...] place to sleep or slept in a fpc (including now)? No 03/22/2024 Utilities Answer Date Recorded In the past 12 months has th e [employer], gas, oil, or water company threatened to [...] of 2 - PCV) 04/18/2016 04/18/2015, 05/12/2014 [id number] Vaccine (1 - 2024- season) 2025 [facility]-Influenza Vaccine (#1) 03/14/202503/27, 04/29/2016, 04/26/2014, Additional history exists [facility]-RSV Vaccine: 60+ Years or (1 - 1-dose 75+ series) 2025 [facility]-DTaP,Tdap,and Td Vaccines (2 - Td or Tdap) 02/09/2033 02/09/2023 [facility]-Hepatitis C Screening Completed 03/21/2024 HPV Vaccines (No Doses Required) Completed [facility]-HIB Vaccines Aged Out No longer e [...] 3:46 AM EDT 03/21/2024 4:19 AM EDT cA Armendariz MD LAB BLOOD ORDERABLES Final Result Performing Organization Address City/State/[facility] Co de Phone Number [facility] [address] [place] [address] from Last 3 Months or Most Recently Relevant to Health Maintenance Insurance [employer] Advance Directives * Full Code (Latest Code Status on File) Date Activated Date Inactivated Comments 03/21/2024 6:59 AM 03/25/2024 10:15 PM Question Answer Comments Patient has decision-making capacity? Yes Care Teams Esthetician Permanent Makeup Artist Relationship Specialty Start Date End Date Pcp, No [address] [place] [address] PCP - General Family Medicine 02/20/24
--- OUTSIDE RECORDS SUMMARY | 2025-06-29 15:41 | XMS_ITS ---
Author Organization [facility] Care Team Providers Care Campaign Management Specialist Name Role Phone Leonor Berger Unavailable Unavailable Soin, Turner Unavailable Unavailable Lenore Wilson Unavailable Unavailable Abel Contreras Unavailable Unavailable Carmen Ding Unavailable Unavailable Allergies and adverse reactions Code CodeSystem Substance Reaction Severity StartDate Concern Status 2670 RXNORM Codeine Mild 04/01/2024 active 5640 RXNORM Ibuprofen Mild 04/01/2024 active Care Team Name Role Address Phone Organization Dates Abel Contreras PCP [address] , [place], [address], [facility] (Office): : : Del 04/02/2024 - 04/12/[address] [facility] (Office): [facility] 04/02/2024 - 04/12/2024 Turner Shafer [facility] (Office): [place] 04/02/2024 - 04/12/[address] [facility] (Office): [place] 04/02/2024 - 04/12/[address] [facility] (Office): [facility] 04/02/2024 - 04/12/2024 Goals Section Goals Description [...] information 2024 Code: 51 Code System OID:[id number] .[id number]. 5 Code System Name: Source of Payment Typology (PHDSC) Display: Managed Care (Private) Translation: Code: HM Code System: OID:[id number] .[id number]. 1336 Code System Name: Insurance Type Code ([id number]) Display Name: Health Maintenance Organization (HMO) Plan Code: SELF Code System Name: HL7 RoleCode Code System OID:[id number] .[id number] Display Name: Self [id number] Root: [id number] Payer Name: [employer] Address: [facility] [address] City: [place] State: [place] Country: [facility] Telecom: [phone] Code: 81 Code System OID:[id number] .[id number]. 5 Code System Name: Source of Payment Typology (PHDSC) Display: Self Pay Translation: Code: 09 Code System: OID:[id number] .[id number]. 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 04/02/[address] active 2 CEREBRAL INFARCTION, UNSPECIFIED 04/02/2004/02/[address] completed 3 DEFECTS IN THE COMPLEMENT SYSTEM 04/02/[address] active 4 FRACTURE OF SUPERIOR RIM OF RIGHT PUBIS, SUBSEQUENT ENCOUNTER FOR FRACTURE WITH ROUTINE HEALING 04/02/[address] active 5 GASTRO-ESOPHAGEAL REFLUX DISEASE WITHOUT ESOPHAGITIS 04/02/[address] active 6 HEMIPLEGIA AND HEMIPARESIS FOLLOWING CEREBRAL INFARCTION AFFECTING RIGHT DOMINANT SIDE 04/02/[address] active 7 MUSCLE WASTING AND ATROPHY, NOT ELSEWHERE CLASSIFIED, UNSPECIFIED SITE 04/02/[address] active 8 MUSCLE WEAKNESS (GENERALIZED) 04/02/[address] active 9 NEED FOR ASSISTANCE WITH PERSONAL CARE 04/02/[id number] active 10 OTHER SPECIFIED FRACTURE OF RIGHT PUBIS, SUBSEQUENT ENCOUNTER FOR FRACTURE WITH ROUTINE HEALING 04/02/[address] active 11 PAIN IN RIGHT HIP 04/02/[address] active 12 UNSPECIFIED ABNORMALITIES OF GAIT AND MOBILITY 04/02/[address] active 13 UNSPECIFIED ZONE I FRACTURE OF SACRUM, SUBSEQUENT ENCOUNTER FOR FRACTURE WITH ROUTINE HEALING 04/02/[address] active 14 VITAMIN D DEFICIENCY, UNSPECIFIED 04/02/[address] active 15 RETENTION OF URINE, UNSPECIFIED 03/25/[address] active 16 ESSENTIAL (PRIMARY) HYPERTENSION 03/21/[address] active 17 OTHER HYPERLIPIDEMIA 03/21/[address] active Reason for Referral No Reasons for Referral Entered Social History Social History Observation Description Start Date End Date Code Code System Current Smoking Status Tobacco smoking consumption unknown 197303121 SNOMED CT Sex Assigned At Female 1950 49193-8 [facility] Gender Identity Sexual Orientation Vital Signs Code Code System Vitals Name Values and Units Timing Information 27777-8 [facility] Pain Level Value=0.0 04/12/2024 8462-4 [facility] Blood Pressure-Diastolic Value=74 Un its=mmHg 04/11/2024 8480-6 [facility] Blood Pressure-Systolic Djgxu=172 Un its=mmHg 04/11/2024 8867-4 [facility] Heart rate Value=90.0 Units=/min 9279-1 INC Respiratory Rate Value=18.0 Units=/m in 04/11/2024 26166-8 [facility] Weight Fptaq=928.4 Units=Lbs 94112-8 INC O2 % BldC Oximetry Value=96.0 Units= % 04/05/2024 8302-2 [facility] Height Value=66.0 Units=Inches 04/02/2024 8310-5 [facility] Body Temperature Value=98.0 Units= F 04/02/2024
[2025-06-29 16:05] LABS: Ferritin 187 ng/ml (11.1-264)
== END 2025-06-29 23:59 | disposition home or self-care (01) ==
LOC: LAB 14:28
PROVIDERS: PCP Family Medicine; Visit Provider Internal Medicine Medical Oncology
DX: D64.9 Anemia, unspecified (principal)
CPT/HCPCS: 36415; 82728; 83540; 83550; 85025